=== PATIENT | male | born 1940 | race Two or more races ===

== ENCOUNTER → 2017-09-08 06:18 | Outpatient (CLI) | payer MEDICARE, SELFPAY ==
--- NOTE | 2017-09-08 18:11 | STRESSREP ---
Stress Test Report Pharmacologic myocardial perfusion stress test. 77-year-old man with a history of shortness of breath and a previous history of atrial fibrillation. Stress protocol: Resting EKG demonstrates normal sinus rhythm with a rate of 52 bpm normal intervals and noted resting blood pressure is 144/86 centimeters of mercury. 0.4 mg regadenoson was infused per usual protocol followed by rapid intravenous saline flush injection continuous EKG monitoring was performed the maximum heart rate attained was 78 bpm which was 53% maximum target heart rate the maximum workload was 1 metabolic equivalent. At rest there were no ST or T-wave changes noted to suggest abnormal flow reserve at peak infusion no ST or T-wave changes were noted to suggest abnormal flow reserve. No clinical angina was noted. The resting blood pressure is 144/86 with a final blood pressure 126/74. Myocardial perfusion protocol: 11.2 mCi of technetium 99m sestamibi was injected at rest. 0.4 mg of regadenoson was infused per usual protocol. Peak infusion 36.0 mCi of technetium 99m sestamibi was injected. Stress images were obtained stress and rest images were reconstructed and compared in the short axis vertical long and horizontal long axis. Gated images were also obtained pre- Perfusion SPECT analysis: Review of the stress images demonstrate normal uptake of tracer noted in all areas of the myocardium. The resting images similarly demonstrate normal uptake of tracer noted in all areas of the myocardium. No previous infarct is noted and no ischemia is noted. Gated SPECT analysis: The gated ejection fraction is noted to be 87%. Conclusion: Normal pharmacologic myocardial perfusion stress test. Preserved ejection fraction.
--- NOTE | 2017-09-08 18:14 | STRESSREP_ITS ---
Stress Test Report Pharmacologic myocardial perfusion stress test. 77-year-old man with a history of shortness of breath and a previous history of atrial fibrillation. Stress protocol: Resting EKG demonstrates normal sinus rhythm with a rate of 52 bpm normal intervals and noted resting blood pressure is 144/86 centimeters of mercury. 0.4 mg regadenoson was infused per usual protocol followed by rapid intravenous saline flush injection continuous EKG monitoring was performed the maximum heart rate attained was 78 bpm which was 53% maximum target heart rate the maximum workload was 1 metabolic equivalent. At rest there were no ST or T- wave changes noted to suggest abnormal flow reserve at peak infusion no ST or T- wave changes were noted to suggest abnormal flow reserve. No clinical angina was noted. The resting blood pressure is 144/86 with a final blood pressure 126 /74. Myocardial perfusion protocol: 11.2 mCi of technetium 99m sestamibi was injected at rest. 0.4 mg of regadenoson was infused per usual protocol. Peak infusion 36.0 mCi of technetium 99m sestamibi was injected. Stress images were obtained stress and rest images were reconstructed and compared in the short axis vertical long and horizontal long axis. Gated images were also obtained pre- Perfusion SPECT analysis: Review of the stress images demonstrate normal uptake of tracer noted in all areas of the myocardium. The resting images similarly demonstrate normal uptake of tracer noted in all areas of the myocardium. No previous infarct is noted and no ischemia is noted. Gated SPECT analysis: The gated ejection fraction is noted to be 87%. Conclusion: Normal pharmacologic myocardial perfusion stress test. Preserved ejection fraction.
== END ==
PROVIDERS: Family Provider Family Medicine Geriatric Medicine; PCP Family Medicine Geriatric Medicine; Visit Provider Internal Medicine Cardiovascular Disease
DX: I48.91 Unspecified atrial fibrillation (principal); R07.9 Chest pain, unspecified
CPT/HCPCS: 78452; 93017; A9500; A4216; J2785

== ENCOUNTER → 2017-09-29 07:03 | Outpatient (CLI) | payer MEDICARE, SELFPAY ==
[2017-09-29 10:21] LABS: AST(SGOT) 26 U/L (15-37); Alanine Aminotransfer ALT/SGPT 44 U/L (16-61); Albumin, Serum 3.6 g/dL (3.2-5.0); Alkaline Phosphatase 51 U/L (45-117); Anion Gap 10 (5-15); BUN 20 mg/dL (7-18); BUN/Creat Ratio 14.9 RATIO (10-20); Calcium,Total 8.8 mg/dL (8.5-10.1); Chloride 98 mmol/L (98-107); Cholesterol 140 mg/dL (200); Creatinine, Serum 1.34 mg/dL (0.70-1.30); EST Glomerular Filtration Rate 55 mL/min (>60); Est Glom Filt Rate - Afr Amer 67 mL/min (>60); Globulin 3.6 g/dL (2.2-4.2); Glucose 85 mg/dL (74-106); High Density Lipoprotein 56 mg/dL; Potassium 4.4 mmol/L (3.5-5.1); Protein, Total 7.2 g/dL (6.4-8.2); Sodium Level 135 mmol/L (136-145); Triglycerides 92 mg/dL; Very Low Density Lipoprotein 18 mg/dL (5-40)
== END ==
PROVIDERS: Family Provider Family Medicine Geriatric Medicine; PCP Family Medicine Geriatric Medicine; Visit Provider Internal Medicine Cardiovascular Disease
DX: I11.0 Hypertensive heart disease with heart failure (principal); I50.32 Chronic diastolic (congestive) heart failure
CPT/HCPCS: 36415; 80048; 80061; 80076

== ENCOUNTER → 2017-10-02 15:25 | Outpatient (CLI) | payer MEDICARE, SELFPAY ==
[2017-10-02 15:55] LABS: Absolute Lymphocyte Count 2.22 X10^3/ul (0.83-4.51); Absolute Neutrophil Count 3.9 X10^3/uL (2.0-7.7); Basophil# 0.04 X10^3/uL; Basophil% 0.6 % (0-1); Eosinophil# 0.22 X10^3/uL; Eosinophils% 3.1 % (0-5); Hematocrit 34.5 % (40-54); Hemoglobin 11.8 g/dl (13.0-16.5); Lymphocyte # 2.22 X10^3/ul (4.0); Lymphocyte % 30.8 % (19-41); Mean Corp Hgb Conc 34.2 g/gl (32-36); Mean Corpuscular Volume 61.3 fL (80-94); Monocyte# 0.77 X10^3/uL; Monocyte% 10.7 % (0-10); Neutrophil # 3.91 X10^3/uL (2.7-7.7); Neutrophil % 54.2 % (47-70); Platelet Count 254 K/mm3 (150-450); RBC Distribution Width CV 17.8 % (11.6-14.6); RBC Distribution Width SD 38.3 fl (35.1-43.9); Red Blood Count 5.63 M/mm3 (4.6-6.2); White Blood Count 7.2 K/mm3 (4.4-11.0)
[2017-10-02 15:58] LABS: POSITIVE COUNT NO; POSITIVE DIFFERENTIAL NO; POSITIVE MORPHOLOGY NO
[2017-10-02 16:31] LABS: Thyroid Stim Hormone (TSH) 2.14 uIU/mL (0.358-3.74)
[2017-10-02 16:57] LABS: Vitamin D,25 Hydroxy 16.2 ng/mL (29.95-100.01)
== END ==
PROVIDERS: Family Provider Family Medicine Geriatric Medicine; PCP Family Medicine Geriatric Medicine; Visit Provider Family Medicine Geriatric Medicine
DX: E55.9 Vitamin D deficiency, unspecified (principal); E78.4 Other hyperlipidemia; I10 Essential (primary) hypertension
CPT/HCPCS: 36415; 82306; 84443; 85025

== ENCOUNTER → 2017-10-04 10:56 | Outpatient (CLI) | payer MEDICARE, SELFPAY ==
--- NOTE | 2017-10-04 11:11 | US_ITS ---
STUDY: SUPERFICIAL ULTRASOUND - RT AXILLA REASON FOR EXAM: Male, 77 years old. RT AXILLA LYMPHADENOPATHY TECHNIQUE: A superficial ultrasound was performed with real-time and static bob-scale imaging. COMPARISON: None. FINDINGS: There is no evidence to suggest abscess formation. No focal fluid collections. Kidney shaped mass in the right axilla measuring 8.5 x 3.5 x 5 mm. This has a fatty hilum. US/Ext Non Vasc Limited/Soft Tiss IMPRESSION: 8.5 mm lymph node in the right axilla. Electronically Signed: Mykel Kaiser MD at 17:42 EDT , Service support ,
== END ==
PROVIDERS: Family Provider Family Medicine Geriatric Medicine; PCP Family Medicine Geriatric Medicine; Visit Provider Family Medicine Geriatric Medicine
DX: R59.0 Localized enlarged lymph nodes (principal)
CPT/HCPCS: 76882

== ENCOUNTER → 2017-11-20 07:59 | Day surgery (SDC) | payer MEDICARE, SELFPAY ==
--- NOTE | 2017-11-15 10:30 | RAD_ITS ---
STUDY: X-RAY CHEST REASON FOR EXAM: Male, 77 years old. Chest pain and shortness of breath TECHNIQUE: PA and lateral views of the chest. COMPARISON: 2010 FINDINGS: Lungs are expanded with chronic interstitial changes, no superimposed acute pulmonary process. There is no demonstrated pleural abnormality. Normal size heart. Normal mediastinum and ernestina. Normal visualized pulmonary arteries. Normal visualized aortic arch and descending thoracic aorta. Normal visualized thoracic spine. Normal visualized ribs, clavicles, and shoulders. There is no demonstrated abnormality of the visualized soft tissue structures of the upper abdomen. RAD/Chest PA and Lateral IMPRESSION: Chronic interstitial changes, no superimposed acute pulmonary process. Electronically Signed: Jeffrey Barrera MD at 8:11 EDT , Service support ,
--- NOTE | 2017-11-20 07:59 | DT_ITS ---
This patient was seen during an EMR downtime November 13, 2017 - November 20, 2017. This patient may have a combination of paper and electronic documentation or all paper documentation. All documentation is viewable within the e-chart portion of [employer] for each patient visit.
[2017-11-20 08:04] VITALS: BMI 26.8
[2017-11-20 12:24] LABS: Absolute Lymphocyte Count 2.14 X10^3/ul (0.83-4.51); Absolute Neutrophil Count 4.4 X10^3/uL (2.0-7.7); Basophil% 0.4 % (0-1); Eosinophils% 3.3 % (0-5); Hematocrit 38.7 % (40-54); Lymphocyte # 2.14 X10^3/ul (4.0); Mean Corp Hgb Conc 33.6 g/gl (32-36); Mean Corpuscular Hgb 20.7 pg (27.0-32.0); Mean Corpuscular Volume 61.5 fL (80-94); Monocyte% 9.6 % (0-10); Neutrophil # 4.42 X10^3/uL (2.7-7.7); Neutrophil % 57.9 % (47-70); POSITIVE COUNT NO; POSITIVE DIFFERENTIAL NO; POSITIVE MORPHOLOGY NO; Platelet Count 283 K/mm3 (150-450); RBC Distribution Width CV 16.6 % (11.6-14.6); Red Blood Count 6.29 M/mm3 (4.6-6.2); White Blood Count 7.6 K/mm3 (4.4-11.0)
[2017-11-20 12:25] LABS: International Normalized Ratio 1.5; Prothrombin Time (Protime)PT. 17.7 SECONDS (11.7-14.9)
[2017-11-20 12:33] LABS: Glucose 88 mg/dL (74-106)
[2017-11-20 12:34] LABS: Anion Gap 9 (5-15); BUN 19 mg/dL (7-18); BUN/Creat Ratio 15.8 RATIO (10-20); Calcium,Total 9.2 mg/dL (8.5-10.1); Chloride 99 mmol/L (98-107); EST Glomerular Filtration Rate 63 mL/min (>60); Est Glom Filt Rate - Afr Amer 76 mL/min (>60); Potassium 4.1 mmol/L (3.5-5.1); Sodium Level 137 mmol/L (136-145)
--- NOTE | 2017-11-20 16:57 | CL.D_ITS ---
Patient Name: OXANA SEGUNDO Study Date: 11/20/2017 Performing: Edvin Kim MD Ht: 66 inches 167.64 cm : 1940 Wt: 165.2 lbs 74.843 kg Age: 77 Gender: male BSA: 1.84 PROCEDURE(S) PERFORMED PN67-FFB/COR/LV CLINICAL PROFILE AND INDICATIONS Indications: Suspected CAD Heart Failure: None Stress/Imaging Stress/Image Study Performed: No CAD Presentations: Symptom unlikely to be ischemic. CONCLUSIONS Diffuse distal LAD disease, distal RCA disease and OM disease RECOMMENDATIONS Medical therapy DESCRIPTION OF PROCEDURE The patient arrived to the procedure lab. The risks and benefits of the procedure as well as a full d escription of our services here and current unavailability of surgical backup were fully explained to the patient and/or their significant other prior to the catheterization. The Timeout was completed, verifying the correct patient and procedure. The patient's procedural site was prepped and draped in the usual fashion. Local anesthetic was given subcutaneously to right radial region with Lidocaine 2% . Using a modified Seldinger technique, arterial access was obtained via the right radial artery, a 6 Fr sheath was inserted. Left Coronary Artery selective angiography was performed in multiple views u sing a 5 Fr. 4.0 Tieton catheter. Right Coronary Artery selective angiography was then performed in mu ltiple views using a 5 Fr. 4.0 Tieton catheter. Left Ventriculography was performed in GLOVER projection using a 5 Fr. Pigtail catheter. LV to AO pullback pressures were then recorded.The arterial sheath wa s pulled and a TR Band was applied for hemostasis w/ 16ml air CORONARY ANGIOGRAPHY DOMINANCE: Right Dominant LEFT HEART ASSESSMENT Left Ventricular Ejection Fraction: by LV Gram 55 % Normal LV wall motion Normal Left Ventricular systolic function LEFT MAIN: Mild luminal irregularities LEFT ANTERIOR DECENDING ARTERY: Mild luminal irregularities DISTAL LAD: Diffusely diseased up to 90 % CIRCUMFLEX ARTERY: Mild luminal irregularities less than 30% OM 1: Proximal - Mild luminal irregularities OM 2: Mid - Bifurcates into 2 with superior division having 80% stenosis of the inferior division hav ing a 90% diffuse distal stenosis RIGHT CORONARY ARTERY: Mild luminal irregularities DISTAL RCA: Diffusely diseased up to 70 % RT PDA: Proximal - Diffusely diseased up to 90 % COMPLICATIONS No Complications PROCEDURE MEDICATIONS Fentanyl 50 mcg IV Versed 1 mg IV Oxygen: 2 L/min via nasal cannula Heparin diluted in 23cc Heparinized saline. Patient given 10cc IA of this solution. 11/20/2017 09:45: 39 Verapamil 2.5mg, Ntg 100mcgs, 2000 units of Heparin diluted in 23cc Heparinized saline. Patient give n 10cc IA of this solution. 11/20/2017 09:45:39 SUMMARY OF HEMODYNAMIC DATA Time AIR REST ECG 09:05:59 AO 120/71 (91) SA 09:49:11 LV 139/4, 14 09:57:20 LV 143/5, 15 09:57:26 LV 116/5, 18 09:58:50 LVp 116/4, 15 09:58:54 AOp 120/63 (87) 09:58:59 ECG 10:10:53 Signed By Edvin Kim MD On 11/20/2017 16:56:56 Edvin Kim MD
== END ==
PROVIDERS: Family Provider Family Medicine Geriatric Medicine; PCP Family Medicine Geriatric Medicine; Visit Provider Internal Medicine Cardiovascular Disease
DX: R07.89 Other chest pain (principal); I10 Essential (primary) hypertension; E78.00 Pure hypercholesterolemia, unspecified; I48.91 Unspecified atrial fibrillation
CPT/HCPCS: 36415; 71046; 80048; 85025; 85610; 93458; 99152; 99153; J7040; Q9967; C1769; C1894

== ENCOUNTER → 2017-11-28 16:45 | Outpatient (CLI) | payer MEDICARE, SELFPAY | PROVIDERS: Family Provider Family Medicine Geriatric Medicine; PCP Family Medicine Geriatric Medicine; Visit Provider Family Medicine Geriatric Medicine | DX: J40 Bronchitis, not specified as acute or chronic (principal) | CPT/HCPCS: 87633 ==

== ENCOUNTER → 2017-12-26 15:22 | Outpatient (CLI) | payer MEDICARE, SELFPAY ==
--- NOTE | 2017-12-26 15:28 | US_ITS ---
STUDY: ULTRASOUND BREAST - RIGHT REASON FOR EXAM: Male, 77 years old. Palpable periareolar lump in the right breast. TECHNIQUE: Axial and longitudinal images of the RIGHT breast were performed with a high resolution ultrasound transducer. COMPARISON: Comparison is made with prior mammogram dated November 26, 2010. FINDINGS: RIGHT Breast: The periareolar regions of both breasts were performed. No solid or cystic mass lesion is seen. US/Breast Limited Unilateral IMPRESSION: No sonographic abnormality is seen. ASSESSMENT CATEGORY: BIRADS Category 1: Negative. A letter regarding these results will be sent to the patient by the facility within 30 days. Electronically Signed: Heriberto Paul MD at 9:01 EDT Tel [phone], Service support ,
== END ==
PROVIDERS: Family Provider Family Medicine Geriatric Medicine; PCP Family Medicine Geriatric Medicine; Visit Provider Surgery
DX: N63.10 Unspecified lump in the right breast, unspecified quadrant (principal); N64.4 Mastodynia
CPT/HCPCS: 76642

== ENCOUNTER → 2018-04-09 10:10 | Outpatient (CLI) | payer MEDICARE, SELFPAY ==
[2018-04-09 10:40] LABS: Absolute Lymphocyte Count 1.88 X10^3/ul (0.83-4.51); Absolute Neutrophil Count 3.9 X10^3/uL (2.0-7.7); Basophil# 0.04 X10^3/uL; Basophil% 0.6 % (0-1); Eosinophil# 0.25 X10^3/uL; Eosinophils% 3.7 % (0-5); Hematocrit 38.9 % (40-54); Hemoglobin 13.5 g/dl (13.0-16.5); Lymphocyte # 1.88 X10^3/ul (4.0); Lymphocyte % 27.6 % (19-41); Mean Corp Hgb Conc 34.7 g/gl (32-36); Mean Corpuscular Hgb 20.8 pg (27.0-32.0); Mean Platelet Vol. 9.4 fl (6.2-12.0); Monocyte% 10.3 % (0-10); Neutrophil # 3.93 X10^3/uL (2.7-7.7); Neutrophil % 57.5 % (47-70); POSITIVE COUNT NO; POSITIVE DIFFERENTIAL NO; POSITIVE MORPHOLOGY NO; Platelet Count 220 K/mm3 (150-450); RBC Distribution Width CV 17.4 % (11.6-14.6); RBC Distribution Width SD 34.9 fl (35.1-43.9); Red Blood Count 6.48 M/mm3 (4.6-6.2); White Blood Count 6.8 K/mm3 (4.4-11.0)
[2018-04-09 11:17] LABS: Vitamin D,25 Hydroxy 33.4 ng/mL (29.95-100.01)
[2018-04-09 11:20] LABS: ALB/GLOB Ratio 0.9 RATIO (0.9-2.4); AST(SGOT) 60 U/L (15-37); Alanine Aminotransfer ALT/SGPT 112 U/L (16-61); Albumin, Serum 3.7 g/dL (3.2-5.0); Alkaline Phosphatase 54 U/L (45-117); Anion Gap 5 (5-15); BUN 20 mg/dL (7-18); BUN/Creat Ratio 15.6 RATIO (10-20); Bilirubin, Direct 0.33 mg/dL (0.00-0.30); Calcium,Total 8.7 mg/dL (8.5-10.1); Chloride 100 mmol/L (98-107); Cholesterol 148 mg/dL (200); Creatinine, Serum 1.28 mg/dL (0.70-1.30); EST Glomerular Filtration Rate 58 mL/min (>60); Est Glom Filt Rate - Afr Amer 70 mL/min (>60); Globulin 3.9 g/dL (2.2-4.2); Glucose 101 mg/dL (74-106); High Density Lipoprotein 59 mg/dL; PSA,Total - Annual Screen 0.51 ng/mL (0.00-4.00); Potassium 4.2 mmol/L (3.5-5.1); Protein, Total 7.6 g/dL (6.4-8.2); Sodium Level 134 mmol/L (136-145); Thyroid Stim Hormone (TSH) 1.46 uIU/mL (0.358-3.74); Triglycerides 119 mg/dL; Very Low Density Lipoprotein 24 mg/dL (5-40)
[2018-04-10 10:56] LABS: Hep C Antibodies <0.1 s/co ratio (0.0-0.9)
== END ==
PROVIDERS: Internal Medicine Cardiovascular Disease; Family Provider Family Medicine Geriatric Medicine; PCP Family Medicine Geriatric Medicine; Referring Provider Family Medicine Geriatric Medicine; Visit Provider Family Medicine Geriatric Medicine
DX: E55.9 Vitamin D deficiency, unspecified (principal); E78.49 Other hyperlipidemia; I10 Essential (primary) hypertension; Z13.89 Encounter for screening for other disorder; Z12.5 Encounter for screening for malignant neoplasm of prostate
CPT/HCPCS: 36415; 80053; 80061; 82248; 82306; 84153; 84156; 84443; 85025; 86803; G0103

== ENCOUNTER → 2018-06-28 11:09 | Outpatient (CLI) | payer MEDICARE, SELFPAY ==
[2018-06-26 14:14] VITALS: BMI 28.4
== END ==
PROVIDERS: Family Provider Family Medicine Geriatric Medicine; PCP Family Medicine Geriatric Medicine; Referring Provider Internal Medicine Cardiovascular Disease; Visit Provider Internal Medicine Cardiovascular Disease
DX: I10 Essential (primary) hypertension (principal)
CPT/HCPCS: 93788

== ENCOUNTER → 2018-10-08 14:45 | Outpatient (CLI) | payer MEDICARE, SELFPAY ==
[2018-06-26 14:14] VITALS: BMI 28.4
[2018-10-08 16:28] LABS: Vitamin D,25 Hydroxy 19.9 ng/mL (29.95-100.01)
[2018-10-08 16:35] LABS: AST(SGOT) 62 U/L (15-37); Alanine Aminotransfer ALT/SGPT 91 U/L (16-61); Albumin, Serum 3.6 g/dL (3.2-5.0); Alkaline Phosphatase 46 U/L (45-117); Anion Gap 8 (5-15); BUN 24 mg/dL (7-18); BUN/Creat Ratio 16.6 RATIO (10-20); Calcium,Total 8.7 mg/dL (8.5-10.1); Chloride 102 mmol/L (98-107); Cholesterol 147 mg/dL (200); Creatinine, Serum 1.45 mg/dL (0.70-1.30); EST Glomerular Filtration Rate 50 mL/min (>60); Est Glom Filt Rate - Afr Amer 61 mL/min (>60); Globulin 3.6 g/dL (2.2-4.2); Glucose 117 mg/dL (74-106); High Density Lipoprotein 48 mg/dL; Potassium 4.4 mmol/L (3.5-5.1); Protein, Total 7.2 g/dL (6.4-8.2); Sodium Level 136 mmol/L (136-145); Thyroid Stim Hormone (TSH) 1.48 uIU/mL (0.358-3.74); Triglycerides 237 mg/dL; Very Low Density Lipoprotein 47 mg/dL (5-40)
[2018-10-08 17:05] LABS: Absolute Lymphocyte Count 2.24 X10^3/ul (0.83-4.51); Basophil# 0.04 X10^3/uL; Basophil% 0.7 % (0-1); Differential Indicated SCAN CRITERIA MET; Eosinophil# 0.21 X10^3/uL; Eosinophils% 3.5 % (0-5); Hematocrit 37.4 % (40-54); Hemoglobin 12.7 g/dl (13.0-16.5); Lymphocyte # 2.24 X10^3/ul (4.0); Lymphocyte % 37.5 % (19-41); Mean Corpuscular Hgb 21.3 pg (27.0-32.0); Mean Corpuscular Volume 62.9 fL (80-94); Monocyte# 0.45 X10^3/uL; Monocyte% 7.5 % (0-10); Neutrophil # 3.01 X10^3/uL (2.7-7.7); Neutrophil % 50.5 % (47-70); POSITIVE COUNT NO; POSITIVE DIFFERENTIAL NO; POSITIVE MORPHOLOGY YES; Platelet Count 157 K/mm3 (150-450); RBC Distribution Width CV 16.4 % (11.6-14.6); RBC Distribution Width SD 36.6 fl (35.1-43.9); Red Blood Count 5.95 M/mm3 (4.6-6.2)
[2018-10-08 18:27] LABS: Anisocytosis 1+; Differential Comment SCANNED; Hypochromasia 1+; Microcytosis 2+; Ovalocyte RARE; Platelet Estimate ADEQUATE (ADEQ); Poikilocytosis RARE
[2018-10-08 18:28] LABS: Target Cells 1+; Tear Drop Cell RARE
== END ==
PROVIDERS: Family Provider Family Medicine Geriatric Medicine; PCP Family Medicine Geriatric Medicine; Visit Provider Family Medicine Geriatric Medicine
DX: E55.9 Vitamin D deficiency, unspecified (principal); E78.5 Hyperlipidemia, unspecified; I10 Essential (primary) hypertension
CPT/HCPCS: 36415; 80053; 80061; 82306; 84443; 85025

== ENCOUNTER → 2018-11-22 13:46 | Outpatient (CLI) | payer MEDICARE, SELFPAY ==
[2018-06-26 14:14] VITALS: BMI 28.4
--- NOTE | 2018-11-22 14:04 | RAD_ITS ---
HISTORY: PAIN ADDITIONAL HISTORY: None provided. COMPARISON: None TECHNIQUE: Right hip 2 views with AP pelvis Number of images including paperwork: 3 FINDINGS: BONES: No acute fracture. JOINTS: No subluxation. Mild joint space narrowing of the hips. Mild degenerative changes of the lower spine, sacral iliac joints and symphysis pubis. SOFT TISSUES: No distinct foreign body. Vascular calcifications. RAD/HIP, UNI W/ Pelvis 2-3 Views IMPRESSION: Degenerative changes without acute osseous abnormality. at 0416 Reported and signed by: Kendra Rivas MD Electronically Signed: Kendra Rivas MD at 4:16 EDT Tel , Service support ,
--- NOTE | 2018-11-22 14:04 | RAD_ITS ---
HISTORY: PAIN TECHNIQUE: Lumbar spine 3 views Number of images including paperwork: 3 COMPARISON: Lumbar spine 3 views FINDINGS: VERTEBRAE: No acute fracture. VERTEBRAL ALIGNMENT: No traumatic subluxation. Straightening of the normal lumbar lordosis. DISKS AND JOINTS: Mild multilevel discogenic degenerative changes. Facet arthropathy. SOFT TISSUES: Vascular calcification. RAD/Lumbar Spine 2 or 3 Views IMPRESSION: 1. No acute osseous abnormality. 2. Lumbar spondylosis. at 0418 Reported and signed by: Kendra Rivas MD Electronically Signed: Kendra Rivas MD at 4:18 EDT Tel , Service support ,
[2018-11-22 16:03] LABS: AST(SGOT) 43 U/L (15-37); Alanine Aminotransfer ALT/SGPT 73 U/L (16-61); Albumin, Serum 3.5 g/dL (3.2-5.0); Alkaline Phosphatase 45 U/L (45-117); Anion Gap 7 (5-15); BUN 24 mg/dL (7-18); BUN/Creat Ratio 18.6 RATIO (10-20); Calcium,Total 9.1 mg/dL (8.5-10.1); Chloride 98 mmol/L (98-107); Creatinine, Serum 1.29 mg/dL (0.70-1.30); EST Glomerular Filtration Rate 57 mL/min (>60); Est Glom Filt Rate - Afr Amer 70 mL/min (>60); Globulin 3.6 g/dL (2.2-4.2); Glucose 80 mg/dL (74-106); Potassium 4.3 mmol/L (3.5-5.1); Protein, Total 7.1 g/dL (6.4-8.2); Sodium Level 136 mmol/L (136-145)
[2018-11-24 05:06] LABS: HEPATITIS B SURFACE AG Negative (Negative); Hepatitis A AB, Total Positive (Negative); Hepatitis B Core AB IgM Negative (Negative); Hepatitis B Core Ab Total Negative (Negative); Hepatitis C Ab <0.1 s/co ratio (0.0-0.9)
[2018-11-24 11:34] LABS: Hep B Surface Antibodies Non Reactive (.); Hepatitis A IgM Antibody Indeterminate (Negative)
== END ==
LOC: POLAB3 13:47 → RAD 13:59
PROVIDERS: Family Provider Family Medicine Geriatric Medicine; PCP Family Medicine Geriatric Medicine; Referring Provider Family Medicine Geriatric Medicine; Visit Provider Family Medicine Geriatric Medicine
DX: R74.8 Abnormal levels of other serum enzymes (principal); M51.86 Other intervertebral disc disorders, lumbar region; M25.559 Pain in unspecified hip
CPT/HCPCS: 36415; 72100; 73502; 80053; 86704; 86705; 86706; 86708; 86709; 86803; 87340

== ENCOUNTER → 2018-11-23 10:08 | Outpatient (CLI) | payer MEDICARE, SELFPAY ==
[2018-06-26 14:14] VITALS: BMI 28.4
== END ==
PROVIDERS: Family Provider Family Medicine Geriatric Medicine; PCP Family Medicine Geriatric Medicine; Visit Provider Family Medicine Geriatric Medicine
DX: R74.8 Abnormal levels of other serum enzymes (principal)

== ENCOUNTER → 2018-11-30 12:43 | Outpatient (CLI) | payer MEDICARE, SELFPAY ==
[2018-06-26 14:14] VITALS: BMI 28.4
[2018-11-30 13:28] LABS: AST(SGOT) 29 U/L (15-37); Alanine Aminotransfer ALT/SGPT 48 U/L (16-61); Albumin, Serum 3.5 g/dL (3.2-5.0); Alkaline Phosphatase 44 U/L (45-117); Anion Gap 5 (5-15); BUN 32 mg/dL (7-18); BUN/Creat Ratio 23.7 RATIO (10-20); Calcium,Total 9.1 mg/dL (8.5-10.1); Chloride 101 mmol/L (98-107); Creatinine, Serum 1.35 mg/dL (0.70-1.30); EST Glomerular Filtration Rate 55 mL/min (>60); Est Glom Filt Rate - Afr Amer 66 mL/min (>60); Globulin 3.6 g/dL (2.2-4.2); Glucose 92 mg/dL (74-106); Potassium 4.1 mmol/L (3.5-5.1); Protein, Total 7.1 g/dL (6.4-8.2); Sodium Level 132 mmol/L (136-145)
== END ==
PROVIDERS: Family Provider Family Medicine Geriatric Medicine; PCP Family Medicine Geriatric Medicine; Visit Provider Family Medicine Geriatric Medicine
DX: R74.8 Abnormal levels of other serum enzymes (principal)
CPT/HCPCS: 36415; 80053

== ENCOUNTER 2019-01-08 12:00 | Outpatient (RCR) | payer MEDICARE, SELFPAY ==
[2018-06-26 14:14] VITALS: BMI 28.4
--- NOTE | 2018-12-11 16:51 | HP.PTEVAL ---
Patient's Visit Information OXANA SEGUNDO is a 78 year old M referred to Physical Therapy by Aayush Kelly MD with a diagnosis of LBP. Date of Evaluation: 12/11/18 Physical Therapist: Jose Kirk, LAYT, OCS, CSCS - Visit Plan Frequency: 1x/Week Duration: 4-6 Weeks Plan: f/u 2 weeks to go back to gym ex in clinic, ensure HS adn quad stretch, gastroc stretch, glut exercisses and then f/u again for core strengthening as needed. May increase frequency if improvment does not continue for NS strength - Subjective Findings: Has LB spondylosis. Has LBP. Has had it for 3 months insidiously. Was working out for 6 months at when it started out of no where. Hs not worked in garden due to LBP. Mornings are improving but they used to be tough and painful. pain is in tailbone adn into R hip. Lets up after two hours in am and then becomes tolerable in back and posterior R hip. Got better after injections from [facility] zelaya last week. Sleep is OK with meds. Used to keep him up. Sleeps on L side. Not employed, retired from. Spends day working out at when he can but limited due to pain, also silver [employer] class. Even stopped going to pool. Had afib in [place] and that is what stopped the pool. Enjoys mowing the grass and it takes 2.5 hours. Sitting on mower is painful. Also watches TV - Pain LBP and R hip post Pain Intensity (Out of 10): 8 Pain Intensity Range: 0, 8 - Objective LB stiff and flat lordosis, R LB pain with ext adn R SB. Min deficits in ext adn SB. Flexion very tight. reflexes Patella and achilles 2/3. Sensation LE WNL to gross light touch. HS and gastroc and quads mod tight. Strength hips, knees 4/5 adn ankles 4+/5 B. PA pressure hurts at L5. Hip AROM symmetrical and WFL, - hip scouring, - AMBER adn FADDIR. Poor pelvic coordination and 4-/5 core strength. - Goals Goal 1:: LBP 2/10 at worst adn 75% improved overall. Goal Time Frame: 4-6 Weeks Goal 2:: Back to normal workout without increasing pain Goal Time Frame: 4-6 Weeks Goal 3:: Sleep without discomfort Goal Time Frame: 4-6 Weeks Goal 4:: Mow lawn as needed with modifications without increasing pain. Goal Time Frame: 4-6 Weeks Goal 5:: I approp LB ex to minimize future problems. Goal Time Frame: 4-6 Weeks - Rehabilitation Potential Physical Therapy Diagnosis: LBP likely degenrative in nature Rehabilitation Potential: Fair - Anticipated Interventions Patient/Client Instruction: Educate patient on: Condition, Plan of Care For the Purpose of:: To decrease pain, To increase ROM, To improve muscle performance and motor function, To improve ability of physical actions for home/community/work/leisure Therapeutic Exercise to Include: Strength training, Flexibilty training, Passive ROM, Active ROM, Dynamic Lumbar Stabilization For the Purpose of:: To decrease pain, To increase ROM, To improve ability of physical actions for home/community/work/leisure Thermo therapy (hot pack): Yes For the Purpose of:: To decrease pain Thank you for the opportunity to evaluate your patient. For Medicare and Medicare HMO plans, please review the plan of care and approve it. It will need to be FAXED BACK to us at [phone] for Medicare purposes. For Medicare only, by signing this I certify the plan of care. Please let me know if there are questions or concerns regarding this plan of care. Physician Signature: Date:
--- NOTE | 2019-01-08 12:42 | HP.PTDCSUM ---
HP - PT D/C Summary It has been my pleasure to treat OXANA SEGUNDO under orders from Aayush Kelly MD, for the diagnosis of LBP for a total of 3 visit(s). Discharge Date: Please see the following information for a summary of their discharge status. - Subjective Subjective: Back is nearing 100% better. Did not do new exercises as he did not want to get on floor but did orginal ex and worked out in water. Ready to try gym. No problem sleeping or with activities at home. Travelled well to [place] last week. - Pain LBP and R hip post Pain Intensity (Out of 10): 0 - Overall Improvement % Improvement: 90 - Objective Objective/Function: Did patients workout in gym today as he wishes to get back to it and corrected and checked technique and tolerance. Will work back up to 3x15 on all exercisesper tolerance over next couple weeks. Pt wishes to be done and will continue I in gyma dn pool and home. - Goals Goal 1:: LBP 2/10 at worst adn 75% improved overall. Goal Progress: Goal Met Goal 2:: Back to normal workout without increasing pain Goal Progress: Progressing Goal 3:: Sleep without discomfort Goal Progress: Goal Met Goal 4:: Mow lawn as needed with modifications without increasing pain. Goal Progress: ? Goal 5:: I approp LB ex to minimize future problems. Goal Progress: Goal Met - Plan Plan: d/c - D/C Information If there are questions or concerns regarding this patient's physical therapy, please feel free to call me at [phone]. Thank you for the referral of this patient. Sincerely, Jose Kirk, DPT, OCS, CSCS
== END 2019-01-08 19:00 | disposition home or self-care (01) ==
LOC: PT 12:00
PROVIDERS: Family Provider Family Medicine Geriatric Medicine; PCP Family Medicine Geriatric Medicine; Visit Provider Family Medicine Geriatric Medicine
DX: M54.5 Low back pain (principal)
CPT/HCPCS: 97110; 97162

== ENCOUNTER → 2019-04-10 10:08 | Outpatient (CLI) | payer MEDICARE, SELFPAY ==
[2018-06-26 14:14] VITALS: BMI 28.4
[2018-12-14 08:38] VITALS: BMI 27.8
[2019-04-10 12:54] LABS: Absolute Lymphocyte Count 2.18 X10^3/uL (0.83-4.51); Absolute Neutrophil Count 3.1 X10^3/uL (2.0-7.7); Basophil# 0.05 X10^3/uL; Basophil% 0.8 % (0-1); Eosinophil# 0.14 X10^3/uL; Eosinophils% 2.3 % (0-5); Hematocrit 40.4 % (40-54); Lymphocyte # 2.18 X10^3/ul (4.0); Mean Corp Hgb Conc 32.2 g/dL (32-36); Mean Corpuscular Hgb 20.9 pg (27.0-32.0); Mean Corpuscular Volume 64.8 fL (80-94); Monocyte# 0.74 X10^3/uL; Monocyte% 11.9 % (0-10); NRBC Flagged by Analyzer 0 % (0-5); Neutrophil # 3.07 X10^3/uL (2.7-7.7); Neutrophil % 49.4 % (47-70); Platelet Count 244 K/mm3 (150-450); RBC Distribution Width CV 17.5 % (11.6-14.6); RBC Distribution Width SD 35.4 fl (35.1-43.9); Red Blood Count 6.23 M/mm3 (4.6-6.2); White Blood Count 6.2 K/mm3 (4.4-11.0)
[2019-04-10 13:13] LABS: ALB/GLOB Ratio 0.8 RATIO (0.9-2.4); AST(SGOT) 29 U/L (15-37); Alanine Aminotransfer ALT/SGPT 44 U/L (16-61); Albumin, Serum 3.3 g/dL (3.2-5.0); Alkaline Phosphatase 45 U/L (45-117); Anion Gap 8 (5-15); BUN 19 mg/dL (7-18); BUN/Creat Ratio 14.7 RATIO (10-20); Calcium,Total 8.7 mg/dL (8.5-10.1); Chloride 97 mmol/L (98-107); Cholesterol 216 mg/dL (200); Creatinine, Serum 1.29 mg/dL (0.70-1.30); EST Glomerular Filtration Rate 57 mL/min (>60); Est Glom Filt Rate - Afr Amer 69 mL/min (>60); Glucose 99 mg/dL (74-106); High Density Lipoprotein 54 mg/dL; Potassium 4.2 mmol/L (3.5-5.1); Protein, Total 7.3 g/dL (6.4-8.2); Sodium Level 134 mmol/L (136-145); Thyroid Stim Hormone (TSH) 1.85 uIU/mL (0.358-3.74); Triglycerides 140 mg/dL; Uric Acid 5.2 mg/dL (3.5-7.2); Very Low Density Lipoprotein 28 mg/dL (5-40); Vitamin D,25 Hydroxy 27.5 ng/mL (29.95-100.01)
== END ==
PROVIDERS: Family Provider Family Medicine Geriatric Medicine; PCP Family Medicine Geriatric Medicine; Visit Provider Family Medicine Geriatric Medicine
DX: E55.9 Vitamin D deficiency, unspecified (principal); E78.5 Hyperlipidemia, unspecified; I10 Essential (primary) hypertension; M10.9 Gout, unspecified
CPT/HCPCS: 36415; 80053; 80061; 82306; 84443; 84550; 85025

== ENCOUNTER → 2019-10-14 10:05 | Outpatient (CLI) | payer MEDICARE, SELFPAY ==
[2019-06-27 14:31] VITALS: BMI 27.6
[2019-10-14 10:31] LABS: Absolute Lymphocyte Count 2.62 X10^3/uL (0.83-4.51); Basophil# 0.06 X10^3/uL; Basophil% 0.9 % (0-1); Eosinophil# 0.33 X10^3/uL; Eosinophils% 4.7 % (0-5); Hematocrit 38.1 % (40-54); Hemoglobin 12.3 g/dL (13.0-16.5); Lymphocyte # 2.62 X10^3/ul (4.0); Lymphocyte % 37.6 % (19-41); Mean Corp Hgb Conc 32.3 g/dL (32-36); Mean Corpuscular Hgb 20.3 pg (27.0-32.0); Mean Corpuscular Volume 62.8 fL (80-94); Mean Platelet Vol. 8.8 fl (6.2-12.0); Monocyte# 0.94 X10^3/uL; Monocyte% 13.5 % (0-10); NRBC Flagged by Analyzer 0 % (0-5); Neutrophil # 2.98 X10^3/uL (2.7-7.7); Neutrophil % 42.9 % (47-70); Platelet Count 217 K/mm3 (150-450); RBC Distribution Width CV 16.9 % (11.6-14.6); RBC Distribution Width SD 34.5 fl (35.1-43.9); Red Blood Count 6.07 M/mm3 (4.6-6.2)
[2019-10-14 11:04] LABS: Vitamin D,25 Hydroxy 26.3 ng/mL
[2019-10-14 11:13] LABS: ALB/GLOB Ratio 0.9 RATIO (0.9-2.4); AST(SGOT) 28 U/L (15-37); Alanine Aminotransfer ALT/SGPT 39 U/L (16-61); Albumin, Serum 3.5 g/dL (3.2-5.0); Alkaline Phosphatase 43 U/L (45-117); Anion Gap 5 (5-15); BUN 22 mg/dL (7-18); BUN/Creat Ratio 17.1 RATIO (10-20); Calcium,Total 9.2 mg/dL (8.5-10.1); Chloride 102 mmol/L (98-107); Cholesterol 203 mg/dL (200); Creatinine, Serum 1.29 mg/dL (0.70-1.30); EST Glomerular Filtration Rate 57 mL/min (>60); Est Glom Filt Rate - Afr Amer 69 mL/min (>60); Globulin 3.9 g/dL (2.2-4.2); Glucose 95 mg/dL (74-106); High Density Lipoprotein 48 mg/dL; Potassium 4.4 mmol/L (3.5-5.1); Protein, Total 7.4 g/dL (6.4-8.2); Sodium Level 135 mmol/L (136-145); Thyroid Stim Hormone (TSH) 1.82 uIU/mL (0.358-3.74); Triglycerides 141 mg/dL; Uric Acid 6.1 mg/dL (3.5-7.2); Very Low Density Lipoprotein 28 mg/dL (5-40)
== END ==
PROVIDERS: PCP Family Medicine Geriatric Medicine; Referring Provider Family Medicine Geriatric Medicine; Visit Provider Family Medicine Geriatric Medicine
DX: E55.9 Vitamin D deficiency, unspecified (principal); E78.5 Hyperlipidemia, unspecified; I10 Essential (primary) hypertension; M10.9 Gout, unspecified
CPT/HCPCS: 36415; 80053; 80061; 82306; 84443; 84550; 85025

== ENCOUNTER → 2020-03-26 11:54 | Outpatient (CLI) | payer MEDICARE, SELFPAY ==
[2019-12-25 14:40] VITALS: BMI 27.6
[2020-03-26 13:04] LABS: Anion Gap 5 (5-15); BUN 23 mg/dL (7-18); BUN/Creat Ratio 14.9 RATIO (10-20); Calcium,Total 8.8 mg/dL (8.5-10.1); Chloride 98 mmol/L (98-107); Creatinine, Serum 1.54 mg/dL (0.70-1.30); EST Glomerular Filtration Rate 47 mL/min (>60); Est Glom Filt Rate - Afr Amer 56 mL/min (>60); Glucose 120 mg/dL (74-106); Potassium 4.6 mmol/L (3.5-5.1); Sodium Level 132 mmol/L (136-145)
== END ==
PROVIDERS: PCP Family Medicine Geriatric Medicine; Visit Provider Internal Medicine Cardiovascular Disease
DX: R53.83 Other fatigue (principal); I25.10 Atherosclerotic heart disease of native coronary artery without angina pectoris; I48.0 Paroxysmal atrial fibrillation; E78.5 Hyperlipidemia, unspecified; I10 Essential (primary) hypertension; R55 Syncope and collapse
CPT/HCPCS: 36415; 80048; 83735

== ENCOUNTER → 2020-04-20 09:33 | Outpatient (CLI) | payer MEDICARE, SELFPAY ==
[2020-03-26 11:55] VITALS: BMI 26.8
[2020-04-20 12:03] LABS: Absolute Lymphocyte Count 1.91 X10^3/uL (0.83-4.51); Absolute Neutrophil Count 3.6 X10^3/uL (2.0-7.7); Basophil# 0.04 X10^3/uL; Basophil% 0.6 % (0-1); Eosinophil# 0.34 X10^3/uL; Eosinophils% 5.1 % (0-5); Hematocrit 37.6 % (40-54); Hemoglobin 12.1 g/dL (13.0-16.5); Lymphocyte # 1.91 X10^3/ul (4.0); Lymphocyte % 28.8 % (19-41); Mean Corp Hgb Conc 32.2 g/dL (32-36); Mean Corpuscular Hgb 20.9 pg (27.0-32.0); Mean Corpuscular Volume 65.1 fL (80-94); Mean Platelet Vol. 10.3 fl (6.2-12.0); Monocyte# 0.73 X10^3/uL; NRBC Flagged by Analyzer 0 % (0-5); Neutrophil # 3.56 X10^3/uL (2.7-7.7); Neutrophil % 53.7 % (47-70); Platelet Count 232 K/mm3 (150-450); RBC Distribution Width CV 17.6 % (11.6-14.6); RBC Distribution Width SD 36.4 fl (35.1-43.9); Red Blood Count 5.78 M/mm3 (4.6-6.2); White Blood Count 6.6 K/mm3 (4.4-11.0)
[2020-04-20 12:32] LABS: Vitamin D,25 Hydroxy 28.7 ng/mL
[2020-04-20 13:10] LABS: ALB/GLOB Ratio 0.9 RATIO (0.9-2.4); AST(SGOT) 24 U/L (15-37); Alanine Aminotransfer ALT/SGPT 34 U/L (16-61); Albumin, Serum 3.4 g/dL (3.2-5.0); Alkaline Phosphatase 49 U/L (45-117); Anion Gap 6 (5-15); BUN 17 mg/dL (7-18); BUN/Creat Ratio 12.8 RATIO (10-20); Calcium,Total 9.2 mg/dL (8.5-10.1); Chloride 104 mmol/L (98-107); Cholesterol 197 mg/dL (200); Creatinine, Serum 1.33 mg/dL (0.70-1.30); EST Glomerular Filtration Rate 55 mL/min (>60); Est Glom Filt Rate - Afr Amer 67 mL/min (>60); Globulin 3.8 g/dL (2.2-4.2); Glucose 92 mg/dL (74-106); High Density Lipoprotein 50 mg/dL; Potassium 4.4 mmol/L (3.5-5.1); Protein, Total 7.2 g/dL (6.4-8.2); Sodium Level 137 mmol/L (136-145); Thyroid Stim Hormone (TSH) 1.51 uIU/mL (0.358-3.74); Triglycerides 129 mg/dL; Very Low Density Lipoprotein 26 mg/dL (5-40)
== END ==
PROVIDERS: PCP Family Medicine Geriatric Medicine; Visit Provider Family Medicine Geriatric Medicine
DX: E55.9 Vitamin D deficiency, unspecified (principal); E78.5 Hyperlipidemia, unspecified; I10 Essential (primary) hypertension
CPT/HCPCS: 36415; 80053; 80061; 82306; 84443; 85025

== ENCOUNTER → 2020-10-09 12:47 | Outpatient (CLI) | payer MEDICARE, SELFPAY ==
[2020-06-25 13:26] VITALS: BMI 28.1
[2020-10-09 12:59] LABS: Absolute Neutrophil Count 5.2 X10^3/uL (2.0-7.7); Basophil# 0.03 X10^3/uL; Basophil% 0.3 % (0-1); Eosinophil# 0.21 X10^3/uL; Eosinophils% 2.3 % (0-5); Hemoglobin 12.4 g/dL (13.0-16.5); Lymphocyte % 26.1 % (19-41); Mean Corp Hgb Conc 31.8 g/dL (32-36); Mean Corpuscular Volume 62.8 fL (80-94); Mean Platelet Vol. 9.3 fl (6.2-12.0); Monocyte# 1.34 X10^3/uL; Monocyte% 14.6 % (0-10); NRBC Flagged by Analyzer 0 % (0-5); Neutrophil # 5.16 X10^3/uL (2.7-7.7); Neutrophil % 56.3 % (47-70); Platelet Count 215 K/mm3 (150-450); RBC Distribution Width CV 17.6 % (11.6-14.6); RBC Distribution Width SD 35.5 fl (35.1-43.9); Red Blood Count 6.21 M/mm3 (4.6-6.2); White Blood Count 9.2 K/mm3 (4.4-11.0)
--- NOTE | 2020-10-09 13:05 | RAD_ITS ---
STUDY: X-RAY CHEST REASON FOR EXAM: Male, 80 years old. SOB TECHNIQUE: PA and lateral views of the chest. COMPARISON: 11/15/2017 FINDINGS: The lungs are clear and expanded. There is no demonstrated pleural abnormality. Normal size heart. Normal mediastinum and ernestina. Normal visualized pulmonary arteries. Normal visualized aortic arch and descending thoracic aorta. Normal visualized thoracic spine. Normal visualized ribs, clavicles, and shoulders. There is no demonstrated abnormality of the visualized soft tissue structures of the upper abdomen. RAD/Chest PA and Lateral IMPRESSION: Normal x-ray examination of the chest. Electronically Signed: Erik Staples MD at 12:10 EDT Tel , Service support ,
[2020-10-09 13:29] LABS: ALB/GLOB Ratio 0.8 RATIO (0.9-2.4); AST(SGOT) 21 U/L (15-37); Alanine Aminotransfer ALT/SGPT 29 U/L (16-61); Albumin, Serum 3.4 g/dL (3.2-5.0); Alkaline Phosphatase 55 U/L (45-117); Anion Gap 6 (5-15); BUN 18 mg/dL (7-18); BUN/Creat Ratio 13.7 RATIO (10-20); Chloride 98 mmol/L (98-107); Creatinine, Serum 1.31 mg/dL (0.70-1.30); EST Glomerular Filtration Rate 56 mL/min (>60); Est Glom Filt Rate - Afr Amer 68 mL/min (>60); Globulin 4.3 g/dL (2.2-4.2); Glucose 106 mg/dL (74-106); Potassium 4.1 mmol/L (3.5-5.1); Protein, Total 7.7 g/dL (6.4-8.2); Sodium Level 128 mmol/L (136-145)
== END ==
PROVIDERS: PCP Family Medicine Geriatric Medicine; Referring Provider Family Medicine Geriatric Medicine; Visit Provider Family Medicine Geriatric Medicine
DX: R06.02 Shortness of breath (principal); R06.89 Other abnormalities of breathing
CPT/HCPCS: 36415; 71046; 80053; 85025

== ENCOUNTER → 2020-10-09 16:36 | Outpatient (CLI) | payer MEDICARE, SELFPAY ==
[2020-06-25 13:26] VITALS: BMI 28.1
== END ==
PROVIDERS: PCP Family Medicine Geriatric Medicine; Referring Provider Family Medicine Geriatric Medicine; Visit Provider Family Medicine Geriatric Medicine
DX: R06.02 Shortness of breath (principal)
CPT/HCPCS: 36415; 71046; 80053; 85025; 87635; 87804; C9803; U0002

== ENCOUNTER → 2020-10-16 09:49 | Outpatient (CLI) | payer MEDICARE, SELFPAY ==
[2020-06-25 13:26] VITALS: BMI 28.1
[2020-10-16 12:24] LABS: Absolute Lymphocyte Count 2.01 X10^3/uL (0.83-4.51); Absolute Neutrophil Count 3.5 X10^3/uL (2.0-7.7); Basophil# 0.04 X10^3/uL; Basophil% 0.6 % (0-1); Eosinophil# 0.17 X10^3/uL; Eosinophils% 2.6 % (0-5); Hematocrit 38.6 % (40-54); Hemoglobin 12.2 g/dL (13.0-16.5); Lymphocyte # 2.01 X10^3/ul (0.83-4.51); Lymphocyte % 31.2 % (19-41); Mean Corp Hgb Conc 31.6 g/dL (32-36); Mean Corpuscular Volume 63.4 fL (80-94); Mean Platelet Vol. 9.5 fl (6.2-12.0); Monocyte% 10.9 % (0-10); NRBC Flagged by Analyzer 0.3 % (0-5); Neutrophil # 3.45 X10^3/uL (2.7-7.7); Neutrophil % 53.5 % (47-70); Platelet Count 312 K/mm3 (150-450); RBC Distribution Width CV 16.5 % (11.6-14.6); RBC Distribution Width SD 35.5 fl (35.1-43.9); Red Blood Count 6.09 M/mm3 (4.6-6.2); White Blood Count 6.5 K/mm3 (4.4-11.0)
[2020-10-16 12:40] LABS: Vitamin D,25 Hydroxy 26.1 ng/mL
[2020-10-16 12:46] LABS: ALB/GLOB Ratio 0.9 RATIO (0.9-2.4); AST(SGOT) 21 U/L (15-37); Alanine Aminotransfer ALT/SGPT 33 U/L (16-61); Albumin, Serum 3.5 g/dL (3.2-5.0); Alkaline Phosphatase 59 U/L (45-117); Anion Gap 6 (5-15); BUN 26 mg/dL (7-18); BUN/Creat Ratio 18.7 RATIO (10-20); Calcium,Total 9.1 mg/dL (8.5-10.1); Chloride 97 mmol/L (98-107); Cholesterol 187 mg/dL (200); Creatinine, Serum 1.39 mg/dL (0.70-1.30); EST Glomerular Filtration Rate 52 mL/min (>60); Est Glom Filt Rate - Afr Amer 63 mL/min (>60); Glucose 93 mg/dL (74-106); High Density Lipoprotein 47 mg/dL; Potassium 4.6 mmol/L (3.5-5.1); Protein, Total 7.5 g/dL (6.4-8.2); Sodium Level 130 mmol/L (136-145); Thyroid Stim Hormone (TSH) 1.67 uIU/mL (0.358-3.74); Triglycerides 134 mg/dL; Very Low Density Lipoprotein 27 mg/dL (5-40)
== END ==
PROVIDERS: PCP Family Medicine Geriatric Medicine; Visit Provider Family Medicine Geriatric Medicine
DX: E55.9 Vitamin D deficiency, unspecified (principal); E87.1 Hypo-osmolality and hyponatremia; E78.5 Hyperlipidemia, unspecified
CPT/HCPCS: 36415; 80053; 80061; 82306; 84443; 85025

== ENCOUNTER → 2020-10-21 10:19 | Outpatient (CLI) | payer MEDICARE, SELFPAY ==
[2020-06-25 13:26] VITALS: BMI 28.1
[2020-10-21 12:26] LABS: Urine Sodium 68 mmol/L (Not Establ.)
[2020-10-21 12:50] LABS: Anion Gap 6 (5-15); BUN 23 mg/dL (7-18); BUN/Creat Ratio 19.7 RATIO (10-20); Calcium,Total 9.5 mg/dL (8.5-10.1); Chloride 97 mmol/L (98-107); Creatinine, Serum 1.17 mg/dL (0.70-1.30); EST Glomerular Filtration Rate 64 mL/min (>60); Est Glom Filt Rate - Afr Amer 77 mL/min (>60); Glucose 84 mg/dL (74-106); Potassium 4.3 mmol/L (3.5-5.1); Sodium Level 129 mmol/L (136-145)
[2020-10-21 13:11] LABS: Osmolality, Serum 275 mOsm/KG (280-301); Osmolality, Urine 389 mOsm/KG
== END ==
PROVIDERS: PCP Family Medicine Geriatric Medicine; Visit Provider Family Medicine Geriatric Medicine
DX: E87.1 Hypo-osmolality and hyponatremia (principal)
CPT/HCPCS: 36415; 80048; 83930; 83935; 84300

== ENCOUNTER → 2020-10-28 09:42 | Outpatient (CLI) | payer MEDICARE, SELFPAY ==
[2020-06-25 13:26] VITALS: BMI 28.1
[2020-10-28 13:01] LABS: Anion Gap 9 (5-15); BUN 21 mg/dL (7-18); BUN/Creat Ratio 16.5 RATIO (10-20); Calcium,Total 9.1 mg/dL (8.5-10.1); Chloride 98 mmol/L (98-107); Creatinine, Serum 1.27 mg/dL (0.70-1.30); EST Glomerular Filtration Rate 58 mL/min (>60); Est Glom Filt Rate - Afr Amer 70 mL/min (>60); Glucose 91 mg/dL (74-106); Potassium 4.4 mmol/L (3.5-5.1); Sodium Level 131 mmol/L (136-145)
== END ==
PROVIDERS: PCP Family Medicine Geriatric Medicine; Visit Provider Family Medicine Geriatric Medicine
DX: E87.1 Hypo-osmolality and hyponatremia (principal)
CPT/HCPCS: 36415; 80048

== ENCOUNTER → 2021-03-08 15:32 | Outpatient (CLI) | payer MEDICARE, SELFPAY ==
--- NOTE | 2021-03-08 15:35 | RAD_ITS ---
STUDY: X-RAY CHEST REASON FOR EXAM: Male, 81 years old. Fatigue TECHNIQUE: Frontal and lateral views COMPARISON: 10/09/2020. FINDINGS: The lungs are expanded. Bilateral interstitial densities. Normal size heart. Normal mediastinum and ernestina. Normal visualized pulmonary arteries. Normal visualized aortic arch and descending thoracic aorta. Normal visualized thoracic spine. Normal visualized ribs, clavicles, and shoulders. There is no demonstrated abnormality of the visualized soft tissue structures of the upper abdomen. RAD/Chest PA and Lateral IMPRESSION: Bilateral interstitial densities. Electronically Signed: Finesse Rust DO at 16:54 EDT Tel [phone], Service support ,
[2021-03-08 16:20] LABS: Absolute Lymphocyte Count 1.85 X10^3/uL (0.83-4.51); Basophil# 0.05 X10^3/uL; Basophil% 0.7 % (0-1); Eosinophil# 0.59 X10^3/uL; Eosinophils% 7.7 % (0-5); Hematocrit 35.9 % (40-54); Hemoglobin 11.7 g/dL (13.0-16.5); Lymphocyte # 1.85 X10^3/ul (0.83-4.51); Lymphocyte % 24.3 % (19-41); Mean Corp Hgb Conc 32.6 g/dL (32-36); Mean Corpuscular Hgb 20.5 pg (27.0-32.0); Mean Corpuscular Volume 62.9 fL (80-94); Mean Platelet Vol. 9.6 fl (6.2-12.0); Monocyte# 1.02 X10^3/uL; Monocyte% 13.4 % (0-10); NRBC Flagged by Analyzer 0 % (0-5); Neutrophil # 4.03 X10^3/uL (2.7-7.7); Neutrophil % 52.9 % (47-70); Platelet Count 314 K/mm3 (150-450); RBC Distribution Width CV 15.6 % (11.6-14.6); RBC Distribution Width SD 33.4 fl (35.1-43.9); Red Blood Count 5.71 M/mm3 (4.6-6.2); White Blood Count 7.6 K/mm3 (4.4-11.0)
[2021-03-08 16:55] LABS: BNP,B-Type NATRIURETIC PEPTIDE 41.6 pg/mL (0-100)
[2021-03-08 16:57] LABS: Anion Gap 10 (5-15); BUN 23 mg/dL (7-18); BUN/Creat Ratio 19.3 RATIO (10-20); Calcium,Total 8.9 mg/dL (8.5-10.1); Chloride 93 mmol/L (98-107); Creatinine, Serum 1.19 mg/dL (0.70-1.30); EST Glomerular Filtration Rate 63 mL/min (>60); Est Glom Filt Rate - Afr Amer 76 mL/min (>60); Glucose 81 mg/dL (74-106); Potassium 4.1 mmol/L (3.5-5.1); Sodium Level 129 mmol/L (136-145)
[2021-03-08 18:27] LABS: Thyroid Stim Hormone (TSH) 1.34 uIU/mL (0.358-3.74)
== END ==
PROVIDERS: PCP Family Medicine Geriatric Medicine; Referring Provider Internal Medicine Cardiovascular Disease; Visit Provider Internal Medicine Cardiovascular Disease
DX: I11.0 Hypertensive heart disease with heart failure (principal); I50.9 Heart failure, unspecified; I25.10 Atherosclerotic heart disease of native coronary artery without angina pectoris; I48.0 Paroxysmal atrial fibrillation; E78.00 Pure hypercholesterolemia, unspecified; R06.00 Dyspnea, unspecified; R53.83 Other fatigue; R53.1 Weakness
CPT/HCPCS: 36415; 71046; 80048; 83880; 84443; 85025

== ENCOUNTER 2021-03-09 19:25 | Emergency (ER) | payer MEDICARE, SELFPAY ==
[2021-03-09 19:26] VITALS: BP 151/88; PULSE 66; RESP 20; TEMP 35.8; O2SAT 94; BMI 26.4
--- NOTE | 2021-03-09 19:56 | EKG12_ITS ---
Test Reason : CP Blood Pressure : / mmHG Vent. Rate : 062 BPM Atrial Rate : 062 BPM P-R Int : 204 ms QRS Dur : 086 ms QT Int : 420 ms P-R-T Axes : 036 -35 058 degrees QTc Int : 426 ms Normal sinus rhythm Left axis deviation Abnormal ECG Confirmed by PORFIRIO BONILLA, JORGE A ([id number]), senior editor ANNA MARIE SUAZO ([id number]) on 03/11/2021 12:33:55 PM Referred By: HERMAN Confirmed By:JORGE A MONROY MD
[2021-03-09 20:26] LABS: Absolute Neutrophil Count 3.6 X10^3/uL (2.0-7.7); Basophil# 0.07 X10^3/uL; Eosinophil# 0.56 X10^3/uL; Eosinophils% 7.9 % (0-5); Hematocrit 36.6 % (40-54); Hemoglobin 11.9 g/dL (13.0-16.5); Mean Corp Hgb Conc 32.5 g/dL (32-36); Mean Corpuscular Hgb 20.5 pg (27.0-32.0); Monocyte# 1.01 X10^3/uL; Monocyte% 14.3 % (0-10); NRBC Flagged by Analyzer 0 % (0-5); Neutrophil # 3.64 X10^3/uL (2.7-7.7); Neutrophil % 51.4 % (47-70); Platelet Count 342 K/mm3 (150-450); RBC Distribution Width CV 15.5 % (11.6-14.6); RBC Distribution Width SD 33.4 fl (35.1-43.9); Red Blood Count 5.81 M/mm3 (4.6-6.2); White Blood Count 7.1 K/mm3 (4.4-11.0)
[2021-03-09 20:38] LABS: Anion Gap 8 (5-15); BUN 25 mg/dL (7-18); BUN/Creat Ratio 21.7 RATIO (10-20); Calcium,Total 9.4 mg/dL (8.5-10.1); Chloride 95 mmol/L (98-107); Creatinine, Serum 1.15 mg/dL (0.70-1.30); EST Glomerular Filtration Rate 65 mL/min (>60); Est Glom Filt Rate - Afr Amer 79 mL/min (>60); Glucose 98 mg/dL (74-106); Potassium 4.7 mmol/L (3.5-5.1); Sodium Level 129 mmol/L (136-145); Troponin-I HS 6 pg/mL (3.0-78.0)
[2021-03-09 20:59] VITALS: PULSE 61
[2021-03-09 21:30] VITALS: PULSE 60; RESP 17; O2SAT 95
--- NOTE | 2021-03-09 22:20 | EDS_ITS ---
HPI History of Present Illness Chief Complaint: Chest Pain Detail of Chief Complaint: Sent to ER because of abnormal chest x-ray and low sodium Informant: patient and spouse/S.O. Onset/Context/Timing Onset: - (Onset unknown) Context: - (Unknown) Timing: Continuous (Presumed continuous) Quality: Low sodium with fluid restriction no Location: Not applicable Current Severity: Mild Maximum Severity: Mild Worsened by: Nothing Relieved by: Nothing Associated Symptoms Associated Symptoms: Fatigue and general malaise Narrative Narrative: Patient is a 81-year-old male with history of atherosclerotic heart disease, essential hypertension, paroxysmal atrial fibrillation, hyperlipidemia and TIA. He was seen by his senior accounts payable specialist. He had abnormal labs and was sent to the emergency department. Of note he has chronic hyponatremia and is fluid restricted per his primary care physician. The lung findings are thought to be due to amiodarone. He denies orthopnea or PND. Denies leg pain or leg swelling. Denies history of VTE. Patient denies fever, chills night sweats. Patient has rhinorrhea, congestion postnasal drainage sore throat. Patient denies loss of taste or smell. Patient denies chest pain even though that is listed as a chief complaint. Patient denies GI symptoms. Prior similar symptoms: Yes Recent Illness/Hospitalization: No [facility] Medical History Atherosclerosis of coronary artery of [place] heart without angina pectoris BPH (benign prostatic hyperplasia) Essential (primary) hypertension Gynecomastia, male Hepatitis A Hyperlipidemia New onset atrial fibrillation Paroxysmal atrial fibrillation Syncope due to orthostatic hypotension TIA (transient ischemic attack) Tremor Home Medications tamsulosin 0.4 mg PO QHS 02/16/17 [History Last Taken 02/15/17] multivitamin 1 tab PO QDAY 12/22/17 [History Last Taken Unknown] primidone 50 mg tablet 50 mg PO QHS tab 12/25/19 [History Last Taken Unknown] losartan 100 mg tablet 100 mg PO DAILY #90 tab 03/26/20 [Rx Last Taken Unknown] amlodipine 2.5 mg tablet 2.5 mg PO DAILY #30 tab 06/25/20 [Rx Last Taken Unknown] apixaban 5 mg tablet 5 mg PO BID #180 tab 06/25/20 [Rx Last Taken Unknown] metoprolol succinate 50 mg tablet,extended release 24 hr 50 mg PO QPM #90 tab 12/29/20 [Rx Last Taken Unknown] Allergy/AdvReac Type Severity Reaction Status Date / Time No Known Allergies Allergy Verified 03/09/21 19:28 Family History Sister Diabetes Surgical History History of cataract surgery History of incision and drainage History of left heart catheterization (11/20/17) Social History (Updated 03/09/21 @ 22:[address] Tai Emery MD) household members: spouse Smoking Status: Never smoker alcohol intake: current alcohol intake frequency: a few times a month substance use type: does not use ROS ROS ED Constitutional Constitutional ED: Denies chills, fever(s), subjective, sweats or weight loss Eyes Eyes: Denies blurry vision, change in vision or diplopia ENT ENT ED: Denies ear pain, rhinorrhea or sore throat Cardiovascular Cardiovascular: Denies chest pain, orthopnea, palpitations, paroxysmal nocturnal dyspnea or racing heartbeat Respiratory/Chest Respiratory/Chest: Reports dyspnea and dyspnea on exertion; Denies cough, orthopnea, paroxysmal nocturnal dyspnea or sputum Gastrointestinal Gastrointestinal: Reports abdominal pain, nausea and vomiting Genitourinary Genitourinary ED: Denies dysuria, hematuria or urinary frequency Musculoskeletal Musculoskeletal: Denies arthralgias, myalgias or neck pain Integumentary Denies rash Neurologic Neurologic: Reports weakness; Denies headache(s) or paresthesias Endocrine Endocrinology: Denies polydipsia, polyphagia or polyuria Allergic/Immunologic Allergic/Immunologic ED: Denies mouth swelling, tongue swelling or urticaria EXAM Physical Exam Const Vital Signs: 03/09/21 19:26 03/09/21 20:59 03/09/21 21:30 Temperature 96.5 F L Temperature Source Temporal Pulse Rate 66 61 60 Respiratory Rate 20 H 17 Respiratory Effort Normal Non-Labored Respiratory Pattern Normal Blood Pressure 151/88 H Blood Pressure Mean 109 Pulse Ox 94 95 Oxygen Delivery Method Room Air Room Air 03/09/21 22:24 Temperature Temperature Source Pulse Rate 68 Respiratory Rate 20 H Respiratory Effort Respiratory Pattern Blood Pressure 128/70 H Blood Pressure Mean 89 Pulse Ox 94 Oxygen Delivery Method Room Air Positive well nourished and well developed General Appearance ED: well developed and NAD HEENT Reports TM's clear and moist mucous membranes HEENT Narrative: Nares patent. Ears normal. Head atraumatic normocephalic. Tympanic Membrane ED: Yes TM's clear Eyes PERRL and EOMs intact bilaterally General Eye ED: Negative for pale conjunctiva or scleral icterus Neck no lymphadenopathy, supple and no JVD General: Negative for tenderness Chest Wall inspection of chest normal Resp normal respiratory effort Auscultation: rales bilateral lower Cardio regular rate, regular rhythm, S1 normal heart sound, S2 normal heart sound and no murmurs GI normal to inspection, nondistended, normoactive bowel sounds and non-tender Palpation: soft Back/Spine no CVA tenderness Cervical Spine: Negative for cervical spine tenderness Thoracic Spine / Upper Back: Negative for thoracic spinal tenderness or paraspinal muscle tenderness Extremity normal to inspection General Extremety ED: Negative for edema or tenderness General Extremity: Negative for edema Neuro oriented x3, CN's II-XII intact bilaterally and no sensory deficits noted Sensorium / Orientation: alert Motor Exam: strength 5/5 throughout Psych mental status grossly normal Skin no rashes or lesions noted and no wounds MDM MDM MDM Narrative Medical decision making narrative: Patient has chronic hyponatremia. No treatment is needed. His troponin is normal. Chest x-ray reveals fibrotic changes he is scheduled to see a sales enablement lead. If the BNP is normal will discharge to home. If BNP is positive will place on diuretics since he is hemodynamically stable and not hypoxic. Lab Data Labs: Laboratory Results - last 24 hr 03/09/21 03/09/21 03/09/21 19:53 19:53 19:53 WBC 7.1 RBC 5.81 Hgb 11.9 L Hct 36.6 L MCV 63.0 L MCH 20.5 L MCHC 32.5 RDW Std Deviation 33.4 L RDW Coeff of Crissy 15.5 H Plt Count 342 MPV 9.0 Immature Gran % (Auto) 1.400 H Neut % (Auto) 51.4 Lymph % (Auto) 24.0 Richardson % (Auto) 14.3 H Eos % (Auto) 7.9 H Baso % (Auto) 1.0 Absolute Neuts (auto) 3.6 Absolute Lymphs (auto) 1.70 Nucleated RBC % 0 Sodium 129 L Potassium 4.7 Chloride 95 L Carbon Dioxide 26.0 Anion Gap 8 BUN 25 H Creatinine 1.15 Estim Creat Clear Calc 47.00 Est GFR (MDRD) Af Amer 79 Est GFR (MDRD) Non-Af 65 BUN/Creatinine Ratio 21.7 H Glucose 98 Calcium 9.4 Troponin I High Sens 6 B-Natriuretic Peptide 47.1 Radiography Chest X-Ray - ED: 2 View and Read by Radiologist (X-ray was done as an outpatient and not repeated. Reveals chronic fibrotic changes.) Rhythm Strip Rhythm Strip: Sinus Rhythm Rate: 65 Ectopy: None Discharge Plan Triage Chief Complaint: Chest Pain ED Provider: Tai Emery Dx/Rx/DC Orders Clinical Impression: Chronic hyponatremia, Pulmonary fibrosis Instructions: Pulmonary Fibrosis, ED Hyponatremia Prescriptions: No Action multivitamin [Daily Multi-Vitamin] tablet 1 tab PO QDAY RF: 0 primidone 50 mg tablet 50 mg PO QHS RF: 0 Eliquis 5 mg tablet 5 mg PO BID Qty: 180 RF: 3 amlodipine 2.5 mg tablet 2.5 mg PO DAILY Qty: 30 RF: 2 losartan 100 mg tablet 100 mg PO DAILY Qty: 90 RF: 3 tamsulosin 0.4 MG capsule 0.4 mg PO QHS RF: 0 metoprolol succinate 50 mg tablet extended release 24 hr 50 mg PO QPM Qty: 90 RF: 3 Primary Care Provider: Aayush Kelly Chi Referrals: Aayush Kelly Chi, MD [Primary Care Provider] - Activity Restrictions/Additional Instructions: Keep your appointment with the quality assurance specialist Disposition Disposition: Home, Self Care
[2021-03-09 22:23] LABS: BNP,B-Type NATRIURETIC PEPTIDE 47.1 pg/mL (0-100)
[2021-03-09 22:24] VITALS: BP 128/70; PULSE 68; RESP 20; O2SAT 94
[2021-03-09 22:36] VITALS: BP 122/75; PULSE 65; RESP 24; O2SAT 95
== END 2021-03-09 22:37 | disposition home or self-care (01) ==
PROVIDERS: Emergency Provider Emergency Medicine; PCP Family Medicine Geriatric Medicine
DX: E87.1 Hypo-osmolality and hyponatremia (principal); J84.10 Pulmonary fibrosis, unspecified; I25.10 Atherosclerotic heart disease of native coronary artery without angina pectoris; I10 Essential (primary) hypertension; I48.0 Paroxysmal atrial fibrillation; Z86.73 Personal history of transient ischemic attack (TIA), and cerebral infarction without residual deficits; Z79.899 Other long term (current) drug therapy
CPT/HCPCS: 80048; 83880; 84484; 85025; 93005; 99284; A4216

== ENCOUNTER → 2021-03-11 12:08 | Outpatient (CLI) | payer MEDICARE, SELFPAY | PROVIDERS: PCP Family Medicine Geriatric Medicine; Referring Provider Physician Assistant; Visit Provider Physician Assistant | DX: Z11.52 Encounter for screening for COVID-19 (principal) | CPT/HCPCS: 87635; U0005; U0003 ==

== ENCOUNTER → 2021-03-12 08:39 | Outpatient (CLI) | payer MEDICARE, SELFPAY ==
--- NOTE | 2021-03-12 08:42 | ECHOD_ITS ---
Reason For Study: SOB Procedure This was a 2D Doppler, Color Flow transthoracic echocardiogram. Exam performed in department. Left Ventricle Normal LV size. Left ventricular systolic function is normal. The estimated ejection fraction is 55 %. Stage 1 diastolic dysfunction. No regional wall motion abnormalities noted. Right Ventricle Normal RV size. Normal systolic function. Atria Normal left atrium. Normal right atrium. Mitral Valve Normal mitral valve. There is mild mitral annular calcification. Mild (1+) mitral valve insufficiency. Tricuspid Valve Normal tricuspid valve. Mild tricuspid valve insufficiency. Pulmonary artery systolic pressure is 30 mmHg. Aortic Valve Trisinus/trileaflet aortic valve. Mild focal aortic valve calcification. Aortic sclerosis, no stenosis. Mild (1+) aortic valve insufficiency. Pulmonic Valve Normal pulmonic valve. Great Vessels Normal aortic root. The pulmonary artery is normal size. Normal inferior vena cava. Pericardium/Pleural No pericardial effusion. Medication Negative bubble on previous echo. MMode/2D Measurements & Calculations LVIDd: 4.7 cm IVSd: 0.89 cm LVOT diam: 2.1 cm LVIDs: 2.6 cm LVPWd: 1.1 cm RVDd: 2.9 cm FS: 44.3 % LVOT area: 3.4 cm2 Ao root diam: 3.8 cm LAV(MOD-bp): 53.2 ml LVAd ap4: 23.7 cm2 LAV(MOD-bp) Indexed: 28.9 ml/m2 LVLd ap4: 7.1 cm LAV(MOD-sp2): 49.9 ml EDV(MOD-sp4): 68.4 ml LAV(MOD-sp4): 51.3 ml EDV(sp4-el): 66.8 ml LVAs ap4: 12.7 cm2 LVLs ap4: 5.8 cm ESV(MOD-sp4): 24.8 ml ESV(sp4-el): 23.6 ml EF(MOD-sp4): 63.7 % EF(sp4-el): 64.6 % LVAd ap2: 26.6 cm2 SV(MOD-sp4): 43.6 ml SV(MOD-sp2): 53.6 ml LVLd ap2: 7.5 cm EDV(MOD-sp2): 81.1 ml EDV(sp2-el): 79.7 ml LVAs ap2: 14.0 cm2 LVLs ap2: 6.6 cm ESV(MOD-sp2): 27.5 ml ESV(sp2-el): 25.1 ml EF(MOD-sp2): 66.1 % SV(sp4-el): 43.2 ml LA dimension(2D): 3.5 cm LA A4 area: 18.0 cm2 RA A4 area: 9.9 cm2 Doppler Measurements & Calculations MV E max ankit: 95.3 cm/sec Lat Peak E' Ankit: 7.9 cm/sec Med Peak E' Ankit: 6.5 cm/sec MV A max ankit: 101.2 cm/sec E/E' lat: 12.1 E/E' med: 14.7 MV E/A: 0.94 Ao V2 max: 248.3 cm/sec AI max ankit: 376.2 cm/sec LV V1 max: 112.6 cm/sec Ao max P.4 mmHg AI max P.7 mmHg LV V1 max P.1 mmHg Ao V2 mean: 90.7 cm/sec LV V1 mean P.5 mmHg Ao mean P.8 mmHg AI dec slope: 162.5 cm/sec2 LV V1 mean: 74.5 cm/sec Ao V2 VTI: 29.3 cm AI P1/2t: 678.1 msec LV V1 VTI: 25.3 cm ELVIRA(I,D): 3.0 cm2 ELVIRA(V,D): 1.6 cm2 SV(LVOT): 86.8 ml PA V2 max: 94.9 cm/sec TR max ankit: 251.8 cm/sec TR max P.4 mmHg ECHO/Echo Complete Interpretation Summary Normal LV size. Left ventricular systolic function is normal. The estimated ejection fraction is 55 %. Mild (1+) aortic valve insufficiency. Mild (1+) mitral valve insufficiency. Stage 1 diastolic dysfunction. Ordering Physician: Edvin Kim Referring Physician: Aayush Kelly Chi Performed By: Jazmín Carreon RDCS
== END ==
PROVIDERS: PCP Family Medicine Geriatric Medicine; Referring Provider Internal Medicine Cardiovascular Disease; Visit Provider Internal Medicine Cardiovascular Disease
DX: I48.0 Paroxysmal atrial fibrillation (principal); I25.10 Atherosclerotic heart disease of native coronary artery without angina pectoris; I10 Essential (primary) hypertension; E78.00 Pure hypercholesterolemia, unspecified; R06.00 Dyspnea, unspecified; R53.83 Other fatigue; R53.1 Weakness
CPT/HCPCS: 93306

== ENCOUNTER → 2021-03-30 13:26 | Outpatient (CLI) | payer MEDICARE, SELFPAY ==
[2021-03-30 15:03] LABS: Erythrocyte Sedimentation Rate 24 mm/hr (0-20)
[2021-03-30 15:37] LABS: CRP 7.36 mg/L (0.0-3.0); Rheumatoid Factor < 10.0 IU/mL (<15)
[2021-04-01 12:08] LABS: Anti-Scleroderma-70 AB <0.2 AI (0.0-0.9)
[2021-04-01 15:21] LABS: ANTINUCLEAR ANTIBODIES DIRECT Negative (Negative); Anti-dsDNA Ab <1 IU/mL (0-9)
[2021-04-02 00:07] LABS: Angiotensin Convert Enzyme 22 U/L (14-82); Cytoplasmic Ab (C-ANCA) <1:20 titer (Neg:<1:20)
[2021-04-02 08:12] LABS: CCP IgG Antibodies 7 units (0-19); Perinuclear Ab (P-ANCA) <1:20 titer (Neg:<1:20)
== END ==
PROVIDERS: PCP Family Medicine Geriatric Medicine; Referring Provider Internal Medicine Pulmonary Disease; Visit Provider Internal Medicine Pulmonary Disease
DX: J84.10 Pulmonary fibrosis, unspecified (principal); R06.00 Dyspnea, unspecified
CPT/HCPCS: 36415; 82164; 85652; 86038; 86140; 86200; 86225; 86235; 86256; 86431

== ENCOUNTER → 2021-04-12 14:11 | Outpatient (CLI) | payer MEDICARE, SELFPAY ==
--- NOTE | 2021-04-12 14:16 | CT_ITS ---
STUDY: CT CHEST WITHOUT CONTRAST REASON FOR EXAM: Male, 81 years old. PULMONARY FIBROSIS RADIATION DOSAGE (If Supplied By Facility): CTDIvol = ( 17.32 ) mGy, DLP = ( 581.10 ) mGycm TECHNIQUE: Transaxial imaging was performed without the administration of intravenous contrast material. Multiplanar coronal and sagittal images were reformatted. Individualized dose optimization techniques were used for this CT. COMPARISON: None. FINDINGS: Diffuse increased interstitial markings involving both lungs and both upper and lower lobes more pronounced at the lung bases suggestive of chronic interstitial fibrosis. There is no demonstrated pleural abnormality. There are calcifications of the coronary arteries. There are multiple small lymph nodes within the mediastinum, which are normal in size and morphology most compatible with reactive lymph hyperplasia. Normal hilar regions. Normal unenhanced pulmonary arteries. There is atherosclerotic calcification of the aortic arch with tortuosity and elongation of the aortic arch and descending thoracic aorta. There are mild degenerative changes of the thoracic spine. There is no demonstrated abnormality of the visualized upper abdomen. CT/Chest without Contrast IMPRESSION: Findings in keeping with chronic interstitial fibrosis. Electronically Signed: Heriberto Paul MD at 15:27 EDT , Service support ,
== END ==
PROVIDERS: PCP Family Medicine Geriatric Medicine; Referring Provider Internal Medicine Pulmonary Disease; Visit Provider Internal Medicine Pulmonary Disease
DX: J84.10 Pulmonary fibrosis, unspecified (principal); R06.00 Dyspnea, unspecified
CPT/HCPCS: 71250

== ENCOUNTER → 2021-04-22 10:05 | Outpatient (CLI) | payer MEDICARE, SELFPAY ==
[2021-04-22 11:29] LABS: Absolute Lymphocyte Count 2.06 X10^3/uL (0.83-4.51); Basophil# 0.05 X10^3/uL; Basophil% 0.6 % (0-1); Eosinophil# 0.11 X10^3/uL; Eosinophils% 1.4 % (0-5); Lymphocyte # 2.06 X10^3/ul (0.83-4.51); Lymphocyte % 25.5 % (19-41); Mean Corp Hgb Conc 32.5 g/dL (32-36); Mean Corpuscular Hgb 20.5 pg (27.0-32.0); Mean Platelet Vol. 9.9 fl (6.2-12.0); Monocyte# 0.81 X10^3/uL; NRBC Flagged by Analyzer 0.2 % (0-5); Neutrophil # 4.97 X10^3/uL (2.7-7.7); Neutrophil % 61.4 % (47-70); Platelet Count 280 K/mm3 (150-450); RBC Distribution Width CV 18.2 % (11.6-14.6); RBC Distribution Width SD 36.4 fl (35.1-43.9); Red Blood Count 6.35 M/mm3 (4.6-6.2); White Blood Count 8.1 K/mm3 (4.4-11.0)
[2021-04-22 11:51] LABS: Vitamin D,25 Hydroxy 28.9 ng/mL
[2021-04-22 11:57] LABS: ALB/GLOB Ratio 0.7 RATIO (0.9-2.4); AST(SGOT) 21 U/L (15-37); Alanine Aminotransfer ALT/SGPT 28 U/L (16-61); Albumin, Serum 3.4 g/dL (3.2-5.0); Alkaline Phosphatase 60 U/L (45-117); Anion Gap 10 (5-15); BUN 26 mg/dL (7-18); BUN/Creat Ratio 22.8 RATIO (10-20); Chloride 94 mmol/L (98-107); Cholesterol 208 mg/dL (200); Creatinine, Serum 1.14 mg/dL (0.70-1.30); EST Glomerular Filtration Rate 66 mL/min (>60); Est Glom Filt Rate - Afr Amer 80 mL/min (>60); Globulin 4.7 g/dL (2.2-4.2); Glucose 90 mg/dL (74-106); High Density Lipoprotein 64 mg/dL; Potassium 4.2 mmol/L (3.5-5.1); Protein, Total 8.1 g/dL (6.4-8.2); Sodium Level 127 mmol/L (136-145); Thyroid Stim Hormone (TSH) 1.63 uIU/mL (0.358-3.74); Triglycerides 87 mg/dL; Uric Acid 4.6 mg/dL (3.5-7.2); Very Low Density Lipoprotein 17 mg/dL (5-40)
== END ==
PROVIDERS: PCP Family Medicine Geriatric Medicine; Visit Provider Family Medicine Geriatric Medicine
DX: E55.9 Vitamin D deficiency, unspecified (principal); E78.5 Hyperlipidemia, unspecified; I10 Essential (primary) hypertension; M10.9 Gout, unspecified
CPT/HCPCS: 36415; 80053; 80061; 82306; 84443; 84550; 85025

== ENCOUNTER 2021-04-28 13:04 | Day surgery (SDC) | payer MEDICARE, SELFPAY ==
[2021-04-28] VITALS (8 sets, daily range): BP systolic 106–150; BP diastolic 74–91; PULSE 57–75; RESP 15–20; TEMP 35.7–36.1; O2SAT 95–98; BMI 25.9
--- NOTE | 2021-04-28 | FLU_PTH ---
PATIENT: OXANA SEGUNDO LOC: EN U#:[id number] AGE/SX: 81/M ROOM: RE04/28/[address]: Dr. Ruddy Webb MD : 1940 BED: DIS: 04/28/2021 SPEC #: [id number] RECD: 04/28/21 15:27 STATUS: DESEAN YANIRA #: [id number] MOR: 04/28/21 00:[address]: Ruddy Webb V DEPT: CYTOLOGY RECD BY: Alejandra Gallegos ENTERED: 04/29/21 08:41 SP TYPE: Fluid OTHR DR: Dr. Aayush Kelly MD Tissues: Bronchus of right middle lobe Procedures: Special Stain Group II Surgery Specimen Level IV Cytospin Fluid HEADER OPERATION: Bronchoscopy with fluoroscopy (MAC) PRE-OP DIAGNOSIS: Pulmonary fibrosis, dyspnea TISSUE SUBMITTED: RML washing DIAGNOSIS CYTOLOGY Right middle lobe lung, washings (cytospin and cell block): Negative for malignant cells. See comment. AM:jerry 04/30/2021 COMMENT Please correlate with corresponding biopsy ([id number]). CYTOLOGY STUDY Slides are reviewed. CYTOLOGY GROSS Received is 20 ml of red mucoidy cloudy fluid labeled with the patient's name and and designated per the requisition as RML. Submitted for cytology preparation including cell block. / jerry 04/29/2021 TC:5 CPT: 52621, 34955
[2021-04-28] MEDS: Lactated Ringers 1,000 ML 15 ML IV (13:20)
[2021-04-28] MEDS: Lidocaine 2% (5ml sdv) 5 ML VIAL.MPF (14:05)
[2021-04-28] MEDS: Lidocaine 2% Jelly 1 APPLIC Tube (14:05)
[2021-04-28] MEDS: Phenylephrine 0.25% 15 ML NASAL.SRY 15 SPRAY NASAL (14:25)
--- NOTE | 2021-04-28 14:55 | OP.BRONCH_ITS ---
Patient Name: Benedict Emerson Procedure Date: 04/28/2021 1:44 PM Date of : 1940 Age: 81 Procedure: Bronchoscopy Indications: Interstitial lung disease Providers: Ruddy Webb MD Medicines: Lidocaine 2% applied to nares 10 mL, Oxygen 6 L/min Complications: No immediate complications Procedure: Pre-Anesthesia Assessment: - A History and Physical has been performed. The patient's medications, allergies and sensitivities have been reviewed. - The risks and benefits of the procedure and the sedation options and risks were discussed with the patient. All questions were answered and informed consent was obtained. After I obtained informed consent, the scope was passed under direct vision. Throughout the procedure, the patient's blood pressure, pulse, and oxygen saturations were monitored continuously. The bronchoscope was introduced through the mouth and advanced to the tracheobronchial tree. The procedure was accomplished without difficulty. The patient tolerated the procedure well. Moderate Sedation: An independent trained observer was present and continuously monitored the patient. Findings: Trachea/Mariaa Abnormalities: Areas of chronically inflamed mucosa were found throughout the tracheobronchial tree and in the lower trachea. An area of [Acute / Chronic] inflamed mucosa was found throughout the tracheobronchial tree. Bronchoalveolar lavage was performed in the RML lateral segment (B4) of the lung and sent for cell count, bacterial culture, viral smears & culture, fungal & AFB analysis and cytology for immunocompromised host protocol, cell count and differential and AFB analysis & culture. 100 mL of fluid were instilled. 30 mL were returned. The return was bloody. There were no mucoid plugs in the return fluid. 6 transbronchial biopsy, rml lat seg done. Transbronchial biopsies of an area of infiltration were performed in the right middle lobe using forceps and sent for histopathology examination. The procedure was guided by fluoroscopy. Biopsy of lung tissue was obtained. Six biopsy passes were performed. Six biopsy samples were obtained. Impression: - Interstitial lung disease - Chronic mucosal inflammation was visualized throughout the tracheobronchial tree and in the lower trachea. - [Chronic / Acute] mucosal inflammation was visualized throughout the tracheobronchial tree. - No specimens collected. - The airway examination was normal. Procedure Code(s): --- Professional --- 78476, Bronchoscopy, rigid or flexible, including fluoroscopic guidance, when performed; with transbronchial lung biopsy(s), single lobe 49042, Bronchoscopy, rigid or flexible, including fluoroscopic guidance, when performed; with bronchial alveolar lavage Diagnosis Code(s): --- Professional --- J42, Unspecified chronic bronchitis J84.9, Interstitial pulmonary disease, unspecified CPT copyright 2017 [employer]. All rights reserved. The codes documented in this report are preliminary and upon ball racker review may be revised to meet current compliance requirements. MD Ruddy Valverde MD 04/28/2021 2:55:31 PM This report has been signed electronically. Number of Addenda: 0 Note Initiated On: 04/28/2021 1:44 PM
--- NOTE | 2021-04-28 15:15 | RAD_ITS ---
STUDY: X-RAY CHEST REASON FOR EXAM: Male, 81 years old. POST BRONCHOSCOPY, IN PACU TECHNIQUE: Single AP portable view of the chest. COMPARISON: Comparison is made with prior examination dated 03/08/2021. FINDINGS: EKG electrodes are seen. There is opacification in the right midlung this most likely represents postbronchoscopy irrigation. Stable reticular nodular pattern at the left lung base. Normal size heart. Normal mediastinum and ernestina. Normal visualized pulmonary arteries. There is atherosclerotic tortuosity of the aortic arch and descending thoracic aorta. Normal visualized thoracic spine. Normal visualized ribs, clavicles, and shoulders. There is no demonstrated abnormality of the visualized soft tissue structures of the upper abdomen. RAD/Chest 1 View (Portable) IMPRESSION: Status post right bronchoscopy with haziness in the right midlung. There is no evidence of pneumothorax. Electronically Signed: Heriberto Paul MD at 8:34 EST , Service support ,
--- NOTE | 2021-04-28 15:27 | LUNG_PTH ---
PATIENT: OXANA SEGUNDO LOC: [facility] U#:[id number] AGE/SX: 81/M ROOM: RE04/28/[address]: Dr. Ruddy Webb MD : 1940 BED: DIS: 04/28/2021 SPEC #: [id number] RECD: 04/28/21 15:27 STATUS: DESEAN YANIRA #: [id number] MOR: 04/28/21 15:[address]: Ruddy Webb V DEPT: SURGICAL PATHOLOGY RECD BY: Alejandra Gallegos ENTERED: 04/29/21 08:33 SP TYPE: LUNG BX OTHR DR: Dr. Aayush Kelly MD Tissues: Lung, NOS Procedures: Elastin Stain (control) Trichrome (control) Special Stain Group II Surgery Specimen Level IV Retic (control) Iron Stain (control) HEADER OPERATION: Bronchoscopy with fluoroscopy (MAC) PRE-OP DIAGNOSIS: Pulmonary fibrosis, dyspnea TISSUE SUBMITTED: Transbronchial biopsy RML MICROSCOPIC DIAGNOSIS Transbronchial biopsy, right middle lobe of lung: Consistent with organizing pneumonia. See comment. AM:jerry 04/30/2021 COMMENT Iron, reticulin, elastin and trichrome stains with matched controls supports the above diagnosis. Please correlate with corresponding cytology [id number]. MICROSCOPIC DESCRIPTION Sections show alveolar sacs with collections of foamy macrophages with focal fibroplasia. The septae are. Focally thickened and show a mild to moderate chronic inflammation. Both reticulin and trichrome fibers are increased with the septal tissue. Rare iron laden macrophages and recent hemorrhage is noted in air spaces. Anthracotic pigment is also noted. There is no evidence of malignancy. GROSS DESCRIPTION Received in fixative is one container labeled with the patient's name and designated transbronchial biopsy RML. The specimen consists of multiple fragments of garcia hemorrhagic soft tissue that in aggregate measure 1.5 x 0.2 x 0.1 cm. The specimen is totally submitted in one cassette. / SJ:jerry 04/29/21 TC:3 CPT: 79726, 47148 x4
[2021-04-28 15:40] LABS: Cytology, Body Fluid / CSF SEE PATHOLOGY REPORT
[2021-04-28 17:56] LABS: Lymphocytes 8 %; Monocytes 13 %; Neutrophil (Segs) 76 %; Other Cell Type/BF 3 %; Source- Body Fluid BRONCHIAL LAVAGE
[2021-04-28 17:57] LABS: Appearance/Body Fluid CLOUDY; Color/Body Fluid RED
[2021-04-28 17:58] LABS: Body Fluid QC Type(s) BF2,BF3
[2021-04-29 14:44] LABS: Pathologist Comment/Body Fluid Reviewed
== END 2021-04-28 16:21 ==
LOC: EN 13:05 → AC 13:05
PROVIDERS: PCP Family Medicine Geriatric Medicine; Referring Provider Family Medicine Geriatric Medicine; Visit Provider Internal Medicine Pulmonary Disease
PROC: 0BJ08ZZ Inspection of Tracheobronchial Tree, Via Natural or Artificial Opening Endoscopic (ICD-10-PCS; CPT 31622; principal; 2021-04-28 13:30)
DX: J84.9 Interstitial pulmonary disease, unspecified (principal); I25.10 Atherosclerotic heart disease of native coronary artery without angina pectoris; I10 Essential (primary) hypertension; N40.0 Benign prostatic hyperplasia without lower urinary tract symptoms; D64.9 Anemia, unspecified; I48.0 Paroxysmal atrial fibrillation; M19.90 Unspecified osteoarthritis, unspecified site; Z79.82 Long term (current) use of aspirin; Z79.01 Long term (current) use of anticoagulants; Z79.899 Other long term (current) drug therapy; Z86.73 Personal history of transient ischemic attack (TIA), and cerebral infarction without residual deficits
CPT/HCPCS: 31624; 31628; 71045; 76000; 87015; 87116; 87206; 88108; 88305; 88313; 89050; J7120; J2405

== ENCOUNTER 2021-06-23 10:59 | Outpatient (CLI) | payer MEDICARE, SELFPAY ==
[2021-06-23 12:21] LABS: Absolute Lymphocyte Count 1.38 X10^3/uL (0.83-4.51); Absolute Neutrophil Count 9.3 X10^3/uL (2.0-7.7); Basophil# 0.06 X10^3/uL; Basophil% 0.5 % (0-1); Eosinophil# 0.01 X10^3/uL; Eosinophils% 0.1 % (0-5); Hematocrit 38.9 % (40-54); Hemoglobin 12.7 g/dL (13.0-16.5); Lymphocyte # 1.38 X10^3/ul (0.83-4.51); Lymphocyte % 11.8 % (19-41); Mean Corp Hgb Conc 32.6 g/dL (32-36); Mean Corpuscular Hgb 20.3 pg (27.0-32.0); Mean Corpuscular Volume 62.1 fL (80-94); Monocyte# 0.59 X10^3/uL; NRBC Flagged by Analyzer 0.4 % (0-5); Neutrophil # 9.32 X10^3/uL (2.7-7.7); Neutrophil % 79.7 % (47-70); Platelet Count 234 K/mm3 (150-450); RBC Distribution Width CV 18.5 % (11.6-14.6); Red Blood Count 6.26 M/mm3 (4.6-6.2); White Blood Count 11.7 K/mm3 (4.4-11.0)
[2021-06-23 12:28] LABS: Erythrocyte Sedimentation Rate 16 mm/hr (0-20)
[2021-06-23 13:45] LABS: AST(SGOT) 15 U/L (15-37); Alanine Aminotransfer ALT/SGPT 33 U/L (16-61); Albumin, Serum 3.3 g/dL (3.2-5.0); Alkaline Phosphatase 42 U/L (45-117); Bilirubin, Direct 0.23 mg/dL (0.00-0.30); CRP < 2.90 mg/L (0.0-3.0); Globulin 3.7 g/dL (2.2-4.2); Rheumatoid Factor < 10.0 IU/mL (<15)
[2021-06-24 13:08] LABS: Anti-Scleroderma-70 AB <0.2 AI (0.0-0.9); SJOGREN'S Anti-SS-A test < 0.2 AI (0.0-0.9); SJOGREN'S Anti-SS-B test < 0.2 AI (0.0-0.9)
[2021-06-24 16:35] LABS: ANTINUCLEAR ANTIBODIES DIRECT Negative (Negative); Anti-dsDNA Ab <1 IU/mL (0-9)
[2021-06-26 00:06] LABS: Angiotensin Convert Enzyme 19 U/L (14-82); Cytoplasmic Ab (C-ANCA) <1:20 titer (Neg:<1:20)
[2021-06-26 16:16] LABS: Anti-Smooth Muscle ABS 6 Units (0-19); CCP IgG Antibodies 3 units (0-19); Perinuclear Ab (P-ANCA) 1:20 titer (Neg:<1:20)
== END 2021-06-23 23:59 | disposition short-term general hospital (02) ==
PROVIDERS: Physician Assistant; PCP Family Medicine Geriatric Medicine; Referring Provider Internal Medicine Pulmonary Disease; Visit Provider Internal Medicine Pulmonary Disease
DX: J84.10 Pulmonary fibrosis, unspecified (principal); R06.00 Dyspnea, unspecified
CPT/HCPCS: 36415; 80076; 82164; 83516; 85025; 85652; 86038; 86140; 86200; 86225; 86235; 86256; 86431; 87635; U0003; U0005

== ENCOUNTER 2021-06-24 12:03 | Outpatient (CLI) | payer MEDICARE, SELFPAY ==
[2021-06-24 12:52] LABS: Anion Gap 8 (5-15); BUN 29 mg/dL (7-18); BUN/Creat Ratio 23.8 RATIO (10-20); Calcium,Total 9.3 mg/dL (8.5-10.1); Chloride 93 mmol/L (98-107); Creatinine, Serum 1.22 mg/dL (0.70-1.30); EST Glomerular Filtration Rate 61 mL/min (>60); Est Glom Filt Rate - Afr Amer 74 mL/min (>60); Glucose 123 mg/dL (74-106); Potassium 4.3 mmol/L (3.5-5.1); Sodium Level 129 mmol/L (136-145)
== END 2021-06-24 23:59 | disposition short-term general hospital (02) ==
LOC: POLAB3 12:04
PROVIDERS: PCP Family Medicine Geriatric Medicine; Visit Provider Family Medicine Geriatric Medicine
DX: E87.1 Hypo-osmolality and hyponatremia (principal)
CPT/HCPCS: 36415; 80048

== ENCOUNTER 2021-07-20 11:39 | Outpatient (CLI) | payer MEDICARE, SELFPAY ==
--- NOTE | 2021-07-20 11:42 | RAD_ITS ---
STUDY: X-RAY CHEST REASON FOR EXAM: Male, 81 years old. CHEST PAIN SOB / SOA DYSPNEA TECHNIQUE: XR Chest 2 Views COMPARISON: Yesterday FINDINGS: There are bilateral infiltrates. There is no pneumothorax. There is mild cardiac enlargement. Normal mediastinum and ernestina. Normal visualized pulmonary arteries. There is atherosclerotic calcification of the aortic arch with tortuosity. There are diffuse degenerative changes of the visualized thoracic spine. There is degenerative osteoarthritis of the bilateral shoulders. There is no demonstrated abnormality of the visualized soft tissue structures of the upper abdomen. RAD/Chest PA and Lateral IMPRESSION: Bilateral pneumonia. Electronically Signed: Mykel Kaiser MD at 17:50 EST ,
== END 2021-07-20 23:59 | disposition home or self-care (01) ==
LOC: MTRAD 11:41
PROVIDERS: PCP Family Medicine Geriatric Medicine; Referring Provider Internal Medicine Pulmonary Disease; Visit Provider Internal Medicine Pulmonary Disease
DX: R06.00 Dyspnea, unspecified (principal); J84.10 Pulmonary fibrosis, unspecified
CPT/HCPCS: 71046

== ENCOUNTER 2021-08-11 11:57 | Outpatient (CLI) | payer MEDICARE, SELFPAY ==
[2021-08-11 13:38] LABS: AST(SGOT) 18 U/L (15-37); Alanine Aminotransfer ALT/SGPT 29 U/L (16-61); Albumin, Serum 3.4 g/dL (3.2-5.0); Alkaline Phosphatase 37 U/L (45-117); BUN 21 mg/dL (7-18); Bilirubin, Direct 0.28 mg/dL (0.00-0.30); Calcium,Total 9.5 mg/dL (8.5-10.1); EST Glomerular Filtration Rate 57 mL/min (>60); Est Glom Filt Rate - Afr Amer 68 mL/min (>60); Globulin 3.6 g/dL (2.2-4.2)
== END 2021-08-11 23:59 | disposition home or self-care (01) ==
LOC: LAB 11:59
PROVIDERS: PCP Family Medicine Geriatric Medicine; Visit Provider Internal Medicine Pulmonary Disease
DX: J84.10 Pulmonary fibrosis, unspecified (principal); Z79.899 Other long term (current) drug therapy
CPT/HCPCS: 36415; 80076; 82310; 82565; 83735; 84520

== ENCOUNTER 2021-08-31 14:44 | Outpatient (CLI) | payer MEDICARE, SELFPAY ==
[2021-08-31 15:55] LABS: Anion Gap 7 (5-15); BUN 22 mg/dL (7-18); BUN/Creat Ratio 16.7 RATIO (10-20); Calcium,Total 9.2 mg/dL (8.5-10.1); Chloride 98 mmol/L (98-107); Creatinine, Serum 1.32 mg/dL (0.70-1.30); EST Glomerular Filtration Rate 56 mL/min (>60); Est Glom Filt Rate - Afr Amer 67 mL/min (>60); Glucose 142 mg/dL (74-106); Potassium 4.7 mmol/L (3.5-5.1); Sodium Level 132 mmol/L (136-145)
[2021-08-31 16:01] LABS: BNP,B-Type NATRIURETIC PEPTIDE 47.5 pg/mL (0-100)
== END 2021-08-31 23:59 | disposition home or self-care (01) ==
LOC: LAB 14:46
PROVIDERS: PCP Family Medicine Geriatric Medicine; Referring Provider Internal Medicine Cardiovascular Disease; Visit Provider Internal Medicine Cardiovascular Disease
DX: R06.00 Dyspnea, unspecified (principal)
CPT/HCPCS: 36415; 80048; 83880

== ENCOUNTER 2021-09-09 18:56 | Outpatient (CLI) | payer MEDICARE, SELFPAY ==
--- NOTE | 2021-09-09 19:09 | CT_ITS ---
INDICATION: HR EXAMINATION: CT CHEST WITHOUT CONTRAST - CT Chest W/O Contrast Injection TECHNIQUE: Helically acquired images were obtained of the chest. A radiation dose optimization technique was used for this scan. IV Contrast dosage and agent: None. COMPARISON: Prior CT chest from 04/12/2021. FINDINGS: LUNGS, PLEURA AND LARGE AIRWAYS: Abnormal reticulations and ground glass opacities seen throughout most of the lungs with minimal normal appearing lung. Minimal honeycombing and no significant bronchiectasis decreasing likelihood of pulmonary fibrosis. There may be minimal asymmetric bronchiectasis in the right lower lobe basilar segments. No nodule. No mass. No pleural effusion or pneumothorax. THYROID: No thyroid lesions. HEART AND PERICARDIUM: Heart size is normal. No pericardial effusion. VESSELS: 40 x 43 cm descending thoracic aorta, ectatic. Extensive coronary and thoracic aortic intimal calcifications are present. Pulmonary arteries are also mildly prominent measuring between 2.5 and 2.9 cm in diameter and may be associated with pulmonary hypertension. MEDIASTINUM AND SHIRLEY: 11 mm right paratracheal and 13 mm left aortopulmonary window lymph node not significantly changed. Esophagus is unremarkable. No hiatal hernia. Prominent pericardial fat pad. UPPER ABDOMEN: Gallbladder stones and a peritoneal calcification are noted. There is significant atherosclerosis of the superior mesenteric artery. BONES: No suspicious lytic or blastic abnormality. CT/Chest without Contrast IMPRESSION: Reticular and groundglass opacities without significant honeycombing or bronchiectasis. Pulmonary consultation is recommended. Drug-induced and connected tissue related interstitial lung disease, hypersensitivity pneumonitis and usual interstitial pneumonia are considered. Early fibrotic changes are not excluded. Electronically Signed: Raffaele Gomez DO at 20:50 EDT ,
== END 2021-09-09 23:59 | disposition home or self-care (01) ==
LOC: CT 18:58
PROVIDERS: PCP Family Medicine Geriatric Medicine; Visit Provider Internal Medicine Pulmonary Disease
DX: J84.10 Pulmonary fibrosis, unspecified (principal)
CPT/HCPCS: 71250

== ENCOUNTER → 2021-10-11 | Outpatient (CLI) | payer MEDICARE, SELFPAY ==
[2021-10-11 08:09] VITALS: BP 134/76; PULSE 76; RESP 16; TEMP 35.9; O2SAT 95
[2021-10-11] MEDS: Cosyntropin 0.25 MG Vial IM (08:23)
== END | disposition home or self-care (01) ==
PROVIDERS: PCP Family Medicine Geriatric Medicine; Referring Provider Internal Medicine Pulmonary Disease; Visit Provider Internal Medicine Pulmonary Disease
DX: Z79.899 Other long term (current) drug therapy (principal)
CPT/HCPCS: 36415; 82533; 96372; J0834

== ENCOUNTER → 2021-10-22 | Outpatient (CLI) | payer MEDICARE, SELFPAY ==
[2021-10-22 12:36] LABS: Vitamin D,25 Hydroxy 33.8 ng/mL
[2021-10-22 12:37] LABS: Absolute Lymphocyte Count 2.46 X10^3/uL (0.83-4.51); Absolute Neutrophil Count 3.9 X10^3/uL (2.0-7.7); Basophil# 0.05 X10^3/uL; Basophil% 0.6 % (0-1); Eosinophil# 0.54 X10^3/uL; Eosinophils% 6.9 % (0-5); Hematocrit 36.1 % (40-54); Hemoglobin 11.7 g/dL (13.0-16.5); Lymphocyte # 2.46 X10^3/ul (0.83-4.51); Lymphocyte % 31.5 % (19-41); Mean Corp Hgb Conc 32.4 g/dL (32-36); Mean Corpuscular Hgb 20.2 pg (27.0-32.0); Mean Corpuscular Volume 62.3 fL (80-94); Mean Platelet Vol. 10.2 fl (6.2-12.0); Monocyte# 0.85 X10^3/uL; Monocyte% 10.9 % (0-10); NRBC Flagged by Analyzer 0 % (0-5); Neutrophil # 3.86 X10^3/uL (2.7-7.7); Neutrophil % 49.3 % (47-70); Platelet Count 255 K/mm3 (150-450); RBC Distribution Width SD 33.6 fl (35.1-43.9); Red Blood Count 5.79 M/mm3 (4.6-6.2); White Blood Count 7.8 K/mm3 (4.4-11.0)
[2021-10-22 12:56] LABS: ALB/GLOB Ratio 0.8 RATIO (0.9-2.4); AST(SGOT) 23 U/L (15-37); Alanine Aminotransfer ALT/SGPT 24 U/L (16-61); Alkaline Phosphatase 62 U/L (45-117); Anion Gap 10 (5-15); BUN 11 mg/dL (7-18); BUN/Creat Ratio 9.6 RATIO (10-20); Calcium,Total 9.3 mg/dL (8.5-10.1); Chloride 100 mmol/L (98-107); Cholesterol 194 mg/dL (200); Creatinine, Serum 1.15 mg/dL (0.70-1.30); EST Glomerular Filtration Rate 65 mL/min (>60); Est Glom Filt Rate - Afr Amer 79 mL/min (>60); Glucose 123 mg/dL (74-106); High Density Lipoprotein 34 mg/dL; Sodium Level 131 mmol/L (136-145); Thyroid Stim Hormone (TSH) 2.07 uIU/mL (0.358-3.74); Triglycerides 146 mg/dL; Uric Acid 6.1 mg/dL (3.5-7.2); Very Low Density Lipoprotein 29 mg/dL (5-40)
== END | disposition home or self-care (01) ==
LOC: POLAB3 09:39
PROVIDERS: PCP Family Medicine Geriatric Medicine; Visit Provider Family Medicine Geriatric Medicine
DX: E55.9 Vitamin D deficiency, unspecified (principal); E78.5 Hyperlipidemia, unspecified; I10 Essential (primary) hypertension; M10.9 Gout, unspecified
CPT/HCPCS: 36415; 80053; 80061; 82306; 84443; 84550; 85025

== ENCOUNTER → 2022-01-26 | Outpatient (CLI) | payer MEDICARE, SELFPAY ==
[2022-01-26 07:52] LABS: Absolute Lymphocyte Count 3.11 X10^3/uL (0.83-4.51); Absolute Neutrophil Count 4.7 X10^3/uL (2.0-7.7); Basophil# 0.06 X10^3/uL; Basophil% 0.7 % (0-1); Eosinophil# 0.17 X10^3/uL; Eosinophils% 1.9 % (0-5); Hematocrit 41.6 % (40-54); Hemoglobin 13.3 g/dL (13.0-16.5); Lymphocyte # 3.11 X10^3/ul (0.83-4.51); Lymphocyte % 34.2 % (19-41); Mean Corpuscular Hgb 20.1 pg (27.0-32.0); Mean Corpuscular Volume 62.9 fL (80-94); Mean Platelet Vol. 9.8 fl (6.2-12.0); Monocyte# 0.92 X10^3/uL; Monocyte% 10.1 % (0-10); NRBC Flagged by Analyzer 0.2 % (0-5); Neutrophil # 4.73 X10^3/uL (2.7-7.7); Neutrophil % 51.9 % (47-70); Platelet Count 207 K/mm3 (150-450); RBC Distribution Width CV 18.9 % (11.6-14.6); RBC Distribution Width SD 36.4 fl (35.1-43.9); Red Blood Count 6.61 M/mm3 (4.6-6.2); White Blood Count 9.1 K/mm3 (4.4-11.0)
[2022-01-26 08:34] LABS: Vitamin D,25 Hydroxy 34.1 ng/mL
[2022-01-26 08:37] LABS: ALB/GLOB Ratio 0.8 RATIO (0.9-2.4); AST(SGOT) 15 U/L (15-37); Alanine Aminotransfer ALT/SGPT 24 U/L (16-61); Albumin, Serum 3.1 g/dL (3.2-5.0); Alkaline Phosphatase 40 U/L (45-117); Anion Gap 7 (5-15); BUN 18 mg/dL (7-18); BUN/Creat Ratio 14.8 RATIO (10-20); Calcium,Total 8.9 mg/dL (8.5-10.1); Chloride 99 mmol/L (98-107); Cholesterol 207 mg/dL (200); Creatinine, Serum 1.22 mg/dL (0.70-1.30); EST Glomerular Filtration Rate 61 mL/min (>60); Est Glom Filt Rate - Afr Amer 74 mL/min (>60); Globulin 3.8 g/dL (2.2-4.2); Glucose 94 mg/dL (74-106); High Density Lipoprotein 58 mg/dL; Potassium 4.2 mmol/L (3.5-5.1); Protein, Total 6.9 g/dL (6.4-8.2); Sodium Level 134 mmol/L (136-145); Thyroid Stim Hormone (TSH) 2.43 uIU/mL (0.358-3.74); Triglycerides 167 mg/dL; Very Low Density Lipoprotein 33 mg/dL (5-40)
== END | disposition home or self-care (01) ==
PROVIDERS: PCP Family Medicine Geriatric Medicine; Referring Provider Family Medicine Geriatric Medicine; Visit Provider Family Medicine Geriatric Medicine
DX: I10 Essential (primary) hypertension (principal); E78.5 Hyperlipidemia, unspecified; E55.9 Vitamin D deficiency, unspecified
CPT/HCPCS: 36415; 80053; 80061; 82306; 84443; 85025

== ENCOUNTER → 2022-04-25 | Outpatient (CLI) | payer MEDICARE, SELFPAY ==
[2022-04-25 13:08] LABS: Absolute Lymphocyte Count 1.44 X10^3/uL (0.83-4.51); Absolute Neutrophil Count 9.3 X10^3/uL (2.0-7.7); Basophil# 0.09 X10^3/uL; Basophil% 0.7 % (0-1); Eosinophil# 0.36 X10^3/uL; Eosinophils% 2.9 % (0-5); Hematocrit 42.9 % (40-54); Hemoglobin 13.4 g/dL (13.0-16.5); Lymphocyte # 1.44 X10^3/ul (0.83-4.51); Lymphocyte % 11.8 % (19-41); Mean Corp Hgb Conc 31.2 g/dL (32-36); Mean Corpuscular Hgb 19.7 pg (27.0-32.0); Mean Platelet Vol. 9.9 fl (6.2-12.0); Monocyte# 0.85 X10^3/uL; NRBC Flagged by Analyzer 0 % (0-5); Neutrophil # 9.33 X10^3/uL (2.7-7.7); Neutrophil % 76.3 % (47-70); Platelet Count 306 K/mm3 (150-450); RBC Distribution Width CV 18.6 % (11.6-14.6); RBC Distribution Width SD 36.1 fl (35.1-43.9); Red Blood Count 6.81 M/mm3 (4.6-6.2); White Blood Count 12.2 K/mm3 (4.4-11.0)
[2022-04-25 13:16] LABS: Vitamin D,25 Hydroxy 34.8 ng/mL
[2022-04-25 13:40] LABS: ALB/GLOB Ratio 0.7 RATIO (0.9-2.4); AST(SGOT) 21 U/L (15-37); Alanine Aminotransfer ALT/SGPT 19 U/L (16-61); Albumin, Serum 3.2 g/dL (3.2-5.0); Alkaline Phosphatase 47 U/L (45-117); Anion Gap 13 (5-15); BUN 23 mg/dL (7-18); BUN/Creat Ratio 20.2 RATIO (10-20); Calcium,Total 9.4 mg/dL (8.5-10.1); Chloride 98 mmol/L (98-107); Cholesterol 213 mg/dL (200); Creatinine, Serum 1.14 mg/dL (0.70-1.30); EST Glomerular Filtration Rate 66 mL/min (>60); Est Glom Filt Rate - Afr Amer 79 mL/min (>60); Globulin 4.5 g/dL (2.2-4.2); Glucose 90 mg/dL (74-106); High Density Lipoprotein 52 mg/dL; Potassium 4.6 mmol/L (3.5-5.1); Protein, Total 7.7 g/dL (6.4-8.2); Sodium Level 134 mmol/L (136-145); Thyroid Stim Hormone (TSH) 1.46 uIU/mL (0.358-3.74); Triglycerides 138 mg/dL; Very Low Density Lipoprotein 28 mg/dL (5-40)
[2022-04-25 15:16] LABS: Probe Check A
== END | disposition home or self-care (01) ==
PROVIDERS: PCP Family Medicine Geriatric Medicine; Visit Provider Family Medicine Geriatric Medicine
DX: E55.9 Vitamin D deficiency, unspecified (principal); I10 Essential (primary) hypertension; R68.83 Chills (without fever)
CPT/HCPCS: 36415; 80053; 80061; 82306; 84443; 85025; 87635; 87804; 87807; C9803; U0003; U0005

== ENCOUNTER → 2022-06-10 | Outpatient (CLI) | payer MEDICARE, SELFPAY | END | disposition home or self-care (01) | LOC: PSN 13:33 | PROVIDERS: PCP Family Medicine Geriatric Medicine; Visit Provider Family Medicine Geriatric Medicine | DX: R68.83 Chills (without fever) (principal) | CPT/HCPCS: 87635; 87804; 87807; C9803; U0003; U0005 ==

== ENCOUNTER → 2022-09-09 | Outpatient (CLI) | payer MEDICARE, SELFPAY ==
[2022-09-09 08:13] LABS: AST(SGOT) 19 U/L (15-37); Alanine Aminotransfer ALT/SGPT 22 U/L (16-61); Albumin, Serum 3.3 g/dL (3.2-5.0); Alkaline Phosphatase 42 U/L (45-117); Bilirubin, Direct 0.27 mg/dL (0.00-0.30); Cholesterol 194 mg/dL (200); Globulin 3.7 g/dL (2.2-4.2); High Density Lipoprotein 54 mg/dL; Triglycerides 169 mg/dL; Very Low Density Lipoprotein 34 mg/dL (5-40)
== END | disposition home or self-care (01) ==
LOC: LAB 07:13
PROVIDERS: PCP Family Medicine Geriatric Medicine; Referring Provider Internal Medicine Cardiovascular Disease; Visit Provider Internal Medicine Cardiovascular Disease
DX: I10 Essential (primary) hypertension (principal); E78.5 Hyperlipidemia, unspecified
CPT/HCPCS: 36415; 80061; 80076

== ENCOUNTER → 2022-10-17 | Outpatient (CLI) | payer MEDICARE, SELFPAY ==
[2022-10-17 13:03] LABS: Absolute Lymphocyte Count 2.93 X10^3/uL (0.83-4.51); Absolute Neutrophil Count 5.5 X10^3/uL (2.0-7.7); Basophil# 0.07 X10^3/uL; Basophil% 0.7 % (0-1); Eosinophil# 0.38 X10^3/uL; Eosinophils% 3.9 % (0-5); Hematocrit 40.7 % (40-54); Hemoglobin 13.3 g/dL (13.0-16.5); Lymphocyte # 2.93 X10^3/ul (0.83-4.51); Lymphocyte % 29.7 % (19-41); Mean Corp Hgb Conc 32.7 g/dL (32-36); Mean Corpuscular Hgb 20.3 pg (27.0-32.0); Mean Platelet Vol. 9.9 fl (6.2-12.0); Monocyte# 0.91 X10^3/uL; Monocyte% 9.2 % (0-10); NRBC Flagged by Analyzer 0.2 % (0-5); Neutrophil # 5.45 X10^3/uL (2.7-7.7); Neutrophil % 55.4 % (47-70); Platelet Count 265 K/mm3 (150-450); RBC Distribution Width CV 18.9 % (11.6-14.6); RBC Distribution Width SD 36.2 fl (35.1-43.9); Red Blood Count 6.56 M/mm3 (4.6-6.2); White Blood Count 9.9 K/mm3 (4.4-11.0)
[2022-10-17 13:32] LABS: Vitamin D,25 Hydroxy 36.8 ng/mL
[2022-10-17 13:52] LABS: ALB/GLOB Ratio 0.9 RATIO (0.9-2.4); AST(SGOT) 19 U/L (15-37); Alanine Aminotransfer ALT/SGPT 26 U/L (16-61); Albumin, Serum 3.5 g/dL (3.2-5.0); Alkaline Phosphatase 47 U/L (45-117); Anion Gap 10 (5-15); BUN 19 mg/dL (7-18); Calcium,Total 9.7 mg/dL (8.5-10.1); Chloride 101 mmol/L (98-107); Cholesterol 201 mg/dL (200); Creatinine, Serum 1.27 mg/dL (0.70-1.30); EST Glomerular Filtration Rate 58 mL/min (>60); Est Glom Filt Rate - Afr Amer 70 mL/min (>60); Glucose 89 mg/dL (74-106); High Density Lipoprotein 50 mg/dL; Protein, Total 7.5 g/dL (6.4-8.2); Sodium Level 136 mmol/L (136-145); Thyroid Stim Hormone (TSH) 2.44 uIU/mL (0.358-3.74); Triglycerides 153 mg/dL; Very Low Density Lipoprotein 31 mg/dL (5-40)
== END | disposition home or self-care (01) ==
LOC: POLAB3 09:13
PROVIDERS: PCP Family Medicine Geriatric Medicine; Visit Provider Family Medicine Geriatric Medicine
DX: I10 Essential (primary) hypertension (principal); E55.9 Vitamin D deficiency, unspecified
CPT/HCPCS: 36415; 80053; 80061; 82306; 84443; 85025

== ENCOUNTER → 2023-01-06 | Outpatient (CLI) | payer MEDICARE, SELFPAY ==
--- NOTE | 2023-01-06 08:09 | PR.OPHP_ITS ---
History of Present Illness General Arrival date:: 01/06/23 Arrival time:: 08:00 Date of Referral:: 12/23/22 Date of Evaluation: 01/06/23 Referring Physician: Dr. Webb Primary Diagnosis: Idiopathic Pulmonary Fibrosis History of Present Pulmonary Event [facility] Breathless Scale: When is the patient short of breath? Y/N Grade: Description of Breathlessness: n 0 I only get breathless with strenuous exercise. n 1 I get short of breath when hurrying on level ground or walking up a slight hill. y 2 On level ground, I walk slower than people of the same age because of breathless, or have to stop for breath when walking at my own pace. y 3 I stop for breath after walking 100 yards or after a few minutes on level ground. n 4 I am too breathless to leave the house or I am breathless when dressing. Respiratory Problems: Yes Limited Range of Motion, Able to Speak in Full Sentences and Dyspnea with Activity; No Retain Secretions, Fatigue, Wheezing, Dizziness, Ankle Swelling, Hoarseness, Anxiety, Panic, Dyspnea at Rest, Dyspnea Lying Down Flat or Cough with Secretions Medications Home Medications tamsulosin 0.4 mg capsule 0.4 mg PO QHS PROSTATE 02/16/17 cholecalciferol (vitamin D3) 125 mcg (5,000 unit) tablet (Vitamin D3) 125 mcg PO DAILY 04/23/21 glucosamine sulfate 500 mg tablet (Glucosamine) 500 mg PO DAILY 04/23/21 omega-3 fatty acids 500 mg PO DAILY 04/23/21 losartan 50 mg tablet 50 mg PO DAILY Please notify pt he does not need to cut in half #90 tabs 12/29/21 apixaban 5 mg tablet (Eliquis) 5 mg PO BID #180 tabs 01/03/22 ezetimibe 10 mg tablet 10 mg PO DAILY #90 tabs 05/27/22 ferrous sulfate 325 mg (65 mg iron) tablet 325 mg PO DAILY PRN 05/27/22 prednisone 10 mg tablet 10 mg PO DAILY 05/27/22 metoprolol succinate 50 mg tablet,extended release 24 hr 50 mg PO DAILY #90 tabs 11/08/22 Allergies Allergies amiodarone Adverse Reaction (Verified 12/01/22 15:13) Patient diagnosed with Pulmonary Fibrosis Secretions Thick:: No Thin:: No Sleep Disorder Evaluation Hx of Sleep Apnea: No Do you snore loudly (louder than talking or can be heard through closed doors)?: No Do you often feel tired/ fatigued/ sleepy during daytime?: Yes Has anyone observed you stop breathing during sleep?: No History of Hypertension (for STOP score): Yes STOP Results: Positive Medical Utilization Medical Devices Do you use a peak flow meter at home?: No Do you use a spacer device with your inhalers?: No Medical Utilization Number of hospital visits in the last year?: 0 Number of emergency room visits in the last year?: 0 Do you see your physician on a regular schedule?: Yes How often?: Robin bi-annualy; Dr. Webb every 4 months Advanced Directives Advanced Directives Power of Television Host: Yes Living Will: Yes Advance Directives Information Provided: No Advance Directives on File: No DNR Order?:: No MOLST See MOLST form: No Past Medical History Covid-19 Screening Physicial Symptoms Fever: No Unexplained muscle aches: No Current respiratory symptoms: Yes (shortness of breath related to his pulmonary fibrosis) Upper respiratory infections symptoms: No Gastro-intestinal symptoms: No [id number] symptoms: No Other Clinical Concerns Has tested positive for COVID-19 in last 30 days: No Date of testin01/06/23 (Fully vaccinated) Exposure Risk Had contact w/person w/symptoms or Covid-19 (+) last 14 days: No Has High Risk Exposures ID'd by Health dept/Inf Control team: No Pertinent Comorbidities 65 years or older:: Yes Lives in Assisted Living facility:: No Has a chronic lung disease or moderate to severe asthma:: Yes Has a serious heart condition:: Yes Immunocompromised:: No Severely obese (Body Mass Index of 40 or higher):: No Diabetic:: No Has chronic kidney disease undergoing dialysis:: No Has liver disease:: No Medical History Past Medical History Arthritis M19.90 Atherosclerosis of coronary artery of [place] heart without angina pectoris I25.10 BPH (benign prostatic hyperplasia) N40.0 Cardiology follow-up encounter Z09 Dr Kim, last visit 12/22/2020; Nurse visit 02/2021 COVID-19 (06/14/21) U07.1 Essential (primary) hypertension I10 Gynecomastia, male N62 Hepatitis A B15.9 History of echocardiogram Z92.89 03/12/21 [facility] History of stress test Z92.89 09/08/17 [facility] Hyperlipidemia E78.5 Interstitial pulmonary fibrosis J84.10 IPF (idiopathic pulmonary fibrosis) J84.112 New onset atrial fibrillation (2017) I48.91 Non-smoker Z78.9 Paroxysmal atrial fibrillation I48.0 new onset 08/2017 Syncope due to orthostatic hypotension I95.1 TIA (transient ischemic attack) ruled out, neurologist states r/t HTN Tremor R25.1 Surgical History Past Surgical History History of bronchoscopy (04/2021) Z98.890 History of cataract surgery Z98.49 History of colonoscopy Z98.890 History of incision and drainage Z98.890 left groin abscess 04/02/2014 History of left heart catheterization (11/20/17) Z98.890 Significant Family History Family History Sister Diabetes Current/ Previous Services Pulmonary Rehab:: No Social History Smoking History Smoking Status: Never smoker Hx Tobacco Use: No Hx Smoking Exposure: No Alcohol Use Alcohol Usage: Yes (occasionally during special holidays and socially (maybe 2 times per year)) Substance Abuse Hx Substance Use: No Occupation Occupation (List type of work in comments):: Retired Hobbies, Recreation, Social Activities Hobbies: Walking (walking in the morning inside the home. Previously went to [employer] for aqua and cardiovascular exercise) and Other (playing cards, gardening, ) Recreational Activities: I am able to engage in most, but not all activities Functioning ADL/IADL Current Ability Current Ability: Independent: Self-Care (e.g.,grooming, dressing, & bathing), Independent: Ambulation, Independent: Transfer and Independent: Household tasks (e.g., light meal prep, laundry, shopping) Pt Functioning Prior to Problem Prior Functioning: Self-Care (e.g.,grooming, dressing, & bathing): Independent, Ambulation: Independent, Transfer: Independent and Household tasks (e.g., light meal prep, laundry, shopping): Independent Social Environment Status Marital Status: Current Living Arrangements Living Environment:: Spouse Children How many children do you have?: 2 Do any of your children live nearby?: No ([place] and [place]) Safety Do you feel safe in your surroundings?: Yes Assistance Do you need any assistance at home?: no Review of Systems Review of Systems Review of Systems Respiratory: Reports SOB upon Exertion, Appetite, Normal, Fatigue and Sleep, Normal; Denies Cough, Hemoptysis, Pleuritic Pain, SOB at Rest, Sputum production, Wheezing, Dizziness/Lightheadedness, PVD or Sexual changes Pain Is Patient Pain Free?: No Pain Location: none Pain Level: 0/10 Previous experience dealing with pain?: [place] on [employer] in left knee which he wears a brace Risk Factor Assessment Chief Complaint Chief Complaint: Idiopathic pulmonary fibrosis, Hypertension, hyperlipidemia, atrial fibrillation, TIA and tremor Vital Signs Temperature: 98.7 F Pulse Rate: 75 Respiratory Rate: 14 Pulse Ox: 95 Blood Pressure: 109/78 Nailbeds:: pink Diabetes Nutrition Referral for Diabetes: No Obesity Height: 5 ft 6 in Weight:: 169 lb Weight in Pounds: 169.0 lbs Weight Source: Estimated by Patient Body Mass Index (BMI): 27.2 Nutritional Referral for Obesity: No Physical Activity Physical Inactivity: Reg Exercise 30 min/day ([employer] exercise at [employer] for about 60 minutes daily.) and None Risk Stratification Risk Guidelines: Lowest Risk: Risk Factor for Smoking, Risk Factor for Dyslipidemia, Risk Factor for Diabetes, Risk Factor for Obesity, Risk Factor for Hypertension, Risk Factor for Sedentary Lifestyle and Risk Factor for Depression For Smoking Smoking Risk Guidelines For Dyslipidemia Dyslipidemia Risk Guidelines For Diabetes Mellitus Diabetes Risk Guidelines For Obesity/Overweight Obesity/Overweight Risk Guidelines For Hypertension Hypertension Risk Guidelines For Sedentary Lifestyle Sedentary Lifestyle Risk Guidelines For Depression Depression Risk Guidelines Motivation Motivation to Participate On a scale of 1 to 10, how prepared are you to commit to attending program?: 10 What do you see as barriers to successfully being able to complete the program?: left knee [id number] with brace What do you see as the benefits of succesfully completing the program? In other words, what do you hope to get out of participating in the program?: improve breathing; get better have a better life Are there issues you are dealing with that will interfere with completing the program?: none Do you have a spouse or signficant other, family or friends who will help support you to complete the program?: Yes Diagnostic Data Review 6 Minute Walk Test 6 Minute Walk Test: 1500 ft of ambulation saturations dropping to 86% with rapid recovery. Pulmonary Function Test FEV1:: 78 FVC:: 50
--- NOTE | 2023-01-06 08:09 | EX.OP.PR.TP ---
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 Secondary Diagnosis: HTN, HLD, COVID-19, new onset atrial fibrillation, TIA PFT FEV1:: 71 FVC:: 52 Personal Learning Style/Barriers Personal Learning Style:: Audio/Visual and Written Barriers to Learning: None Stage of change r/t lifestyle modifications: Action Educational Classes [place]: Living with Chronic Lung Disease: Initial Assessment, Breathing Retraining: Initial Assessment, Exercise: Initial Assessment and Energy Conservation: Initial Assessment Education/Goals Individual Counseling: Initial Assessment: High Blood Pressure [place] Patient Goals: Increase muscle strength: Initial Assessment, Experience less dyspnea: Initial Assessment, Improve energy level: Initial Assessment, Participate in home exercise: Initial Assessment, Improve the ability to cope with ADLs: Initial Assessment, Improve knowledge of lung disease: Initial Assessment, Understand how to use medications: Initial Assessment, Increase knowledge of oxygen use: Initial Assessment, Improve diet and nutrition: Initial Assessment, Improve my quality of life: Initial Assessment and Reduce Stress/relaxation techniques: Initial Assessment Exercise - Initial Assessment Visit Date of Eval: 01/06/23 Session Number:: 0 (initial evaluation pre-program) Problem/Goals Problems: Deconditioning Goals:: Aerobic exercise 30-60 mins x 12 weeks [36 sessions] Functional Capacity Test Number of feet walked: 1,500 Lowest SPO2 %: 86 (Rapid recovery) Physician Prescribed Exercise Modalities: Rower, NuStep and SciFit Frequency (days/week): 3 Duration (Minutes):: 30-45 Intensity: 60-80% of age predicted maximum heart rate reserve Current METSs:: 3.0 Target HR:: 105 Resting Blood Pressure: 109/78 Minimum SpO2 with exercise: 95 EKG Type: Noraml sinus rhythm (history of paroxysmal atrial fibrillation) Current Minutes of Exercise: 60 Plan Plan and Plan to Review:: Core components of exercise, How to measure dyspnea level, How to monitor dyspnea level, Exercise safety guideline, Home exercise guidelines and Gisela: 3-4/11-13 Home Exercise Mode: Other (continue pool exercise) Exercise - 30-Day Assessment Visit Date of Eval: 01/06/23 Session Number:: 0 (initial evaluation pre-program) Physician Prescribed Exercise Current METSs:: 3.0 Target HR:: 105 Resting Blood Pressure: 109/78 Minimum SpO2 with exercise: 95 EKG Type: [place] sinus rhythm (history of paroxysmal atrial fibrillation) Exercise - 60-Day Assessment Visit Date of Eval: 01/06/23 Session Number:: 0 (initial evaluation pre-program) Physician Prescribed Exercise Target HR:: 105 Resting Blood Pressure: 109/78 Minimum SpO2 with exercise: 95 EKG Type: [place]aml sinus rhythm (history of paroxysmal atrial fibrillation) Exercise - 90-Day Assessment Visit Date of Eval: 01/06/23 Session Number:: 0 (initial evaluation pre-program) Physician Prescribed Exercise Current METSs:: 3.0 Target HR:: 105 Resting Blood Pressure: 109/78 Minimum SpO2 with exercise: 95 EKG Type: Noraml sinus rhythm (history of paroxysmal atrial fibrillation) Exercise - Final Assessment Visit Session Number:: 0 (initial evaluation pre-program) Functional Capacity Test Number of feet walked: 1,500 Lowest SPO2 %: 86 (Rapid recovery) Physician Prescribed Exercise Modalities: Rower, NuStep and SciFit Current METSs:: 3.0 Resting Blood Pressure: 109/78 Minimum SpO2 with exercise: 95 EKG Type: [place] sinus rhythm (history of paroxysmal atrial fibrillation) Nutrition/Wt Mgmt - Initial Visit Date of Eval: 01/06/23 Session Number:: 0 (Initial evaluation - pre program) Problems/Goals Problems: Overweight Weight Management Knowledge Deficit Management of:: Overweight Admit Height:: 5 ft 6 in Admit Weight:: 169 lb Admit BMI:: 27.2 Intervention Referral to dietitian:: Yes Will attend diet classes:: Yes Intervention/Plan: Instruct on ideal BMI & set weight loss goal w/patient (healthier diet to minimize dyspnea) Plan Nutrition Plan: Yes: Nutrition education class: Nutrition/Wt Mgmt - 30-Day Visit Session Number:: 0 (Initial evaluation - pre program) Weight Management Height: 5 ft 6 in Weight:: 169 lb BMI: 27.2 Nutrition/Wt Mgmt - 60-Day Visit Session Number:: 0 (Initial evaluation - pre program) Weight Management Height: 5 ft 6 in Weight:: 169 lb BMI: 27.2 Nutrition/Wt Mgmt - 90-Day Visit Session Number:: 0 (Initial evaluation - pre program) Weight Management Height: 5 ft 6 in Weight:: 169 lb BMI: 27.2 Nutrition/Wt Mgmt - Final Visit Session Number:: 0 (Initial evaluation - pre program) Weight Management Height: 5 ft 6 in Weight:: 169 lb BMI: 27.2 Psychosocial - Initial Assess Visit Date of Eval: 01/06/23 Session Number:: 0 (Initial evaluation - pre program) Problems/Goals History of Emotional Disorders: None Psychosocial Goals: 1. Patient is free from overwhelming symtoms of depression (or anxiety and 7. Improved Q.O.L. Psychosocial Test Tool Used:: Pulmonary QOL and PHQ-9 Questionnaire Referral to Behavioral Health PS - Interventions: Yes: Attend Stress Management Classes and No: Referral to Behavioral Health if PHQ-9 score >9:, No: Referral to [facility] and No: Referral to Physician if PHQ-9 if score is 5-9: Intervention/Plan: See List Interventions/Plan:: Assess stressors,coping strategies & signs of derpression on admission, Instruct/assist pt to develop coping & personal stress Mgt strategies, Instruct patient to recognize signs & symptoms of depression and Instruct patient to recog Psychosocial - 30-Day Visit Session Number:: 0 (Initial evaluation - pre program) Problems/Goals History of Emotional Disorders: None Psychosocial Goals: 1. Patient is free from overwhelming symtoms of depression (or anxiety and 7. Improved Q.O.L. Psychosocial Test Tool Used:: Pulmonary QOL and PHQ-9 Questionnaire Referral to Behavioral Health PS - Interventions: Yes: Attend Stress Management Classes and No: Referral to Behavioral Health if PHQ-9 score >9:, No: Referral to [facility] and No: Referral to Physician if PHQ-9 if score is 5-9: Plan Interventions/Plan:: Assess stressors,coping strategies & signs of derpression on admission, Instruct/assist pt to develop coping & personal stress Mgt strategies, Instruct patient to recognize signs & symptoms of depression and Instruct patient to recog Psychosocial - 60-Day Visit Session Number:: 0 (Initial evaluation - pre program) Problems/Goals History of Emotional Disorders: None Psychosocial Goals: 1. Patient is free from overwhelming symtoms of depression (or anxiety and 7. Improved Q.O.L. Psychosocial Test Tool Used:: Pulmonary QOL and PHQ-9 Questionnaire Referral to Behavioral Health PS - Interventions: Yes: Attend Stress Management Classes and No: Referral to Behavioral Health if PHQ-9 score >9:, No: Referral to [facility] and No: Referral to Physician if PHQ-9 if score is 5-9: Plan Interventions/Plan:: Assess stressors,coping strategies & signs of derpression on admission, Instruct/assist pt to develop coping & personal stress Mgt strategies, Instruct patient to recognize signs & symptoms of depression and Instruct patient to recog Psychosocial - 90-Day Visit Session Number:: 0 (initial evaluation pre-program) Problems/Goals History of Emotional Disorders: None Psychosocial Goals: 1. Patient is free from overwhelming symtoms of depression (or anxiety and 7. Improved Q.O.L. Psychosocial Test Tool Used:: Pulmonary QOL and PHQ-9 Questionnaire Referral to Behavioral Health PS - Interventions: Yes: Attend Stress Management Classes and No: Referral to Behavioral Health if PHQ-9 score >9:, No: Referral to [facility] and No: Referral to Physician if PHQ-9 if score is 5-9: Plan Interventions/Plan:: Assess stressors,coping strategies & signs of derpression on admission, Instruct/assist pt to develop coping & personal stress Mgt strategies, Instruct patient to recognize signs & symptoms of depression and Instruct patient to recog Psychosocial - Final Assess Visit Session Number:: 0 (initial evaluation pre-program) Problems/Goals History of Emotional Disorders: None Psychosocial Goals: 1. Patient is free from overwhelming symtoms of depression (or anxiety and 7. Improved Q.O.L. Psychosocial Test Tool Used:: Pulmonary QOL and PHQ-9 Questionnaire Referral to Behavioral Health PS - Interventions: Yes: Attend Stress Management Classes and No: Referral to Behavioral Health if PHQ-9 score >9:, No: Referral to [facility] and No: Referral to Physician if PHQ-9 if score is 5-9: Plan Interventions/Plan:: Assess stressors,coping strategies & signs of derpression on admission, Instruct/assist pt to develop coping & personal stress Mgt strategies, Instruct patient to recognize signs & symptoms of depression and Instruct patient to recog Oxygen & Oxygen Titration Init Visit Date of Eval: 01/06/23 Session Number:: 0 (Initial evaluation - pre program) Initial Assessment Oxygen on Admission: None SpO2:: 95 FiO2:: 21 Patient Reports:: No cough Plans Plan: Monitor SpO2 rest & with exercise Reviewed prescribed medications:: Purpose and Importance of compliance Bronchial Hygiene Plan: Hydration, Hand hygiene and Signs/symptoms to report: Oxygen & Oxygen Titration 30D Visit Session Number:: 0 (initial evaluation pre-program) Reassessment SpO2:: 95 Oxygen & Oxygen Titration 60D Visit Session Number:: 0 (initial evaluation pre-program) Reassessment SpO2:: 95 Oxygen & Oxygen Titration 90D Visit Session Number:: 0 (initial evaluation pre-program) Reassessment SpO2:: 95 Oxygen & Oxygen Titration BOB Visit Session Number:: 0 (initial evaluation pre-program) Reassessment SpO2:: 95 Core Components - Initial Visit Date of Eval: 01/06/23 Session Number:: 0 (initial evaluation pre-program) Hypertension Hypertension Diagnosis:: Hypertension ICD-10 I10 BP: 109/78 Citizen Of The [place] [employer] Hypertension Guidelines Low Sodium diet: No Outcomes/Goals: Able to verbalize/achieve optimal blood pressure <130/80 Tobacco - Initial Assessment Tobacco Program Goals Learning Barriers: Ready to Learn Do you have family support?: Yes Tobacco Use: Non-smoker Do you use smokeless tobacco?: No Smoking Cessation Referral:: No Individual Education/Counseling:: No Education Schedule Given:: Yes Gave Education Materials For:: Pulmonary Disease, Risk Factors, Breathing Techniques, Medical Compliance, Pulmonary A&P, Exacerbation Signs & Symptoms and Stress & Relaxation Exacerbation Mgmt & Airway Clearance Patient Reports:: No cough Plan: Monitor SpO2 rest & with exercise Bronchial Hygiene Plan: Hydration, Hand hygiene and Signs/symptoms to report: Medication Interventions/plans: Instruct importance of taking meds as ordered & assist problem solving Medication Goals: Correct technique/timing & care of MDI, DPI, nebulizer, and spacer. Does pt report taking home meds as prescribed?: Yes Medications: Yes: MDI and No: Spacer Reviewed prescribed medications:: Purpose and Importance of compliance Diabetes Diabetes:: No Referral to dietitian:: Yes Referral to Diabetic Clinic:: No Will attend diet classes:: Yes Heart Failure Ejection fraction %:: 55 Documenting weight daily for CHF: No Core Components - 30 DAYS Visit Session Number:: 0 (initial evaluation pre-program) Hypertension Hypertension Diagnosis:: Hypertension ICD-10 I10 Resting Blood Pressure:: 109/78 Citizen Of [place] [employer] Hypertension Guidelines Outcomes/Goals: Able to verbalize/achieve optimal blood pressure <130/80 Tobacco - 30-Day Tobacco Program Goals Do you have family support?: Yes Tobacco Use: Non-smoker Do you use smokeless tobacco?: No Smoking Cessation Referral:: No Education Schedule Given:: Yes Gave Education Materials For:: Pulmonary Disease, Risk Factors, Breathing Techniques, Medical Compliance, Pulmonary A&P, Exacerbation Signs & Symptoms and Stress & Relaxation Diabetes Diabetes:: No Heart Failure Documenting weight se: No Core Components - 60 DAYS Visit Session Number:: 0 (initial evaluation pre-program) Hypertension Hypertension Diagnosis:: Hypertension ICD-10 I10 Resting Blood Pressure:: 109/78 Citizen Of [place] [employer] Hypertension Guidelines Outcomes/Goals: Able to verbalize/achieve optimal blood pressure <130/80 Tobacco - 60-Day Tobacco Program Goals Do you have family support?: Yes Tobacco Use: Non-smoker Do you use smokeless tobacco?: No Smoking Cessation Referral:: No Individual Education/Counseling:: No Education Schedule Given:: Yes Gave Education Materials For:: Pulmonary Disease, Risk Factors, Breathing Techniques, Medical Compliance, Pulmonary A&P, Exacerbation Signs & Symptoms and Stress & Relaxation Diabetes Diabetes:: No Heart Failure Documenting weight se: No Core Components - 90 DAYS Visit Session Number:: 0 (initial evaluation pre-program) Hypertension Hypertension Diagnosis:: Hypertension ICD-10 I10 Resting Blood Pressure:: 109/78 Citizen Of [place] [employer] Hypertension Guidelines Outcomes/Goals: Able to verbalize/achieve optimal blood pressure <130/80 Tobacco - 90-Day Tobacco Program Goals Do you have family support?: Yes Tobacco Use: Non-smoker Do you use smokeless tobacco?: No Smoking Cessation Referral:: No Individual Education/Counseling:: No Education Schedule Given:: Yes Gave Education Materials For:: Pulmonary Disease, Risk Factors, Breathing Techniques, Medical Compliance, Pulmonary A&P, Exacerbation Signs & Symptoms and Stress & Relaxation Diabetes Diabetes:: No Core Components - Final Visit Session Number:: 0 (initial evaluation pre-program) Hypertension Hypertension Diagnosis:: Hypertension ICD-10 I10 Resting Blood Pressure:: 109/78 Citizen Of [place] [employer] Hypertension Guidelines Outcomes/Goals: Able to verbalize/achieve optimal blood pressure <130/80 Tobacco - Final Tobacco Program Goals Do you have family support?: Yes Tobacco Use: Non-smoker Do you use smokeless tobacco?: No Smoking Cessation Referral:: No Individual Education/Counseling:: No Education Schedule Given:: Yes Diabetes Diabetes:: No Patient Health Questionnaire PHQ-9 Screening Initial Assessment: 1. Little interest or pleasure in doing things: Not at all 2. Feeling down, depressed, or hopeless: Not at all 3. Trouble falling or staying asleep, or sleeping too much: Not at all 4. Feeling tired or having little energy: Not at all 5. Poor appetite or overeating: Not at all 6. Feeling bad about yourself -- or that you are a failure or have let yourself or your family down: Not at all 7. Trouble concentrating on things, such as reading the newspaper or watching television: Not at all 8. Moving or speaking so slowly that other people could have noticed. Or the opposite - being so fidgety or restless that you have been moving around a lot more than usual: Not at all 9. Thoughts that you would be better off , or of hurting yourself in some way: Not at all How difficult have these problems made it for you to do your work, take care of things at home, or get along with other people?: Not difficult at all Total Score: 0 Knowledge Questionaire (BCKQ) Information Information: [place] COPD Knowledge Questionnaire (BCKQ) This questionnaire is designed to find out what you know about your lung problem. It should be completed without help form anyone else. This usually takes between 10 and 20 minutes. Your answers will help us to find out what information you need to help you to understand and manage your lung condition. [place] the [place] which you think is the correct answer. Questions 1. In COPD: b. COPD can only be confirmed by breathing tests: Don't know c. In COPD ther is usually gradual worsening over time: True d. In COPD oxygen levels in the blood are always low: False e. COPD is usually in people less than 40 years old: Don't know 2. COPD: [place] than 80% of COPD cases are caused by cigarette smoking: True b. COPD can be caused by occupational dust exposure: Don't know c. Longstanding asthma can develop into COPD: Don't know d. COPD is commonly an inherited disease: False e. Women are less vunerable to the effects of cigarette than men: Don't know 3. The following symptoms are Common in COPD: a. Swelling of the ankles is common in COPD:: Don't know b. Fatigue [tiredness] is common in COPD: True c. Wheezing is common in COPD: True d. Crushing chest pain is common in COPD: Don't know e. Rapid weight loss is common in COPD: Don't know 4. Breathlessness in COPD: a. Severe breathlessness prevents travel by air: False b. Breathlessness can be worsened by eating large meals: True c. Breathlessness means that your oxygen levels are low: True d. Breathlessness is a normal response to exercise: Don't know e. Breathlessness is primarily caused by a narrowing of the bronchial tubes: Don't know 5. Phlegm (sputum): a. Coughing phlegm is a common symptom in COPD: Don't know b. Clearing phlegm is more difficult if you get dehydrated: True c. Bronchodilator inhalers can help clear phlegm: Don't know d. Phlegm causes harm if swallowed: Don't know e. Clearing phlegm can be assisted by breathing exercises: True 6. Chest infections / exacerbations: a. Chest infections often cause coughing of blood: False b. Chest infection phlegm usually becomes coloured (ylw/grn): True cExerbations (episodes of worsening) can occur in the absence of chest infection: True d. Chest infections are always accompanied by a high temperature: Don't know e. Steroid tablets should be taken whenever there is an exacerbation: Don't know 7. Excercise in COPD: aWalking excercises better than breathing to improve fitness: Don't know b. Exercise should be avoided as it strains the lungs: False c. Exercise can help maintain your bone density: Don't know d. Exercise helps relieve depression: True e. Exercise should be stopped if it makes you breathless: True 8. Smoking: a. Stopping smoking will reduce the risk of heart disease: True b. Stopping smoking will slow down further lung damage: True c. Stopping smoking is pointless as the damage is done: Don't know d.Stopping smoking usually results in improved lung function: True eNicotine replacement therapy only available on prescription: Don't know 9. Vaccination: a. A flu jab is recommended every year: True b. You can get flu from having a flu jab: True c. You can only have a flu jab if you are 65 or over: False d. A pneumonia jab protects against all forms of pneumonia: True e.You can have a pneumonia jab and a flu job on the same day: True 10. Inhaled bronchodilators: a. Bronchodilators act quickly (within 10 minutes): Don't know b. Both short & long acting bronchodilators can be taken on the same day: Don't know c. Spacers (volumatic,nebuhaler,serochamber)should be dried w/atowel after washing: Don't know d. A spacer device increases the medication to the lungs: Don't know e. Tremor may be a side effect of bronchodilators: Don't know 11. Antibiotic treatment in COPD: a. To be effective, the course should last at least 10 days: Don't know b. Excessive use of antibiotics can cause resistant bacteria (germs): True c. Antibiotics will clear all chest infections: True d. Antibiotic treatment is necessary for an exacerbation (worsening) however mild: True e. Seek advice if antibiotics cause severe diarrhoea: True 12. Steroid tablets given for COPD (eg Prednisolone): a. Steroid tablets help strengthen muscles: Don't know b. Steroid tablets should be avoided if there is a chest infection: False c. The risk of long-term side effects due to steroids is less w/short courses then w/continous treatment: True dIndigestion is common side effect from using steroid tablet: False e. Steroid tablets can increase your appetite: Don't know 13. Inhaled steroids (brown, red or orange): a. Inhaled steroids should be stopped if you are given steroid tablets: Don't know bSteroid inhalers can be used for rapid relief breathlessnes: True c. Spacer devices reduce the risk of getting thrush in the mouth: Don't know d.Steroid inhaler should be taken before your bronchodilator: Don't know e. Inhaled steroids improve lung function in COPD: Don't know Self-Efficacy 6-Item Scale Initial Assessment: We would like to know how confident you are in doing certain activities. Please select your confidence level for: Fatigue Select Number: 8 Physical Discomfort or Pain Select Number: 8 Emotional Distress Select Number: 8 Other Symptoms or Health Problems Select Number: 8 Different Tasks and Activities Select Number: 9 Medication Select Number: 9 Total Score:: 8 Nutrition Survey Nutrition Survey Instructions Scoring Instructions Nutrition Survey Initial: Have you lost >10 lbs over the past 2 months without trying?: No Are you following a special diet at home for diabetes, low fat, or low salt?: No Are you interested in meeting with a dietitian for help understanding your diet?: Yes Do you eat less than 3 meals a day?: Yes Do you eat fatty meats (marino, sausage, ribs, etc), fried foods, desserts, large amounts of salad dressings, margarine, butter, or cheese most days?: No Do you have food allergies? [Enter types in comment field]: No Do you eat in restaurants more than 3 times a week?: No Do you season food with salt, seasoning salt, or garlic salt?: No Do you used canned, boxed, frozen meals, or soups, seasoning packets?: No Total Score:: 2
[2023-01-06 08:30] VITALS: BP 109/78; PULSE 75; RESP 14; TEMP 37.1; O2SAT 95; BMI 27.2
[2023-01-06 08:50] VITALS: BP 109/78; O2SAT 95; BMI 27.2
== END | disposition home or self-care (01) ==
LOC: PR 08:02
PROVIDERS: PCP Family Medicine Geriatric Medicine; Referring Provider Internal Medicine Pulmonary Disease; Visit Provider Internal Medicine Pulmonary Disease
DX: Z00.00 Encounter for general adult medical examination without abnormal findings (principal)

== ENCOUNTER 2023-01-09 12:58 | Outpatient (RCR) | payer MEDICARE, SELFPAY ==
[2023-01-06 08:50] VITALS: BMI 27.2
== END 2023-01-09 23:59 ==
LOC: PR 12:58
PROVIDERS: PCP Family Medicine Geriatric Medicine; Referring Provider Internal Medicine Pulmonary Disease; Visit Provider Internal Medicine Pulmonary Disease
DX: J84.10 Pulmonary fibrosis, unspecified (principal)
CPT/HCPCS: 97150; G0239

== ENCOUNTER 2023-02-08 13:00 | Outpatient (RCR) | payer MEDICARE, SELFPAY ==
[2023-01-06 08:50] VITALS: BMI 27.2
--- NOTE | 2023-02-06 07:55 | EX.OP.PR.TP ---
Exercise - Initial Assessment Visit Date of Eval: 02/06/23 Session Number:: 12 Physician Prescribed Exercise Current METSs:: 3.0 Target HR:: 105 (THRR 83-105) Current RPD:: 13-14 Maximum Exercise HR:: 112 Resting Blood Pressure: 122/76 Maximum Exercise Blood Pressure: 124/68 Minimum SpO2 with exercise: 91 (at rest on room air; exercised on 4 liters oxygen to maintain SpO2> 90% during exercise.) EKG Type: NSR with williams PAC and PVC Exercise - 30-Day Assessment Visit Date of Eval: 02/06/23 Session Number:: 12 Physician Prescribed Exercise Modalities: Treadmill, NuStep and SciFit Frequency (days/week): 3 Duration (Minutes):: 30-45 Intensity: 60-80% of age predicted maximum heart rate reserve Current METSs:: 3.0 Target HR:: 105 (THRR 83-105) Current RPD:: 13-14 Maximum Exercise HR:: 112 Resting Blood Pressure: 122/76 Maximum Exercise Blood Pressure: 124/68 Minimum SpO2 with exercise: 91 (at rest on room air; exercised on 4 liters oxygen to maintain SpO2> 90% during exercise.) EKG Type: NSR with williams PAC and PVC Current Minutes of Exercise: 55:16 Home Exercise Mode: Walking Exercise - 60-Day Assessment Visit Date of Eval: 02/06/23 Session Number:: 12 Physician Prescribed Exercise Modalities: Treadmill, NuStep and SciFit Target HR:: 105 (THRR 83-105) Current RPD:: 13-14 Maximum Exercise HR:: 112 Resting Blood Pressure: 122/76 Maximum Exercise Blood Pressure: 124/68 Minimum SpO2 with exercise: 91 (at rest on room air; exercised on 4 liters oxygen to maintain SpO2> 90% during exercise.) EKG Type: NSR with williams PAC and PVC Current Minutes of Exercise: 55:16 Exercise - 90-Day Assessment Visit Session Number:: 12 Physician Prescribed Exercise Current METSs:: 3.0 Target HR:: 105 (THRR 83-105) Current RPD:: 13-14 Maximum Exercise HR:: 112 Resting Blood Pressure: 122/76 Maximum Exercise Blood Pressure: 124/68 Minimum SpO2 with exercise: 91 (at rest on room air; exercised on 4 liters oxygen to maintain SpO2> 90% during exercise.) EKG Type: NSR with williams PAC and PVC Current Minutes of Exercise: 55:16 Exercise - Final Assessment Visit Session Number:: 12 Physician Prescribed Exercise Current METSs:: 3.0 Resting Blood Pressure: 122/76 Maximum Exercise Blood Pressure: 124/68 Minimum SpO2 with exercise: 91 (at rest on room air; exercised on 4 liters oxygen to maintain SpO2> 90% during exercise.) EKG Type: NSR with williams PAC and PVC Nutrition/Wt Mgmt - Initial Visit Session Number:: 12 Weight Management Admit Height:: 5 ft 6 in Admit Weight:: 160 lb 8 oz Admit BMI:: 25.9 Nutrition/Wt Mgmt - 30-Day Visit Date of Eval: 02/06/23 Session Number:: 12 Weight Management Weight Assessment:: Wt stable Height: 5 ft 6 in Weight:: 160 lb 8 oz BMI: 25.9 Weight Goals Progress:: Goal met Nutrition/Wt Mgmt - 60-Day Visit Session Number:: 12 Weight Management Height: 5 ft 6 in Weight:: 160 lb 8 oz BMI: 25.9 Nutrition/Wt Mgmt - 90-Day Visit Session Number:: 12 Weight Management Height: 5 ft 6 in Weight:: 160 lb 8 oz BMI: 25.9 Nutrition/Wt Mgmt - Final Visit Session Number:: 12 Weight Management Height: 5 ft 6 in Weight:: 160 lb 8 oz BMI: 25.9 Psychosocial - Initial Assess Visit Session Number:: 12 Problems/Goals History of Emotional Disorders: None Psychosocial Goals: 1. Patient is free from overwhelming symtoms of depression (or anxiety Psychosocial Test Tool Used:: PHQ-9 Questionnaire Referral to Behavioral Health PS - Interventions: Yes: Attend Stress Management Classes and No: Referral to Behavioral Health if PHQ-9 score >9:, No: Referral to [facility] and No: Referral to Physician if PHQ-9 if score is 5-9: Intervention/Plan: See List Interventions/Plan:: Assess stressors,coping strategies & signs of derpression on admission, Instruct/assist pt to develop coping & personal stress Mgt strategies, Instruct patient to recognize signs & symptoms of depression and Instruct patient to recog Psychosocial - 30-Day Visit Date of Eval: 02/06/23 Session Number:: 12 Problems/Goals History of Emotional Disorders: None Psychosocial Goals: 1. Patient is free from overwhelming symtoms of depression (or anxiety Psychosocial Test Tool Used:: PHQ-9 Questionnaire Referral to Behavioral Health PS - Interventions: Yes: Attend Stress Management Classes and No: Referral to Behavioral Health if PHQ-9 score >9:, No: Referral to [facility] and No: Referral to Physician if PHQ-9 if score is 5-9: Plan Interventions/Plan:: Assess stressors,coping strategies & signs of derpression on admission, Instruct/assist pt to develop coping & personal stress Mgt strategies, Instruct patient to recognize signs & symptoms of depression and Instruct patient to recog Psychosocial - 60-Day Visit Session Number:: 12 Problems/Goals History of Emotional Disorders: None Psychosocial Goals: 1. Patient is free from overwhelming symtoms of depression (or anxiety Psychosocial Test Tool Used:: PHQ-9 Questionnaire Referral to Behavioral Health PS - Interventions: Yes: Attend Stress Management Classes and No: Referral to Behavioral Health if PHQ-9 score >9:, No: Referral to [facility] and No: Referral to Physician if PHQ-9 if score is 5-9: Plan Interventions/Plan:: Assess stressors,coping strategies & signs of derpression on admission, Instruct/assist pt to develop coping & personal stress Mgt strategies, Instruct patient to recognize signs & symptoms of depression and Instruct patient to recog Psychosocial - 90-Day Visit Session Number:: 12 Problems/Goals History of Emotional Disorders: None Psychosocial Goals: 1. Patient is free from overwhelming symtoms of depression (or anxiety Psychosocial Test Tool Used:: PHQ-9 Questionnaire Referral to Behavioral Health PS - Interventions: Yes: Attend Stress Management Classes and No: Referral to Behavioral Health if PHQ-9 score >9:, No: Referral to [facility] and No: Referral to Physician if PHQ-9 if score is 5-9: Plan Interventions/Plan:: Assess stressors,coping strategies & signs of derpression on admission, Instruct/assist pt to develop coping & personal stress Mgt strategies, Instruct patient to recognize signs & symptoms of depression and Instruct patient to recog Psychosocial - Final Assess Visit Session Number:: 12 Problems/Goals History of Emotional Disorders: None Psychosocial Goals: 1. Patient is free from overwhelming symtoms of depression (or anxiety Psychosocial Test Tool Used:: PHQ-9 Questionnaire Referral to Behavioral Health PS - Interventions: Yes: Attend Stress Management Classes and No: Referral to Behavioral Health if PHQ-9 score >9:, No: Referral to [facility] and No: Referral to Physician if PHQ-9 if score is 5-9: Plan Interventions/Plan:: Assess stressors,coping strategies & signs of derpression on admission, Instruct/assist pt to develop coping & personal stress Mgt strategies, Instruct patient to recognize signs & symptoms of depression and Instruct patient to recog Oxygen & Oxygen Titration Init Visit Session Number:: 12 Initial Assessment SpO2:: 91 (at rest on room air; exercised on 4 liters oxygen to maintain SpO2> 90% during exercise.) Oxygen & Oxygen Titration 30D Visit Date of Eval: 02/06/23 Session Number:: 12 Reassessment Reassessment- 30 Days: Demonstrate knowledge of O2 Rx at rest & w/exercise Breath Sounds:: Diminished SpO2:: 91 (at rest on room air; exercised on 4 liters oxygen to maintain SpO2> 90% during exercise.) Oxygen & Oxygen Titration 60D Visit Date of Eval: 02/06/23 Session Number:: 12 Reassessment Breath Sounds:: Diminished SpO2:: 91 (at rest on room air; exercised on 4 liters oxygen to maintain SpO2> 90% during exercise.) Oxygen & Oxygen Titration 90D Visit Date of Eval: 02/06/23 Session Number:: 12 Reassessment Breath Sounds:: Diminished SpO2:: 91 (at rest on room air; exercised on 4 liters oxygen to maintain SpO2> 90% during exercise.) Oxygen & Oxygen Titration BOB Visit Date of Eval: 02/06/23 Session Number:: 12 Reassessment Breath Sounds:: Diminished SpO2:: 91 (at rest on room air; exercised on 4 liters oxygen to maintain SpO2> 90% during exercise.) Core Components - Initial Visit Session Number:: 12 Hypertension Hypertension Diagnosis:: Hypertension ICD-10 I10 BP: 122/76 [place] [employer] Hypertension Guidelines Blood Pressure: 160/90 Outcomes/Goals: Able to verbalize/achieve optimal blood pressure <130/80 and Incorporates diet changes & exercise for blood pressure control by DC Tobacco - Initial Assessment Tobacco Program Goals Gave Education Materials For:: Pulmonary Disease, Risk Factors, Breathing Techniques, Medical Compliance, Pulmonary A&P, Exacerbation Signs & Symptoms and Stress & Relaxation Diabetes Diabetes:: No Heart Failure Documenting weight daily for CHF: No Core Components - 30 DAYS Visit Date of Eval: 02/06/23 Session Number:: 12 Hypertension Hypertension Diagnosis:: Hypertension ICD-10 I10 Resting Blood Pressure:: 122/76 [place] [employer] Hypertension Guidelines Peak Exercise Blood Pressure:: 160/90 Change in medication: No Outcomes/Goals: Able to verbalize/achieve optimal blood pressure <130/80 and Incorporates diet changes & exercise for blood pressure control by DC Interventions/plan: Instruct on optimal blood pressure, hypertension & medications and Instruct on effects of sodium, alcohol, stress, exercise &hypertension 30 day Reassessments:: Met Reassessment Notes & Comments:: Resting BPs are < 130/80 Tobacco - 30-Day Tobacco Program Goals Learning Barriers: Participates in education Gave Education Materials For:: Pulmonary Disease, Risk Factors, Breathing Techniques, Medical Compliance, Pulmonary A&P, Exacerbation Signs & Symptoms and Stress & Relaxation 30-day Reassessments:: Progressing Exacerbation Mgmt & Airway Clearance Reassessment: Demonstrates knowledge of O2 Rx with exercise Bronchial Hygiene Plan: Yes: Pt demo correct for device (Instructed in use of SMI and PEP therapy devices), Yes: Pt demo correct for improved hydration, Yes: Pt demo correct for hand hygiene and Yes: Pt demo correct for verbalize when to call MD Medication Medication list reviewed:: Yes Taking medications 100% of the time:: Met Medication reassessment: Yes: Pt demonstrates correct technique timing for MDI, Yes: Pt demonstrates correct technique timing for DPI, Yes: Pt demonstrates correct technique timing for NEB and Yes: Pt demonstrates correct technique timing for spacer (Instructed in use of Spacer, MDI, DPI and Neb.) Diabetes Diabetes:: No Heart Failure Documenting weight se: No Core Components - 60 DAYS Visit Session Number:: 12 Hypertension Hypertension Diagnosis:: Hypertension ICD-10 I10 Resting Blood Pressure:: 122/76 [place] [employer] Hypertension Guidelines Peak Exercise Blood Pressure:: 160/90 Change in medication: No Outcomes/Goals: Able to verbalize/achieve optimal blood pressure <130/80 and Incorporates diet changes & exercise for blood pressure control by DC Interventions/plan: Instruct on optimal blood pressure, hypertension & medications and Instruct on effects of sodium, alcohol, stress, exercise &hypertension 60 day Reassessments:: Met Reassessment Notes & Comments:: Resting BPs are < 130/80 Tobacco - 60-Day Tobacco Program Goals Learning Barriers: Participates in education Gave Education Materials For:: Pulmonary Disease, Risk Factors, Breathing Techniques, Medical Compliance, Pulmonary A&P, Exacerbation Signs & Symptoms and Stress & Relaxation 60-day Reassessments:: Progressing Exacerbation Mgmt & Airway Clearance Reassessment: Demonstrates knowledge of O2 Rx with exercise Bronchial Hygiene Plan: Yes: Pt demo correct for device (Instructed in use of SMI and PEP therapy devices), Yes: Pt demo correct for improved hydration, Yes: Pt demo correct for hand hygiene and Yes: Pt demo correct for verbalize when to call MD Medication Taking medications 100% of the time:: Met Medication reassessment: Yes: Pt demonstrates correct technique timing for MDI, Yes: Pt demonstrates correct technique timing for DPI, Yes: Pt demonstrates correct technique timing for NEB and Yes: Pt demonstrates correct technique timing for spacer (Instructed in use of Spacer, MDI, DPI and Neb.) Diabetes Diabetes:: No Heart Failure Documenting weight se: No Core Components - 90 DAYS Visit Session Number:: 12 Hypertension Hypertension Diagnosis:: Hypertension ICD-10 I10 Resting Blood Pressure:: 122/76 [place] [employer] Hypertension Guidelines Peak Exercise Blood Pressure:: 160/90 Outcomes/Goals: Able to verbalize/achieve optimal blood pressure <130/80 and Incorporates diet changes & exercise for blood pressure control by DC Interventions/plan: Instruct on optimal blood pressure, hypertension & medications and Instruct on effects of sodium, alcohol, stress, exercise &hypertension 90 day Reassessments:: Met Reassessment Notes & Comments:: Resting BPs are < 130/80 Tobacco - 90-Day Tobacco Program Goals Learning Barriers: Participates in education Gave Education Materials For:: Pulmonary Disease, Risk Factors, Breathing Techniques, Medical Compliance, Pulmonary A&P, Exacerbation Signs & Symptoms and Stress & Relaxation 90-day Reassessments:: Progressing Exacerbation Mgmt & Airway Clearance Bronchial Hygiene Plan: Yes: Pt demo correct for device (Instructed in use of SMI and PEP therapy devices), Yes: Pt demo correct for improved hydration, Yes: Pt demo correct for hand hygiene and Yes: Pt demo correct for verbalize when to call MD Medication Medication reassessment: Yes: Pt demonstrates correct technique timing for MDI, Yes: Pt demonstrates correct technique timing for DPI, Yes: Pt demonstrates correct technique timing for NEB and Yes: Pt demonstrates correct technique timing for spacer (Instructed in use of Spacer, MDI, DPI and Neb.) Diabetes Diabetes:: No Core Components - Final Visit Session Number:: 12 Hypertension Hypertension Diagnosis:: Hypertension ICD-10 I10 Resting Blood Pressure:: 122/76 [place] [employer] Hypertension Guidelines Peak Exercise Blood Pressure:: 160/90 Outcomes/Goals: Able to verbalize/achieve optimal blood pressure <130/80 and Incorporates diet changes & exercise for blood pressure control by DC Tobacco - Final Tobacco Program Goals Learning Barriers: Participates in education Exacerbation Mgmt & Airway Clearance Bronchial Hygiene Plan: Yes: Pt demo correct for device (Instructed in use of SMI and PEP therapy devices), Yes: Pt demo correct for improved hydration, Yes: Pt demo correct for hand hygiene and Yes: Pt demo correct for verbalize when to call MD Medication Medication reassessment: Yes: Pt demonstrates correct technique timing for MDI, Yes: Pt demonstrates correct technique timing for DPI, Yes: Pt demonstrates correct technique timing for NEB and Yes: Pt demonstrates correct technique timing for spacer (Instructed in use of Spacer, MDI, DPI and Neb.) Diabetes Diabetes:: No Patient Health Questionnaire PHQ-9 Screening 30-Day Re-eval Assessment: 1. Little interest or pleasure in doing things: Not at all 2. Feeling down, depressed, or hopeless: Not at all 3. Trouble falling or staying asleep, or sleeping too much: Not at all 4. Feeling tired or having little energy: Not at all 5. Poor appetite or overeating: Not at all 6. Feeling bad about yourself -- or that you are a failure or have let yourself or your family down: Not at all 7. Trouble concentrating on things, such as reading the newspaper or watching television: Not at all 8. Moving or speaking so slowly that other people could have noticed. Or the opposite - being so fidgety or restless that you have been moving around a lot more than usual: Not at all 9. Thoughts that you would be better off , or of hurting yourself in some way: Not at all How difficult have these problems made it for you to do your work, take care of things at home, or get along with other people?: Not difficult at all Total Score: 0 Knowledge Questionaire (BCKQ) Information Information: [facility] COPD Knowledge Questionnaire (BCKQ) This questionnaire is designed to find out what you know about your lung problem. It should be completed without help form anyone else. This usually takes between 10 and 20 minutes. Your answers will help us to find out what information you need to help you to understand and manage your lung condition. [place] which you think is the correct answer. Self-Efficacy 6-Item Scale 30-Day Re-eval Assessment: We would like to know how confident you are in doing certain activities. Please select your confidence level for: Fatigue Select Number: 9 Physical Discomfort or Pain Select Number: 10 Emotional Distress Select Number: 10 Other Symptoms or Health Problems Select Number: 10 Different Tasks and Activities Select Number: 10 Medication Select Number: 10 Total Score:: 9 Nutrition Survey Nutrition Survey Instructions Scoring Instructions
[2023-02-06 08:06] VITALS: BP 122/76; BP 160/90; O2SAT 91; BMI 25.9
== END 2023-02-09 23:59 ==
LOC: PR 13:00
PROVIDERS: PCP Family Medicine Geriatric Medicine; Referring Provider Internal Medicine Pulmonary Disease; Visit Provider Internal Medicine Pulmonary Disease
DX: J84.10 Pulmonary fibrosis, unspecified (principal)
CPT/HCPCS: 97150; G0239

== ENCOUNTER 2023-03-10 13:00 | Outpatient (RCR) | payer MEDICARE, SELFPAY ==
[2023-02-06 08:06] VITALS: BMI 25.9
[2023-02-10 00:39] VITALS: BP 122/76; BP 160/90; BMI 25.9
--- NOTE | 2023-03-08 07:09 | PR.OPITP_ITS ---
Exercise - Initial Assessment Visit Date of Eval: 03/08/23 Session Number:: 23 Physician Prescribed Exercise Target HR:: 105 (THRR 83-105) Current RPD:: 2-3 Maximum Exercise HR:: 109 Resting Blood Pressure: 112/62 Maximum Exercise Blood Pressure: 168/80 Minimum SpO2 with exercise: 89 (with 4 liters supplemental oxygen while on the treadmill and when he arrives to [place] EKG Type: NSR to sinus tach with rare PAC and PVC Exercise - 30-Day Assessment Visit Date of Eval: 03/08/23 Session Number:: 23 Physician Prescribed Exercise Modalities: Treadmill, NuStep and SciFit Aerobic Exercise [30-60 min 3-7x/week]:: Progressing Target HR:: 105 (THRR 83-105) Current RPD:: 2-3 Maximum Exercise HR:: 109 Resting Blood Pressure: 112/62 Maximum Exercise Blood Pressure: 168/80 Minimum SpO2 with exercise: 89 (with 4 liters supplemental oxygen while on the treadmill and when he arrives to [place] EKG Type: NSR to sinus tach with rare PAC and PVC Current Minutes of Exercise: 51 Home Exercise Frequency:: daily Exercise - 60-Day Assessment Visit Date of Eval: 03/08/23 Session Number:: 23 Physician Prescribed Exercise Modalities: Treadmill, NuStep and SciFit Frequency (days/week): 3 Duration (Minutes):: 51:52 Intensity: 60-80% of age predicted maximum heart rate reserve Aerobic Exercise [30-60 min 3-7x/week]:: Progressing Gisela-13 Current METSs: 3.0 Target HR:: 105 (THRR 83-105) Current RPD:: 2-3 Maximum Exercise HR:: 109 Resting Blood Pressure: 112/62 Maximum Exercise Blood Pressure: 168/80 Minimum SpO2 with exercise: 89 (with 4 liters supplemental oxygen while on the treadmill and when he arrives to [place] EKG Type: NSR to sinus tach with rare PAC and PVC Current Minutes of Exercise: 51 Home Exercise Home Exercise:: Yes Mode: Walking Frequency:: daily Time (minutes):: 30 (patient states he is more active and has more energy since starting [place].) Exercise - 90-Day Assessment Visit Session Number:: 23 Physician Prescribed Exercise Target HR:: 105 (THRR 83-105) Current RPD:: 2-3 Maximum Exercise HR:: 109 Resting Blood Pressure: 112/62 Maximum Exercise Blood Pressure: 168/80 Minimum SpO2 with exercise: 89 (with 4 liters supplemental oxygen while on the treadmill and when he arrives to [place] EKG Type: NSR to sinus tach with rare PAC and PVC Current Minutes of Exercise: 51 Exercise - Final Assessment Visit Session Number:: 23 Physician Prescribed Exercise Resting Blood Pressure: 112/62 Maximum Exercise Blood Pressure: 168/80 Minimum SpO2 with exercise: 89 (with 4 liters supplemental oxygen while on the treadmill and when he arrives to [place] EKG Type: NSR to sinus tach with rare PAC and PVC Nutrition/Wt Mgmt - Initial Visit Session Number:: 23 Weight Management Admit Height:: 5 ft 6 in Admit Weight:: 167 lb Admit BMI:: 26.9 Nutrition/Wt Mgmt - 30-Day Visit Date of Eval: 03/08/23 Session Number:: 23 Weight Management Height: 5 ft 6 in Weight:: 167 lb BMI: 26.9 Nutrition/Wt Mgmt - 60-Day Visit Date of Eval: 03/08/23 Session Number:: 23 Weight Management Weight Assessment:: BMI 21 to 25 Height: 5 ft 6 in Weight:: 167 lb BMI: 26.9 Weight Goals Progress:: Goal met Nutrition/Wt Mgmt - 90-Day Visit Session Number:: 23 Weight Management Weight Assessment:: BMI 21 to 25 Height: 5 ft 6 in Weight:: 167 lb BMI: 26.9 Weight Goals Progress:: Goal met Nutrition/Wt Mgmt - Final Visit Session Number:: 23 Weight Management Height: 5 ft 6 in Weight:: 167 lb BMI: 26.9 Psychosocial - Initial Assess Visit Session Number:: 23 Problems/Goals History of Emotional Disorders: None Psychosocial Goals: 1. Patient is free from overwhelming symtoms of depression (or anxiety, 2. Identifies personal stressors & states the strategies for managing, 3. Identifies activities to decrease isolation and/or symptoms of, 5. Verbalizes coping strategies. and 7. Improved Q.O.L. Psychosocial Test Tool Used:: PHQ-9 Questionnaire Referred to MD for counseling:: No Referral to Behavioral Health PS - Interventions: Yes: Attend Stress Management Classes and No: Referral to Behavioral Health if PHQ-9 score >9:, No: Referral to [facility] and No: Referral to Physician if PHQ-9 if score is 5-9: Intervention/Plan: See List Interventions/Plan:: Assess stressors,coping strategies & signs of derpression on admission, Instruct/assist pt to develop coping & personal stress Mgt st rategies, Instruct patient to recognize signs & symptoms of depression and Instruct patient to recog Comments:: patient participated in Stress & Relaxation and is utilizing those techniques at home Psychosocial - 30-Day Visit Date of Eval: 03/08/23 Session Number:: 23 Problems/Goals History of Emotional Disorders: None Psychosocial Goals: 1. Patient is free from overwhelming symtoms of depression (or anxiety, 2. Identifies personal stressors & states the strategies for managing, 3. Identifies activities to decrease isolation and/or symptoms of, 5. Verbalizes coping strategies. and 7. Improved Q.O.L. Psychosocial Test Tool Used:: PHQ-9 Questionnaire Referred to MD for counseling:: No Referral to Behavioral Health PS - Interventions: Yes: Attend Stress Management Classes and No: Referral to Behavioral Health if PHQ-9 score >9:, No: Referral to [facility] and No: Referral to Physician if PHQ-9 if score is 5-9: Plan Interventions/Plan:: Assess stressors,coping strategies & signs of derpression on admission, Instruct/assist pt to develop coping & personal stress Mgt strategies, Instruct patient to recognize signs & symptoms of depression and Instruct patient to recog Comments:: patient participated in Stress & Relaxation and is utilizing those techniques at home Psychosocial - 60-Day Visit Date of Eval: 03/08/23 Session Number:: 23 Problems/Goals History of Emotional Disorders: None Psychosocial Goals: 1. Patient is free from overwhelming symtoms of depression (or anxiety, 2. Identifies personal stressors & states the strategies for managing, 3. Identifies activities to decrease isolation and/or symptoms of, 5. Verbalizes coping strategies. and 7. Improved Q.O.L. Depression:: Impaired QOL Psychosocial Test Tool Used:: PHQ-9 Questionnaire Referred to MD for counseling:: No Referral to Behavioral Health PS - Interventions: Yes: Attend Stress Management Classes and No: Referral to Behavioral Health if PHQ-9 score >9:, No: Referral to [facility] and No: Referral to Physician if PHQ-9 if score is 5-9: Plan Interventions/Plan:: Assess stressors,coping strategies & signs of derpression on admission, Instruct/assist pt to develop coping & personal stress Mgt strategies, Instruct patient to recognize signs & symptoms of depression and Instruct patient to recog Comments:: patient participated in Stress & Relaxation and is utilizing those techniques at home Psychosocial - 90-Day Visit Session Number:: 23 Problems/Goals History of Emotional Disorders: None Psychosocial Goals: 1. Patient is free from overwhelming symtoms of depression (or anxiety, 2. Identifies personal stressors & states the strategies for m anaging, 3. Identifies activities to decrease isolation and/or symptoms of, 5. Verbalizes coping strategies. and 7. Improved Q.O.L. Depression:: Impaired QOL Psychosocial Test Tool Used:: PHQ-9 Questionnaire Referred to MD for counseling:: No Referral to Behavioral Health PS - Interventions: Yes: Attend Stress Management Classes and No: Referral to Behavioral Health if PHQ-9 score >9:, No: Referral to [facility] and No: Referral to Physician if PHQ-9 if score is 5-9: Plan Interventions/Plan:: Assess stressors,coping strategies & signs of derpression on admission, Instruct/assist pt to develop coping & personal stress Mgt strategies, Instruct patient to recognize signs & symptoms of depression and Instruct patient to recog Comments:: patient participated in Stress & Relaxation and is utilizing those techniques at home Psychosocial - Final Assess Visit Session Number:: 23 Problems/Goals History of Emotional Disorders: None Psychosocial Goals: 1. Patient is free from overwhelming symtoms of depression (or anxiety, 2. Identifies personal stressors & states the strategies for managing, 3. Identifies activities to decrease isolation and/or symptoms of, 5. Verbalizes coping strategies. and 7. Improved Q.O.L. Depression:: Impaired QOL Psychosocial Test Tool Used:: PHQ-9 Questionnaire Referred to MD for counseling:: No Referral to Behavioral Health PS - Interventions: Yes: Attend Stress Management Classes and No: Referral to Behavioral Health if PHQ-9 score >9:, No: Referral to [facility] and No: Referral to Physician if PHQ-9 if score is 5-9: Plan Interventions/Plan:: Assess stressors,coping strategies & signs of derpression on admission, Instruct/assist pt to develop coping & personal stress Mgt strategies, Instruct patient to recognize signs & symptoms of depression and Instruct patient to recog Comments:: patient participated in Stress & Relaxation and is utilizing those techniques at home Oxygen & Oxygen Titration Init Visit Session Number:: 23 Initial Assessment SpO2:: 89 (with 4 liters supplemental oxygen while on the treadmill and when he arrives to [place] Oxygen & Oxygen Titration 30D Visit Date of Eval: 03/08/23 Session Number:: 23 Reassessment Breath Sounds:: Diminished SpO2:: 89 (with 4 liters supplemental oxygen while on the treadmill and when he arrives to [place].) Oxygen & Oxygen Titration 60D Visit Date of Eval: 03/08/23 Session Number:: 23 Reassessment Reassessment- 60 Days: Demonstrate knowledge of O2 Rx at rest & w/exercise and Using O2 as Rx'd Breath Sounds:: Diminished SpO2:: 89 (with 4 liters supplemental oxygen while on the treadmill and when he arrives to [place].) Oxygen & Oxygen Titration 90D Visit Date of Eval: 03/08/23 Session Number:: 23 Reassessment Breath Sounds:: Diminished SpO2:: 89 (with 4 liters supplemental oxygen while on the treadmill and when he arrives to [place].) Oxygen & Oxygen Titration BOB Visit Date of Eval: 03/08/23 Session Number:: 23 Reassessment Breath Sounds:: Diminished SpO2:: 89 (with 4 liters supplemental oxygen while on the treadmill and when he arrives to [place].) Core Components - Initial Visit Session Number:: 23 Hypertension Hypertension Diagnosis:: Hypertension ICD-10 I10 BP: 112/62 [place] [employer] Hypertension Guidelines Blood Pressure: 168/80 Outcomes/Goals: Able to verbalize/achieve optimal blood pressure <130/80 and In corporates diet changes & exercise for blood pressure control by DC Tobacco - Initial Assessment Tobacco Program Goals Do you use smokeless tobacco?: No Smoking Cessation Referral:: No Individual Education/Counseling:: No Education Schedule Given:: Yes Gave Education Materials For:: Pulmonary Disease, Risk Factors, Breathing Techniques, Medical Compliance, Pulmonary A&P, Exacerbation Signs & Symptoms and Stress & Relaxation Diabetes Diabetes:: No Core Components - 30 DAYS Visit Date of Eval: 03/08/23 Session Number:: 23 Hypertension Hypertension Diagnosis:: Hypertension ICD-10 I10 Resting Blood Pressure:: 112/62 [place] [employer] Hypertension Guidelines Peak Exercise Blood Pressure:: 168/80 Change in medication: No Outcomes/Goals: Able to verbalize/achieve optimal blood pressure <130/80 and Incorporates diet changes & exercise for blood pressure control by DC Interventions/plan: Instruct on optimal blood pressure, hypertension & medications and Instruct on effects of sodium, alcohol, stress, exercise &hypertension 30 day Reassessments:: Met Tobacco - 30-Day Tobacco Program Goals Do you use smokeless tobacco?: No Smoking Cessation Referral:: No Education Schedule Given:: Yes Gave Education Materials For:: Pulmonary Disease, Risk Factors, Breathing Techniques, Medical Compliance, Pulmonary A&P, Exacerbation Signs & Symptoms and Stress & Relaxation 30-day Reassessments:: Progressing Reassessment Notes & Comments:: patient actively participates in education classes Exacerbation Mgmt & Airway Clearance Reassessment: Demonstrates knowledge of O2 Rx at rest and Demonstrates knowledge of O2 Rx with exercise Bronchial Hygiene Plan: Yes: Pt demo correct for device (instructed in use of SMI and PEP therapy devices), Yes: Pt demo correct for improved hydration, Yes: Pt demo correct for hand hygiene and Yes: Pt demo correct for verbalize when to call MD Medication Taking medications 100% of the time:: Met Medication reassessment: Yes: Pt demonstrates correct technique timing for MDI, Yes: Pt demonstrates correct technique timing for DPI, Yes: Pt demonstrates correct technique timing for NEB and Yes: Pt demonstrates correct technique timing for spacer (instructed in use of spacer device with MDI) Diabetes Diabetes:: No Core Components - 60 DAYS Visit Date of Eval: 03/08/23 Session Number:: 23 Hypertension Hypertension Diagnosis:: Hypertension ICD-10 I10 Resting Blood Pressure:: 112/62 [place] [employer] Hypertension Guidelines Peak Exercise Blood Pressure:: 168/80 Change in medication: No Outcomes/Goals: Able to verbalize/achieve optimal blood pressure <130/80 and Incorporates diet changes & exercise for blood pressure control by DC Interventions/plan: Instruct on optimal blood pressure, hypertension & medications and Instruct on effects of sodium, alcohol, stress, exercise &hypertension 60 day Reassessments:: Met Tobacco - 60-Day Tobacco Program Goals Do you use smokeless tobacco?: No Smoking Cessation Referral:: No Individual Education/Counseling:: No Education Schedule Given:: Yes Gave Education Materials For:: Pulmonary Disease, Risk Factors, Breathing Techniques, Medical Compliance, Pulmonary A&P, Exacerbation Signs & Symptoms and Stress & Relaxation 60-day Reassessments:: Progressing Reassessment Notes & Comments:: patient actively participates in education classes Exacerbation Mgmt & Airway Clearance Reassessment: Demonstrates knowledge of O2 Rx at rest and Demonstrates knowledge of O2 Rx with exercise Bronchial Hygiene Plan: Yes: Pt demo correct for device (instructed in use of SMI and PEP therapy devices), Yes: Pt demo correct for improved hydration, Yes: Pt demo correct for hand hygiene and Yes: Pt demo correct for verbalize when to call MD Medication Medication list reviewed:: Yes Taking medications 100% of the time:: Met Taking medications 100% of the time:: Met Medication reassessment: Yes: Pt demonstrates correct technique timing for MDI, Yes: Pt demonstrates correct technique timing for DPI, Yes: Pt demonstrates correct technique timing for NEB and Yes: Pt demonstrates correct technique timing for spacer (instructed in use of spacer device with MDI) 60-day Reassessments:: Met Diabetes Diabetes:: No Core Components - 90 DAYS Visit Session Number:: 23 Hypertension Hypertension Diagnosis:: Hypertension ICD-10 I10 Resting Blood Pressure:: 112/62 [place] [employer] Hypertension Guidelines Peak Exercise Blood Pressure:: 168/80 Outcomes/Goals: Able to verbalize/achieve optimal blood pressure <130/80 and Incorporates diet changes & exercise for blood pressure control by DC Interventions/plan: Instruct on optimal blood pressure, hypertension & medications and Instruct on effects of sodium, alcohol, stress, exercise &hypertension 90 day Reassessments:: Met Tobacco - 90-Day Tobacco Program Goals Do you use smokeless tobacco?: No Smoking Cessation Referral:: No Individual Education/Counseling:: No Education Schedule Given:: Yes Gave Education Materials For:: Pulmonary Disease, Risk Factors, Breathing Techniques, Medical Compliance, Pulmonary A&P, Exacerbation Signs & Symptoms and Stress & Relaxation 90-day Reassessments:: Progressing Reassessment Notes & Comments:: patient actively participates in education classes Exacerbation Mgmt & Airway Clearance Bronchial Hygiene Plan: Yes: Pt demo correct for device (instructed in use of SMI and PEP therapy devices), Yes: Pt demo correct for improved hydration, Yes: Pt demo correct for hand hygiene and Yes: Pt demo correct for verbalize when to call MD Medication Medication reassessment: Yes: Pt demonstrates correct technique timing for MDI, Yes: Pt demonstrates correct technique timing for DPI, Yes: Pt demonstrates correct technique timing for NEB and Yes: Pt demonstrates correct technique timing for spacer (instructed in use of spacer device with MDI) Diabetes Diabetes:: No Core Components - Final Visit Session Number:: 23 Hypertension Hypertension Diagnosis:: Hypertension ICD-10 I10 Resting Blood Pressure:: 112/62 [place] [employer] Hypertension Guidelines Peak Exercise Blood Pressure:: 168/80 Outcomes/Goals: Able to verbalize/achieve optimal blood pressure <130/80 and Incorporates diet changes & exercise for blood pressure control by DC Tobacco - Final Tobacco Program Goals Do you use smokeless tobacco?: No Smoking Cessation Referral:: No Individual Education/Counseling:: No Education Schedule Given:: Yes Exacerbation Mgmt & Airway Clearance Bronchial Hygiene Plan: Yes: Pt demo correct for device (instructed in use of SMI and PEP therapy devices), Yes: Pt demo correct for improved hydration, Yes: Pt demo correct for hand hygiene and Yes: Pt demo correct for verbalize when to call MD Medication Medication reassessment: Yes: Pt demonstrates correct technique timing for MDI, Yes: Pt demonstrates correct technique timing for DPI, Yes: Pt demonstrates correct technique timing for NEB and Yes: Pt demonstrates correct technique timing for spacer (instructed in use of spacer device with MDI) Diabetes Diabetes:: No Patient Health Questionnaire PHQ-9 Screening 60-Day Re-eval Assessment: 1. Little interest or pleasure in doing things: Not at all 2. Feeling down, depressed, or hopeless: Not at all 3. Trouble falling or staying asleep, or sleeping too much: Not at all 4. Feeling tired or having little energy: Not at all 5. Poor appetite or overeating: Not at all 6. Feeling bad about yourself -- or that you are a failure or have let yourself or your family down: Not at all 7. Trouble concentrating on things, such as reading the newspaper or watching television: Not at all 8. Moving or speaking so slowly that other people could have noticed. Or the opposite - being so fidgety or restless that you have been moving around a lot more than usual: Not at all 9. Thoughts that you would be better off , or of hurting yourself in some way: Not at all How difficult have these problems made it for you to do your work, take care of things at home, or get along with other people?: Not difficult at all Total Score: 0 Knowledge Questionaire (BCKQ) Information Information: [place] COPD Knowledge Questionnaire (BCKQ) This questionnaire is designed to find out what you know about your lung problem. It should be completed without help form anyone else. This usually takes between 10 and 20 minutes. Your answers will help us to find out what information you need to help you to understand and manage your lung condition. [place] which you think is the correct answer. Self-Efficacy 6-Item Scale 60-Day Re-eval Assessment: We would like to know how confident you are in doing certain activities. Please select your confidence level for: Fatigue Select Number: 9 Physical Discomfort or Pain Select Number: 9 Emotional Distress Select Number: 9 Other Symptoms or Health Problems Select Number: 9 Different Tasks and Activities Select Number: 10 Medication Select Number: 10 Total Score:: 9 Nutrition Survey Nutrition Survey Instructions Scoring Instructions
[2023-03-08 07:16] VITALS: BP 112/62; BMI 26.9
[2023-03-08 07:20] VITALS: BP 112/62; BP 168/80; O2SAT 89
== END 2023-03-11 23:59 ==
LOC: PR 13:00
PROVIDERS: PCP Family Medicine Geriatric Medicine; Referring Provider Internal Medicine Pulmonary Disease; Visit Provider Internal Medicine Pulmonary Disease
DX: J84.10 Pulmonary fibrosis, unspecified (principal)
CPT/HCPCS: 97150; G0239

== ENCOUNTER → 2023-04-04 | Outpatient (CLI) | payer MEDICARE, SELFPAY ==
[2023-03-08 07:16] VITALS: BMI 26.9
--- NOTE | 2023-04-04 14:50 | CT_ITS ---
STUDY: CT CHEST WITHOUT CONTRAST REASON FOR EXAM: Male, 83 years old. SOB x several years, pulmonary fibrosis, hypertension. Hi-Res RADIATION DOSAGE (If Supplied By Facility): CTDIvol = ( 15.29 ) mGy, DLP = ( 572.14 ) mGycm TECHNIQUE: Transaxial imaging was performed without the administration of intravenous contrast material. Multiplanar coronal and sagittal images were reformatted. Individualized dose optimization techniques were used for this CT. COMPARISON: Comparison is made with prior study of September 09, 2021. FINDINGS: CHEST Once again, there is evidence of increased reticular nodular pattern involving both lungs worse at the lung bases with focal areas of groundglass appearance. This is in keeping with chronic interstitial fibrosis. There is evidence of honeycombing and bronchiectasis. There is no demonstrated pleural abnormality. There are calcifications of the coronary arteries. Normal mediastinum. Normal hilar regions. There is prominence of the pulmonary hilar arteries without peripheral pulmonary vascular congestion, suggesting pulmonary hypertension. There is atherosclerotic calcification of the aortic arch with tortuosity and elongation of the aortic arch and descending thoracic aorta. There are multi-level degenerative changes of the thoracic spine. There is no demonstrated abnormality of the visualized upper abdomen. CT/Chest without Contrast IMPRESSION: Findings in comparison with chronic interstitial fibrosis and honeycombing as described. Prominence of the pulmonary arteries. Stable examination. Electronically Signed: Heriberto Paul MD at 15:12 EDT ,
== END | disposition home or self-care (01) ==
LOC: CT 14:49
PROVIDERS: PCP Family Medicine Geriatric Medicine; Referring Provider Internal Medicine Pulmonary Disease; Visit Provider Internal Medicine Pulmonary Disease
DX: R06.00 Dyspnea, unspecified (principal)
CPT/HCPCS: 71250

== ENCOUNTER 2023-04-05 13:00 | Outpatient (RCR) | payer MEDICARE, SELFPAY ==
[2023-03-08 07:16] VITALS: BMI 26.9
[2023-03-12 00:24] VITALS: BP 112/62; BP 168/80; BMI 26.9
== END 2023-04-11 23:59 ==
LOC: PR 13:00
PROVIDERS: PCP Family Medicine Geriatric Medicine; Referring Provider Internal Medicine Pulmonary Disease; Visit Provider Internal Medicine Pulmonary Disease
DX: J84.10 Pulmonary fibrosis, unspecified (principal)
CPT/HCPCS: 97150; G0239

== ENCOUNTER → 2023-05-01 | Outpatient (CLI) | payer MEDICARE, SELFPAY ==
[2023-03-08 07:16] VITALS: BMI 26.9
[2023-05-01 11:19] LABS: Absolute Lymphocyte Count 1.33 X10^3/uL (0.83-4.51); Basophil# 0.04 X10^3/uL; Basophil% 0.3 % (0-1); Eosinophil# 0.09 X10^3/uL; Eosinophils% 0.7 % (0-5); Hematocrit 40.2 % (40-54); Hemoglobin 12.9 g/dL (13.0-16.5); Lymphocyte # 1.33 X10^3/ul (0.83-4.51); Lymphocyte % 10.1 % (19-41); Mean Corp Hgb Conc 32.1 g/dL (32-36); Mean Corpuscular Hgb 19.8 pg (27.0-32.0); Mean Corpuscular Volume 61.8 fL (80-94); Mean Platelet Vol. 9.7 fl (6.2-12.0); Monocyte# 0.57 X10^3/uL; Monocyte% 4.3 % (0-10); NRBC Flagged by Analyzer 0.2 % (0-5); Neutrophil # 11.02 X10^3/uL (2.7-7.7); Neutrophil % 83.7 % (47-70); Platelet Count 250 K/mm3 (150-450); RBC Distribution Width CV 19.2 % (11.6-14.6); RBC Distribution Width SD 36.6 fl (35.1-43.9); White Blood Count 13.2 K/mm3 (4.4-11.0)
[2023-05-01 11:31] LABS: Vitamin D,25 Hydroxy 36.9 ng/mL
[2023-05-01 11:38] LABS: ALB/GLOB Ratio 0.8 RATIO (0.9-2.4); AST(SGOT) 17 U/L (15-37); Alanine Aminotransfer ALT/SGPT 22 U/L (16-61); Albumin, Serum 3.1 g/dL (3.2-5.0); Alkaline Phosphatase 48 U/L (45-117); Anion Gap 7 (5-15); BUN 19 mg/dL (7-18); BUN/Creat Ratio 14.4 RATIO (10-20); Chloride 104 mmol/L (98-107); Cholesterol 179 mg/dL (200); Creatinine, Serum 1.32 mg/dL (0.70-1.30); EST Glomerular Filtration Rate 55 mL/min (>60); Est Glom Filt Rate - Afr Amer 67 mL/min (>60); Glucose 116 mg/dL (74-106); High Density Lipoprotein 56 mg/dL; Protein, Total 7.1 g/dL (6.4-8.2); Sodium Level 137 mmol/L (136-145); Thyroid Stim Hormone (TSH) 1.46 uIU/mL (0.358-3.74); Triglycerides 118 mg/dL; Very Low Density Lipoprotein 24 mg/dL (5-40)
== END | disposition home or self-care (01) ==
LOC: POLAB3 09:27
PROVIDERS: PCP Family Medicine Geriatric Medicine; Visit Provider Family Medicine Geriatric Medicine
DX: I10 Essential (primary) hypertension (principal); E55.9 Vitamin D deficiency, unspecified
CPT/HCPCS: 36415; 80053; 80061; 82306; 84443; 85025

== ENCOUNTER 2023-08-20 13:17 | Inpatient (IN) | payer MEDICARE, SELFPAY ==
[2023-03-08 07:16] VITALS: BMI 26.9
[2023-08-20] VITALS (14 sets, daily range): BP systolic 112–135; BP diastolic 78–83; PULSE 68–763; RESP 18–24; TEMP 36.1–36.8; O2SAT 78–97; BMI 26.0
--- NOTE | 2023-08-20 13:46 | ED.VIS.DYS ---
HPI History of Present Illness Chief Complaint: Shortness of Breath Informant: patient and family Narrative Narrative: Patient has interstitial pulmonary fibrosis, he has been on oxygen 3 L nasal cannula for when he exerts himself due to dyspnea. He has a portable concentrator, he has been using it for several months and there is a light on it that started flashing. He still gets dyspneic whenever he walks even short distances. He recently traveled to [place] to visit family, along with his , and was feeling worse while there so they visited an emergency department, he was hypoxic with exertion, and so since he was barely able to walk without being hypoxic he was admitted there. The states he had some diuretic and a burst in his daily 10 mg prednisone to 50 for just 1 day, and they discharged him home because he was doing well at rest. Came back here, and this morning when he exerted himself they checked his pulse ox for the first time in several months and he was hypoxic in the 60s just with walking from 1 room to the next 1 over. They have checked his oxygen levels at home multiple times in the past while resting and sitting and he has never hypoxic when resting and sitting. Given this hypoxemia with very little exertion along with dyspnea, he has noted exertional chest discomfort or syncope, they did some exploration and found out that the flashing green like means there is a problem with his machine, and he needs to either get it repaired or have a replacement. However today is Monday and they have tried multiple avenues to do this but were unsuccessful and were directed here to the ER to be admitted on oxygen for the night so that tomorrow his machine can get sorted out. [facility] Medical History Arthritis Atherosclerosis of coronary artery of [place] heart without angina pectoris BPH (benign prostatic hyperplasia) Cardiology follow-up encounter COVID-19 (06/14/21) Essential (primary) hypertension Gynecomastia, male Hepatitis A History of echocardiogram History of stress test Hyperlipidemia Interstitial pulmonary fibrosis IPF (idiopathic pulmonary fibrosis) New onset atrial fibrillation (2018) Non-smoker Paroxysmal atrial fibrillation Syncope due to orthostatic hypotension TIA (transient ischemic attack) Tremor Home Medications tamsulosin 0.4 mg capsule 0.4 mg PO QHS PROSTATE 02/16/17 [History Last Taken 02/15/17] cholecalciferol (vitamin D3) 125 mcg (5,000 unit) tablet (Vitamin D3) 125 mcg PO DAILY 04/23/21 [History Last Taken Unknown] glucosamine sulfate 500 mg tablet (Glucosamine) 1,500 mg PO DAILY 04/23/21 [History Last Taken Unknown] omega-3 fatty acids 1,000 mg PO DAILY supplement 04/23/21 [History Last Taken Unknown] ferrous sulfate 325 mg (65 mg iron) tablet 325 mg PO BID 05/27/22 [History Last Taken Unknown] prednisone 10 mg tablet 10 mg PO DAILY 05/27/22 [History Last Taken Unknown] metoprolol succinate 50 mg tablet,extended release 24 hr 50 mg PO DAILY #90 tabs 11/08/22 [Rx Last Taken Unknown] losartan 50 mg tablet 50 mg PO DAILY #90 tabs 02/06/23 [Rx Last Taken Unknown] apixaban 5 mg tablet (Eliquis) 5 mg PO BID #180 tabs 04/18/23 [Rx Last Taken Unknown] ezetimibe 10 mg tablet 10 mg PO DAILY #90 tabs 04/19/23 [Rx Last Taken Unknown] furosemide 20 mg tablet 20 mg PO DAILY 08/20/23 [History Last Taken Unknown] Allergy/AdvReac Type Severity Reaction Status Date / Time amiodarone AdvReac Patient Verified 08/20/23 13:18 diagnosed with Pulmonary Fibrosis Family History Sister Diabetes Surgical History History of bronchoscopy (04/2021) History of cataract surgery History of colonoscopy History of incision and drainage History of left heart catheterization (11/20/17) Social History household members: spouse Smoking Status: Never smoker alcohol intake: current alcohol intake frequency: a few times a month substance use type: does not use ROS ROS ED Constitutional Constitutional ED: Denies chills or fever(s) Eyes Eyes: Denies change in vision or diplopia ENT ENT ED: Denies rhinorrhea or sore throat Cardiovascular Cardiovascular: Denies chest pain, palpitations or paroxysmal nocturnal dyspnea Respiratory/Chest Respiratory/Chest: Reports dyspnea on exertion; Denies cough or paroxysmal nocturnal dyspnea Gastrointestinal Gastrointestinal: Denies abdominal pain, diarrhea, nausea or vomiting Genitourinary Genitourinary ED: Denies dysuria or hematuria Musculoskeletal Musculoskeletal: Denies back pain or neck pain Integumentary Denies abscess or rash Neurologic Neurologic: Denies headache(s), paresthesias or weakness Psychiatric Psychiatric: Denies anxiety or suicidal thoughts EXAM Physical Exam Const Vital Signs: 08/20/23 13:18 08/20/23 13:23 08/20/23 13:25 Temperature 96.9 F L Temperature Source Temporal Pulse Rate 85 Respiratory Rate 18 Respiratory Effort Blood Pressure 112/78 Blood Pressure Mean 89 Pulse Ox 91 78 95 Oxygen Delivery Method Room Air Room Air Nasal Cannula Oxygen Flow Rate (L/min) 3 08/20/23 13:44 08/20/23 13:48 08/20/23 15:03 Temperature Temperature Source Pulse Rate Respiratory Rate Respiratory Effort Short of Breath Blood Pressure Blood Pressure Mean Pulse Ox 97 Oxygen Delivery Method Nasal Cannula Nasal Cannula Nasal Cannula Oxygen Flow Rate (L/min) 3 3 3 08/20/23 15:15 08/20/23 15:17 Temperature 98.3 F 98.3 F Temperature Source Temporal Pulse Rate 763 H 76 Respiratory Rate 24 H 24 H Respiratory Effort Blood Pressure 122/83 H 128/83 H Blood Pressure Mean 96 98 Pulse Ox 94 94 Oxygen Delivery Method Nasal Cannula Oxygen Flow Rate (L/min) 3 Positive well nourished and well developed General Appearance ED: well developed and NAD HEENT Reports moist mucous membranes normocephalic and atraumatic Eyes PERRL and EOMs intact bilaterally Neck full ROM and supple Resp normal respiratory effort Resp Narrative: High-pitched rhonchi symmetrically all verduzco. Conversive in full sentences no distress. Cardio regular rate, regular rhythm and no murmurs GI non-tender and non-distended Auscultation: normoactive bowel sounds Palpation: soft Back/Spine no CVA tenderness General Back: other FROM Extremity normal to inspection General Extremety ED: Negative for edema, pulses abnormal or tenderness General Extremity: Negative for edema or pulses abnormal Neuro oriented x3, CN's II-XII intact bilaterally and no sensory deficits noted Sensorium / Orientation: awake and alert Motor Exam: strength 5/5 throughout Skin no rashes or lesions noted and no wounds MDM MDM MDM Narrative Medical decision making narrative: The states he recently had a negative workup including CT chest, I did do a chest x-ray, EKG, some basic labs including BNP, and we placed him on oxygen, but before this we did ambulate him on his machine set at 3 L, he went to the room next-door and he did desaturate to 74% and was transiently dyspneic. Subsequently, we put him on 3 L of our oxygen, and ambulated him and he did not even get to the next room and he was out of breath and down to 80%. He is much better with resting. Chest x-ray 2 views appears to show diffuse pulmonary fibrotic changes. Radiology agrees stating that his x-ray appears to have progressed since the last 1 maybe a year ago. Labs are noted and unremarkable compared with his old ones. I do not think he needs CTA since he is anticoagulated on apixaban. However it is true he can barely function walking 10-15 feet without getting hypoxic and very dyspneic. Plan is for admission. I have submitted for old records from [facility] where the patient was an inpatient from 08/12-08/14. History & Record Review Additional record(s) reviewed:: Prior outpatient record (pulm rehab, bronchoscopy) and Prior labs (And noncontrast chest CT from 08/14/2023 outside hospital, report not available but reviewed images which appear to show patchy diffuse pulmonary fibrosis on my interpretation only) Lab Data Attestation: I reviewed the patient's lab results. Labs: Laboratory Results - last 24 hr 08/20/23 14:06 WBC 9.4 RBC 7.07 H Hgb 13.9 Hct 43.0 MCV 60.8 L MCH 19.7 L MCHC 32.3 RDW Std Deviation 34.0 L RDW Coeff of Crissy 18.6 H Plt Count 309 MPV 9.3 Immature Gran % (Auto) 1.000 H Neut % (Auto) 77.4 H Lymph % (Auto) 15.[address] [place] % (Auto) 5.4 Eos % (Auto) 0.2 Baso % (Auto) 0.3 Absolute Neuts (auto) 7.3 Absolute Lymphs (auto) 1.48 Nucleated RBC % 0 Sodium 133 L Potassium 4.7 Chloride 99 Carbon Dioxide 23.0 Anion Gap 11 BUN 23 H Creatinine 1.34 H Est GFR (MDRD) Af Amer 66 Est GFR (MDRD) Non-Af 54 L BUN/Creatinine Ratio 17.2 Glucose 154 H Calcium 9.3 B-Natriuretic Peptide 35.9 Radiography Diagnostic Testing: Clinical Impression(s) from Imaging Studies Chest X-Ray 08/20/23 14:35 IMPRESSION: Progression and increasing asymmetric bilateral peripheral pulmonary fibrosis when compared to 07/20/2021. Electronically Signed: Teja Perales MD at 14:48 EDT Reading Location ID and State: [facility] / [place] , Service support , Rhythm Strip Rhythm Strip: Sinus Rhythm Rate: 75 Ectopy: None EKG Initial EKG: Attestation: I personally reviewed and interpreted this EKG as follows: Interpretation: Sinus Rhythm, No Acute Injury Pattern and LAFB Prior EKG tracings: available for review Prior: Unchanged Management Discussion w/another healthcare provider: Hospitalist (Sanjay) Discharge Plan Dx/Rx/DC Orders Clinical Impression: Hypoxemia, Interstitial pulmonary fibrosis, Acute respiratory insufficiency Disposition Disposition: Acute Care Hospital [facility]
--- NOTE | 2023-08-20 13:51 | EKG12_ITS ---
Test Reason : SOB Blood Pressure : / mmHG Vent. Rate : 075 BPM Atrial Rate : 075 BPM P-R Int : 154 ms QRS Dur : 068 ms QT Int : 388 ms P-R-T Axes : 013 -47 056 degrees QTc Int : 433 ms Normal sinus rhythm Left axis deviation Abnormal ECG BASELINE ARTIFACT Confirmed by Raffaele Baxter ([id number]), supervising film or videotape editor STEPHANIE BENOIT ([id number]) on 08/22/2023 8:18:11 AM Referred By: Confirmed By:Raffaele Baxter
[2023-08-20 14:16] LABS: Absolute Lymphocyte Count 1.48 X10^3/uL (0.83-4.51); Absolute Neutrophil Count 7.3 X10^3/uL (2.0-7.7); Basophil# 0.03 X10^3/uL; Basophil% 0.3 % (0-1); Eosinophil# 0.02 X10^3/uL; Eosinophils% 0.2 % (0-5); Hemoglobin 13.9 g/dL (13.0-16.5); Lymphocyte # 1.48 X10^3/ul (0.83-4.51); Lymphocyte % 15.7 % (19-41); Mean Corp Hgb Conc 32.3 g/dL (32-36); Mean Corpuscular Hgb 19.7 pg (27.0-32.0); Mean Corpuscular Volume 60.8 fL (80-94); Mean Platelet Vol. 9.3 fl (6.2-12.0); Monocyte# 0.51 X10^3/uL; Monocyte% 5.4 % (0-10); NRBC Flagged by Analyzer 0 % (0-5); Neutrophil # 7.27 X10^3/uL (2.7-7.7); Neutrophil % 77.4 % (47-70); Platelet Count 309 K/mm3 (150-450); RBC Distribution Width CV 18.6 % (11.6-14.6); Red Blood Count 7.07 M/mm3 (4.6-6.2); White Blood Count 9.4 K/mm3 (4.4-11.0)
--- OUTSIDE RECORDS SUMMARY | 2023-08-20 14:17 | XMS RPT_ITS | CCD ---
Author Name Unknown Address [address] [place] [address] [place] [address] Organization [facility] Care Team Providers Care Mobile Home Installer Name Role Phone Unavailable Primary Care Provider UnavailBÁRBARA Ruiz Referring Unavailable MAICOL THOMPSON Attending Unavailable BÁRBARA WEBB Referring Unavailable MAICOL THOMPSON Attending Unavailable ENRIQUETA GARCIA MD Admitting Unavailable ENRIQUETA GARCIA MD Attending Unavailable NIDIA DWYER DO Consulting Unavailable Medications Current Medications Medication Drug Class(es) Dates Sig (Normalized) Sig (Original) apixaban 5 mg oral tablet (2 sources) Factor Xa Inhibitor Eliquis 5 MG tablet Take by mouth every 12 hours. 0 Active losartan potassium 50 mg oral tablet (2 sources) Angiotensin 2 Receptor Alexandrea take 1 tablet by mouth once daily Losartan 50 MG tablet Take 1 tablet by mouth daily. 0 Active 24 hr metoprolol succinate 50 mg extended release oral tablet (2 sources) beta-Adrenergic Alexandrea take 1 tablet by mouth once daily Metoprolol succinate 50 MG tablet XL Take 1 tablet by mouth daily. 0 Active predniSONE 10 mg oral tablet (2 sources) take 1 tablet by mouth once daily predniSONE 10 MG tablet Take 1 tablet by mouth daily. 0 Active Problems Problem Classification Problem Date Documented Da te Episodic/Chronic Other lower respiratory disease (1 source) Interstitial lung disease; Translations: [Interstitial pulmonary disease, unspecified] 03-10-2023 Chronic Other lower respiratory disease (2 sources) Interstitial pulmonary disease, unspecified; Translations: [Interstitial pulmonary disease, unspecified] Onset: 03-13-2023 Chronic Other lower respiratory disease (4 sources) Pulmonary fibrosis, unspecified; Translations: [Pulmonary fibrosis, unspecified] Onset: 11-22-2022 Chronic Other lower respiratory disease (2 sources) Shortness of breath; Translations: [Shortness of breath] Onset: 08-13-2023 Episodic Results Test Name Value Interpretation Reference Range Facil ity Encounters Encounter Date Encounter Type Care Provider Facility Start: 08-13-2023 End: 08-15-2023 Evaluation and management of inpatient ENRIQUETA GARCIA MD [facility] Start: 06-13-2023 End: 06-13-2023 Emergency department patient visit ENRIQUETA GARCIA MD [facility] Start: 03-13-2023 ambulatory [facility] Facility :[facility] Start: 03-08-2023 Telephone encounter Yamile Gurrola [facility] Care Plan of Treatment Date Care Activity Detail Author Start: 03-13-2023 End: 03-13-2023 Telemedicine consultation with patient [facility] Payers Date Payer Category Payer Medicare MEDICARE [employer] H[employer] PPO MEDICARE [employer] HMO PPO [id number] 2022-Present [address] [address] [place] [address] [id number] 2022 Medicare [id number] 1940 Unknown [id number] 1940 Unknown [id number] 1940 Unknown [id number] 1940 Unknown [id number] Social History Date Type Detail Facility Start: 02-03-2023 Tobacco smoking stat us NHIS Never smoked tobacco [facility] Start: 02-03-2023 Tobacco use and exposure Smokeless tobacco non-user [facility] Start: 02-03-2023 Alcohol intake Current drinke r of alcohol (finding) [facility] Start: 03-09-2023 History of Social function [facility] Start: 03-09-2023 Tobacco use panel [facility] Start: 02-03-2023 Alcohol Comment socially [facility] Start: 1940 Sex Assigned At Not on file [facility] Clinical Notes 02-06-2023 to 08-15-2023 Addendum Note - Maicol Thompson MD - 03/10/2023 5:01 PM EDTAddendum Note - Maicol Thompson MD - 03/10/2023 5:01 PM EDTTelephone Encounter - Maicol Thompson MD - 03/10/2023 5:00 PM EDT Note Date & Type Note Facility 08-15-2023 Note Biomedical Field Service Engineer Authen tication Interface Message Text For your records, the bill status(es) for BENEDICT [place] during their hospital stay is as follows: 08/13/2023 1152 Admission Emergency 08/13/2023 1503 Patient Update Inpatient 08/15/2023 1624 Discharge Inpatient : Any questions regarding PATIENT CLASS/STATUS should be directed to the Care Management Departments: [facility] [phone] or [facility] [phone] or [place] [phone]. [facility] 08-15-2023 Note Biomedical Field Service Engineer [employer] Interface Message Text [facility] discharge summary [facility] Patient: Benedict [place] Room/Bed: B5202/ Date of : 1940 Age: [age] year old Gender: male Admit Date: 08/13/2023 Discharge Date: 08/15/2023 Code Status: Full Code Primary Care Physician Pcp, Pending Only, Attending Physician Enriqueta Garcia MD Discharge Diagnoses: Principal Problem: Pulmonary fibrosis (HCC) (POA: Yes) Active Problems: Acute on chronic hypoxic respiratory failure (HCC) (POA: Yes) PAF (paroxysmal atrial fibrillation) (HCC) (POA: Yes) Acute diastolic CHF (congestive heart failure) (HCC) (POA: Yes) Pulmonary hypertension (HCC) (POA: Yes) Resolved Problems: * No resolved hospital problems. * Hospital Course: The patient is a(n) 83 year old male with pulmonary fibrosis on as needed oxygen at home, atrial fibrillation on eliquis who presents with shortness of breath and acute on chronic hypoxemic respiratory failure due to decompensated diastolic heart failure. Acute diastolic heart failure Symptoms improved with IV lasix Resume lasix 20 mg daily at discharge Pulmonary fibrosis Continue LABA LAMA ICS and home prednisone 10 mg daily F/u with outpatient pulmonary Acute on chronic hypoxemic respiratory failure Will need increased oxygen at discharge Strict return precautions advised Important Follow Up: Pending Tests/Issues: Pending Results (From admission, onward) Start 08/15/23 0900 Renal Function Panel (NA,K,CL,CO2,GLU,BUN,CREAT,CA,A LB,PHOS) Daily 08/15/23 0900 CBC Daily 08/15/23 0900 Magnesium Level Daily 08/15/23 0900 Home O2 eval (desaturation screen) Once-Routine Patient has been informed that there are results pending as above. They are aware that they will be informed of any critical value, but should follow up with their PCP to review results. Disposition: Home Discharge Medications: Medication List START taking these medications furosemide 20 MG Tabs Commonly known as: Lasix Take 1 tablet by mouth daily. CONTINUE taking these medications Eliquis 5 MG tablet Generic drug: apixaban ezetimibe 10 MG Tabs Commonly known as: ZETIA losartan 50 MG Tabs Commonly known as: COZAAR metoprolol succinate 50 mg extended-release tablet Commonly known as: TOPROL-XL pantoprazole DR 40 MG Tbec Commonly known as: PROTONIX predniSONE 10 mg tablet Commonly known as: DELTASONE primidone 50 MG Tabs Commonly known as: MYSOLINE tamsulosin 0.4 MG Caps Commonly known as: FLOMAX Where to Get Your Medications These medications were sent to [id number] [place] [address] AT [place] [address], [facility] [id number] furosemide 20 MG Tabs Discharge Follow up/ Next Steps: Your PCP [facility] [place] [address] Consults: IP CONSULT TO PULMONOLOGY IP CONSULT TO OCCUPATIONAL THERAPY IP CONSULT TO PHYSICAL THERAPY PHARMACY TO CONSULT FOR MED REC IP CONSULT TO PHYSICAL THERAPY IP CONSULT TO OCCUPATIONAL THERAPY Procedures: CT CHEST HIGH RESOLUTION WO CONTRAST Result Date: 08/14/2023 1. Moderate to marked basilar predominant interstitial lung disease in a probable UIP pattern. No honeycombing. 2. Small left lower lobe calcified granuloma. No suspicious nodule. 3. Mildly dilated main pulmonary artery suggestive of pulmonary arterial hypertension. Fusiform dilatation of ascending aorta measuring up to 4 cm. 4. Coronary artery calcifications. 5. Multiple small calcified and noncalcified nodules that appear located along nondistended gallbladder wall. XR CHEST AP PORTABLE Result Date: 08/13/2023 Low lung volumes with interstitial prominence suggesting fibrosis. Physical Exam: BP 114/81 (Patient Position: Semi-Fowlers) Pulse 73 Temp 97.6 F (36.4 C) (Oral) Resp 17 Ht 65 (165.1 cm) Wt 168 lb (76.2 kg) SpO2 99% BMI 27.96 kg/m? The patient was seen and examined on the day of discharge. Alert in NAD Crackles at bilateral bases No edema Total time on discharge and discharge planning was greater than 30 minutes. Electronically signed by: Enriqueta Garcia MD, 08/15/2023 12:47 PM Please note that some or all of this record was generated using voice recognition software. If there are any questions about the content of this document, please contact the author as some errors of news department intern may have occurred. [facility] 08-13-2023 Note Biomedical Field Service Engineer Authen tication Interface Message Text OBSERVATION status was ordered by Admitting Physician. : Any questions regarding PATIENT CLASS/STATUS should be directed to the Care Management Departments: [facility] [phone] or [facility] [phone] or [facility] [phone]. [facility] 03-10-2023 Note Addended by: MAICOL THOMPSON on: 03/10/2023 05:01 PM Modules accepted: Orders [facility] 03-10-2023 Miscellaneous Notes Addended by: MAICOL THOMPSON on: 03/10/2023 05:01 PM Modules accepted: Orders Order for CT placed. Patient wishes to schedule CT locally. Can reschedule appointment for after CT scan. PT calling and stating that they spoke with the provider yesterday -03/09 and was told by them that they wanted another CT; would like to know if this is going to be ordered and scheduled and if they should reschedule appt for 03/13 Message: C/B:[phone] CALLER: BENEDICT XAVIEROOR FACILITY: PATIENT: BENEDICT [place] : 1940 PHONE: [phone] DR IN [place]: Dr Thompson NATURE: I HAD AN APPOINTMENT ON 02/06/2023 BUT IT WAS VIRTUAL DUE TO FLOODING IN THE OFFICE LOCATION. I WAS TOLD THAT THE DR WOULD CONTACT ME REGARDING MY X RAY AND CAT SCAN BUT I HAVE NOT HEARD BACK. I HAVE ANOTHER APPT ON 03/13 AT 12:15 AND I WAS HOPING IT CAN BE CHANGED TO VIRTUAL BECAUSE [place]. EMERGENCY: No (Hold) Message History: Taken: 07-Mar-2023 5:10p ILDEFONSO Given: 07-Mar-2023 5:10p ILDEFONSO 03/13 appointment changed to video. documented in this encounter [facility] 03-10-2023 Telephone encounter Note Order for CT placed. Patient wishes to schedule CT locally. Can reschedule appointment for [facility] Telephone encounter Note PT calling and stating that they spoke with the provider yesterday -03/09 and was told by them that they wanted another CT; would like to know if this is going to be ordered and scheduled and if they should reschedule appt for 03/13 [facility] 03-08-2023 Telephone encounter Note Tried calling patient this AM and this evening. No answer, left message, will try again 03/09. [facility] 03-08-2023 Miscellaneous Notes Tried calling patient this AM and this evening. No answer, left message, will try again 03/09. Pt calling about xray and CT. Would like Dr. Thompson to call him as soon as possible. Pt is calling asking for a phone call as soon as possible Pt is calling in again to see whats going on as he has still not heard anything Pt calling and would like to know if there is any update as of yet would like a call to know Either way Zehra from Dr. Bárbara Webb, referring, office calling. [phone]. Patient is reporting to them that he has not heard anything back from our office. Dr. Thompson had told him that he would be in contact within a week from his appt on 02/06/23. PT calling and stating they spoke with the provider and the provider stated they were going to look at the pts ct and then give them a call regarding what the provider seen- pt touching base to see if this has been done and if the provider could reach out to them with update Received new patient packett via fax observer helper from the pt placed in Dr Thompson's folder for review/completion. documented in this encounter [facility] 03-08-2023 Telephone encounter Note Pt calling about xray and CT. Would like Dr. Thompson to call him as soon as possible. [facility] 03-08-2023 Telephone encounter Note Message: C/B:[phone] CALLER: BENEDICT SANYA FACILITY: PATIENT: BENEDICT [place] : 1940 PHONE: [phone] DR IN [place]: Dr Thompson NATURE: I HAD AN APPOINTMENT ON 02/06/2023 BUT IT WAS VIRTUAL DUE TO FLOODING IN THE OFFICE LOCATION. I WAS TOLD THAT THE DR WOULD CONTACT ME REGARDING MY X RAY AND CAT SCAN BUT I HAVE NOT HEARD BACK. I HAVE ANOTHER APPT ON 03/13 AT 12:15 AND I WAS HOPING IT CAN BE CHANGED TO VIRTUAL BECAUSE [place]. EMERGENCY: No (Hold) Message History: Taken: 07-Mar-2023 5:10p ILDEFONSO Given: 07-Mar-2023 5:10p ILDEFONSO 03/13 appointment changed to video. [facility] 02-28-2023 Telephone encounter Note Pt is calling asking for a phone call as soon as possible [facility] 02-23-2023 Telephone encounter Note Pt is calling in again to see whats going on as he has still not heard anything [facility] 02-20-2023 Telephone encounter Note Pt calling and would like to know if there is any update as of yet would like a call to know Either way [facility] 02-17-2023 Telephone encounter Note Zehra from Dr. Bárbara Webb, referring, office calling. [phone]. Patient is reporting to them that he has not heard anything back from our office. Dr. Thompson had told him that he would be in contact within a week from his appt on 02/06/23. [facility] 02-15-2023 Telephone encounter Note PT calling and stating they spoke with the provider and the provider stated they were going to look at the pts ct and then give them a call regarding what the provider seen- pt touching base to see if this has been done and if the provider could reach out to them with update [facility] 02-06-2023 Telephone encounter Note Received new patient packett via fax observer helper from the pt placed in Dr Thompson's folder for review/completion. T [facility] documented in this encounter [facility] Reason for Referral Specialty Diagnoses / Procedures Referred By Isael t Referred To Contact Diagnoses Interstitial lung disease Procedures CT CHEST WITHOUT CONTRAST CHG DIAGNOSTIC COMPUTED TOMOGRAPHY THORAX W/O CNTRST Maicol Thompson MD [address] [place] [address] Referral ID Status Reason Start Date Expiration Date V isits Requested Visits Authorized [id number] New Request 03/10/2023 04/03/2024 1 1 Summary Purpose Family History No Family History Records FoundNo Family History Records Found Advance Directives No Advanced Directives Records FoundNo Advanced Directives Records Found Additional Source Comments Reason for Visit (unrecogniz ed section and content) Reason Onset Date Comments Appointment 03/08/2023 (unrecognized sect ion and content) No Status Records FoundNo Status Records Found INFORMATION SOURCE (unrecogn ized section and content) DATE CREATED AUTHOR AUTHOR'S ORGANIZ ATION 08/17/2023 [facility] FOR RECORDS PERTAINING TO PATIENTS WHO ARE OR HAVE BEEN ENROLLED IN A CHEMICAL DEPENDENCY/SUBSTANCEABUSE PROGRAM, SOME INFORMATION MAY BE OMITTED. This clinical summary was aggregated from multiple sources. Caution should be exercised in using it in the provision of clinical care. This summary normalizes information from multiple sources, and as a consequence, information in this document may materially change the coding, format and clinical context of patient data. In addition, data may be omitted in some cases. CLINICAL DECISIONS SHOULD BE BASED ON THE PRIMARY CLINICAL RECORDS. [employer] provides no warranty or guarantee of the accuracy or completeness of information in this document.
--- NOTE | 2023-08-20 14:35 | RAD_ITS ---
EXAM: XR CHEST, 2 VIEWS CLINICAL INDICATION: SOB on exertion. Pulmonary fibrosis. TECHNIQUE: Frontal and lateral views of the chest. COMPARISON: 07/20/2021. FINDINGS: LUNGS AND PLEURAL SPACES: Pulmonary hypoinflation. Increasing asymmetric peripheral pulmonary fibrosis of both lungs. No pneumothorax. No effusion. HEART: Cardiomegaly is unchanged. MEDIASTINUM: Central airways and mediastinal contour are unremarkable. BONES/JOINTS: Unremarkable. No acute fracture. SOFT TISSUES: Unremarkable. RAD/Chest PA and Lateral IMPRESSION: Progression and increasing asymmetric bilateral peripheral pulmonary fibrosis when compared to 07/20/2021. Electronically Signed: Teja Perales MD at 14:48 EDT ,
[2023-08-20 14:41] LABS: Anion Gap 11 (5-15); BUN 23 mg/dL (7-18); BUN/Creat Ratio 17.2 RATIO (10-20); Calcium,Total 9.3 mg/dL (8.5-10.1); Chloride 99 mmol/L (98-107); Creatinine, Serum 1.34 mg/dL (0.70-1.30); EST Glomerular Filtration Rate 54 mL/min (>60); Est Glom Filt Rate - Afr Amer 66 mL/min (>60); Glucose 154 mg/dL (74-106); Potassium 4.7 mmol/L (3.5-5.1); Sodium Level 133 mmol/L (136-145)
[2023-08-20 14:45] LABS: BNP,B-Type NATRIURETIC PEPTIDE 35.9 pg/mL (0-100)
--- NOTE | 2023-08-20 15:14 | PCM.HP.STD ---
[facility] - General General Date of Admission: 08/20/23 Date of Service: 08/20/23 Chief Complaint: Shortness of breath HPI Narrative OXANA SEGUNDO, is a 83 M with past medical history of interstitial pulmonary fibrosis on 3 L of oxygen, coronary artery disease, BPH, dyslipidemia on Zetia, Afib (on eliquis) who presents with worsening shortness of breath following a recent trip to [place] along with his family. Over the last few weeks he has not been noticing progressive worsening shortness of breath. Due to progressive desaturation during his trip he was admitted at [place] and was started on Lasix 20 mg every alternate day and was given 1 dose of prednisone 40 mg after discussion with his occupational hygienist at [facility] (Dr Sahni). He was discharged after 2 days of evaluation and therapy. He restarted on furosemide 20 mg every alternate day. Since his discharge there was no considerable change in his functional status or oxygen saturation. The noticed that he was desaturating to 60s to 70s while ambulating today. They were concerned that the oxygen concentrator is not working as it kept on beeping. No fever/increasing cough/body aches or anorexia. For further evaluation of the concentrator they presented to the ED. [facility] Medical History Arthritis Atherosclerosis of coronary artery of telida heart without angina pectoris BPH (benign prostatic hyperplasia) Cardiology follow-up encounter COVID-19 (06/14/21) Essential (primary) hypertension Gynecomastia, male Hepatitis A History of echocardiogram History of stress test Hyperlipidemia Interstitial pulmonary fibrosis IPF (idiopathic pulmonary fibrosis) New onset atrial fibrillation (2018) Non-smoker Paroxysmal atrial fibrillation Syncope due to orthostatic hypotension TIA (transient ischemic attack) Tremor Home Medications tamsulosin 0.4 mg capsule 0.4 mg PO QHS PROSTATE 02/16/17 [History Last Taken 02/15/17] cholecalciferol (vitamin D3) 125 mcg (5,000 unit) tablet (Vitamin D3) 125 mcg PO DAILY 04/23/21 [History Last Taken Unknown] glucosamine sulfate 500 mg tablet (Glucosamine) 1,500 mg PO DAILY 04/23/21 [History Last Taken Unknown] omega-3 fatty acids 1,000 mg PO DAILY supplement 04/23/21 [History Last Taken Unknown] ferrous sulfate 325 mg (65 mg iron) tablet 325 mg PO BID 05/27/22 [History Last Taken Unknown] prednisone 10 mg tablet 10 mg PO DAILY 05/27/22 [History Last Taken Unknown] metoprolol succinate 50 mg tablet,extended release 24 hr 50 mg PO DAILY #90 tabs 11/08/22 [Rx Last Taken Unknown] losartan 50 mg tablet 50 mg PO DAILY #90 tabs 02/06/23 [Rx Last Taken Unknown] apixaban 5 mg tablet (Eliquis) 5 mg PO BID #180 tabs 04/18/23 [Rx Last Taken Unknown] ezetimibe 10 mg tablet 10 mg PO DAILY #90 tabs 04/19/23 [Rx Last Taken Unknown] furosemide 20 mg tablet 20 mg PO DAILY 08/20/23 [History Last Taken Unknown] Allergy/AdvReac Type Severity Reaction Status Date / Time amiodarone AdvReac Patient Verified 08/20/23 13:18 diagnosed with Pulmonary Fibrosis Family History Sister Diabetes Surgical History History of bronchoscopy (04/2021) History of cataract surgery History of colonoscopy History of incision and drainage History of left heart catheterization (11/20/17) Social History household members: spouse Smoking Status: Never smoker alcohol intake: current alcohol intake frequency: a few times a month substance use type: does not use ROS Review of Systems ROS Unobtainable: Denies due to encephalopathy, due to endotracheal tube, due to mental condition, due to mental status or other Constitutional Constitutional: Reports fatigue and weakness Eyes Eyes: Denies blurry vision, change in eye color, change in vision, discharge from eye(s), double vision, erythema, eye pain, loss of vision or other ENT HEENT: Denies abnormal hearing, dysphagia, ear pain, epistaxis, headache(s), hearing loss, nasal congestion, nasal discharge, post nasal drip, sinus pressure, sore throat or other Cardiovascular Cardiovascular: Denies chest pain, claudication, dyspnea on exertion, edema, lightheadedness, orthopnea, palpitations, paroxysmal nocturnal dyspnea, rapid heart rate, syncope or other Respiratory/Chest Respiratory/Chest: Reports cough, dyspnea, shortness of breath with exertion and other; Denies excessive phlegm production, hemoptysis, productive cough or shortness of breath at rest Gastrointestinal Gastrointestinal: Denies abdominal pain, coffee ground emesis, constipation, diarrhea, dyspepsia, hematemesis, hematochezia, loose stools, melena, nausea, vomiting or other Genitourinary Genitourinary: Denies burning urination, difficulty urinating, dysuria, hematuria, nocturia, urinary frequency, urinary hesitancy, urinary incontinence, urinary urgency or other Musculoskeletal Musculoskeletal: Denies arthralgias, back pain, joint pain, joint stiffness, joint swelling, myalgias, neck pain or other Neurologic Neurologic: Denies abnormal gait, abnormal speech, confusion, disequilibrium, dizziness, focal weakness, headache(s), numbness, paresthesias, seizure-like activity, seizures, syncope, tingling, tremor(s) or other Psychiatric Psychiatric: Denies anxiety, depression, homicidal ideation, suicidal ideation or other Endocrine Endocrinology: Denies change in body appearance, cold intolerance, excessive sweating, heat intolerance, polydipsia, polyuria or other Hematologic/Lymphatic Hematologic/Lymphatic: Denies anemia, easy bleeding, easy bruising, lymphadenopathy or other Allergic/Immunologic Allergic/Immunologic: Denies rhinitis, hives, eczemia, asthma or other Vital Signs Vital Signs Vital Signs: 08/20/23 13:18 08/20/23 13:23 08/20/23 13:25 Temperature 96.9 F L Temperature Source Temporal Pulse Rate 85 Respiratory Rate 18 Respiratory Effort Blood Pressure 112/78 Blood Pressure Mean 89 Pulse Ox 91 78 95 Oxygen Delivery Method Room Air Room Air Nasal Cannula Oxygen Flow Rate (L/min) 3 08/20/23 13:44 08/20/23 13:48 08/20/23 15:03 Temperature Temperature Source Pulse Rate Respiratory Rate Respiratory Effort Short of Breath Blood Pressure Blood Pressure Mean Pulse Ox 97 Oxygen Delivery Method Nasal Cannula Nasal Cannula Nasal Cannula Oxygen Flow Rate (L/min) 3 3 3 Weight Weight: 161 lb 6.054 oz Body Mass Index (BMI) 26.0 Physical Exam Const alert and oriented x3 General Appearance: cooperative HEENT normocephalic Eyes PERRL Neck no lymphadenopathy Resp normal respiratory effort and no retractions Auscultation: crackles bilateral and rales bilateral Cardio regular rate and regular rhythm GI normal to inspection, nondistended, normoactive bowel sounds Extremity Extremity Narrative: Bilateral pitting pedal edema Neuro oriented x3 and CN's II-XII intact bilaterally Psych affect normal Results Medical Records Data Attestation: I reviewed the patient's medical records Lab / Micro Data Attestation: I reviewed the patient's lab results. 08/20/23 14:06 08/20/23 14:06 Labs: Laboratory Results - last 24 hr 08/20/23 14:06: WBC 9.4, RBC 7.07 H, Hgb 13.9, Hct 43.0, MCV 60.8 L, MCH 19.7 L, MCHC 32.3, RDW Std Deviation 34.0 L, RDW Coeff of Crissy 18.6 H, Plt Count 309, MPV 9.3, Immature Gran % (Auto) 1.000 H, Neut % (Auto) 77.4 H, Lymph % (Auto) 15.7 L, Door % (Auto) 5.4, Eos % (Auto) 0.2, Baso % (Auto) 0.3, Absolute Neuts (auto) 7.3, Absolute Lymphs (auto) 1.48, Nucleated RBC % 0, Sodium 133 L, Potassium 4.7, Chloride 99, Carbon Dioxide 23.0, Anion Gap 11, BUN 23 H, Creatinine 1.34 H, Est GFR (MDRD) Af Amer 66, Est GFR (MDRD) Non-Af 54 L, BUN/Creatinine Ratio 17.2, Glucose 154 H, Calcium 9.3, B-Natriuretic Peptide 35.9 Rhythm Strip Rhythm Strip: Sinus Rhythm Rate: 75 Ectopy: None Imaging Radiology Impression Chest X-Ray 08/20/23 14:35 IMPRESSION: Progression and increasing asymmetric bilateral peripheral pulmonary fibrosis when compared to 07/20/2021. Electronically Signed: Teja Perales MD at 14:48 EDT , Assessment & Plan Assessment/Plan (1) IPF (idiopathic pulmonary fibrosis): PLAN: Plan 83-year-old man with history of interstitial pulmonary fibrosis, coronary artery disease, hypertension, paroxysmal A-fib on chronic anticoagulation presents to the ED with worsening shortness of breath with suspicion of dysfunction of home oxygen concentrator. There are no features of new infection at this time. His symptoms have been progressively worsening for the last few months and he was recently admitted for similar concerns in [place]. At the time of presentation he has pedal edema and had an echo done during his last admission in [place] but the reports are not available. Given his presentation this could be likely a natural progression of the IPF with suspected pulmonary hypertension resulting in right-sided heart failure. Patient is suitable for med surgical 3 as his symptoms are similar to his baseline. 1. Progressive shortness of breath: Likely related to IPF with pulmonary hypertension and questionable right-sided heart failure -Pulmonary consult for tomorrow -Continue prednisone 10 mg daily -Lasix 20 mg will change to daily from alternate day -Will get records from [facility] of his last echocardiogram -No concerns regarding infection at this time based on clinical presentation, leukocytosis and imaging studies -Respiratory therapy, nasal oxygen to maintain saturation between 88 to 92% 2. Hypertension: Continue losartan and metoprolol 3. Dyslipidemia: Continue ezetimibe 4. Paroxysmal A-fib: Continue anticoagulation with Eliquis, metoprolol 5. Prostatic hyperplasia: Continue tamsulosin 6. DVT: On chronic anticoagulation Charges/Coding Visit Charges Inpatient E&M: 04492 Init Hosp L2
--- NOTE | 2023-08-20 15:17 | NURSING ---
HOSPITALIST FOR DR APODACA
--- NOTE | 2023-08-20 15:22 | NURSING ---
MED SURG CALE RESP INSUFFICIENCY, HYPOXEMIA, IPF
--- NOTE | 2023-08-20 15:53 | NURSING ---
[facility] [phone]
--- NOTE | 2023-08-20 16:35 | NURSING ---
FAXED RELEASE OF INFO TO [address] [place] [address] [phone]
--- OUTSIDE RECORDS SUMMARY | 2023-08-20 16:57 | XMS RPT_ITS | CCD ---
Author Name Unknown Address [address] [place] [address] [place] [address] Organization [facility] Care Team Providers Care Machine Erector Name Role Phone Unavailable Primary Care Provider [...] and management of inpatient ENRIQUETA GARCIA MD [facility] Start: 06-13-2023 End: 06-13-2023 Emergency department patient visit ENRIQUETA GARCIA MD [facility] Start: 03-13-2023 ambulatory [facility] Facility :[facility] Start: 03-08-2023 Telephone encounter Yamile Gurrola graeme Care [facility] Outpatient Care Plan of Treatment Date Care Activity Detail Author Start: 03-13-2023 End: 03-13-2023 Telemedicine consultation with patient [facility] Outpatient Care Payers Date Payer Category Payer Medicare MEDICARE [employer] HMO PPO MEDICARE [employer] HMO PPO [id number] 2022-Present [address] [address] [place] [address] [id number] 2022 Medicare [id number] 1940 Unknown [id number] 1940 Unknown [id number] 1940 Unknown [id number] 1940 Unknown [id number] Social History Date Type Detail Facility Start: 02-03-2023 Tobacco smoking stat us NHIS Never smoked tobacco [facility] Start: 02-03-2023 Tobacco use and exposure Smokeless tobacco non-user [facility] Start: 02-03-2023 Alcohol intake Current drinke r of alcohol (finding) [facility] Start: 03-09-2023 History of Social function [facility] Start: 03-09-2023 Tobacco use panel [facility] Start: 02-03-2023 Alcohol Comment socially [facility] Start: 1940 Sex Assigned At Not on file O [facility] Clinical Notes 02-06-2023 to 08-15-2023 Addendum Note - Maicol Thompson MD - 03/10/2023 5:01 PM EDTAddendum Note - Maicol Thompson MD - 03/10/2023 5:01 PM EDTTelephone Encounter - Maicol Thompson MD - 03/10/2023 5:00 PM EDT Note Date & Type Note Facility 08-15-2023 Note Director Graphics Authen tication Interface Message Text For your records, the bill status(es) for BENEDICT EMERSON during their hospital stay is as follows: 08/13/2023 1152 Admission Emergency 08/13/2023 1503 Patient Update Inpatient 08/15/2023 1624 Discharge Inpatient : Any questions regarding PATIENT CLASS/STATUS should be directed to the Care Management Departments: [facility] [phone] or [facility] [phone] or [place] [phone]. [facility] 08-15-2023 Note Director Graphics Authen [employer] Interface Message Text [facility] discharge summary [facility] Patient: Benedict Emerson Room/Bed: B5202/ Date of [...] Your Medications These medications were sent to [id number] [place] [address] AT [place] [address], [facility] [phone] furosemide 20 MG Tabs Discharge Follow up/ Next Steps: Your PCP Juliana [place] [address] Consults: IP CONSULT TO PULMONOLOGY IP CONSULT [...] contact the author as some errors of garbage worker may have occurred. [facility] 08-13-2023 Note Director Graphics Authen tication Interface Message Text OBSERVATION status was ordered by Admitting Physician. : Any questions regarding PATIENT CLASS/STATUS should be directed to the Care Management Departments: [facility] [phone] or [facility] [phone] or [facility] [phone]. [facility] 03-10-2023 Note Addended by: MAICOL THOMPSON on: 03/10/2023 05:01 PM Modules accepted: Orders [facility] 03-10-2023 Miscellaneous Notes Addended by: MAICOL [...] they should reschedule appt for 03/13 Message: C/B:[phone] CALLER: BENEDICT XAVIEROOR FACILITY: PATIENT: BENEDICT EMERSON : 1940 PHONE: [phone] DR IN OFC: Dr Thompson NATURE: I [...] CHANGED TO VIRTUAL BECAUSE I LIVE IN [place]. EMERGENCY: No (Hold) Message History: Taken: 07-Mar-2023 5:10p ILDEFONSO Given: 07-Mar-2023 5:10p ILDEFONSO 03/13 appointment changed to video. documented in this encounter [facility] 03-10-2023 Telephone encounter Note Order for CT placed. Patient wishes to schedule CT locally. Can reschedule appointment for after [facility]23 Telephone encounter Note PT calling and stating that they spoke with the provider yesterday -03/09 and was told by them that they wanted another CT; would like to know if this is going to be ordered and scheduled and if they should reschedule appt for 03/13 [facility] 03-08-2023 Telephone encounter Note Tried calling patient this AM and this evening. No answer, left message, will try again 03/09. [facility] 03-08-2023 Miscellaneous Notes Tried calling patient [...] from Dr. Bárbara Webb, referring, office calling. [phone]. Patient is reporting to them that he [...] update Received new patient packett via fax sql server architect from the pt placed in Dr Thompson's folder for review/completion. documented in this encounter [facility] 03-08-2023 Telephone encounter Note Pt calling about xray and CT. Would like Dr. Thompson to call him as soon as possible. [facility] 03-08-2023 Telephone encounter Note Message: C/B:[phone] CALLER: BENEDICT SANYA FACILITY: PATIENT: BENEDICT EMERSON : 1940 PHONE: [phone] IN OFC: Dr Thompson NATURE: I [...] CHANGED TO VIRTUAL BECAUSE I LIVE IN [place]. EMERGENCY: No (Hold) Message History: Taken: 07-Mar-2023 5:10p ILDEFONSO Given: 07-Mar-2023 5:10p ILDEFONSO 03/13 appointment changed to video. [facility] 02-28-2023 Telephone encounter Note Pt is calling asking for a phone call as soon as possible [facility] 02-23-2023 Telephone encounter Note Pt is calling in again to see whats going on as he has still not heard anything [facility] 02-20-2023 Telephone encounter Note Pt calling and would like to know if there is any update as of yet would like a call to know Either way [facility] 02-17-2023 Telephone encounter Note Zehra from Dr. Bárbara Webb, referring, office calling. [phone]. Patient is reporting to them that he has not heard anything back from our office. Dr. Thompson had told him that he would be in contact within a week from his appt on 02/06/23. [facility] 02-15-2023 Telephone encounter Note PT calling and stating they spoke with the provider and the provider stated they were going to look at the pts ct and then give them a call regarding what the provider seen- pt touching base to see if this has been done and if the provider could reach out to them with update [facility] 02-06-2023 Telephone encounter Note Received new patient packett via fax sql server architect from the pt placed in Dr Thompson's folder for review/completion. T [facility] documented in this encounter [facility] Reason for Referral Specialty Diagnoses / Procedures Referred By Isael t Referred To Contact Diagnoses Interstitial lung disease Procedures CT CHEST WITHOUT CONTRAST CHG DIAGNOSTIC COMPUTED TOMOGRAPHY THORAX W/O CNTRST Maicol Thompson MD [address] [place] [address] Referral ID Status Reason Start Date Expiration Date V isits Requested Visits Authorized [id number] New Request 03/10/2023 04/03/2024 1 1 Summary [...] DATE CREATED AUTHOR AUTHOR'S ORGANIZ ATION 08/17/2023 [facility] FOR RECORDS PERTAINING TO PATIENTS WHO ARE [...] BE BASED ON THE PRIMARY CLINICAL RECORDS. [employer] provides no warranty or guarantee of the accuracy or completeness of information in this document.
[2023-08-20] MEDS: APIXABAN 5 MG TABLET PO (22:05)
[2023-08-20] MEDS: Tamsulosin HCl 0.4 MG Capsule 0.400000000000000022 MG PO (22:05)
[2023-08-20] MEDS: Losartan Potassium 50 MG Tablet PO (23:30)
[2023-08-21] VITALS (9 sets, daily range): BP systolic 121–137; BP diastolic 68–77; PULSE 73–86; RESP 16–20; TEMP 36.4–36.6; O2SAT 93–98
--- NOTE | 2023-08-21 04:06 | NURSING ---
Pt assisted to bathroom. Gait unsteady. Pulse ox at rest 94% on room air. After amb to BR pulse ox droped into the 70's. O2 increased to 5L n/c to allow pt to recover. Once Pulse ox back in 90's pt assisted back to bed. PUlse ox again dropped into the 80's with 5L n/c. Pt purse lipped breathed and brought pulse ox back to 94%. O2 decreased back to 3L n/c while at rest.
[2023-08-21 07:48] LABS: Absolute Lymphocyte Count 2.37 X10^3/uL (0.83-4.51); Absolute Neutrophil Count 7.1 X10^3/uL (2.0-7.7); Basophil# 0.07 X10^3/uL; Basophil% 0.6 % (0-1); Eosinophil# 0.43 X10^3/uL; Eosinophils% 3.7 % (0-5); Hematocrit 41.6 % (40-54); Lymphocyte # 2.37 X10^3/ul (0.83-4.51); Lymphocyte % 20.6 % (19-41); Mean Corp Hgb Conc 31.3 g/dL (32-36); Mean Corpuscular Hgb 19.1 pg (27.0-32.0); Mean Corpuscular Volume 61.1 fL (80-94); Mean Platelet Vol. 9.4 fl (6.2-12.0); Monocyte# 1.24 X10^3/uL; Monocyte% 10.8 % (0-10); NRBC Flagged by Analyzer 0 % (0-5); Neutrophil # 7.12 X10^3/uL (2.7-7.7); Platelet Count 294 K/mm3 (150-450); RBC Distribution Width CV 18.4 % (11.6-14.6); RBC Distribution Width SD 34.4 fl (35.1-43.9); Red Blood Count 6.81 M/mm3 (4.6-6.2); White Blood Count 11.5 K/mm3 (4.4-11.0)
[2023-08-21 07:51] LABS: International Normalized Ratio 1.7; Prothrombin Time (Protime)PT. 19.8 SECONDS (11.7-14.9)
[2023-08-21 08:22] LABS: ALB/GLOB Ratio 0.7 RATIO (0.9-2.4); AST(SGOT) 22 U/L (15-37); Alanine Aminotransfer ALT/SGPT 18 U/L (16-61); Albumin, Serum 2.7 g/dL (3.2-5.0); Alkaline Phosphatase 52 U/L (45-117); Anion Gap 5 (5-15); BUN 18 mg/dL (7-18); BUN/Creat Ratio 16.2 RATIO (10-20); Bilirubin, Direct 0.28 mg/dL (0.00-0.30); Calcium,Total 8.7 mg/dL (8.5-10.1); Chloride 103 mmol/L (98-107); Creatinine, Serum 1.11 mg/dL (0.70-1.30); EST Glomerular Filtration Rate 68 mL/min (>60); Est Glom Filt Rate - Afr Amer 82 mL/min (>60); Globulin 4.1 g/dL (2.2-4.2); Glucose 116 mg/dL (74-106); Magnesium 2.1 mg/dL (1.6-2.6); Phosphorus 2.9 mg/dL (2.5-4.9); Potassium 3.9 mmol/L (3.5-5.1); Protein, Total 6.8 g/dL (6.4-8.2); Sodium Level 134 mmol/L (136-145); Thyroid Stim Hormone (TSH) 1.23 uIU/mL (0.358-3.74)
[2023-08-21] MEDS: Furosemide 20 MG Tablet PO (09:00)
[2023-08-21] MEDS: predniSONE 10 MG Tablet PO (09:00)
[2023-08-21] MEDS: APIXABAN 5 MG TABLET PO ×2 (09:00→21:58)
[2023-08-21] MEDS: Ferrous Sulfate 325 MG Tablet PO ×2 (09:00→18:39)
[2023-08-21] MEDS: Cholecalciferol (Vit D3) 125 MCG CAPSULE (5,000 UNITS) PO (09:01)
[2023-08-21] MEDS: Metoprolol(XL)Succ 50 MG Tablet PO (09:01)
[2023-08-21] MEDS: Ezetimibe 10 MG Tablet PO (09:01)
--- NOTE | 2023-08-21 11:49 | NURSING ---
Dr. Webb paged for consult at [phone] and then again at [phone]
--- NOTE | 2023-08-21 14:22 | CON.PCM.CC_ITS ---
Assessment & Plan Assessment/Plan (1) Acute respiratory insufficiency: (2) Hypoxemia: (3) Interstitial pulmonary fibrosis: PLAN: Plan RECOMMENDATIONS: 1. Diuresis as tolerated 2. Increase steroid therapy 3. Consider right heart cath for quantification and clarification of pul monary artery pressures 4. Continue anticoagulation for now IMPRESSIONS: 1. Acute on chronic hypoxic respiratory insufficiency secondary to pulmonary fibrosis Exact etiology of pulmonary fibrosis is unclear at this time. Patient did have a recent echocardiogram that did not suggest elevated pulmonary artery pressures, but clinical scenario is highly suggestive of elevated pulmonary pressures. Patient will be increased on prednisone therapy as he may be having an acute exacerbation of pulmonary fibrosis. Continue with diuresis as ari erated. Patient will need a walking oximetry prior to discharge. Low clinical suspicion for PE as patient has been compliant with his anticoagulation therapy. Patient may benefit from right heart catheterization for quantification clarification of pulmonary pressures. Old PFTs are not available to assess for progression of disease. Patient may have an element of cor pulmonale leading to worsening exertional hypoxemia. Cardiac rehab is suggestive the patient requires 4 L nasal cannula with exertion, but patient reports using only 3 L/min with exertion this may be leading to elevated pulmonary artery pressures. 2. Hypertension/dyslipidemia/paroxysmal A-fib/BPH Complicates care, management, recovery and prognosis. Patient has not showing any signs or symptoms of postobstructive acute kidney injury. Okay to continue with baseline medications. Heart rate is well-controlled at this time. HPI Consult Data Date of Consult: 08/21/23 HPI Narrative Reason for Consultation: Pulmonary fibrosis HPI Narrative: OXANA SEGUNDO is a 83 M, with past medical history listed below, who presents to [facility] on 08/20/2023 secondary to progressive shortness of breath. Patient recently gone to [place] to visit family and started to feel bad on the way home. Patient reportedly is on diuretics and 10 mg of prednisone on a daily basis. Patient was noted to have significant desaturation with ambulation, so was brought in for an evaluation. Patient does typically follow with Dr. Webb, but he has not been able to be reached, so I was asked to see the patient. There was some concern for his home concentrator not working appropriately, but he has been on 3 L/min at all times. On presentation to the ER, patient was afebrile, normotensive and saturating 91% on room air. Patient did desaturate to 78% on room air with minimal exertion, but responded to 3 L/min. Laboratory data showed a white blood cell count of 9.4, hemoglobin of 13.9 and platelets of 309. Chemistry showed a normal bicarbonate of 23, creatinine of 1.3 and a glucose of 154. BNP was within n ormal limits. Chest x-ray showed progression of asymmetric bilateral pulmonary fibrosis compared to 2021. Patient reports he has had PFTs previously, but is unaware of the results. Patient did have a high-resolution CT scan completed on 08/14/2023 that appeared to have progression compared to 2021. Patient states that he feels well at rest, but does get short of breath with minimal exertion. Patient states that he is not currently on any fibrotic therapy such as Esbriet or Ofev. 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 Patient reportedly has had a bronchoscopy before, but is unaware of the results. Patient did admit that he does not tend to unless he is having an issue. check his saturations routinely. Patient did have an echocardiogram at the beginning of the month at [facility] in [place] showing an EF of 60% with stage I diastolic dysfunction and only trace pulmonic regurgitation noted. Review of systems otherwise negative from a constitutional, HEENT, respiratory, cardiovascular, GI, genitourinary, musculoskeletal, skin, neurologic, psychi atric and hematologic system unless stated above. . [facility] Medical History Arthritis Atherosclerosis of coronary artery of [place] heart without angina pectoris BPH (benign prostatic hyperplasia) Cardiology follow-up encounter COVID-19 (06/14/21) Essential (primary) hypertension Gynecomastia, male Hepatitis A History of echocardiogram History of stress test Hyperlipidemia Interstitial pulmonary fibrosis IPF (idiopathic pulmonary fibrosis) New onset atrial fibrillation (2018) Non-smoker Paroxysmal atrial fibrillation Syncope due to orthostatic hypotension TIA (transient ischemic attack) Tremor Home Medications tamsulosin 0.4 mg capsule 0.4 mg PO QHS PROSTATE 02/16/17 [History Last Taken 02/15/17] cholecalciferol (vitamin D3) 125 mcg (5,000 unit) tablet (Vitamin D3) 125 mcg PO DAILY 04/23/21 [History Last Taken Unknown] glucosamine sulfate 500 mg tablet (Glucosamine) 1,500 mg PO DAILY 04/23/21 [History Last Taken Unknown] omega-3 fatty acids 1,000 mg PO DAILY supplement 04/23/21 [History Last Taken Unknown] ferrous sulfate 325 mg (65 mg iron) tablet 325 mg PO BID 05/27/22 [History Last Taken Unknown] prednisone 10 mg tablet 10 mg PO DAILY 05/27/22 [History Last Taken Unknown] metoprolol succinate 50 mg tablet,extended release 24 hr 50 mg PO DAILY #90 tabs 11/08/22 [Rx Last Taken Unknown] apixaban 5 mg tablet (Eliquis) 5 mg PO BID #180 tabs 04/18/23 [Rx Last Taken Unknown] ezetimibe 10 mg tablet 10 mg PO DAILY #90 tabs 04/19/23 [Rx Last Taken Unknown] furosemide 20 mg tablet 20 mg PO DAILY 08/20/23 [History Last Taken Unknown] losartan 50 mg tablet 50 mg PO QHS 08/20/23 [History Last Taken Unknown] Allergy/AdvReac Type Severity Reaction Status Date / Time amiodarone AdvReac Patient Verified 08/20/23 13:18 diagnosed with Pulmonary Fibrosis Family History Sister Diabetes Surgical History History of bronchoscopy (04/2021) History of cataract surgery History of colonoscopy History of incision and drainage History of left heart catheterization (11/20/17) Social History household members: spouse Smoking Status: Never smoker alcohol intake: current alcohol intake frequency: a few times a month substance use type: does not use ROS ROS Narrative See HPI Physical Exam Const alert and oriented x3 Constitutional Narrative: No conversational dyspnea noted. Appears stated age. General Appearance: cooperative; Negative for ill appearing HEENT normocephalic, head/scalp atraumatic and moist oral mucous membranes Eyes PERRL, EOMs intact bilaterally, conjunctivae normal and no scleral icterus Neck no lymphadenopathy Resp normal respiratory effort and no retractions Auscultation: rales bilateral and diminished lung sounds; Negative for rhonchi or wheezes Cardio regular rate, regular rhythm, S1 normal heart sound, S2 normal heart sound, no murmurs, no rub and no gallops GI normal to inspection, nondistended, normoactive bowel sounds Extremity Extremity Narrative: Slight clubbing noted. General Extremity: edema bilateral lower extremity Skin no rashes or lesions noted Neuro oriented x3 and CN's II-XII intact bilaterally Psych affect normal Medical Records Data Attestation: I reviewed the patient's medical records Medical records narrative: Patient does not have a PFT available for review. Recent echocardiogram at outside facility did not show significant elevation of pulmonary artery pressure. Lab / Micro Data Attestation: I reviewed the patient's lab results. 08/21/23 07:09 08/21/23 07:09 Labs: Laboratory Results - last 24 hr 08/20/23 14:06: Sodium 133 L, Potassium 4.7, Chloride 99, Carbon Dioxide 23.0, Anion Gap 11, BUN 23 H, Creatinine 1.34 H, Est GFR (MDRD) Af Amer 66, Est GFR (MDRD) Non-Af 54 L, BUN/Creatinine Ratio 17.2, Glucose 154 H, Calcium 9.3, B- Natriuretic Peptide 35.9 08/21/23 07:09: WBC 11.5 H, RBC 6.81 H, Hgb 13.0, Hct 41.6, MCV 61.1 L, MCH 19.1 L, MCHC 31.3 L, RDW Std Deviation 34.4 L, RDW Coeff of Crissy 18.4 H, Plt Count 294, MPV 9.4, Immature Gran % (Auto) 2.300 H, Neut % (Auto) 62.0, Lymph % (Auto) 20.6, [place] % (Auto) 10.8 H, Eos % (Auto) 3.7, Baso % (Auto) 0.6, Absolute Neuts (auto) 7.1, Absolute Lymphs (auto) 2.37, Nucleated RBC % 0, PT 19.8 H, INR 1.7, Sodium 134 L, Potassium 3.9, Chloride 103, Carbon Dioxide 26.0, Anion Gap 5, BUN 18, Creatinine 1.11, Estim Creat Clear Calc 47.10, Est GFR (MDRD) Af Amer 82, Est GFR (MDRD) Non-Af 68, BUN/Creatinine Ratio 16.2, Glucose 116 H, Calcium 8.7, Phosphorus 2.9, Magnesium 2.1, Total Bilirubin 0.90, Direct Bilirubin 0.28, AST 22, ALT 18, Alkaline Phosphatase 52, Total Protein 6.8, Albumin 2.7 L, Globulin 4.1, Albumin/Globulin Ratio 0.7 L, TSH 1.23 Rhythm Strip Rhythm Strip: Sinus Rhythm Rate: 75 Ectopy: None Imaging Radiology Impression Chest X-Ray 08/20/23 14:35 IMPRESSION: Progression and increasing asymmetric bilateral peripheral pulmonary fibrosis when compared to 07/20/2021. Electronically Signed: Teja Perales MD at 14:48 EDT , Charges/Coding Visit Charges Inpatient E&M: 47754 Init Hosp L3
--- NOTE | 2023-08-21 14:41 | NURSING ---
no word from Dr. Webb at this time. Dr. Santiago made aware
--- NOTE | 2023-08-21 14:51 | CASEMGMT ---
Addendum entered by Shayy Bradford 08/21/23 16:04: Updated hospitalist that green sheet is on the chart in case it is decided for pt to dc after pulm sees pt. Original Note: RN CM Assessment: Face to Face with pt for initial transition planning/care coordination assessment. RN CM introduced self and role at [facility], pt voices understanding and consents to assessment. Pt is A&O x4 and answers all questions appropriately at this time. Pt lying in bed with oxygen on in no distress with at bedside. Care providers, pharmacy, and demographics verified/updated. Admitting Dx: SOB PCP:Robin Specialists: hernandez Webb; Judy, cardio [facility]erred [facility]acy: [facility] Insurance: [employer] [facility] Prescription Benefit: yes LNOK: Mae Emerson, Living Arrangements: Pt lives with in a two story home with first floor set up. Pt reports he is I in ADL's and denies concerns at home. Transportation: Pt drives self and denies concerns with transportation. DME:cane and walker- does not use; pox, [employer] 5 portable concentrator HHC/SNF: Denies hx of Pt states no concerns with going home at time of dc. Pt and state that pt used to have oxygen through [employer] in the past but he did not use and so they came and picked it up. Pt then was only using the [employer] 5 as needed. Pt could not state the liter flow he used. Pt and state they need oxygen set up through [employer] again. They deny the need for a list of other options. 's office called during assessment and per reported he would be in to see the patient after 5pm today. Pt and concerned that they could not get oxygen set up today if pt is to be dc'd as [employer] will be closed. Made pt and aware that this RN CM will leave a green sheet on the chart so this could happen if need be. Reviewed homegoing oxyen instructions and pt and verbalize understanding. Pt denies any further homegoing needs. Pt will be in touch with [employer] to see about their current machine as to if it is functioning properly or not. Pt states no further concerns/needs. CM to follow. Advised pt to ask CM if any further question/concerns/needs arise, voices understanding. Pt Goal: Home with oxygen set up through [employer] Plan: Home, green sheet on chart for oxygen should pt dc after pulm visits Aureliano RAMÍREZ CM
--- NOTE | 2023-08-21 15:39 | PN_ITS ---
Subjective Subjective Patient seen and examined. was by his bedside. He denied any acute shortness of breath at time of review. However he said he had been getting more short of breath especially with exertion at home over the last few weeks. He had been admitted in the hospital in [place] recently and was given Lasix as needed. His wonders if his oxygen tank has not been functioning well at home as she states he desaturates down into the 60s and 70s with ambulation. Usually wears 2 to 3 L of oxygen at home. He is currently on 3 L. He denied any cough or chest pain, palpitations, dizziness, nausea or vomiting or any other symptoms. Review of systems otherwise negative. Objective Data Objective Data Vital Signs: Vital Signs Temp Pulse Resp BP Pulse Ox O2 Del Method O2 Flow Rate 97.7 F L 73 16 121/75 H 98 Nasal Cannula 3 08/21/23 08:00 08/21/23 09:01 08/21/23 08:00 08/21/23 08:00 08/21/23 13:56 08/21/23 13:56 08/21/23 13:56 FiO2 3 08/20/23 20:46 Oxygen Flow Rate (L/min) 3 Oxygen Delivery Method Nasal Cannula Weight: 161 lb 6.054 oz Body Mass Index (BMI) 26.0 Intake & Output: Intake and Output for Last 24 Hours 08/19/23 08/20/23 08/21/23 22:59 23:59 23:59 Intake Total 600 / 600 Balance 600 / 600 Lab / Micro Data 08/21/23 07:09 08/21/23 07:09 Labs: Laboratory Results - last 24 hr 08/21/23 07:09: WBC 11.5 H, RBC 6.81 H, Hgb 13.0, Hct 41.6, MCV 61.1 L, MCH 19.1 L, MCHC 31.3 L, RDW Std Deviation 34.4 L, RDW Coeff of Crissy 18.4 H, Plt Count 294, MPV 9.4, Immature Gran % (Auto) 2.300 H, Neut % (Auto) 62.0, Lymph % (Auto) 20.6, [place] % (Auto) 10.8 H, Eos % (Auto) 3.7, Baso % (Auto) 0.6, Absolute Neuts (auto) 7.1, Absolute Lymphs (auto) 2.37, Nucleated RBC % 0, PT 19.8 H, INR 1.7, Sodium 134 L, Potassium 3.9, Chloride 103, Carbon Dioxide 26.0, Anion Gap 5, BUN 18, Creatinine 1.11, Estim Creat Clear Calc 47.10, Est GFR (MDRD) Af Amer 82, Est GFR (MDRD) Non-Af 68, BUN/Creatinine Ratio 16.2, Glucose 116 H, Calcium 8.7, Phosphorus 2.9, Magnesium 2.1, Total Bilirubin 0.90, Direct Bilirubin 0.28, AST 22, ALT 18, Alkaline Phosphatase 52, Total Protein 6.8, Albumin 2.7 L, Globulin 4.1, Albumin/Globulin Ratio 0.7 L, TSH 1.23 Rhythm Strip Rhythm Strip: Sinus Rhythm Rate: 75 Ectopy: None Physical Exam Const alert, no apparent distress and well nourished General Appearance: cooperative and well developed HEENT head/scalp atraumatic, moist oral mucous membranes and oropharynx normal Eyes PERRL and EOMs intact bilaterally Neck no lymphadenopathy and supple Lymph Lymphatic: no lymphadenopathy noted and no lymphedema noted Resp Resp Narrative: Mildly diminished breath sounds bibasilarly. Has fine crackles both present on inspiratory and expiratory breaths. On 3 L of oxygen by nasal cannula. Cardio regular rate, regular rhythm, S1 normal heart sound, S2 normal heart sound and no murmurs GI normal to inspection, nondistended, normoactive bowel sounds, soft to palpation and non-tender Extremity normal capillary refill, no clubbing, cyanosis or edema and no calf tenderness General Extremity: no tenderness to palpation of joints or extremities Skin General Skin Exam: no breakdown Neuro CN's II-XII intact bilaterally, no focal motor deficits and no sensory deficits noted Motor Exam: strength 5/5 throughout and general weakness Psych thought process normal and cooperative Appearance: appropriate Assessment & Plan Assessment/Plan (1) Acute respiratory insufficiency: (2) Hypoxemia: PLAN: Plan #Hypoxia in the setting of chronic respiratory failure due to idiopathic pulmonary fibrosis * Usually wears 2 to 3 L of oxygen at homeWas diagnosed with idiopathic pulmonary fibrosis in 2018 and sees he was put on oxygen about 2 to 3 years ago. and is on prednisone 10 mg daily. * Was recently admitted at a hospital in [place] after he got more short of breath. He was discharged on Lasix initially daily and then placed on alternate day dosing of Lasix. * He did have an echo done because of been requested. * He went home but shortness of breath has been worsening persistent so he came into the ED. Chest x-ray showed no evidence of infection or any acute cardiopulmonary conditions. * Currently requiring 3 L of oxygen. says he desaturates down into the 60s and 70s with ambulation. This is therefore concerning for possible progression of his pulmonary fibrosis. * Pulmonology consulted. Pulmonology consulted. Pulmonology to diurese as tolerated and increase steroid dose as well as consider right heart cath for quantification and clarification of pulmonary artery pressures. 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 * Breathing treatments with bronchodilators. * #Hypertension: #Hyperlipidemia: On ezetimibe #Paroxysmal A-fib: On metoprolol. On Eliquis. #BPH: On Flomax DVT prophylaxis: on eliquis Charges/Coding Visit Charges Inpatient E&M: 49038 Subs Hosp L2
[2023-08-21] MEDS: MethylPREDNISolone 1,000 MG in 0.9% Normal Saline (100mL Bag) 100 ML 100 MG IV (20:12)
[2023-08-21] MEDS: Losartan Potassium 50 MG Tablet PO (21:58)
[2023-08-21] MEDS: Zolpidem Tartrate 5 MG Tablet PO (22:18)
[2023-08-21] MEDS: 0.9% Saline Lock 10 ML Syringe IV (22:18)
[2023-08-21] MEDS: Tamsulosin HCl 0.4 MG Capsule 0.400000000000000022 MG PO (22:18)
[2023-08-22] VITALS (14 sets, daily range): BP systolic 104–142; BP diastolic 65–88; PULSE 66–87; RESP 20–28; TEMP 36.3–36.5; O2SAT 84–99
[2023-08-22 07:09] LABS: Erythrocyte Sedimentation Rate 69 mm/hr (0-20)
[2023-08-22 07:48] LABS: Anion Gap 5 (5-15); BUN 28 mg/dL (7-18); Calcium,Total 9.3 mg/dL (8.5-10.1); Chloride 105 mmol/L (98-107); Creatinine, Serum 1.27 mg/dL (0.70-1.30); EST Glomerular Filtration Rate 58 mL/min (>60); Est Glom Filt Rate - Afr Amer 70 mL/min (>60); Estimated Creatinine Clearance 41.17 ml/min; Glucose 171 mg/dL (74-106); Potassium 4.5 mmol/L (3.5-5.1); Sodium Level 135 mmol/L (136-145)
[2023-08-22] MEDS: Metoprolol(XL)Succ 50 MG Tablet PO (08:59)
[2023-08-22] MEDS: APIXABAN 5 MG TABLET PO ×2 (08:59→21:05)
[2023-08-22] MEDS: Ezetimibe 10 MG Tablet PO (08:59)
[2023-08-22] MEDS: Cholecalciferol (Vit D3) 125 MCG CAPSULE (5,000 UNITS) PO (09:00)
[2023-08-22] MEDS: Tamsulosin HCl 0.4 MG Capsule 0.400000000000000022 MG PO (09:00)
[2023-08-22] MEDS: 0.9% Saline Lock 10 ML Syringe IV ×2 (10:01→21:04)
[2023-08-22] MEDS: MethylPREDNISolone 1,000 MG in 0.9% Normal Saline (100mL Bag) 100 ML 100 MG IV (10:01)
[2023-08-22] MEDS: Furosemide 20 MG Tablet PO (10:34)
[2023-08-22] MEDS: Ferrous Sulfate 325 MG Tablet PO ×2 (10:34→17:10)
--- NOTE | 2023-08-22 11:15 | NURSING ---
Walking pulse ox done with patient. Maintained O2 level of 93% at 6 Liters for 5 minutes. After 5 minutes, pulse ox dropped and unable to keep above 90%. Returned back to bed. 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
[2023-08-22] MEDS: 0.9% Normal Saline (250mL Bag) 250 ML 15 ML IV (11:30)
--- NOTE | 2023-08-22 11:45 | PN_ITS ---
Subjective Subjective Patient seen and examined. His was by his bedside. He had no active complaints. He feels his breathing hasnt worsened. Per his nurse, he did require up to 7-8L with ambulation. He was started on steroids by his primary subscription agent Dr Webb. Review of systems is otherwise negative. Objective Data Objective Data Vital Signs: Vital Signs Temp Pulse Resp BP Pulse Ox O2 Del Method O2 Flow Rate 97.7 F L 72 22 H 120/76 96 Nasal Cannula 6 08/22/23 08:00 08/22/23 08:59 08/22/23 08:00 08/22/23 08:59 08/22/23 11:14 08/22/23 08:40 08/22/23 11:14 FiO2 3 08/20/23 20:46 Oxygen Flow Rate (L/min) [ 8 AMBULATING with Oxygen #2] Oxygen Flow Rate (L/min) [ 6 AMBULATING with Oxygen #1] Oxygen Flow Rate (L/min) [At 6 REST with Oxygen] Oxygen Flow Rate (L/min) 3 Oxygen Delivery Method Nasal Cannula Weight: 161 lb 6.054 oz Body Mass Index (BMI) 26.0 Intake & Output: Intake and Output for Last 24 Hours 08/20/23 08/21/23 08/22/23 23:59 23:59 23:59 Intake Total 716 / 916 400 / 400 Balance 716 / 916 400 / 400 Lab / Micro Data 08/21/23 07:09 08/22/23 06:10 Labs: Laboratory Results - last 24 hr 08/22/23 06:10: ESR 69 H, Sodium 135 L, Potassium 4.5, Chloride 105, Carbon Dioxide 25.0, Anion Gap 5, BUN 28 H, Creatinine 1.27, Estim Creat Clear Calc 41.17, Est GFR (MDRD) Af Amer 70, Est GFR (MDRD) Non-Af 58 L, BUN/Creatinine Ratio 22.0 H, Glucose 171 H, Calcium 9.3, C-React Prot Ext Range 102.00 H Rhythm Strip Rhythm Strip: Sinus Rhythm Rate: 75 Ectopy: None Physical Exam Const alert, oriented x3, no apparent distress and well nourished General Appearance: cooperative and well developed HEENT normocephalic, head/scalp atraumatic, moist oral mucous membranes and oropharynx normal Eyes PERRL and EOMs intact bilaterally Neck no lymphadenopathy and supple Lymph Lymphatic: no lymphadenopathy noted and no lymphedema noted Resp normal respiratory effort and no retractions Resp Narrative: Mildly diminished breath sounds bibasilarly. Has fine crackles both present on inspiratory and expiratory breaths. On 3L of oxygen by nasal cannula. Auscultation: crackles bilateral and rales bilateral Cardio regular rate, regular rhythm, S1 normal heart sound, S2 normal heart sound and no murmurs GI normal to inspection, nondistended, normoactive bowel sounds, soft to palpation and non-tender Extremity normal capillary refill, no clubbing, cyanosis or edema and no calf tenderness General Extremity: no tenderness to palpation of joints or extremities Skin General Skin Exam: no breakdown Neuro oriented x3, CN's II-XII intact bilaterally, no focal motor deficits and no sensory deficits noted Motor Exam: strength 5/5 throughout and general weakness Psych thought process normal, cooperative and affect normal Appearance: appropriate Assessment & Plan Assessment/Plan (1) Acute respiratory insufficiency: (2) Hypoxemia: PLAN: Plan #Hypoxia in the setting of chronic respiratory failure due to idiopathic pulmonary fibrosis * Usually wears 2 to 3 L of oxygen at home * Was diagnosed with idiopathic pulmonary fibrosis in 2018 and sees he was put on oxygen about 2 to 3 years ago. and is on prednisone 10 mg daily. * Was recently admitted at a hospital in [place] after he got more short of breath. He was discharged on Lasix initially daily and then placed on alternate day dosing of Lasix. * He did have an echo done because of been requested. * He went home but shortness of breath has been worsening persistent so he came into the ED. Chest x-ray showed no evidence of infection or any acute cardiopulmonary conditions. * Currently requiring 3 L of oxygen. says he desaturates down into the 60s and 70s with ambulation. This is therefore concerning for possible progression of his pulmonary fibrosis. * Pulmonology consulted. Pulmonology consulted. Pulmonology to diurese as tolerated and increase steroid dose as well as consider right heart cath for quantification and clarification of pulmonary artery pressures. * Titrate oxygen to maintain saturation above 90%. * per his primary subscription agent, patient started on IV solumedrol 1000mg daily x 3 days. * Breathing treatments with bronchodilators. * #Hypertension:on metoprolol and losartan. #Hyperlipidemia: On ezetimibe #Paroxysmal A-fib: On metoprolol. On Eliquis. #BPH: On Flomax DVT prophylaxis: on eliquis Charges/Coding Visit Charges Inpatient E&M: 04824 Subs Hosp L2
--- NOTE | 2023-08-22 15:07 | NURSING ---
computer downtime from approx 1155 - present.
--- NOTE | 2023-08-22 15:12 | NURSING ---
vitals per student Nurse Claritza (downtime)
--- NOTE | 2023-08-22 16:43 | PN_ITS ---
Subjective Subjective Sob is unchanged. cough unchanged. Desats unchanged. Tolerated solumedrol w/ some talkitiveness. Slept with Ambien.. Objective Data Objective Data Vital Signs: Vital Signs Temp Pulse Resp BP Pulse Ox O2 Del Method O2 Flow Rate 97.3 F L 87 28 H 104/65 93 Nasal Cannula 3 08/22/23 15:38 08/22/23 15:38 08/22/23 15:39 08/22/23 15:38 08/22/23 15:38 08/22/23 15:39 08/22/23 15:39 FiO2 3 08/20/23 20:46 Oxygen Flow Rate (L/min) [ 8 AMBULATING with Oxygen #2] Oxygen Flow Rate (L/min) [ 6 AMBULATING with Oxygen #1] Oxygen Flow Rate (L/min) [At 6 REST with Oxygen] Oxygen Flow Rate (L/min) 3 Oxygen Delivery Method Nasal Cannula Weight: 73.2 kg Body Mass Index (BMI) 26.0 Intake & Output: Intake and Output for Last 24 Hours 08/20/23 08/21/23 08/22/23 23:59 23:59 23:59 Intake Total 716 / 916 523.5 / 523.5 Balance 716 / 916 523.5 / 523.5 Lab / Micro Data 08/21/23 07:09 08/22/23 06:10 Labs: Laboratory Results - last 24 hr 08/22/23 06:10: ESR 69 H, Sodium 135 L, Potassium 4.5, Chloride 105, Carbon Di oxide 25.0, Anion Gap 5, BUN 28 H, Creatinine 1.27, Estim Creat Clear Calc 41 .17, Est GFR (MDRD) Af Amer 70, Est GFR (MDRD) Non-Af 58 L, BUN/Creatinine Ratio 22.0 H, Glucose 171 H, Calcium 9.3, C-React Prot Ext Range 102.00 H Rhythm Strip Rhythm Strip: Sinus Rhythm Rate: 75 Ectopy: None Physical Exam Const alert, oriented x3 and no apparent distress General Appearance: cooperative and comfortable Orientation / Consciousness: awake and oriented to person Exam Limitations: no limitations HEENT normocephalic and head/scalp atraumatic HEENT Narrative: hearing deficit Head and Scalp: normal to inspection and atraumatic Face and Sinus: normal facial exam Nose: external nose normal and nares normal General Ear: hearing grossly impaired Mouth: oral and palatal mucosa normal, tongue normal and other Other Details: cyanotic lips Throat: posterior oropharynx normal Eyes PERRL and EOMs intact bilaterally General Eye: normal appearance of both eyes Neck full ROM and no lymphadenopathy General: trachea midline Carotids: normal carotid upstroke Lymph Lymphatic: no lymphedema noted Chest Chest Narrative: Rales, no change 60%,bilat, accep m use. no cough, no wheeze. Chest: abnormal inspection of the chest Resp Resp Narrative: accesory m use with exertion Effort and Inspection: able to speak in complete sentences Percussion: percussion normal Cardio S1 normal heart sound and S2 normal heart sound Cardio Narrative: rate controlled. afib with pronounced p2 GI normal to inspection, nondistended, normoactive bowel sounds Extremity normal to inspection, full ROM and normal capillary refill Skin no rashes or lesions noted Neuro oriented x3, CN's II-XII intact bilaterally, moves all extremities, no focal motor deficits, no sensory deficits noted, deep tendon reflexes 2+ bilaterally and gait normal Psych mental status grossly normal, thought process normal, cooperative, affect normal, speech normal, activity/motor behavior normal, denies hallucinations, denies homicidal ideation and denies suicidal ideation Assessment & Plan Assessment/Plan (1) IPF (idiopathic pulmonary fibrosis): PLAN: Plan Fibrosis: S/p steroid bolus, stable, not worsening. I do recommend Card eval to eval for anginal equivelent presenting as acute dyspnea with chronic IPF Very high CRP 102 Cont w/ high dose steroid, high flow oxygen, cont w/ cardiac evaluation.
[2023-08-22] MEDS: Zolpidem Tartrate 5 MG Tablet PO (21:04)
[2023-08-22] MEDS: Losartan Potassium 50 MG Tablet PO (21:05)
[2023-08-23] VITALS (10 sets, daily range): BP systolic 116–137; BP diastolic 77–84; PULSE 69–93; RESP 20–26; TEMP 36.4–36.6; O2SAT 7–98
[2023-08-23 08:36] LABS: Absolute Lymphocyte Count 0.83 X10^3/uL (0.83-4.51); Absolute Neutrophil Count 14.2 X10^3/uL (2.0-7.7); Basophil# 0.02 X10^3/uL; Basophil% 0.1 % (0-1); Hematocrit 37.1 % (40-54); Hemoglobin 11.8 g/dL (13.0-16.5); Lymphocyte # 0.83 X10^3/ul (0.83-4.51); Lymphocyte % 5.3 % (19-41); Mean Corp Hgb Conc 31.8 g/dL (32-36); Mean Corpuscular Hgb 19.3 pg (27.0-32.0); Mean Corpuscular Volume 60.8 fL (80-94); Mean Platelet Vol. 9.6 fl (6.2-12.0); Monocyte# 0.55 X10^3/uL; Monocyte% 3.5 % (0-10); NRBC Flagged by Analyzer 0.3 % (0-5); Neutrophil # 14.18 X10^3/uL (2.7-7.7); Neutrophil % 89.8 % (47-70); Platelet Count 338 K/mm3 (150-450); RBC Distribution Width SD 34.2 fl (35.1-43.9); White Blood Count 15.8 K/mm3 (4.4-11.0)
[2023-08-23 08:57] LABS: Anion Gap 10 (5-15); BUN 30 mg/dL (7-18); BUN/Creat Ratio 25.9 RATIO (10-20); Calcium,Total 9.1 mg/dL (8.5-10.1); Chloride 103 mmol/L (98-107); Creatinine, Serum 1.16 mg/dL (0.70-1.30); EST Glomerular Filtration Rate 64 mL/min (>60); Est Glom Filt Rate - Afr Amer 78 mL/min (>60); Estimated Creatinine Clearance 45.07 ml/min; Glucose 174 mg/dL (74-106); Potassium 4.2 mmol/L (3.5-5.1); Sodium Level 136 mmol/L (136-145)
--- NOTE | 2023-08-23 09:02 | CASEMGMT ---
Discharge Planning A list of?HH providers including quality and resource use data and consistent with the patient's preferred geographic region, medical needs, and insurance network was created in [employer].? This list was provided to the RN MASTER. Katie Mckeon, Discharge Planning Asst.
--- NOTE | 2023-08-23 09:05 | CASEMGMT ---
Addendum entered by Shayy Bradford 08/23/23 15:31: TC back to 's office, made appt for 4:20 today. DESIREE THAO into pt room, pt and dtr present, pt ready to take shower. They just had the portable oxygen tank delivered. Pt to go home now so the concentrator can be delivered so pt does not run out of oxygen. Pt dtr will come back and go to appt with pt. They are aware of appt time and that HHC will start Monday, they will call to set up appt. Pt family is requesting a hospital bed. They are aware this will not be able to be delivered this evening but will ask hospitalist if she will order, otherwise will need to follow with on this. Message to hospitalist who agreed. Sent referral to [facility] via [employer] at this time. Addendum entered by Shayy Bradford 08/23/23 14:27: Updated hospitalist on pt oxygen needs, pt to dc today. Referral sent to [facility] via [employer] at this time. TC to 's office to see if able to obtain an appt today after dc, left message will await for returned call. Addendum entered by Shayy Bradford 08/23/23 12:57: Received acceptance from [facility], they will see pt on Monday pending appt with Dr. Kelly. Original Note: DESIREE THAO into pt room, hospitalist just finishing. Discussed dc planning with pt and regarding HHC. They are agreeable to SN, PT and OT in the home. Pt states that an agency saw pt and provided with a phone number. She states this agency does not cover this area now that he is home. They have chosen [facility]. TC to number provided which is [employer], spoke with Cierra who states they were seeing pt until he was going back home and confirmed that they will dc pt today as he is now out of their service area. TC to [facility], spoke with Demetria, referral made. Will await for decision to accept.
[2023-08-23] MEDS: MethylPREDNISolone 1,000 MG in 0.9% Normal Saline (100mL Bag) 100 ML 100 MG IV (10:48)
[2023-08-23] MEDS: Tamsulosin HCl 0.4 MG Capsule 0.400000000000000022 MG PO (10:49)
[2023-08-23] MEDS: APIXABAN 5 MG TABLET PO (10:49)
[2023-08-23] MEDS: Ferrous Sulfate 325 MG Tablet PO (10:49)
[2023-08-23] MEDS: Metoprolol(XL)Succ 50 MG Tablet PO (10:49)
[2023-08-23] MEDS: Cholecalciferol (Vit D3) 125 MCG CAPSULE (5,000 UNITS) PO (10:49)
[2023-08-23] MEDS: Furosemide 20 MG Tablet PO (10:49)
[2023-08-23] MEDS: Ezetimibe 10 MG Tablet PO (10:49)
--- NOTE | 2023-08-23 14:49 | DS.PCM_ITS ---
Providers Date of Admission: 08/20/23 Date of Discharge: 08/23/23 Primary Care Physician: Dr. Aayush Kelly MD Consultations 08/20/23 18:39 Consult: Multilith Operator / Pulmonary Medicine Routine Consulting Provider: Ruddy Webb V Reason for Consult: Idiopathic pulmonary fibrosis EMERGENT Consult: No MD Notified: Yes Date Notified: 08/21/23 Time Notified: 08:19 Method of Notification: via backline Reason For Visit: SHORTNESS OF BREATH Diagnosis Discharge Diagnosis (1) IPF (idiopathic pulmonary fibrosis): Status: Suspected Code(s): J84.112 - Idiopathic pulmonary fibrosis Plan #Hypoxia in the setting of chronic respiratory failure due to idiopathic pu lmonary fibrosis * Usually wears 2 to 3 L of oxygen at home * Was diagnosed with idiopathic pulmonary fibrosis in 2018 and sees he was put on oxygen about 2 to 3 years ago. and is on prednisone 10 mg daily. * Was recently admitted at a hospital in [place] after he got more short of breath. He was discharged on Lasix initially daily and then placed on alternate day dosing of Lasix. * He did have an echo done because of been requested. * He went home but shortness of breath has been worsening persistent so he came into the ED. Chest x-ray showed no evidence of infection or any acute cardiopulmonary conditions. * Currently requiring 3 L of oxygen. says he desaturates down into the 60s and 70s with ambulation. This is therefore concerning for possible progression of his pulmonary fibrosis. * Pulmonology consulted. Pulmonology consulted. Pulmonology to diurese as tolerated and increase steroid dose as well as consider right heart cath for quantification and clarification of pulmonary artery pressures. * Titrate oxygen to maintain saturation above 90%. * per his primary mother superior, patient started on IV solumedrol 1000mg daily x 3 days. * Breathing treatments with bronchodilators. * #Hypertension:on metoprolol and losartan. #Hyperlipidemia: On ezetimibe #Paroxysmal A-fib: On metoprolol. On Eliquis. #BPH: On Flomax DVT prophylaxis: on eliquis Medications at Discharge Home Medications tamsulosin 0.4 mg capsule 0.4 mg PO QHS PROSTATE 02/16/17 cholecalciferol (vitamin D3) 125 mcg (5,000 unit) tablet (Vitamin D3) 125 mcg PO DAILY 04/23/21 glucosamine sulfate 500 mg tablet (Glucosamine) 1,500 mg PO DAILY 04/23/21 omega-3 fatty acids 1,000 mg PO DAILY supplement 04/23/21 ferrous sulfate 325 mg (65 mg iron) tablet 325 mg PO BID 05/27/22 prednisone 10 mg tablet 10 mg PO DAILY 05/27/22 metoprolol succinate 50 mg tablet,extended release 24 hr 50 mg PO DAILY #90 tabs 11/08/22 apixaban 5 mg tablet (Eliquis) 5 mg PO BID #180 tabs 04/18/23 ezetimibe 10 mg tablet 10 mg PO DAILY #90 tabs 04/19/23 furosemide 20 mg tablet 20 mg PO DAILY 08/20/23 losartan 50 mg tablet 50 mg PO QHS 08/20/23 prednisone 20 mg tablet 60 mg (3 x 20 mg) PO DAILY 2 weeks #42 tabs 08/23/23 Hospital Course Operations None Procedures None Summary of Care Provided Minutes Spent on Discharge: 45 Hospital Course: Patient is an 83-year-old male with a past medical history as outlined which includes interstitial pulmonary fibrosis with chronic respiratory failure on 3 L of oxygen. He was admitted through the ED on 08/20/2023 with a complaint of shortness of breath. He had had a recent trip to [place] and while stay he got short of breath. His shortness of breath had been going on for several weeks and worsened while he was there. He was admitted to a hospital in [place] and started on p.o. Lasix and given a dose of steroids. He was subse quently discharged home. He was discharged on Lasix every other day. However he went home and his shortness of breath persisted. His said with ambulation his oxygen saturation dropped to the 70s. They therefore came back to the hospital. They were concerned that his oxygen concentrator might not be working well at home. He denied any fever or chills or worsening cough or any other symptoms. BNP was not elevated. He was admitted and managed for hypoxia in the setting of chronic respiratory failure due to idiopathic pulmonary fibrosis. Concern was that his pulmonary fibrosis had likely worsened requiring increased oxygen amounts. He was admitted and placed on oxygen. He was placed on daily Lasix. His mother superior was consulted. Patient was placed on high- dose of IV steroids 1000 mg daily for 3 days. His shortness of breath did improve slightly and he felt better. He did require up to 7 L of oxygen with ambulation and so he was discharged home on 08/23/2023 with 7 L of oxygen. Per his mother superior he was discharged home on p.o. prednisone 60 mg daily for 2 weeks. He is to follow-up with his primary care doctor and mother superior within 1 week and his prednisone dose will be tapered down by his mother superior. He was counseled that his shortness of breath was likely due to a worsening of his pulmonary fibrosis. Of note his records including his 2D echo were ordered from [facility] in [place] and reviewed. Patient seen and examined prior to discharge. He had no active complaints. Review of systems otherwise negative. Labs and vitals reviewed. Home medication reviewed and reconciled. Physical Exam Const alert, oriented x3, no apparent distress and well nourished General Appearance: cooperative, comfortable, well kempt and well developed HEENT normocephalic, head/scalp atraumatic, hearing grossly normal bilaterally, moist oral mucous membranes and oropharynx normal Mouth: oral and palatal mucosa normal Eyes PERRL, EOMs intact bilaterally and conjunctivae normal Neck no lymphadenopathy and supple Lymph Lymphatic: no lymphadenopathy noted and no lymphedema noted Resp normal respiratory effort and no retractions Resp Narrative: Mildly diminished breath sounds bibasilarly. Has fine crackles both present on inspiratory and expiratory breaths. On 3L of oxygen by nasal cannula. Auscultation: crackles bilateral and rales bilateral Cardio regular rate, regular rhythm, S1 normal heart sound, S2 normal heart sound and no murmurs GI normal to inspection, nondistended, normoactive bowel sounds, soft to palpation and non-tender Extremity normal capillary refill, no clubbing, cyanosis or edema and no calf tenderness Extremity Narrative: Bilateral pitting pedal edema General Extremity: no tenderness to palpation of joints or extremities Skin no rashes or lesions noted General Skin Exam: no breakdown Neuro oriented x3, CN's II-XII intact bilaterally, moves all extremities, no focal motor deficits and no sensory deficits noted Sensorium / Orientation: awake Motor Exam: strength 5/5 throughout and general weakness Psych thought process normal, cooperative and affect normal Appearance: appropriate Weight / BMI Weight Weight: 161 lb 6.054 oz Body Mass Index (BMI) 26.0 ABG / Lab / Microbiology Data 08/23/23 08:00 08/23/23 08:00 Laboratory: Laboratory Results - last 24 hr 08/23/23 08:00: WBC 15.8 H, RBC 6.10, Hgb 11.8 L, Hct 37.1 L, MCV 60.8 L, MCH 19.3 L, MCHC 31.8 L, RDW Std Deviation 34.2 L, RDW Coeff of Crissy 18.0 H, Plt Count 338, MPV 9.6, Immature Gran % (Auto) 1.300 H, Neut % (Auto) 89.8 H, Lymph % (Auto) 5.3 L, [place] % (Auto) 3.5, Eos % (Auto) 0.0, Baso % (Auto) 0.1, Absolute Neuts (auto) 14.2 H, Absolute Lymphs (auto) 0.83, Nucleated RBC % 0.3, Sodium 136, Potassium 4.2, Chloride 103, Carbon Dioxide 23.0, Anion Gap 10, BUN 30 H, Creatinine 1.16, Estim Creat Clear Calc 45.07, Est GFR (MDRD) Af Amer 78, Est GFR (MDRD) Non-Af 64, BUN/Creatinine Ratio 25.9 H, Glucose 174 H, Calcium 9.1 D/C Instructions Discharge Diet: Low fat / Low cholesterol Discharge Activity: Return to Normal Activity Weight Bearing Status: Weight bearing as tolerated Call your doctor if you observe: Fever of 101 or Higher, Shortness of breath, Dizziness, Swelling in the ankles and Chest pain Meaningful Use Info Meaningful Use Diagnoses (Choose all that apply): None applicable Discharge Plan Admission Admit Date/Time: 08/20/23 15:42 Primary Reason for Your Visit: acute on chronic hypoxic respiratory failure, interstitial fibrosis Attending Provider: Padmini Cisneros Primary Care Provider: Aayush Kelly Chi Consulting Providers: Shannan Grace; Ruddy Webb V Instructions Patient Instructions: Using Oxygen Safely, Using Oxygen at Home, Using an Oxygen Tank at Home, Pulmonary Fibrosis Additional Instructions / Restrictions: please hold home prednisone 10mg daily and take prednisone 60mg daily x 2 weeks. To resume the home prednisone 10mg daily after. use oxygen 7-8L for shortness of breath both at rest and with exertion as needed. Discharge Orders/Prescriptions Prescriptions: New prednisone 20 mg tablet 60 mg PO DAILY 14 Days Qty: 42 0RF Continued prednisone 10 mg tablet 10 mg PO DAILY ferrous sulfate 325 mg (65 mg iron) tablet 325 mg PO BID tamsulosin 0.4 MG capsule 0.4 mg PO QHS Patient Comments: glucosamine sulfate [Glucosamine] 500 mg Tablet 1,500 mg PO DAILY omega-3 fatty acids Capsule 1,000 mg PO DAILY cholecalciferol (vitamin D3) [Vitamin D3] 125 mcg (5,000 unit) Tablet 125 mcg PO DAILY furosemide 20 mg tablet 20 mg PO DAILY losartan 50 mg tablet 50 mg PO QHS metoprolol succinate 50 mg tablet extended release 24 hr 50 mg PO DAILY Qty: 90 3RF Eliquis 5 mg tablet 5 mg PO BID Qty: 180 3RF Patient Comments: per pt will stop on 04/25/[address] Webb ezetimibe 10 mg tablet 10 mg PO DAILY Qty: 90 3RF Referrals / Follow Up: Aayush Kelly Chi, MD [Primary Care Provider] - Within 1 Week Disposition Disposition (needs filled in before D/C Order can be placed): Home, Self Care Charges/Coding Visit Charges Inpatient E&M: 48424 Disch Hosp >30min
--- NOTE | 2023-08-24 16:09 | CASEMGMT ---
DESIREE THAO received tc from pt dtr stating [employer] is reporting they cannot deliver the hospital bed until the appropriate documentation is entered. Updated hospitalist who will complete.
--- NOTE | 2023-08-25 10:48 | CASEMGMT ---
Addendum entered by Shayy Bradford 08/25/23 14:16: TC to pt dtr as she had called in this morning, and left message that Daniella will be in touch with pt for delivery of hospital bed as the documentation has been submitted. Addendum entered by Shayy Bradford 08/25/23 14:14: Notified [facility] Garcia that all documentation is complete for DME. Addendum entered by Shayy Bradford 08/25/23 14:05: Requested hospital bed documentation as well as oxygen documentation be added to dc summary via backline. Original Note: Noted hospital bed documentation not included in dc summary. Spoke with hospitalist and requested documentation for bed to be delivered. Email to Jose at [facility] as pt had left the portable oxygen tank at 's office when he went for appt. She will come potato picker tank. 's office brought to the floor.
== END 2023-08-23 16:32 | disposition home health service (06) | DRG 197 ==
LOC: ED 15:25 → MS3 16:55
PROVIDERS: Internal Medicine Pulmonary Disease; Admitting Provider Internal Medicine; Emergency Provider Emergency Medicine; PCP Family Medicine Geriatric Medicine; Visit Provider Student in an Organized Health Care Education/Training Program
DX: J84.112 Idiopathic pulmonary fibrosis (principal); J96.11 Chronic respiratory failure with hypoxia; Z99.81 Dependence on supplemental oxygen; I48.0 Paroxysmal atrial fibrillation; I10 Essential (primary) hypertension; I25.10 Atherosclerotic heart disease of native coronary artery without angina pectoris; E78.5 Hyperlipidemia, unspecified; N40.0 Benign prostatic hyperplasia without lower urinary tract symptoms; Z79.01 Long term (current) use of anticoagulants; Z79.52 Long term (current) use of systemic steroids; Z79.899 Other long term (current) drug therapy; Z86.16 Personal history of COVID-19; Z86.73 Personal history of transient ischemic attack (TIA), and cerebral infarction without residual deficits
CPT/HCPCS: 36415; 71046; 80048; 80053; 82248; 83735; 83880; 84100; 84443; 85025; 85610; 85652; 86140; 93005; 97162; 97166; 99252; 99283; J7050; A4216; G0463; J2930

== ENCOUNTER → 2023-08-31 | Outpatient (CLI) | payer MEDICARE, SELFPAY ==
[2023-03-08 07:16] VITALS: BMI 26.9
[2023-08-31 17:42] LABS: Hematocrit 42.2 % (40-54); Hemoglobin 13.1 g/dL (13.0-16.5); Mean Corpuscular Hgb 19.2 pg (27.0-32.0); Mean Corpuscular Volume 61.7 fL (80-94); Mean Platelet Vol. 9.8 fl (6.2-12.0); POSITIVE COUNT YES; POSITIVE MORPHOLOGY YES; Platelet Count 308 K/mm3 (150-450); RBC Distribution Width CV 18.6 % (11.6-14.6); RBC Distribution Width SD 34.1 fl (35.1-43.9); Red Blood Count 6.84 M/mm3 (4.6-6.2); White Blood Count 13.5 K/mm3 (4.4-11.0)
[2023-08-31 17:50] LABS: Differential Indicated MANUAL DIFF
[2023-08-31 18:17] LABS: Lymphocyte 3 % (19-41); Metamyelocyte 1 % (0-1); Monocyte 2 % (0-10); Myelocyte 2 % (0-0); Neutrophil-Band 2 % (0-5); Neutrophil-Segmented 90 % (47-70); Total Cells Counted 100 (MANUAL DIFF)
[2023-08-31 18:20] LABS: Absolute Lymphocyte Count 0.41 X10^3/uL (0.83-4.51); Absolute Neutrophil Count 12.4 X10^3/uL (2.0-7.7)
[2023-08-31 18:21] LABS: Platelet Estimate ADEQUATE (ADEQ)
[2023-08-31 18:22] LABS: Anisocytosis 1+; Microcytosis 1+; Ovalocyte RARE; Red Cell Morphology N CHROM NORMAL (NORM C&C)
[2023-09-04 09:43] LABS: Pathologist Review Reviewed
== END | disposition home or self-care (01) ==
LOC: MTLAB 15:31
PROVIDERS: PCP Family Medicine Geriatric Medicine; Referring Provider Internal Medicine Pulmonary Disease; Visit Provider Internal Medicine Pulmonary Disease
DX: J84.10 Pulmonary fibrosis, unspecified (principal)
CPT/HCPCS: 36415; 85025

== ENCOUNTER 2023-09-10 16:29 | Emergency (ER) | payer MEDICARE, SELFPAY ==
[2023-03-08 07:16] VITALS: BMI 26.9
[2023-09-10] VITALS (25 sets, daily range): BP systolic 72–124; BP diastolic 54–90; PULSE 74–145; RESP 17–33; TEMP 35.9–36.4; O2SAT 90–99; BMI 26.2
--- NOTE | 2023-09-10 17:01 | EKG12_ITS ---
Test Reason : HIGH HR Blood Pressure : / mmHG Vent. Rate : 132 BPM Atrial Rate : 000 BPM P-R Int : 000 ms QRS Dur : 072 ms QT Int : 292 ms P-R-T Axes : 000 -35 095 degrees QTc Int : 432 ms Atrial fibrillation with rapid ventricular response Left axis deviation Abnormal QRS-T angle, consider primary T wave abnormality Abnormal ECG Confirmed by Raffaele Baxter ([id number]), scientific publications editor ANNA MARIE SUAZO ([id number]) on 09/12/2023 10:17:55 AM Referred By: ISHA/DAKOTAH Confirmed By:Raffaele Baxter
--- NOTE | 2023-09-10 17:03 | RAD_ITS ---
STUDY: XR Chest 1 View 09/10/2023 5:02 PM REASON FOR EXAM: Male, 83 years old. DYSPNEA COMPARISON: 08/20/2023 TECHNIQUE: XR Chest 1 View FINDINGS: There is no demonstrated pleural abnormality. Increased bilateral lung markings are worse. Enlarged heart size. Normal mediastinum. Normal ernestina. Prominent appearing increased interstitial lung markings. Normal visualized pulmonary arteries. There is atherosclerotic calcification of the aortic arch with tortuosity. There are diffuse degenerative changes of the visualized thoracic spine. There is degenerative osteoarthritis of the bilateral shoulders. There are no acute findings of the upper abdomen. RAD/Chest 1 View (Portable) IMPRESSION: There is evidence for pulmonary fibrosis. However it is difficult to exclude overlying pneumonia given the increased density in the lungs. Electronically Signed: Mykel Kaiser MD at 19:27 EDT ,
[2023-09-10 17:10] LABS: Basophil# 0.03 X10^3/uL; Basophil% 0.3 % (0-1); Hematocrit 39.3 % (40-54); Hemoglobin 12.6 g/dL (13.0-16.5); Lymphocyte % 3.7 % (19-41); Mean Corp Hgb Conc 32.1 g/dL (32-36); Mean Corpuscular Hgb 19.5 pg (27.0-32.0); Mean Corpuscular Volume 60.8 fL (80-94); Monocyte# 0.22 X10^3/uL; NRBC Flagged by Analyzer 1.1 % (0-5); Neutrophil # 9.98 X10^3/uL (2.7-7.7); Neutrophil % 92.5 % (47-70); POSITIVE DIFFERENTIAL YES; Platelet Count 187 K/mm3 (150-450); RBC Distribution Width CV 18.9 % (11.6-14.6); RBC Distribution Width SD 34.5 fl (35.1-43.9); Red Blood Count 6.46 M/mm3 (4.6-6.2); White Blood Count 10.8 K/mm3 (4.4-11.0)
--- NOTE | 2023-09-10 17:15 | EDS_ITS ---
HPI History of Present Illness Chief Complaint: Palpitations Informant: patient, spouse/S.O. and family Narrative Narrative: 83-year-old male with a history of paroxysmal atrial fibrillation currently on apixaban follows with Dr. Keyes presenting to the emergency room with atrial fibrillation. Patient states he has a history of pulmonary fibrosis and chronically wears 5 L nasal cannula. Patient states that this morning when he got up he checked his pulse oximeter and showed that his heart seemed to be beating normally. Around 930 he checked and the heart rate seem to be very erratic sometimes very fast sometimes low and he felt that he was in atrial fib rillation. States he feels pretty weak. He notes that he has not missed any doses of his apixaban in the past month. He takes metoprolol 50 mg which she took this morning. [facility] Medical History Acute respiratory insufficiency Arthritis Atherosclerosis of coronary artery of [place] heart without angina pectoris BPH (benign prostatic hyperplasia) Cardiology follow-up encounter COVID-19 (06/14/21) Essential (primary) hypertension Gynecomastia, male Hepatitis A History of echocardiogram History of stress test Hyperlipidemia Hypoxemia Interstitial pulmonary fibrosis IPF (idiopathic pulmonary fibrosis) New onset atrial fibrillation (2018) Non-smoker Paroxysmal atrial fibrillation Syncope due to orthostatic hypotension TIA (transient ischemic attack) Tremor Home Medications tamsulosin 0.4 mg capsule 0.4 mg PO QHS PROSTATE 02/16/17 [History Last Taken 02/15/17] cholecalciferol (vitamin D3) 125 mcg (5,000 unit) tablet (Vitamin D3) 125 mcg PO DAILY 04/23/21 [History Last Taken Unknown] glucosamine sulfate 500 mg tablet (Glucosamine) 1,500 mg PO DAILY 04/23/21 [History Last Taken Unknown] omega-3 fatty acids 1,000 mg PO DAILY supplement 04/23/21 [History Last Taken Unknown] ferrous sulfate 325 mg (65 mg iron) tablet 325 mg PO BID 05/27/22 [History Last Taken Unknown] prednisone 10 mg tablet 10 mg PO DAILY 05/27/22 [History Last Taken Unknown] metoprolol succinate 50 mg tablet,extended release 24 hr 50 mg PO DAILY #90 tabs 11/08/22 [Rx Last Taken Unknown] apixaban 5 mg tablet (Eliquis) 5 mg PO BID #180 tabs 04/18/23 [Rx Last Taken Unknown] ezetimibe 10 mg tablet 10 mg PO DAILY #90 tabs 04/19/23 [Rx Last Taken Unknown] losartan 50 mg tablet 50 mg PO QHS 08/20/23 [History Last Taken Unknown] prednisone 20 mg tablet 60 mg (3 x 20 mg) PO DAILY 2 weeks #42 tabs 08/23/23 [Rx Last Taken Unknown] furosemide 20 mg tablet 20 mg PO Q OTHER DAY 09/08/23 [History Last Taken Unknown] mycophenolate mofetil 500 mg tablet 500 mg PO BID 09/08/23 [History Last Taken Unknown] Allergy/AdvReac Type Severity Reaction Status Date / Time amiodarone AdvReac Patient Verified 09/08/23 13:20 diagnosed with Pulmonary Fibrosis Family History Sister Diabetes Surgical History History of bronchoscopy (04/2021) History of cataract surgery History of colonoscopy History of incision and drainage History of left heart catheterization (11/20/17) Social History household members: spouse Smoking Status: Never smoker alcohol intake: current alcohol intake frequency: a few times a month substance use type: does not use ROS ROS ED ROS Narrative Generalized weakness Constitutional Constitutional ED: Denies chills, fever(s) or weight loss Eyes Eyes: Denies change in vision or diplopia ENT ENT ED: Denies ear pain, rhinorrhea or sore throat Cardiovascular Cardiovascular: Reports palpitations and racing heartbeat; Denies chest pain or orthopnea Respiratory/Chest Respiratory/Chest: Reports dyspnea and dyspnea on exertion; Denies cough or orthopnea Gastrointestinal Gastrointestinal: Denies abdominal pain, diarrhea, nausea or vomiting Genitourinary Genitourinary ED: Denies hematuria or urinary frequency Musculoskeletal Musculoskeletal: Denies arthralgias or myalgias Integumentary Denies abscess or rash Neurologic Neurologic: Denies headache(s) or weakness Psychiatric Psychiatric: Denies anxiety, depression, suicidal ideation or suicidal thoughts Endocrine Endocrinology: Denies polydipsia, polyphagia or polyuria Allergic/Immunologic Allergic/Immunologic ED: Denies mouth swelling, tongue swelling or urticaria EXAM Physical Exam Const Vital Signs: 09/10/23 16:30 09/10/23 16:33 09/10/23 17:01 Temperature 96.7 F L Temperature Source Temporal Pulse Rate 114 H 145 H Pulse Rate [1 (Initial Baseline)] Pulse Rate [2] Pulse Rate [3] Respiratory Rate 22 H 20 H Respiratory Rate [1 (Initial Baseline)] Respiratory Rate [2] Respiratory Rate [3] Blood Pressure 105/76 105/76 Blood Pressure [1 (Initial Baseline)] Blood Pressure [3] Blood Pressure Mean 85 85 Pulse Ox 90 92 Oxygen Delivery Method Nasal Cannula Nasal Cannula Nasal Cannula Oxygen Delivery Method [1 (Initial Baseline)] Oxygen Delivery Method [2] Oxygen Delivery Method [3] Oxygen Flow Rate (L/min) 5 5 Oxygen Flow Rate (L/min) [1 (Initial Baseline)] Oxygen Flow Rate (L/min) [2] Oxygen Flow Rate (L/min) [3] 09/10/23 17:00 09/10/23 17:30 09/10/23 18:15 Temperature Temperature Source Pulse Rate 125 H 118 H 112 H Pulse Rate [1 (Initial Baseline)] Pulse Rate [2] Pulse Rate [3] Respiratory Rate 17 30 H 29 H Respiratory Rate [1 (Initial Baseline)] Respiratory Rate [2] Respiratory Rate [3] Blood Pressure 92/67 97/63 115/90 H Blood Pressure [1 (Initial Baseline)] Blood Pressure [3] Blood Pressure Mean 76 75 Pulse Ox 98 99 94 Oxygen Delivery Method Nasal Cannula Oxygen Delivery Method [1 (Initial Baseline)] Oxygen Delivery Method [2] Oxygen Delivery Method [3] Oxygen Flow Rate (L/min) Oxygen Flow Rate (L/min) [1 (Initial Baseline)] Oxygen Flow Rate (L/min) [2] Oxygen Flow Rate (L/min) [3] 09/10/23 18:17 09/10/23 18:20 09/10/23 18:25 Temperature Temperature Source Pulse Rate Pulse Rate [1 (Initial Baseline)] 111 H Pulse Rate [2] 105 H Pulse Rate [3] 87 Respiratory Rate Respiratory Rate [1 (Initial Baseline)] 29 H Respiratory Rate [2] 23 H Respiratory Rate [3] 27 H Blood Pressure Blood Pressure [1 (Initial Baseline)] 115/90 H Blood Pressure [3] 86/63 L Blood Pressure Mean Pulse Ox Oxygen Delivery Method Nasal Cannula Nasal Cannula Oxygen Delivery Method [1 (Initial Baseline)] Room Air Oxygen Delivery Method [2] Nasal Cannula Oxygen Delivery Method [3] Nasal Cannula Oxygen Flow Rate (L/min) 2 Oxygen Flow Rate (L/min) [1 (Initial Baseline)] 2 Oxygen Flow Rate (L/min) [2] 2 Oxygen Flow Rate (L/min) [3] 2 09/10/23 18:30 09/10/23 17:45 09/10/23 17:45 Temperature Temperature Source Pulse Rate 112 H Pulse Rate [1 (Initial Baseline)] Pulse Rate [2] Pulse Rate [3] Respiratory Rate 33 H Respiratory Rate [1 (Initial Baseline)] Respiratory Rate [2] Respiratory Rate [3] Blood Pressure 93/73 93/73 Blood Pressure [1 (Initial Baseline)] Blood Pressure [3] Blood Pressure Mean 82 82 Pulse Ox 99 Oxygen Delivery Method Nasal Cannula Oxygen Delivery Method [1 (Initial Baseline)] Oxygen Delivery Method [2] Oxygen Delivery Method [3] Oxygen Flow Rate (L/min) Oxygen Flow Rate (L/min) [1 (Initial Baseline)] Oxygen Flow Rate (L/min) [2] Oxygen Flow Rate (L/min) [3] 09/10/23 18:00 09/10/23 18:15 09/10/23 18:20 Temperature Temperature Source Pulse Rate 108 H 112 H 94 Pulse Rate [1 (Initial Baseline)] Pulse Rate [2] Pulse Rate [3] Respiratory Rate 29 H 23 H 29 H Respiratory Rate [1 (Initial Baseline)] Respiratory Rate [2] Respiratory Rate [3] Blood Pressure 110/73 115/90 H 86/63 L Blood Pressure [1 (Initial Baseline)] Blood Pressure [3] Blood Pressure Mean 85 99 72 Pulse Ox 96 98 Oxygen Delivery Method Oxygen Delivery Method [1 (Initial Baseline)] Oxygen Delivery Method [2] Oxygen Delivery Method [3] Oxygen Flow Rate (L/min) Oxygen Flow Rate (L/min) [1 (Initial Baseline)] Oxygen Flow Rate (L/min) [2] Oxygen Flow Rate (L/min) [3] 09/10/23 18:22 09/10/23 18:26 09/10/23 18:30 Temperature Temperature Source Pulse Rate 84 79 Pulse Rate [1 (Initial Baseline)] Pulse Rate [2] Pulse Rate [3] Respiratory Rate 23 H 20 H Respiratory Rate [1 (Initial Baseline)] Respiratory Rate [2] Respiratory Rate [3] Blood Pressure 77/58 L 72/56 L 84/54 L Blood Pressure [1 (Initial Baseline)] Blood Pressure [3] Blood Pressure Mean 66 62 63 Pulse Ox 91 94 Oxygen Delivery Method Oxygen Delivery Method [1 (Initial Baseline)] Oxygen Delivery Method [2] Oxygen Delivery Method [3] Oxygen Flow Rate (L/min) Oxygen Flow Rate (L/min) [1 (Initial Baseline)] Oxygen Flow Rate (L/min) [2] Oxygen Flow Rate (L/min) [3] 09/10/23 18:35 09/10/23 18:40 09/10/23 18:45 Temperature Temperature Source Pulse Rate 83 79 75 Pulse Rate [1 (Initial Baseline)] Pulse Rate [2] Pulse Rate [3] Respiratory Rate 25 H 29 H 24 H Respiratory Rate [1 (Initial Baseline)] Respiratory Rate [2] Respiratory Rate [3] Blood Pressure 90/68 101/73 103/75 Blood Pressure [1 (Initial Baseline)] Blood Pressure [3] Blood Pressure Mean 76 83 85 Pulse Ox 95 Oxygen Delivery Method Oxygen Delivery Method [1 (Initial Baseline)] Oxygen Delivery Method [2] Oxygen Delivery Method [3] Oxygen Flow Rate (L/min) Oxygen Flow Rate (L/min) [1 (Initial Baseline)] Oxygen Flow Rate (L/min) [2] Oxygen Flow Rate (L/min) [3] 09/10/23 18:50 09/10/23 18:55 09/10/23 19:00 Temperature Temperature Source Pulse Rate 76 77 74 Pulse Rate [1 (Initial Baseline)] Pulse Rate [2] Pulse Rate [3] Respiratory Rate 25 H 23 H 24 H Respiratory Rate [1 (Initial Baseline)] Respiratory Rate [2] Respiratory Rate [3] Blood Pressure 109/82 H 111/79 117/88 H Blood Pressure [1 (Initial Baseline)] Blood Pressure [3] Blood Pressure Mean 92 90 99 Pulse Ox Oxygen Delivery Method Oxygen Delivery Method [1 (Initial Baseline)] Oxygen Delivery Method [2] Oxygen Delivery Method [3] Oxygen Flow Rate (L/min) Oxygen Flow Rate (L/min) [1 (Initial Baseline)] Oxygen Flow Rate (L/min) [2] Oxygen Flow Rate (L/min) [3] 09/10/23 19:05 09/10/23 19:10 09/10/23 19:15 Temperature Temperature Source Pulse Rate 76 77 74 Pulse Rate [1 (Initial Baseline)] Pulse Rate [2] Pulse Rate [3] Respiratory Rate 27 H 23 H 24 H Respiratory Rate [1 (Initial Baseline)] Respiratory Rate [2] Respiratory Rate [3] Blood Pressure 116/83 H 114/81 H 118/81 H Blood Pressure [1 (Initial Baseline)] Blood Pressure [3] Blood Pressure Mean 95 91 94 Pulse Ox 96 96 95 Oxygen Delivery Method Oxygen Delivery Method [1 (Initial Baseline)] Oxygen Delivery Method [2] Oxygen Delivery Method [3] Oxygen Flow Rate (L/min) Oxygen Flow Rate (L/min) [1 (Initial Baseline)] Oxygen Flow Rate (L/min) [2] Oxygen Flow Rate (L/min) [3] 09/10/23 19:20 09/10/23 19:49 Temperature 97.6 F L Temperature Source Pulse Rate 77 76 Pulse Rate [1 (Initial Baseline)] Pulse Rate [2] Pulse Rate [3] Respiratory Rate 21 H 22 H Respiratory Rate [1 (Initial Baseline)] Respiratory Rate [2] Respiratory Rate [3] Blood Pressure 124/81 H 107/76 Blood Pressure [1 (Initial Baseline)] Blood Pressure [3] Blood Pressure Mean 96 86 Pulse Ox 97 96 Oxygen Delivery Method Oxygen Delivery Method [1 (Initial Baseline)] Oxygen Delivery Method [2] Oxygen Delivery Method [3] Oxygen Flow Rate (L/min) Oxygen Flow Rate (L/min) [1 (Initial Baseline)] Oxygen Flow Rate (L/min) [2] Oxygen Flow Rate (L/min) [3] Positive well nourished and well developed General Appearance ED: well developed HEENT Reports normocephalic, head/scalp atraumatic and moist mucous membranes Eyes PERRL and EOMs intact bilaterally Neck no lymphadenopathy, supple and no JVD Resp normal respiratory effort and clear to auscultation bilaterally Resp Narrative: Faint expiratory wheeze Cardio no murmurs Rate: tachycardic Rhythm: abnormal rhythm irregularly irregular GI normal to inspection, nondistended, normoactive bowel sounds and non-tender Palpation: soft Back/Spine no CVA tenderness and normal ROM Extremity normal to inspection General Extremety ED: Negative for edema General Extremity: Negative for edema Neuro oriented x3 and CN's II-XII intact bilaterally Sensorium / Orientation: alert Motor Exam: strength 5/5 throughout Psych mental status grossly normal Mood & Affect: Negative for depressed or tearful Skin no rashes or lesions noted and no wounds MDM MDM MDM Narrative Medical decision making narrative: His blood work shows a white count of 10.8 hemoglobin 12.6 platelet count of 187. Sodium 131 potassium 5.6 with moderate hemolysis. Magnesium 2.1 troponin 48 creatinine 1.29. Magnapen interpretation of the chest x-ray is no acute process. EKG is atrial fibrillation with rapid ventricular response Case was discussed with the patient his family and with on-call porcelain enamel repairer Dr. Urbina. Patient is amendable to. Procedural sedation and cardioversion. Dr. Urbina does feel that this is a reasonable option to present to the patient. He provided informed consent. Patient was placed on the monitor. Patient received a dose of fentanyl. He received 0.5 mg/kg followed by 0.25 mg/kg aliquots to achieve adequate sedation. A single synchronized electrical shock was delivered at 200 J which resulted in return of normal sinus rhythm. Patient had no apparent hypoxia or hypoventilation. He was noted to have decreased blood pressure which is subsequently resolved and the patient is now awake alert and talking. He will be monitored/observed and assessed for appropriateness for discharge. History & Record Review Discussion w/independent historian: Patient and Family Additional record(s) reviewed:: Prior labs Lab Data Attestation: I reviewed the patient's lab results. Labs: Laboratory Results - last 24 hr 09/10/23 16:47 WBC 10.8 RBC 6.46 H Hgb 12.6 L Hct 39.3 L MCV 60.8 L MCH 19.5 L MCHC 32.1 RDW Std Deviation 34.5 L RDW Coeff of Crissy 18.9 H Plt Count 187 MPV 10.0 Immature Gran % (Auto) 1.500 H Neut % (Auto) 92.5 H Lymph % (Auto) 3.7 L [place] % (Auto) 2.0 Eos % (Auto) 0.0 Baso % (Auto) 0.3 Absolute Neuts (auto) 10.0 H Absolute Lymphs (auto) 0.40 L Nucleated RBC % 1.1 Sodium 131 L Potassium 5.6 H Chloride 101 Carbon Dioxide 23.0 Anion Gap 7 BUN 30 H Creatinine 1.29 Estim Creat Clear Calc 40.53 Est GFR (MDRD) Af Amer 69 Est GFR (MDRD) Non-Af 57 L BUN/Creatinine Ratio 23.3 H Glucose 287 H Calcium 8.9 Magnesium 2.1 Troponin I High Sens 48 Radiography Diagnostic Testing: Clinical Impression(s) from Imaging Studies Chest X-Ray 09/10/23 17:03 IMPRESSION: There is evidence for pulmonary fibrosis. However it is difficult to exclude overlying pneumonia given the increased density in the lungs. Electronically Signed: Mykel Kaiser MD at 19:27 EDT , EKG Initial EKG: Attestation: I personally reviewed and interpreted this EKG as follows: Comments: EKG demonstrates atrial fibrillation with rapid ventricular response at a rate of 132 bpm. Follow-up EKG: Attestation: I personally reviewed and interpreted this EKG as follows: Comments: Normal sinus rhythm ventricular rate of 80 bpm Management Discussion w/another healthcare provider: Control Systems Specialist (Cardiology (Dr Urbina)) Procedures Procedural Sedation 1 (Initial Baseline): Consent Signed: Yes Any Problems With Anesthesia: No You/Your family experience fever (hyperthermia) w/anesthesia: No Sedation medication: Fentanyl Dose: 0.5 Route: IV Total Moderate Sedation Units: 3 Maliampati Score: Class II ASA Classification: III Comment:: Patient with pulmonary fibrosis on home O2 Discharge Plan Triage Chief Complaint: Palpitations ED Provider: Agus Lao Dx/Rx/DC Orders Clinical Impression: Chronic anticoagulation, Atherosclerosis of coronary artery of [place] heart without angina pectoris, Paroxysmal atrial fibrillation with RVR Instructions: ED AFIB Prescriptions: No Action prednisone 10 mg tablet 10 mg PO DAILY ferrous sulfate 325 mg (65 mg iron) tablet 325 mg PO BID mycophenolate mofetil 500 mg tablet 500 mg PO BID tamsulosin 0.4 MG capsule 0.4 mg PO QHS Patient Comments: glucosamine sulfate [Glucosamine] 500 mg Tablet 1,500 mg PO DAILY omega-3 fatty acids Capsule 1,000 mg PO DAILY cholecalciferol (vitamin D3) [Vitamin D3] 125 mcg (5,000 unit) Tablet 125 mcg PO DAILY losartan 50 mg tablet 50 mg PO QHS prednisone 20 mg tablet 60 mg PO DAILY 14 Days Qty: 42 0RF furosemide 20 mg tablet 20 mg PO Q OTHER DAY metoprolol succinate 50 mg tablet extended release 24 hr 50 mg PO DAILY Qty: 90 3RF Eliquis 5 mg tablet 5 mg PO BID Qty: 180 3RF Patient Comments: per pt will stop on 04/25/[address] Webb ezetimibe 10 mg tablet 10 mg PO DAILY Qty: 90 3RF Primary Care Provider: Aayush Kelly Chi Referrals: Edvin Kim MD [Med Staff - Active Staff] - As soon as possible Aayush Kelly Chi, MD [Primary Care Provider] - As Needed Disposition Disposition: Home, Self Care Discharge Date/Time: 09/10/23 19:51
[2023-09-10 17:32] LABS: Anion Gap 7 (5-15); BUN 30 mg/dL (7-18); BUN/Creat Ratio 23.3 RATIO (10-20); Calcium,Total 8.9 mg/dL (8.5-10.1); Chloride 101 mmol/L (98-107); Creatinine, Serum 1.29 mg/dL (0.70-1.30); EST Glomerular Filtration Rate 57 mL/min (>60); Est Glom Filt Rate - Afr Amer 69 mL/min (>60); Estimated Creatinine Clearance 40.53 ml/min; Glucose 287 mg/dL (74-106); Magnesium 2.1 mg/dL (1.6-2.6); Potassium 5.6 mmol/L (3.5-5.1); Sodium Level 131 mmol/L (136-145); Troponin-I HS 48 pg/mL (3.0-78.0)
[2023-09-10] MEDS: fentaNYL 100 MCG/2 ML Ampul 25 MCG IV (18:11)
[2023-09-10] MEDS: Propofol 200 MG/20 ML Vial IV BOLUS (18:12)
--- NOTE | 2023-09-10 18:27 | EKG12_ITS ---
Test Reason : REPEAT Blood Pressure : / mmHG Vent. Rate : 080 BPM Atrial Rate : 080 BPM P-R Int : 150 ms QRS Dur : 066 ms QT Int : 360 ms P-R-T Axes : 028 -34 080 degrees QTc Int : 415 ms Normal sinus rhythm Left axis deviation Nonspecific T wave changes Abnormal ECG Confirmed by Raffaele Baxter ([id number]), non linear editor ANNA MARIE SUAZO ([id number]) on 09/12/2023 10:13:34 AM Referred By: Confirmed By:Raffaele Baxter
== END 2023-09-10 19:51 | disposition home or self-care (01) ==
PROVIDERS: Emergency Provider Emergency Medicine; PCP Family Medicine Geriatric Medicine; Visit Provider Emergency Medicine
DX: I48.0 Paroxysmal atrial fibrillation (principal); I25.10 Atherosclerotic heart disease of native coronary artery without angina pectoris; Z79.01 Long term (current) use of anticoagulants; Z86.16 Personal history of COVID-19; Z86.73 Personal history of transient ischemic attack (TIA), and cerebral infarction without residual deficits
CPT/HCPCS: 96374; 99283; 71045; 80048; 83735; 84484; 85025; 93005; J7030; A4216

== ENCOUNTER 2023-09-12 04:46 | Inpatient (IN) | payer MEDICARE, SELFPAY ==
[2023-03-08 07:16] VITALS: BMI 26.9
[2023-09-12] VITALS (37 sets, daily range): BP systolic 83–189; BP diastolic 53–130; PULSE 67–153; RESP 14–47; TEMP 36.1–38.4; O2SAT 84–99; BMI 26.3; BMI 26.2
--- NOTE | 2023-09-12 05:19 | EKG12_ITS ---
Test Reason : SOB Blood Pressure : / mmHG Vent. Rate : 124 BPM Atrial Rate : 124 BPM P-R Int : 152 ms QRS Dur : 068 ms QT Int : 294 ms P-R-T Axes : 048 -35 081 degrees QTc Int : 422 ms Sinus tachycardia Left axis deviation Nonspecific ST abnormality Abnormal ECG Baseline artifact Confirmed by Raffaele Baxter ([id number]), videotape editor ANNA MARIE SUAZO ([id number]) on 09/12/2023 10:24:46 AM Referred By: DAKOTAH Confirmed By:Raffaele Baxter
--- NOTE | 2023-09-12 05:19 | RAD_ITS ---
EXAM: XR CHEST, 1 VIEW CLINICAL INDICATION: sob TECHNIQUE: Frontal view of the chest. COMPARISON: Previous chest radiograph of 09/10/2023, 08/20/2023 and 07/20/2021. FINDINGS: LUNGS AND PLEURAL SPACES: Chronic interstitial fibrotic changes are again noted bilaterally. There is developing airspace disease with a few air bronchograms in the right suprahilar region/medial aspect of the right upper lobe. Minimal patchy airspace disease has also developed within the left upper lobe. Stable left apical pleural thickening. No pneumothorax. No definite pleural effusion. HEART: Heart size remains mildly enlarged. Pulmonary vascular markings are obscured. MEDIASTINUM: Stable moderate elongation of the thoracic aorta. BONES/JOINTS: No acute osseous abnormality. SOFT TISSUES: Unremarkable. RAD/Chest 1 View (Portable) IMPRESSION: Chronic interstitial fibrotic changes again noted, with developing airspace disease in the upper lobes, right greater than left, secondary to bilateral pneumonia versus developing pulmonary edema. Electronically Signed: Gama Collins MD at 6:41 EDT ,
--- NOTE | 2023-09-12 05:20 | ED.VIS.DYS ---
HPI History of Present Illness Chief Complaint: Shortness of Breath Informant: patient, spouse/S.O. and EMS Narrative Narrative: Patient presents around 5 AM after having woke up in the middle of the night in respiratory distress and diffuse chest tightness. Too weak to get out of bed. helped him to get his oxygen up but they were unable to get his pulse oximetry out of the 70%'s. His blood pressure was very high around 200 systolic when she got an adequate reading so she gave him an extra metoprolol prior to arrival. EMS confirms he is very hypoxic so they put him on a nonrebreather/CPAP, transition to BiPAP here before my evaluation. They had his pulse ox in the 90s on nonrebreather, and just transitioning over to BiPAP his pulse ox went down to 59% according to respiratory. Patient was seen here yesterday in atrial fibrillation and cardioverted out of it. Patient wears 4-5 L nasal cannula at home at baseline due to his fibrosis. He has had worsening dyspnea for the past 2 days despite his cardioversion according to . This patient was diagnosed with fibrosis only within the past couple months and it seems to have been progressing quickly. He was admitted 3 weeks ago here and given Solu-Medrol 1000 mg IV x 3 doses, and since then he has been on prednisone 60 mg daily for the past 3 weeks, just started week #4, with plans to taper after this weeks prednisone therapy. Following with pulmonology Dr. Webb as an outpatient. [facility] Medical History Acute respiratory insufficiency Arthritis Atherosclerosis of coronary artery of [place] heart without angina pectoris BPH (benign prostatic hyperplasia) Cardiology follow-up encounter COVID-19 (06/14/21) Essential (primary) hypertension Gynecomastia, male Hepatitis A History of echocardiogram History of stress test Hyperlipidemia Hypoxemia Interstitial pulmonary fibrosis IPF (idiopathic pulmonary fibrosis) New onset atrial fibrillation (2018) Non-smoker Paroxysmal atrial fibrillation Syncope due to orthostatic hypotension TIA (transient ischemic attack) Tremor Home Medications tamsulosin 0.4 mg capsule 0.4 mg PO QHS PROSTATE 02/16/17 [History Last Taken 02/15/17] ferrous sulfate 325 mg (65 mg iron) tablet 325 mg PO BID 05/27/22 [History Last Taken Unknown] prednisone 10 mg tablet 10 mg PO DAILY 05/27/22 [History Last Taken Unknown] metoprolol succinate 50 mg tablet,extended release 24 hr 50 mg PO DAILY #90 tabs 11/08/22 [Rx Last Taken Unknown] apixaban 5 mg tablet (Eliquis) 5 mg PO BID #180 tabs 04/18/23 [Rx Last Taken Unknown] ezetimibe 10 mg tablet 10 mg PO DAILY #90 tabs 04/19/23 [Rx Last Taken Unknown] losartan 50 mg tablet 50 mg PO QHS 08/20/23 [History Last Taken Unknown] prednisone 20 mg tablet 60 mg (3 x 20 mg) PO DAILY 2 weeks #42 tabs 08/23/23 [Rx Last Taken Unknown] mycophenolate mofetil 500 mg tablet 500 mg PO BID 09/08/23 [History Last Taken Unknown] pantoprazole 40 mg tablet,delayed release 40 mg PO DAILY 09/12/23 [History Last Taken Unknown] Allergy/AdvReac Type Severity Reaction Status Date / Time amiodarone AdvReac Patient Verified 09/08/23 13:20 diagnosed with Pulmonary Fibrosis Family History Sister Diabetes Surgical History History of bronchoscopy (04/2021) History of cataract surgery History of colonoscopy History of incision and drainage History of left heart catheterization (11/20/17) Social History household members: spouse Smoking Status: Never smoker alcohol intake: current alcohol intake frequency: a few times a month substance use type: does not use ROS ROS ED Review of Systems ROS Unobtainable: other Details: Limited evaluation due to acuity, BiPAP, dyspnea/respiratory distress Constitutional Constitutional ED: Reports fatigue, malaise and weakness; Denies chills or fever(s) Cardiovascular Cardiovascular: Reports chest pain and paroxysmal nocturnal dyspnea; Denies palpitations Respiratory/Chest Respiratory/Chest: Reports dyspnea and paroxysmal nocturnal dyspnea; Denies cough Gastrointestinal Gastrointestinal: Denies abdominal pain, diarrhea, nausea or vomiting Musculoskeletal Musculoskeletal: Denies back pain or neck pain Integumentary Denies abscess or rash Neurologic Neurologic: Denies headache(s), paresthesias or weakness EXAM Physical Exam Const Vital Signs: 09/12/23 04:47 09/12/23 04:52 09/12/23 04:59 Temperature 97.5 F L 97.5 F L Temperature Source Temporal Temporal Pulse Rate 125 H 125 H Respiratory Rate 30 H 47 H Respiratory Effort Short of Breath Labored Accessory Muscle Use Respiratory Depth Shallow Respiratory Pattern Tachypnea Blood Pressure 189/130 H 187/130 H Blood Pressure Mean 149 149 Pulse Ox 84 91 Oxygen Delivery Method Non-Rebreather Non-Rebreather Bi-pap Fraction of Inspired Oxygen (FIO2) 75 09/12/23 05:28 09/12/23 05:02 09/12/23 06:00 Temperature 97.0 F L Temperature Source Tympanic Pulse Rate 116 H 108 H Respiratory Rate 43 H 37 H Respiratory Effort Respiratory Depth Respiratory Pattern Tachypnea Blood Pressure 117/83 H Blood Pressure Mean 94 Pulse Ox 96 93 96 Oxygen Delivery Method Bi-pap Bi-pap Fraction of Inspired Oxygen (FIO2) 60 60 60 09/12/23 05:18 09/12/23 05:52 09/12/23 07:00 Temperature 97 F L 98.6 F Temperature Source Temporal Temporal Pulse Rate 114 H 114 H 153 H Respiratory Rate 44 H 32 H 28 H Respiratory Effort Respiratory Depth Respiratory Pattern Blood Pressure 150/91 H 100/82 H Blood Pressure Mean 110 88 Pulse Ox 94 97 Oxygen Delivery Method Bi-pap Bi-pap Fraction of Inspired Oxygen (FIO2) 60 09/12/23 07:04 09/12/23 07:19 Temperature Temperature Source Pulse Rate 150 H 145 H Respiratory Rate 40 H 35 H Respiratory Effort Respiratory Depth Respiratory Pattern Blood Pressure 91/76 Blood Pressure Mean 81 Pulse Ox 96 92 Oxygen Delivery Method Bi-pap Fraction of Inspired Oxygen (FIO2) 60 Positive well nourished and well developed General Appearance ED: well developed and NAD HEENT Reports moist mucous membranes normocephalic and atraumatic Eyes PERRL and EOMs intact bilaterally Neck full ROM and supple Resp Resp Narrative: Moderate respiratory distress, bibasilar inspiratory high-pitched rhonchi, no other abnormal breath sounds. Equal bilaterally. Cardio regular rate, regular rhythm and no murmurs Rate: tachycardic GI non-tender and non-distended Auscultation: normoactive bowel sounds Palpation: soft Back/Spine no CVA tenderness General Back: other FROM Extremity normal to inspection General Extremety ED: Negative for edema, pulses abnormal or tenderness General Extremity: Negative for edema or pulses abnormal Neuro oriented x3, CN's II-XII intact bilaterally and no sensory deficits noted Sensorium / Orientation: awake and alert Motor Exam: general weakness Psych mental status grossly normal Skin no rashes or lesions noted and no wounds MDM MDM MDM Narrative Medical decision making narrative: Differential includes exacerbation of fibrosis which he has a history of, pneumonia, acute CHF/pulmonary edema, dysrhythmia, pneumothorax. Clinically I am less concerned about a pneumothorax, and his EKG and monitored do not suggest a dysrhythmia, but rather sinus tachycardia with underlying baseline artifact due to the patient's tremulousness from being dyspneic. Certainly sepsis and infection are in the differential diagnosis, so initially I considered giving him Lasix but held off and allowed him to get BiPAP and an albuterol treatment in the meantime, but I am suspicious that the patient has acute congestive heart failure given how hypertensive he is, although his blood pressure could be caused by stress/anxiety/respiratory distress as well. 1 view chest x-ray shows significant chronic abnormalities, could be consistent with fibrosis, and/or pulmonary edema, and/or patchy infiltrates on my interpretation; when I compare it to the x-ray that he had 2 days ago, it looks unchanged although his clinical condition is much different. He does have a leukocytosis again could be consistent with stress versus infection, lactic acid is elevated, nonspecific could be related to hypoxemia, and interestingly without specifically treating his blood pressure or given a diuretic yet, his repeat pressure is 117/83 with his pulse decreased down to 108. In my judgment this is more indicative of his blood pressure being up due to stress/dyspnea; or could be due to the extra metoprolol that was given to him by his as well. ABG is reassuring, while on oxygen/BiPAP, showing pO2 73.7 and neutral pH without hypercapnia. Reevaluated patient clinically. He is easily arousable, tolerating BiPAP well, says that his breathing is definitely better after that and nebulizer treatment which was done a while ago. Radiology's interpretation of the chest x-ray is infection versus pulmonary edema superimposed on pulmonary fibrosis. Given this, awaiting the last test, proBNP to return. While waiting for this to return, patient's heart rate suddenly went back up into the 120-130 range, and on the monitor appears to be A-fib with RVR. On the EKG his rate is about 150. His blood pressure now is reading about 100/48 so I am ordering him digoxin 250 mcg IV push. I called the lab to check on BNP status, after 2.5 hours having the blood they just started to run at. I am not going to treat him empirically with Lasix at this time since he is in A-fib with RVR and his blood pressure is borderline with MAPs in the high 60s, HR improving, now in 130 range. I discussed with that if his pressure does not increase with the digoxin, cardioverting him again would be indicated. Will cover empirically with antibiotics given that I am not able to rule out infection. Patient is leukocytosis may be related to infection versus high-dose steroids for the past 3 weeks. Still waiting on BNP; will likely need echo to eval cardiac function. Discussed w/ Dr. Plaza for ICU admission. History & Record Review Additional record(s) reviewed:: Prior outpatient record (Echo from 3 years ago, stage I diastolic dysfunction good EF) and Prior ED visit Lab Data Attestation: I reviewed the patient's lab results. Labs: Laboratory Results - last 24 hr 09/12/23 09/12/23 04:50 06:20 WBC 18.7 H RBC 7.69 H Hgb 14.9 Hct 46.7 MCV 60.7 L MCH 19.4 L MCHC 31.9 L RDW Std Deviation 34.3 L RDW Coeff of Crissy 20.0 H Plt Count 190 MPV 9.6 Immature Gran % (Auto) 1.900 H Neut % (Auto) 83.1 H Lymph % (Auto) 10.9 L Vernon % (Auto) 3.0 Eos % (Auto) 0.8 Baso % (Auto) 0.3 Absolute Neuts (auto) 15.5 H Absolute Lymphs (auto) 2.04 Nucleated RBC % 0.3 PT 17.6 H INR 1.5 APTT 26.7 Sodium 133 L Potassium 4.4 Chloride 95 L Carbon Dioxide 30.0 Anion Gap 8 BUN 28 H Creatinine 1.12 Estim Creat Clear Calc 46.68 Est GFR (MDRD) Af Amer 81 Est GFR (MDRD) Non-Af 67 BUN/Creatinine Ratio 25.0 H Glucose 135 H Lactic Acid 3.9 H* Calcium 9.8 Total Bilirubin 2.20 H AST 33 ALT 32 Alkaline Phosphatase 68 Troponin I High Sens 30 Total Protein 7.8 Albumin 3.4 Globulin 4.4 H Albumin/Globulin Ratio 0.8 L Urine Color YELLOW Urine Clarity Clear Urine pH 7.0 Ur Specific Cascade 1.005 Urine Protein 30 H Urine Glucose (UA) Normal Urine Ketones Negative Urine Occult Blood 10 H Urine Nitrite Negative Urine Bilirubin Negative Urine Urobilinogen Normal Ur Leukocyte Esterase Negative Urine RBC 0-5 SEEN Urine WBC 0 SEEN Ur Squamous Epith Cells 0 SEEN Urine Bacteria 0 SEEN Urine Mucus 0 SEEN ABG Data ABG results: ABG 09/12/23 05:41 Specimen Type ART Sample Site R Radial pH 7.44 Bicarbonate Actual 26.9 H Total CO2 28 Base Excess 3 H O2 Saturation 95 O2 % 60.0 ABG pCO2 39.8 ABG pO2 74 L Boyd Test Positive Respiration Rate 14 O2 Delivery Device BiPAP Vent Mode Not entered POC PEEP 10 Radiography Diagnostic Testing: Clinical Impression(s) from Imaging Studies Chest X-Ray 09/12/23 05:19 IMPRESSION: Chronic interstitial fibrotic changes again noted, with developing airspace disease in the upper lobes, right greater than left, secondary to bilateral pneumonia versus developing pulmonary edema. Electronically Signed: Gama Collins MD at 6:41 EDT , Rhythm Strip Rhythm Strip: Sinus Tach Rate: 120 Ectopy: None EKG Initial EKG: Attestation: I personally reviewed and interpreted this EKG as follows: Interpretation: No Acute Injury Pattern, Sinus Tachycardia and LAFB Comments: Significant artifact due to patient tremulous, however morphology, axis, rhythm appears similar to yesterday status post cardioversion, sinus Prior EKG tracings: available for review Prior: Unchanged Follow-up EKG: Attestation: I personally reviewed and interpreted this EKG as follows: Interpretation: No Acute Injury Pattern and Atrial Fibrillation (w/ RVR 150) Management Discussion w/another healthcare provider: Hospitalist Critical Care Time Critical Care Time: Yes Critical care time (excluding procedures): 75-104 minutes (76 min), Including time spent:, Discussing w/Patient &/or Family/Hat Lining Paster, Discussing w/Consultants, Arranging Admission or Transfer and Performing Direct Patient Care at Bedside Discharge Plan Dx/Rx/DC Orders Clinical Impression: Acute hypoxemic respiratory failure, Paroxysmal atrial fibrillation with RVR, Pulmonary fibrosis Disposition Disposition: Acute Care Hospital [facility]
[2023-09-12] MEDS: Albuterol 2.5 MG/3 ML VIAL.NEB. INHALATION (05:23)
[2023-09-12 05:32] LABS: Absolute Lymphocyte Count 2.04 X10^3/uL (0.83-4.51); Absolute Neutrophil Count 15.5 X10^3/uL (2.0-7.7); Basophil# 0.06 X10^3/uL; Basophil% 0.3 % (0-1); Eosinophil# 0.15 X10^3/uL; Eosinophils% 0.8 % (0-5); Hematocrit 46.7 % (40-54); Hemoglobin 14.9 g/dL (13.0-16.5); Lymphocyte # 2.04 X10^3/ul (0.83-4.51); Lymphocyte % 10.9 % (19-41); Mean Corp Hgb Conc 31.9 g/dL (32-36); Mean Corpuscular Hgb 19.4 pg (27.0-32.0); Mean Corpuscular Volume 60.7 fL (80-94); Mean Platelet Vol. 9.6 fl (6.2-12.0); Monocyte# 0.56 X10^3/uL; NRBC Flagged by Analyzer 0.3 % (0-5); Neutrophil # 15.52 X10^3/uL (2.7-7.7); Neutrophil % 83.1 % (47-70); Platelet Count 190 K/mm3 (150-450); RBC Distribution Width SD 34.3 fl (35.1-43.9); Red Blood Count 7.69 M/mm3 (4.6-6.2); White Blood Count 18.7 K/mm3 (4.4-11.0)
[2023-09-12 05:40] LABS: International Normalized Ratio 1.5; Prothrombin Time (Protime)PT. 17.6 SECONDS (11.7-14.9)
[2023-09-12 05:41] LABS: Partial Thromboplast Time 26.7 Seconds (24.1-36.2)
[2023-09-12 05:46] LABS: Allen Test Positive; Base Excess 3 mmol/L (-2 to +2); Bicarbonate 26.9 mmol/L (22-26); Blood Gas Specimen Type ART; Mode Not entered; O2 Delivery Device BiPAP; PEEP 10; PO2 74 mmHG (75-100); RR 14; SITE R Radial; SO2 95 % (95-99); Total Carbon Dioxide 28 mmol/L; pCO2 39.8 mmHg (35-45); pH 7.44 (7.35-7.45)
[2023-09-12 05:54] LABS: Lactic Acid 3.9 mmol/L (0.4-1.9)
[2023-09-12 05:57] LABS: ALB/GLOB Ratio 0.8 RATIO (0.9-2.4); AST(SGOT) 33 U/L (15-37); Alanine Aminotransfer ALT/SGPT 32 U/L (16-61); Albumin, Serum 3.4 g/dL (3.2-5.0); Alkaline Phosphatase 68 U/L (45-117); Anion Gap 8 (5-15); BUN 28 mg/dL (7-18); Calcium,Total 9.8 mg/dL (8.5-10.1); Chloride 95 mmol/L (98-107); Creatinine, Serum 1.12 mg/dL (0.70-1.30); EST Glomerular Filtration Rate 67 mL/min (>60); Est Glom Filt Rate - Afr Amer 81 mL/min (>60); Estimated Creatinine Clearance 46.68 ml/min; Globulin 4.4 g/dL (2.2-4.2); Glucose 135 mg/dL (74-106); Potassium 4.4 mmol/L (3.5-5.1); Protein, Total 7.8 g/dL (6.4-8.2); Sodium Level 133 mmol/L (136-145); Troponin-I HS 30 pg/mL (3.0-78.0)
[2023-09-12 06:26] LABS: Bacteria 0 SEEN /hpf (None Seen); Mucous, Urine 0 SEEN /hpf (<or=2+); Squamous Epithelial Cells - UA 0 SEEN /hpf (0-5); White Blood Cells 0 SEEN /hpf (0-5)
[2023-09-12 06:33] LABS: Glucose, Dipstick Normal (Normal); Ketone-Dipstick Negative (Negative); Leukocyte Esterase-Dipstick Negative /ul (Negative); Nitrite-Dipstick Negative (Negative); Occult Blood-Urine 10 /ul (Negative); Protein-Dipstick 30 mg/dl (Negative); Specific Gravity, Urine 1.005 (1.002-1.030); Urine Bilirubin Dipstick Negative (Negative); Urine Urobilinogen Normal (Normal)
--- NOTE | 2023-09-12 07:00 | EKG12_ITS ---
Test Reason : REPEAT-RHYTHM CHANGE Blood Pressure : / mmHG Vent. Rate : 150 BPM Atrial Rate : 000 BPM P-R Int : 000 ms QRS Dur : 076 ms QT Int : 284 ms P-R-T Axes : 000 -35 084 degrees QTc Int : 448 ms Critical Test Result: High HR Atrial fibrillation with rapid ventricular response Left axis deviation Minimal voltage criteria for LVH, may be normal variant ( R in aVL ) Nonspecific ST abnormality Abnormal ECG Confirmed by PORFIRIO BONILLA, JORGE A ([id number]), assignment desk editor ANNA MARIE SUAZO ([id number]) on 09/13/2023 9:34:09 AM Referred By: CONSTANZA Confirmed By:JORGE A MONORY MD
[2023-09-12 07:10] LABS: Color, Urine YELLOW (Yellow); Urine Clarity Clear (Clear)
[2023-09-12 07:19] LABS: Red Blood Cells-Urine 0-5 SEEN /hpf (0-5)
[2023-09-12] MEDS: Digoxin 250 MCG/ML Ampul IV (07:20)
--- NOTE | 2023-09-12 07:41 | PCM.HP.STD ---
HPI - General General Date of Admission: 09/12/23 Date of Service: 09/12/23 Chief Complaint: Worsening shortness of breath and hypoxia HPI Narrative OXANA SEGUNDO, is a 83 M who presented to [facility] ED on 09/12/2023 with worsening shortness of breath and hypoxia. Patient seen at bedside in the ICU shortly after arriving over from the ED, present. Patient was requiring BiPAP at that time and had noted increased work of breathing around 30-35 times per minute. Was maintaining oxygen saturations in the mid to high 90s on BiPAP at 50% FiO2. Patient was alert and making appropriate eye contact, and he attempted to answer questions with short responses while the BiPAP. Patient did appear moderately fatigued at that time. He otherwise denied any acute pain or discomfort. Patient was also noted to be in A-fib with RVR with heart rates in the 130s to 140s consistently. He denied any palpitations. Majority of history was obtained from patient's and patient's sister over the phone. Sister notably is a retired [employer] physician. Patient was recently hospitalized at [facility] from 08/19-08/22. Per that discharge summary, patient presented at that time with worsening shortness of breath and hypoxia as well. He was wearing 2 to 3 L of oxygen at home at rest at that point, reportedly had been diagnosed with idiopathic pulmonary fibrosis a few weeks prior to that. notes that patient had mild shortness of breath with exertion a few months ago but was otherwise in fairly good health. He and took a trip down to [place] to visit their daughter and during the trip he had significantly worsening shortness of breath. He was apparently diagnosed with IPF at that time. He apparently improved with steroids and diuresis and was able to be discharged on 2 to 3 L nasal cannula. He then followed up with Dr. Webb in the office here, who was weaning his steroid course and also apparently started the patient on Cellcept. Notably CellCept is not a typical medication for IPF so would suspect this was started for possible ILD of unclear etiology. Unable to view Dr. Webb's notes for further details. During the hospitalization from 08/19-08/22, patient was noted to have significantly worsening hypoxia concerning for progression of ILD versus pulmonary fibrosis. Pulmonology followed and patient was given IV Solu-Medrol 1 g daily for 3 days then started on a steroid taper with good improvement in his symptoms. Per , patient was apparently doing fairly well until few days ago when he again started to become very short of breath. He was taking prednisone 60 mg daily for the past several days as well as CellCept. On presentation to the ED, patient was found to be very hypoxic and was placed on BiPAP for further support. Chest x-ray showed chronic interstitial fibrotic changes with developing airspace disease in the upper lobes regarding the left concerning for secondary bilateral pneumonia versus developing pulmonary edema. Chest x-ray notably appear fairly similar to previous chest x-ray from 09/09. Patient was also noted to be in A-fib with RVR with heart rates in the 130s to 140s. Patient follows with cardiology in the office, saw Dr. Kim on 09/07. His A-fib was stable at that time and no changes were made to his home medications. Notably his previous echo showed normal EF with no significant right heart pathology. Was given a dose of digoxin in the ED given concern for borderline low blood pressures and had minimal response to this. Notably, his BNP was only 78. Labs otherwise notable for mild leukocytosis of 18,000, mild hyponatremia, creatinine 1.12 (at baseline), lactic acid 3.9 but bicarb 30 and no acidosis noted. Given his acute on chronic respiratory failure and A-fib with RVR with borderline blood pressures, hospitalist was contacted for admission and patient was admitted to the ICU for further management. [facility] Medical History Acute respiratory insufficiency Arthritis Atherosclerosis of coronary artery of [place] heart without angina pectoris BPH (benign prostatic hyperplasia) Cardiology follow-up encounter COVID-19 (06/14/21) Essential (primary) hypertension Gynecomastia, male Hepatitis A History of echocardiogram History of stress test Hyperlipidemia Hypoxemia Interstitial pulmonary fibrosis IPF (idiopathic pulmonary fibrosis) New onset atrial fibrillation (2018) Non-smoker Paroxysmal atrial fibrillation Syncope due to orthostatic hypotension TIA (transient ischemic attack) Tremor Home Medications tamsulosin 0.4 mg capsule 0.4 mg PO QHS PROSTATE 02/16/17 [History Last Taken 02/15/17] ferrous sulfate 325 mg (65 mg iron) tablet 325 mg PO BID 05/27/22 [History Last Taken Unknown] prednisone 10 mg tablet 10 mg PO DAILY 05/27/22 [History Last Taken Unknown] metoprolol succinate 50 mg tablet,extended release 24 hr 50 mg PO DAILY #90 tabs 11/08/22 [Rx Last Taken Unknown] apixaban 5 mg tablet (Eliquis) 5 mg PO BID #180 tabs 04/18/23 [Rx Last Taken Unknown] ezetimibe 10 mg tablet 10 mg PO DAILY #90 tabs 04/19/23 [Rx Last Taken Unknown] losartan 50 mg tablet 50 mg PO QHS 08/20/23 [History Last Taken Unknown] prednisone 20 mg tablet 60 mg (3 x 20 mg) PO DAILY 2 weeks #42 tabs 08/23/23 [Rx Last Taken Unknown] mycophenolate mofetil 500 mg tablet 500 mg PO BID 09/08/23 [History Last Taken Unknown] pantoprazole 40 mg tablet,delayed release 40 mg PO DAILY 09/12/23 [History Last Taken Unknown] Allergy/AdvReac Type Severity Reaction Status Date / Time amiodarone AdvReac Patient Verified 09/08/23 13:20 diagnosed with Pulmonary Fibrosis Family History Sister Diabetes Surgical History History of bronchoscopy (04/2021) History of cataract surgery History of colonoscopy History of incision and drainage History of left heart catheterization (11/20/17) Social History household members: spouse Smoking Status: Never smoker alcohol intake: current alcohol intake frequency: a few times a month substance use type: does not use ROS Constitutional Constitutional: Reports fatigue; Denies chills or fever(s) Cardiovascular Cardiovascular: Denies chest pain or palpitations Respiratory/Chest Respiratory/Chest: Reports shortness of breath at rest; Denies cough or wheezing Vital Signs Vital Signs Vital Signs: 09/12/23 04:47 09/12/23 04:52 09/12/23 04:59 Temperature 97.5 F L 97.5 F L Temperature Source Temporal Temporal Pulse Rate 125 H 125 H Respiratory Rate 30 H 47 H Respiratory Effort Short of Breath Labored Accessory Muscle Use Respiratory Depth Shallow Respiratory Pattern Tachypnea Blood Pressure 189/130 H 187/130 H Blood Pressure Mean 149 149 Pulse Ox 84 91 Oxygen Delivery Method Non-Rebreather Non-Rebreather Bi-pap Fraction of Inspired Oxygen (FIO2) 75 09/12/23 05:28 09/12/23 05:02 09/12/23 06:00 Temperature 97.0 F L Temperature Source Tympanic Pulse Rate 116 H 108 H Respiratory Rate 43 H 37 H Respiratory Effort Respiratory Depth Respiratory Pattern Tachypnea Blood Pressure 117/83 H Blood Pressure Mean 94 Pulse Ox 96 93 96 Oxygen Delivery Method Bi-pap Bi-pap Fraction of Inspired Oxygen (FIO2) 60 60 60 09/12/23 05:18 09/12/23 05:52 09/12/23 07:00 Temperature 97 F L 98.6 F Temperature Source Temporal Temporal Pulse Rate 114 H 114 H 153 H Respiratory Rate 44 H 32 H 28 H Respiratory Effort Respiratory Depth Respiratory Pattern Blood Pressure 150/91 H 100/82 H Blood Pressure Mean 110 88 Pulse Ox 94 97 Oxygen Delivery Method Bi-pap Bi-pap Fraction of Inspired Oxygen (FIO2) 60 09/12/23 07:04 09/12/23 07:19 Temperature Temperature Source Pulse Rate 150 H 145 H Respiratory Rate 40 H 35 H Respiratory Effort Respiratory Depth Respiratory Pattern Blood Pressure 91/76 Blood Pressure Mean 81 Pulse Ox 96 92 Oxygen Delivery Method Bi-pap Fraction of Inspired Oxygen (FIO2) 60 Weight Weight: 73.9 kg Body Mass Index (BMI) 26.3 Physical Exam Const alert Constitutional Narrative: Elderly male, sitting up in bed, BiPAP in place, patient appears moderately fatigued, has increased work of breathing with respiration rate 30-35, making appropriate eye contact with questions and answering with short responses through BiPAP. General Appearance: cooperative and comfortable HEENT normocephalic, head/scalp atraumatic, hearing grossly normal bilaterally and nasal mucous membranes and turbinates normal Eyes PERRL, EOMs intact bilaterally and conjunctivae normal Neck full ROM Chest inspection of chest normal Resp Resp Narrative: Increased work of breathing noted on BiPAP. Significantly reduced breath sounds bilaterally throughout with some crackles noted, no wheezing noted. Cardio no murmurs and peripheral pulses 2+ throughout Cardio Narrative: A-fib with RVR. GI normal to inspection, nondistended, normoactive bowel sounds, soft to palpation, non-tender and non-distended Back/Spine normal ROM Extremity normal to inspection, full ROM and no pedal edema Skin no rashes or lesions noted Neuro moves all extremities and no focal motor deficits Speech: speech normal Psych mental status grossly normal Results Lab / Micro Data 09/12/23 04:50 09/12/23 04:50 Labs: Laboratory Results - last 24 hr 09/12/23 04:50: WBC 18.7 H, RBC 7.69 H, Hgb 14.9, Hct 46.7, MCV 60.7 L, MCH 19.4 L, MCHC 31.9 L, RDW Std Deviation 34.3 L, RDW Coeff of Crissy 20.0 H, Plt Count 190, MPV 9.6, Immature Gran % (Auto) 1.900 H, Neut % (Auto) 83.1 H, Lymph % (Auto) 10.9 L, Isabella % (Auto) 3.0, Eos % (Auto) 0.8, Baso % (Auto) 0.3, Absolute Neuts (auto) 15.5 H, Absolute Lymphs (auto) 2.04, Nucleated RBC % 0.3, PT 17.6 H, INR 1.5, APTT 26.7, Sodium 133 L, Potassium 4.4, Chloride 95 L, Carbon Dioxide 30.0, Anion Gap 8, BUN 28 H, Creatinine 1.12, Estim Creat Clear Calc 46.68, Est GFR (MDRD) Af Amer 81, Est GFR (MDRD) Non-Af 67, BUN/Creatinine Ratio 25.0 H, Glucose 135 H, Lactic Acid 3.9 H*, Calcium 9.8, Total Bilirubin 2.20 H, AST 33, ALT 32, Alkaline Phosphatase 68, Troponin I High Sens 30, Total Protein 7.8, Albumin 3.4, Globulin 4.4 H, Albumin/Globulin Ratio 0.8 L 09/12/23 06:20: Urine Color YELLOW, Urine Clarity Clear, Urine pH 7.0, Ur Specific [place] 1.005, Urine Protein 30 H, Urine Glucose (UA) Normal, Urine Ketones Negative, Urine Occult Blood 10 H, Urine Nitrite Negative, Urine Bilirubin Negative, Urine Urobilinogen Normal, Ur Leukocyte Esterase Negative, Urine RBC 0-5 SEEN, Urine WBC 0 SEEN, Ur Squamous Epith Cells 0 SEEN, Urine Bacteria 0 SEEN, Urine Mucus 0 SEEN ABG Data ABG results: ABG 09/12/23 05:41 Specimen Type ART Sample Site R Radial pH 7.44 Bicarbonate Actual 26.9 H Total CO2 28 Base Excess 3 H O2 Saturation 95 O2 % 60.0 ABG pCO2 39.8 ABG pO2 74 L Boyd Test Positive Respiration Rate 14 O2 Delivery Device BiPAP Vent Mode Not entered POC PEEP 10 Rhythm Strip Rhythm Strip: Sinus Tach Rate: 120 Ectopy: None Imaging Radiology Impression Chest X-Ray 09/12/23 05:19 IMPRESSION: Chronic interstitial fibrotic changes again noted, with developing airspace disease in the upper lobes, right greater than left, secondary to bilateral pneumonia versus developing pulmonary edema. Electronically Signed: Gama Collins MD at 6:41 EDT , Assessment & Plan Assessment/Plan (1) Acute hypoxemic respiratory failure: (2) Pulmonary fibrosis: (3) Paroxysmal atrial fibrillation with RVR: PLAN: Plan Patient is an 83-year-old male who presented to [facility] ED on 09/12/2023 with worsening shortness of breath and hypoxia. 1. Acute on chronic hypoxic respiratory failure presumed secondary to ILD vs IPF exacerbation See HPI for further history. Was on 2 to 3 L nasal cannula at rest at home recently. Severely hypoxic in the ED requiring BiPAP for appropriate oxygen saturations. Chest x-ray showed chronic interstitial fibrotic changes with developing airspace disease in the upper lobes right greater than left concerning for bilateral pneumonia versus developing pulmonary edema. This chest x-ray notably was similar to chest x-ray on 09/09. High-resolution CT chest from 08/13 in [place] was noted to show moderate to marked basilar predominant interstitial lung disease in a probable UIP pattern. COVID negative, respiratory PCR panel negative. ? Admit under inpatient status to the ICU. Pipe Layer Helper consulted. Will give IV Solu-Medrol 1 g x 3 days starting on 09/11. Patient will remain full code for now but will have ongoing discussions with family as patient remains very tenuous on BiPAP. Wean supplemental oxygen as able. Will treat for pneumonia empirically with IV Zosyn. Follow-up blood cultures. 2. Paroxysmal A-fib with RVR Known history, follows with Dr. Kim in the office, last visit on 09/07. Noted to be in normal sinus rhythm during that visit. Was continued on Eliquis and Toprol. Noted to be in significant A-fib with RVR on admit with heart rate in the 130s to 140s. Given one-time dose of IV digoxin in the ED given borderline blood pressures, had minimal effect. ? Cardiology consulted. Given IV amiodarone bolus and started on amiodarone drip on 09/11 with good improvement in heart rate. Per cardiology, will plan to continue amiodarone for 24 to 48 hours and determine next steps after that. Continue cardiac monitoring. Heparin drip started on 09/11 as patient is n.p.o. while on BiPAP. 3. Hypotension ? Suspect secondary to A-fib with RVR and possibly hypovolemia given recent poor p.o. intake. Labs on admit appeared hemoconcentrated. Holding on any IV fluids however given acute respiratory failure. Treating A-fib as noted above. Okay for Levophed as needed to maintain MAP greater than 65. Monitor closely. 3. Elevated lactic acid ? Lactate 3.9 on admit. Bicarb normal, no acidosis noted on BMP or on ABG drawn in ED. Presumed secondary to acute respiratory failure with hypoxia as noted above. Continue treatment as above. 4. Leukocytosis ? WBC count is 18.7 on admit. Afebrile. Suspect white count is mildly elevated due to chronic steroids and have low concern for active infection, but treating empirically for pneumonia as noted above given patient's acute respiratory failure and findings on imaging. Monitor daily CBC. 5. Debility ? PT/OT/case management consulted. Chronic medical conditions: ? Hypertension: Holding home losartan. ? Hyperlipidemia: Continue home Zetia. ? Chronic iron deficiency anemia: Hemoglobin stable at baseline on admit. Continue home iron supplement. ? GERD: Continue home PPI. ? BPH with obstructive symptoms: Continue home Flomax. DVT prophylaxis: Heparin drip CODE STATUS: Full code, verified Expected disposition: TBD Total clinical time spent by myself addressing the patient's medical issues, reviewing all the data, and collaborating with patient's care team: 75 minutes. Charges/Coding Visit Charges Inpatient E&M: 75899 Init Hosp L3
--- NOTE | 2023-09-12 07:45 | NURSING ---
DR VIZCARRA FOR DR APODACA
--- NOTE | 2023-09-12 07:53 | NURSING ---
ICU [facility] HYPOXIC RESP FAILURE, PULM FIBROSIS, AFIB W RVR
[2023-09-12] MEDS: Piperacil/Tazobactam 4.5 GM in 0.9% Normal Saline (100mL MB+) 100 ML IV (08:01)
[2023-09-12 09:15] LABS: BNP,B-Type NATRIURETIC PEPTIDE 78.6 pg/mL (0-100)
--- NOTE | 2023-09-12 09:21 | CASEMGMT ---
DESIREE THAO NOTE: Call placed to Deanna @ [facility] and she was notified pt admitted to [facility] this AM. Jered MCMAHAN RN CM
[2023-09-12 09:28] LABS: Reflex Lactate? Y
[2023-09-12] MEDS: MethylPREDNISolone 125 MG/2 ML Vial IV (09:59)
[2023-09-12] MEDS: Amiodarone 150 MG in Dextrose 5%-Water (100mL Bag) 100 ML 600 MG IV BOLUS (10:40)
--- NOTE | 2023-09-12 10:43 | CON.PCM.CC_ITS ---
Assessment & Plan Assessment/Plan (1) Pulmonary fibrosis: PLAN: Plan RECOMMENDATIONS: 1. Continue BiPAP therapy as tolerated. 2. Initiate pulse dose steroids as ordered. 3. Empiric antimicrobials as ordered. 4. As needed bronchodilator therapy. 5. Transition from Eliquis to heparin infusion as ordered. 6. Amiodarone for rate/rhythm control. 7. Goals of care discussion with the patient and family. IMPRESSIONS: 1. Acute on chronic hypoxemic respiratory failure The patient reportedly has a known history of progressive interstitial lung disease, with a working diagnosis of IPF. He has experienced an overall downward trajectory in his breathing quality over the last month. The patient did have transbronchial biopsies performed several years ago which did reveal evidence of organizing pneumonia. Therefore, it is certainly plausible that the patient may have baseline chronic interstitial lung disease with acute or ganizing pneumonia. Therefore, I agree with continuing empiric broad-spectrum antibiotics for now. In addition, pulse dose steroids will be initiated at 1 g/day for 3 days. The patient will be maintained on BiPAP therapy as tolerated. Follow-up ABG will be obtained. The patient's respiratory status is far too tenuous to be considered for potential bronchoscopy. Recent outside echocardiogram did reveal evidence of grade 1 diastolic dysfunction. No need to repeat echocardiogram for now. The patient will be at high risk for further clinical decompensation, including the need for intubation. 2. Paroxysmal atrial fibrillation Amiodarone as ordered. 3. History of hypertension/hyperlipidemia/BPH Complicates care, management, recovery and prognosis. Continue home medications as indicated. TIME: 37 minutes of critical care time, independent of procedures, was spent addressing the patient's acute on chronic hypoxemic respiratory failure, paroxysmal atrial fibrillation, review of all data and collaboration with the care team. HPI Consult Data Date of Consult: 09/12/23 HPI Narrative Reason for Consultation: Acute on chronic hypoxemic respiratory failure HPI Narrative: The patient is an 83-year-old male, with a history as outlined below, who presented to the emergency department on September 11 with worsening shortness of breath and hypoxemia. History pertinent to the patient's pulmonary diagnoses came directly from Dr. Webb during a telephone visit earlier today. The patient was diagnosed with idiopathic pulmonary fibrosis in the past, and according to his , has been utilizing 3 L/min of supplemental oxygen. The p atient has had a significant decline in his overall respiratory status over the course of the last month. During his last hospitalization here in August 2023, the patient was treated with 3 days of high-dose corticosteroids, which was then followed by prednisone 60 mg daily. More recently, the patient was transitioned to CellCept. According to his web content editor, the patient's immunologic workup in the past has been completely unremarkable. In addition to the aforementioned, the patient does have a known history of paroxysmal atrial fibrillation and is currently followed by Dr. Kim on an outpatient basis. The patient is systemically anticoagulated on Eliquis at his baseline. It does ap pear that the patient had a transbronchial biopsy of the right middle lobe completed in 2020 which demonstrated organizing pneumonia. On presentation to the emergency department, the patient was noted to be afebrile but was notably tachycardic and tachypneic with a presenting blood pressure of 189/130 mmHg. Initial laboratory evaluation revealed an elevated white blood cell count to 19,000. In light of the patient's presenting respiratory distress, he was placed on BiPAP therapy. Subsequent ABG demonstrated a pH of 7.4 with a pCO2 of 39 and pO2 of 74. Chemistry profile was notable for a lactate of 3.9. Total bili was increased to 2.2. Urine analysis was noncontributory. Chest x-ray demonstrated chronic interstitial fibrotic changes. The patient was initiated on BiPAP therapy and subsequently admitted to the medical intensive care unit for further management. [facility] Medical History Acute respiratory insufficiency Arthritis Atherosclerosis of coronary artery of [place] heart without angina pectoris BPH (benign prostatic hyperplasia) Cardiology follow-up encounter COVID-19 (06/14/21) Essential (primary) hypertension Gynecomastia, male Hepatitis A History of echocardiogram History of stress test Hyperlipidemia Hypoxemia Interstitial pulmonary fibrosis IPF (idiopathic pulmonary fibrosis) New onset atrial fibrillation (2018) Non-smoker Paroxysmal atrial fibrillation Syncope due to orthostatic hypotension TIA (transient ischemic attack) Tremor Home Medications tamsulosin 0.4 mg capsule 0.4 mg PO QHS PROSTATE 02/16/17 [History Last Taken 02/15/17] ferrous sulfate 325 mg (65 mg iron) tablet 325 mg PO BID 05/27/22 [History Last Taken Unknown] prednisone 10 mg tablet 10 mg PO DAILY 05/27/22 [History Last Taken Unknown] metoprolol succinate 50 mg tablet,extended release 24 hr 50 mg PO DAILY #90 tabs 11/08/22 [Rx Last Taken Unknown] apixaban 5 mg tablet (Eliquis) 5 mg PO BID #180 tabs 04/18/23 [Rx Last Taken Unknown] ezetimibe 10 mg tablet 10 mg PO DAILY #90 tabs 04/19/23 [Rx Last Taken Unknown] losartan 50 mg tablet 50 mg PO QHS 08/20/23 [History Last Taken Unknown] prednisone 20 mg tablet 60 mg (3 x 20 mg) PO DAILY 2 weeks #42 tabs 08/23/23 [Rx Last Taken Unknown] mycophenolate mofetil 500 mg tablet 500 mg PO BID 09/08/23 [History Last Taken Unknown] pantoprazole 40 mg tablet,delayed release 40 mg PO DAILY 09/12/23 [History Last Taken Unknown] Allergy/AdvReac Type Severity Reaction Status Date / Time amiodarone AdvReac Patient Verified 09/08/23 13:20 diagnosed with Pulmonary Fibrosis Family History Sister Diabetes Surgical History History of bronchoscopy (04/2021) History of cataract surgery History of colonoscopy History of incision and drainage History of left heart catheterization (11/20/17) Social History household members: spouse Smoking Status: Never smoker alcohol intake: current alcohol intake frequency: a few times a month substance use type: does not use ROS ROS Narrative 10 systems were reviewed with pertinent positives as noted in the HPI above. Physical Exam Const alert Constitutional Narrative: Currently tolerating BiPAP. General Appearance: cooperative and ill appearing HEENT normocephalic and head/scalp atraumatic Eyes PERRL, EOMs intact bilaterally and conjunctivae normal Neck supple General: trachea midline Resp Effort and Inspection: tachypneic and labored Auscultation: rales Cardio regular rate and regular rhythm GI normal to inspection, nondistended, normoactive bowel sounds Extremity no clubbing, cyanosis or edema Skin no rashes or lesions noted Neuro CN's II-XII intact bilaterally, moves all extremities and no focal motor deficits Psych Mood & Affect: flat affect Lab / Micro Data 09/12/23 04:50 09/12/23 04:50 Labs: Laboratory Results - last 24 hr 09/12/23 04:50: WBC 18.7 H, RBC 7.69 H, Hgb 14.9, Hct 46.7, MCV 60.7 L, MCH 19.4 L, MCHC 31.9 L, RDW Std Deviation 34.3 L, RDW Coeff of Crissy 20.0 H, Plt Count 190, MPV 9.6, Immature Gran % (Auto) 1.900 H, Neut % (Auto) 83.1 H, Lymph % (Auto) 10.9 L, [place] % (Auto) 3.0, Eos % (Auto) 0.8, Baso % (Auto) 0.3, Absolute Neuts (auto) 15.5 H, Absolute Lymphs (auto) 2.04, Nucleated RBC % 0.3, PT 17.6 H , INR 1.5, APTT 26.7, Sodium 133 L, Potassium 4.4, Chloride 95 L, Carbon Dioxide 30.0, Anion Gap 8, BUN 28 H, Creatinine 1.12, Estim Creat Clear Calc 46.68, Est GFR (MDRD) Af Amer 81, Est GFR (MDRD) Non-Af 67, BUN/Creatinine Ratio 25.0 H, Glucose 135 H, Lactic Acid 3.9 H*, Calcium 9.8, Total Bilirubin 2.20 H, AST 33, ALT 32, Alkaline Phosphatase 68, Troponin I High Sens 30, B-Natriuretic Peptide 78.6, Total Protein 7.8, Albumin 3.4, Globulin 4.4 H, Albumin/Globulin Ratio 0.8 L 09/12/23 06:20: Urine Color YELLOW, Urine Clarity Clear, Urine pH 7.0, Ur Specific [place] 1.005, Urine Protein 30 H, Urine Glucose (UA) Normal, Urine Ketones Negative, Urine Occult Blood 10 H, Urine Nitrite Negative, Urine Bilirubin Negative, Urine Urobilinogen Normal, Ur Leukocyte Esterase Negative, Urine RBC 0-5 SEEN, Urine WBC 0 SEEN, Ur Squamous Epith Cells 0 SEEN, Urine Bacteria 0 SEEN, Urine Mucus 0 SEEN ABG Data ABG results: ABG 09/12/23 05:41 Specimen Type ART Sample Site R Radial pH 7.44 Bicarbonate Actual 26.9 H Total CO2 28 Base Excess 3 H O2 Saturation 95 O2 % 60.0 ABG pCO2 39.8 ABG pO2 74 L Boyd Test Positive Respiration Rate 14 O2 Delivery Device BiPAP Vent Mode Not entered POC PEEP 10 Rhythm Strip Rhythm Strip: Sinus Tach Rate: 120 Ectopy: None Imaging Radiology Impression Chest X-Ray 09/12/23 05:19 IMPRESSION: Chronic interstitial fibrotic changes again noted, with developing airspace disease in the upper lobes, right greater than left, secondary to bilateral pneumonia versus developing pulmonary edema. Electronically Signed: Gama Collins MD at 6:41 EDT , Charges/Coding Procedures Hospitalists Procedures: 41721 Critical Care 1st Hr
[2023-09-12] MEDS: HEPARIN/D5w 25,000 UNITS 25,000 UNITS/250 ML IV.SOLN. 0.1 UNITS CONT INF (10:45)
[2023-09-12] MEDS: Amiodarone 360 MG in Dextrose 5% Viaflo Bag 192.8 ML 33.3 MG CONT INF (10:51)
[2023-09-12] MEDS: Ipratropium/Albuterol Sulfate 3 ML AMPUL.NEB INHALATION ×3 (11:33→19:15)
--- NOTE | 2023-09-12 12:14 | CON.PCM.CA_ITS ---
Assessment & Plan Assessment/Plan (1) Acute hypoxemic respiratory failure: PLAN: The patient has underlying pulmonary fibrosis and appears to potentially have a pneumonia superimposed on this. This is being treated by the primary service. (2) Paroxysmal atrial fibrillation with RVR: PLAN: The atrial fibrillation with rapid ventricular sponsor is obviously being driven by the pulmonary status and his infection. I do not feel that direct- current cardioversion is indicated. I believe that IV amiodarone may be the best option to control his heart rate without dropping his blood pressure any further. Historically he has significant hypertension per his . The patient did not respond to IV Lanoxin. I do not feel that he would tolerate IV Cardizem or metoprolol given his low blood pressures. I discussed utilization of short-term IV amiodarone with the patient's [id number] who is a physician she agreed that this is probably the best option. (3) Chronic anticoagulation: PLAN: The patient will be continued on chronic anticoagulation at this time. He is in paroxysmal atrial fibrillation now. PLAN: Plan 1. [place] IV amiodarone for 24 to 48 hours. 2. Will have further discussions when the rest of the family arrives around palliative care. 3. Continue with other respiratory treatments per the primary service and pulmonary. HPI Consult Data Date of Consult: 09/12/23 HPI Narrative Reason for Consultation: A.fib with RVR HPI Narrative: OXANA SEGUNDO, is a 83 M who presents with a history of pulmonary fibrosis paroxysmal atrial fibrillation that started after initiation of an aerosol treatment just prior to going to [facility] in 2018. The patient was evaluated and found to be in atrial fibrillation with ejection fraction was measured at 60% his troponins were normal BNP was elevated. He was treated with IV amiodarone and low molecular weight heparin and was converted back to sinus rhythm he was discharged with antibiotics amiodarone Eliquis aspirin beta-sylwia and a diuretic. He then came in to be seen after returning back to [facility]. The patient was subsequently diagnosed with pulmonary fibrosis by CT scan in April 2021 he then developed COVID in June 2021 his last echo in March 2021 showed an EF of 55%. The patient subsequently had a deterioration in his breathing and pulmonary put him on aggressive steroid regimen. The patient now comes in the emergency department complaining of several days of progressive shortness of breath and requiring BiPAP to maintain his O2 sats. Chest x-ray in the emergency department is consistent with his known pulmonary fibrosis with airspace disease consistent with possible pneumonia. The patient is amiodarone has been discontinued with the pulmonary as this was diagnosed. Dr. Chow and I had a conversation with the patient's and her sister who is a physician. We discussed CODE STATUS and the patient at this point in time we will maintain a full CODE STATUS [facility] Medical History Acute respiratory insufficiency Arthritis Atherosclerosis of coronary artery of [place] heart without angina pectoris BPH (benign prostatic hyperplasia) Cardiology follow-up encounter COVID-19 (06/14/21) Essential (primary) hypertension Gynecomastia, male Hepatitis A History of echocardiogram History of stress test Hyperlipidemia Hypoxemia Interstitial pulmonary fibrosis IPF (idiopathic pulmonary fibrosis) New onset atrial fibrillation (2018) Non-smoker Paroxysmal atrial fibrillation Syncope due to orthostatic hypotension TIA (transient ischemic attack) Tremor Home Medications tamsulosin 0.4 mg capsule 0.4 mg PO QHS PROSTATE 02/16/17 [History Last Taken 02/15/17] ferrous sulfate 325 mg (65 mg iron) tablet 325 mg PO BID 05/27/22 [History Last Taken Unknown] prednisone 10 mg tablet 10 mg PO DAILY 05/27/22 [History Last Taken Unknown] metoprolol succinate 50 mg tablet,extended release 24 hr 50 mg PO DAILY #90 tabs 11/08/22 [Rx Last Taken Unknown] apixaban 5 mg tablet (Eliquis) 5 mg PO BID #180 tabs 04/18/23 [Rx Last Taken Unknown] ezetimibe 10 mg tablet 10 mg PO DAILY #90 tabs 04/19/23 [Rx Last Taken Unknown] losartan 50 mg tablet 50 mg PO QHS 08/20/23 [History Last Taken Unknown] prednisone 20 mg tablet 60 mg (3 x 20 mg) PO DAILY 2 weeks #42 tabs 08/23/23 [Rx Last Taken Unknown] mycophenolate mofetil 500 mg tablet 500 mg PO BID 09/08/23 [History Last Taken Unknown] pantoprazole 40 mg tablet,delayed release 40 mg PO DAILY 09/12/23 [History Last Taken Unknown] Allergy/AdvReac Type Severity Reaction Status Date / Time amiodarone AdvReac Patient Verified 09/08/23 13:20 diagnosed with Pulmonary Fibrosis Family History Sister Diabetes Surgical History History of bronchoscopy (04/2021) History of cataract surgery History of colonoscopy History of incision and drainage History of left heart catheterization (11/20/17) Social History household members: spouse Smoking Status: Never smoker alcohol intake: current alcohol intake frequency: a few times a month substance use type: does not use ROS Review of Systems ROS Unobtainable: due to mental status Physical Exam Narrative The patient is resting in the bed with an increased respiratory rate and not responding to questions. Const Constitutional Narrative: The patient is on BiPAP and not responding to questions. HEENT normocephalic Neck no carotid bruits Chest inspection of chest normal Resp Resp Narrative: Respiratory rate is increased on BiPAP. Effort and Inspection: uses accessory muscles Cardio Cardio Narrative: Difficult to auscultate due to the respiratory noise Rate: tachycardic Rhythm: abnormal rhythm irregularly irregular Heart Sounds: S1 normal and S2 normal; Negative for click, gallop, murmur or rub GI soft to palpation Extremity normal to inspection and no pedal edema Skin no rashes or lesions noted Neuro Neuro Narrative: Lethargic Psych Psych Narrative: Unable to ascertain Risk Stratification Risk Stratification Applicable: No Charges/Coding Visit Charges Inpatient E&M: 27813 Init Hosp L3 Objective Data Vital Signs: Vital Signs Temp Pulse Resp BP Pulse Ox O2 Del Method FiO2 98.3 F 94 36 H 93/57 L 98 Bi-pap 50 09/12/23 09:18 09/12/23 11:36 09/12/23 11:36 09/12/23 11:00 09/12/23 11:36 09/12/23 11:00 09/12/23 11:36 Oxygen Delivery Method Bi-pap Weight: 162 lb 14.746 oz Body Mass Index (BMI) 26.2 Intake & Output: Intake and Output for Last 24 Hours 09/10/23 09/11/23 09/12/23 23:59 23:59 23:59 Intake Total 200 / 200 Balance 200 / 200 Lab / Micro Data Attestation: I reviewed the patient's lab results. 09/12/23 04:50 09/12/23 04:50 Labs: Laboratory Results - last 24 hr 09/12/23 04:50: WBC 18.7 H, RBC 7.69 H, Hgb 14.9, Hct 46.7, MCV 60.7 L, MCH 19.4 L, MCHC 31.9 L, RDW Std Deviation 34.3 L, RDW Coeff of Crissy 20.0 H, Plt Count 190, MPV 9.6, Immature Gran % (Auto) 1.900 H, Neut % (Auto) 83.1 H, Lymph % (Auto) 10.9 L, [place] % (Auto) 3.0, Eos % (Auto) 0.8, Baso % (Auto) 0.3, Absolute Neuts (auto) 15.5 H, Absolute Lymphs (auto) 2.04, Nucleated RBC % 0.3, PT 17.6 H , INR 1.5, APTT 26.7, Sodium 133 L, Potassium 4.4, Chloride 95 L, Carbon Dioxide 30.0, Anion Gap 8, BUN 28 H, Creatinine 1.12, Estim Creat Clear Calc 46.68, Est GFR (MDRD) Af Amer 81, Est GFR (MDRD) Non-Af 67, BUN/Creatinine Ratio 25.0 H, Glucose 135 H, Lactic Acid 3.9 H*, Calcium 9.8, Total Bilirubin 2.20 H, AST 33, ALT 32, Alkaline Phosphatase 68, Troponin I High Sens 30, B-Natriuretic Peptide 78.6, Total Protein 7.8, Albumin 3.4, Globulin 4.4 H, Albumin/Globulin Ratio 0.8 L 09/12/23 06:20: Urine Color YELLOW, Urine Clarity Clear, Urine pH 7.0, Ur Specific [place] 1.005, Urine Protein 30 H, Urine Glucose (UA) Normal, Urine Ketones Negative, Urine Occult Blood 10 H, Urine Nitrite Negative, Urine Bilirubin Negative, Urine Urobilinogen Normal, Ur Leukocyte Esterase Negative, Urine RBC 0-5 SEEN, Urine WBC 0 SEEN, Ur Squamous Epith Cells 0 SEEN, Urine Bacteria 0 SEEN, Urine Mucus 0 SEEN ABG Data ABG results: ABG 09/12/23 05:41 Specimen Type ART Sample Site R Radial pH 7.44 Bicarbonate Actual 26.9 H Total CO2 28 Base Excess 3 H O2 Saturation 95 O2 % 60.0 ABG pCO2 39.8 ABG pO2 74 L Boyd Test Positive Respiration Rate 14 O2 Delivery Device BiPAP Vent Mode Not entered POC PEEP 10 Rhythm Strip Rhythm Strip: A-fib Rate: 130 Cardiology Labs/Tests 09/12/23 04:50: WBC 18.7 H, RBC 7.69 H, Hgb 14.9, Hct 46.7, MCV 60.7 L, MCH 19.4 L, MCHC 31.9 L, Plt Count 190, MPV 9.6, Immature Gran % (Auto) 1.900 H, Neut % (Auto) 83.1 H, Lymph % (Auto) 10.9 L, [place] % (Auto) 3.0, Eos % (Auto) 0.8, Baso % (Auto) 0.3, Absolute Neuts (auto) 15.5 H, Nucleated RBC % 0.3, PT 17.6 H, INR 1.5, APTT 26.7, Sodium 133 L, Potassium 4.4, Chloride 95 L, Carbon Dioxide 30.0, Anion Gap 8, BUN 28 H, Creatinine 1.12, Est GFR (MDRD) Af Amer 81, Est GFR (MDRD) Non-Af 67, BUN/Creatinine Ratio 25.0 H, Glucose 135 H, Lactic Acid 3.9 H* , Calcium 9.8, Total Bilirubin 2.20 H, B-Natriuretic Peptide 78.6 09/12/23 05:41: pH 7.44, Bicarbonate Actual 26.9 H, Base Excess 3 H, O2 Saturation 95, ABG pCO2 39.8, ABG pO2 74 L, Boyd Test Positive 09/12/23 06:20: Urine Color YELLOW, Urine Clarity Clear, Urine pH 7.0, Ur Specific [place] 1.005, Urine Protein 30 H, Urine Glucose (UA) Normal, Urine Ketones Negative, Urine Occult Blood 10 H, Urine Nitrite Negative, Urine Bilirubin Negative, Urine Urobilinogen Normal, Ur Leukocyte Esterase Negative, Urine RBC 0-5 SEEN, Urine WBC 0 SEEN Rhythm: EKG: ECHO: Stress Test: Cardiac Cath: PCI: CT Surgery: Holter monitor: EPS: PPM: CXR: Chest CT Scan: Radiography Diagnostic Testing: Radiology Impression Chest X-Ray 09/12/23 05:19 IMPRESSION: Chronic interstitial fibrotic changes again noted, with developing airspace disease in the upper lobes, right greater than left, secondary to bilateral pneumonia versus developing pulmonary edema. Electronically Signed: Gama Collins MD at 6:41 EDT ,
[2023-09-12 12:32] LABS: Allen Test Positive; Base Excess 5 mmol/L (-2 to +2); Bicarbonate 28.6 mmol/L (22-26); Blood Gas Specimen Type ART; Mode Not entered; O2 Delivery Device BiPAP; PEEP 10; PO2 82 mmHG (75-100); RR 14; SITE R Radial; SO2 97 % (95-99); Total Carbon Dioxide 30 mmol/L; pCO2 37.1 mmHg (35-45)
[2023-09-12] MEDS: MethylPREDNISolone 1,000 MG in 0.9% Normal Saline (100mL Bag) 100 ML 100 MG IV (12:50)
[2023-09-12] MEDS: Norepinephrine 8 MG in 0.9% Normal Saline (250mL Bag) 242 ML 9.4 MG CONT INF (15:16)
[2023-09-12] MEDS: Piperacil/Tazobactam 3.375 GM in 0.9% Normal Saline (50mL MB+) 50 ML IV ×2 (15:20→21:14)
[2023-09-12 16:12] LABS: M R Staph aureus DNA By PCR Negative (Negative); Probe Check PASS; Specimen Processing Control PASS
[2023-09-12] MEDS: Amiodarone 360 MG in Dextrose 5% Viaflo Bag 192.8 ML 16.7 MG CONT INF (16:46)
--- NOTE | 2023-09-12 19:00 | RAD_ITS ---
STUDY: X-RAY CHEST REASON FOR EXAM: Male, 83 years old. picc insertion TECHNIQUE: Single AP portable view of the chest. COMPARISON: 09/12/2023, 5:22 AM. FINDINGS: Left-sided PICC line is seen terminating about the level of the cavoatrial junction. No other changes since earlier today. Electronically Signed: Nahun Cohn MD at 19:25 EDT , RAD/CXR for Line Placement IMPRESSION: undefined
[2023-09-12] MEDS: 0.9% Saline Lock 10 ML Syringe IV (21:14)
[2023-09-13] VITALS (38 sets, daily range): BP systolic 86–155; BP diastolic 63–108; PULSE 67–107; RESP 14–36; TEMP 36.2–36.9; O2SAT 89–100; BMI 25.4
[2023-09-13 03:16] LABS: Hematocrit 36.1 % (40-54); Hemoglobin 11.6 g/dL (13.0-16.5); Mean Corp Hgb Conc 32.1 g/dL (32-36); Mean Corpuscular Hgb 19.4 pg (27.0-32.0); Mean Corpuscular Volume 60.4 fL (80-94); Platelet Count 172 K/mm3 (150-450); RBC Distribution Width CV 18.1 % (11.6-14.6); RBC Distribution Width SD 33.9 fl (35.1-43.9); Red Blood Count 5.98 M/mm3 (4.6-6.2); White Blood Count 10.4 K/mm3 (4.4-11.0)
[2023-09-13 03:44] LABS: Anion Gap 6 (5-15); BUN 33 mg/dL (7-18); BUN/Creat Ratio 23.7 RATIO (10-20); Calcium,Total 8.7 mg/dL (8.5-10.1); Chloride 99 mmol/L (98-107); Creatinine, Serum 1.39 mg/dL (0.70-1.30); EST Glomerular Filtration Rate 52 mL/min (>60); Est Glom Filt Rate - Afr Amer 63 mL/min (>60); Estimated Creatinine Clearance 37.61 ml/min; Glucose 239 mg/dL (74-106); Potassium 4.3 mmol/L (3.5-5.1); Sodium Level 135 mmol/L (136-145)
[2023-09-13 03:56] LABS: Partial Thromboplast Time 123.3 Seconds (24.1-36.2)
[2023-09-13] MEDS: Amiodarone 360 MG in Dextrose 5% Viaflo Bag 192.8 ML 16.7 MG CONT INF (05:28)
[2023-09-13] MEDS: Piperacil/Tazobactam 3.375 GM in 0.9% Normal Saline (50mL MB+) 50 ML IV ×3 (05:29→21:30)
--- NOTE | 2023-09-13 06:50 | PCM.PN.INT ---
Assessment & Plan Assessment/Plan (1) Pulmonary fibrosis: PLAN: Plan RECOMMENDATIONS: 1. Continue to wean supplemental oxygen as tolerated. 2. PAP therapy as needed. 3. Continue pulse dose steroids for the next 2 days. 4. Empiric antimicrobials as ordered. 5. As needed bronchodilator therapy. 6. Continue heparin infusion and resume Eliquis at discharge. 7. Amiodarone for rate/rhythm control. IMPRESSIONS: 1. Acute on chronic hypoxemic respiratory failure The patient reportedly has a known history of progressive interstitial lung disease, with a working diagnosis of IPF. He has experienced an overall downward trajectory in his breathing quality over the last month. The patient did have transbronchial biopsies performed several years ago which did reveal evidence of organizing pneumonia. Therefore, it is certainly plausible that the patient may have baseline chronic interstitial lung disease with acute organizing pneumonia. Therefore, I agree with continuing empiric broad-spectrum antibiotics for now. In addition, pulse dose steroids will be initiated at 1 g/day for 3 days. Supplemental oxygen will be weaned as tolerated and PAP therapy continued, if needed. Recent outside echocardiogram did reveal evidence of grade 1 diastolic dysfunction. However, the patient does not appear to be volume overloaded. Overall, the patient's respiratory status has improved over the last 24 hours. 2. Paroxysmal atrial fibrillation Amiodarone as ordered. 3. History of hypertension/hyperlipidemia/BPH Complicates care, management, recovery and prognosis. Continue home medications as indicated. This note was generated with [employer] dictation software. It may contain incorrect words, spelling, and punctuation that were not noted in checking the note before signing. Subjective Subjective The patient was seen and examined at the bedside this morning. Events from the last 24 hours have been reviewed. The patient is currently afebrile, hemodynamically stable and maintaining appropriate oxygen saturations on 4 L/min via nasal cannula. The patient was weaned off of Levophed at approximately 0400 hrs. this morning. Creatinine is up a bit this morning to 1.39. The patient overall feels better from a respiratory perspective than yesterday. Objective Data Objective Data The patient's most recent lab work, culture data and imaging studies have all been personally reviewed. Respiratory viral panel, including COVID PCR was negative. Blood and urine cultures are pending. Vital Signs: Vital Signs Temp Pulse Resp BP Pulse Ox O2 Del Method O2 Flow Rate 98.5 F 96 15 117/79 96 Nasal Cannula 4 04/03/24 04:00 09/13/23 06:00 09/13/23 06:00 09/13/23 06:00 09/13/23 06:00 09/13/23 06:00 09/13/23 06:00 FiO2 30 09/13/23 04:00 Oxygen Flow Rate (L/min) 4 Oxygen Delivery Method Nasal Cannula Weight: 158 lb 1.143 oz Body Mass Index (BMI) 25.4 Intake & Output: Intake and Output for Last 24 Hours 09/11/23 09/12/23 09/13/23 23:59 23:59 23:59 Intake Total 639.40 / 648.80 441.80 / 441.80 Output Total 650 / 650 Balance 639.40 / 648.80 -208.20 / -208.20 Lab / Micro Data Attestation: I reviewed the patient's lab results. 09/13/23 03:00 09/13/23 03:00 Labs: Laboratory Results - last 24 hr 09/12/23 04:50: B-Natriuretic Peptide 78.6 09/12/23 06:20: Urine Color YELLOW, Urine Clarity Clear, Urine pH 7.0, Ur Specific [place] 1.005, Urine Protein 30 H, Urine Glucose (UA) Normal, Urine Ketones Negative, Urine Occult Blood 10 H, Urine Nitrite Negative, Urine Bilirubin Negative, Urine Urobilinogen Normal, Ur Leukocyte Esterase Negative, Urine RBC 0-5 SEEN, Urine WBC 0 SEEN, Ur Squamous Epith Cells 0 SEEN, Urine Bacteria 0 SEEN, Urine Mucus 0 SEEN 09/12/23 14:30: MRSA (PCR) Negative 09/12/23 16:55: APTT 156.0 H* 09/13/23 03:00: WBC 10.4, RBC 5.98, Hgb 11.6 L, Hct 36.1 L, MCV 60.4 L, MCH 19.4 L, MCHC 32.1, RDW Std Deviation 33.9 L, RDW Coeff of Crissy 18.1 H, Plt Count 172, MPV 10.0, APTT 123.3 H*, Sodium 135 L, Potassium 4.3, Chloride 99, Carbon Dioxide 30.0, Anion Gap 6, BUN 33 H, Creatinine 1.39 H, Estim Creat Clear Calc 37.61, Est GFR (MDRD) Af Amer 63, Est GFR (MDRD) Non-Af 52 L, BUN/Creatinine Ratio 23.7 H, Glucose 239 H, Calcium 8.7 Micro: Microbiology 09/12/23 11:43 Mucosa - Nasopharyngeal Coronavirus COVID-19 PCR - Final 09/12/23 11:43 Mucosa - Nasopharyngeal Respiratory Panel (PCR) - Final ABG Data ABG results: ABG 09/12/23 12:28 Specimen Type ART Sample Site R Radial pH 7.50 H Bicarbonate Actual 28.6 H Total CO2 30 Base Excess 5 H O2 Saturation 97 O2 % 40.0 ABG pCO2 37.1 ABG pO2 82 Boyd Test Positive Respiration Rate 14 O2 Delivery Device BiPAP Vent Mode Not entered POC PEEP 10 Radiography Diagnostic Testing: Radiology Impression Chest X-Ray 09/12/23 19:00 IMPRESSION: undefined Rhythm Strip Rhythm Strip: A-fib Rate: 130 Ectopy: None Physical Exam Const alert, oriented x3 and no apparent distress Constitutional Narrative: C General Appearance: cooperative HEENT normocephalic and head/scalp atraumatic Eyes PERRL, EOMs intact bilaterally and conjunctivae normal Neck supple General: trachea midline Resp normal respiratory effort Effort and Inspection: tachypneic Auscultation: rales Cardio S1 normal heart sound and S2 normal heart sound Rate: tachycardic GI normal to inspection, nondistended, normoactive bowel sounds Extremity no clubbing, cyanosis or edema Skin no rashes or lesions noted Neuro CN's II-XII intact bilaterally, moves all extremities and no focal motor deficits Psych cooperative and affect normal Charges/Coding Visit Charges Inpatient E&M: 63307 Subs Hosp L3
[2023-09-13] MEDS: Ipratropium/Albuterol Sulfate 3 ML AMPUL.NEB INHALATION ×4 (07:08→19:13)
--- NOTE | 2023-09-13 08:32 | PN.CARD_ITS ---
Subjective Subjective Patient is awake and alert today sitting up at 45 degrees in the bed. He is on 4 L nasal cannula with O2 sat of 93% blood pressure is running in the 115?140 systolic heart rate in the 80 to 110 bpm range telemetry shows atrial fibrillation. The patient says he remembers my face but he does not remember talking to me he was very hypoxic when I saw him yesterday. In his home environment the patient is on Eliquis metoprolol and losartan from a cardiovascular standpoint. Objective Data Vital Signs: Vital Signs Temp Pulse Resp BP Pulse Ox O2 Del Method O2 Flow Rate 97.8 F 103 H 28 H 114/85 H 93 Nasal Cannula 4 09/13/23 08:00 09/13/23 08:00 09/13/23 08:00 09/13/23 08:00 09/13/23 08:00 09/13/23 08:00 09/13/23 08:00 FiO2 30 09/13/23 04:00 Oxygen Flow Rate (L/min) 4 Oxygen Delivery Method Nasal Cannula Weight: 158 lb 1.143 oz Body Mass Index (BMI) 25.4 Intake & Output: Intake and Output for Last 24 Hours 09/11/23 09/12/23 09/13/23 23:59 23:59 23:59 Intake Total 639.40 / 648.80 441.80 / 441.80 Output Total 650 / 650 Balance 639.40 / 648.80 -208.20 / -208.20 Lab / Micro Data 09/13/23 03:00 09/13/23 03:00 Labs: Laboratory Results - last 24 hr 09/12/23 04:50: B-Natriuretic Peptide 78.6 09/12/23 14:30: MRSA (PCR) Negative 09/12/23 16:55: APTT 156.0 H* 09/13/23 03:00: WBC 10.4, RBC 5.98, Hgb 11.6 L, Hct 36.1 L, MCV 60.4 L, MCH 19.4 L, MCHC 32.1, RDW Std Deviation 33.9 L, RDW Coeff of Crissy 18.1 H, Plt Count 172, MPV 10.0, APTT 123.3 H*, Sodium 135 L, Potassium 4.3, Chloride 99, Carbon Dioxide 30.0, Anion Gap 6, BUN 33 H, Creatinine 1.39 H, Estim Creat Clear Calc 37.61, Est GFR (MDRD) Af Amer 63, Est GFR (MDRD) Non-Af 52 L, BUN/Creatinine Ratio 23.7 H, Glucose 239 H, Calcium 8.7 Micro: Microbiology 09/12/23 11:43 Mucosa - Nasopharyngeal Coronavirus COVID-19 PCR - Final 09/12/23 11:43 Mucosa - Nasopharyngeal Respiratory Panel (PCR) - Final ABG Data ABG results: ABG 09/12/23 12:28 Specimen Type ART Sample Site R Radial pH 7.50 H Bicarbonate Actual 28.6 H Total CO2 30 Base Excess 5 H O2 Saturation 97 O2 % 40.0 ABG pCO2 37.1 ABG pO2 82 Boyd Test Positive Respiration Rate 14 O2 Delivery Device BiPAP Vent Mode Not entered POC PEEP 10 Rhythm Strip Rhythm Strip: A-fib Rate: 104 Ectopy: None Cardiology Labs/Tests 09/12/23 04:50: B-Natriuretic Peptide 78.6 09/12/23 12:28: pH 7.50 H, Bicarbonate Actual 28.6 H, Base Excess 5 H, O2 Saturation 97, ABG pCO2 37.1, ABG pO2 82, Boyd Test Positive 09/12/23 16:55: APTT 156.0 H* 09/13/23 03:00: WBC 10.4, RBC 5.98, Hgb 11.6 L, Hct 36.1 L, MCV 60.4 L, MCH 19.4 L, MCHC 32.1, Plt Count 172, MPV 10.0, APTT 123.3 H*, Sodium 135 L, Potassium 4.3, Chloride 99, Carbon Dioxide 30.0, Anion Gap 6, BUN 33 H, Creatinine 1.39 H, Est GFR (MDRD) Af Amer 63, Est GFR (MDRD) Non-Af 52 L, BUN/Creatinine Ratio 23.7 H, Glucose 239 H, Calcium 8.7 Rhythm: EKG: ECHO: Stress Test: Cardiac Cath: PCI: CT Surgery: Holter monitor: EPS: PPM: CXR: Chest CT Scan: Radiography Diagnostic Testing: Radiology Impression Chest X-Ray 09/12/23 19:00 IMPRESSION: undefined Physical Exam Const oriented x3 Orientation / Consciousness: awake HEENT normocephalic Eyes EOMs intact bilaterally Neck no JVD Chest inspection of chest normal Resp Auscultation: rales bilateral upper Cardio Rate: tachycardic Rhythm: abnormal rhythm irregularly irregular Heart Sounds: S1 normal and S2 normal; Negative for click, gallop, murmur or rub GI soft to palpation Extremity no pedal edema Skin General Skin Exam: ecchymosis Wound Narrative: on his hands Neuro Neuro Narrative: alert and oriented X3 Psych mental status grossly normal Assessment & Plan Assessment/Plan (1) Acute hypoxemic respiratory failure: PLAN: The patient's respiratory status is markedly improved over the last 24 hours. He is on 4 L nasal cannula saturating at 93% his blood pressures much improved. His heart rate has slowed down in the average of 100 bpm he remains in atrial fibrillation. Further treatment of his respiratory status will be at the discretion of the primary service. (2) Paroxysmal atrial fibrillation with RVR: PLAN: Patient's heart rate and has been running from the 80 to 115 bpm range. Currently telemetry shows him to be at 104 bpm and remains in atrial fibrillation. He had been on Eliquis in his home environment I recommend this be reinstituted at the primary service's discretion. Given his 83 years of age and his creatinine now at 1.39 I would still recommend that we start him at 5 mg twice daily we need to monitor his renal insufficiency. If his creatinine gets above 1.5 the dose of Eliquis should be decreased to 2.5 mg twice daily. We will reinstitute his metoprolol but in a divided dose of 25 mg every 6 hours to minimize its impact on the blood pressure. Will DC the IV amiodarone once this bag is infused which should be around 1400 hrs. His home dose of metoprolol is 50 mg once in the morning in combination with losartan 50 mg in the evening for his hypertensive treatment. The patient had an echocardiogram August 13, [address] [facility] in [place]. That showed a normal ejection fraction of 60 to 65% with grade 1 diastolic dysfunction and no significant valvular heart disease. He did have atrial enlargement. PLAN: Plan 1. Transition the patient from IV amiodarone to p.o. metoprolol 25 mg every 6 to then be titrated to his home dose of 50 mg metoprolol succinate every morning. 2. Would reinstitute Eliquis at 5 mg twice daily today and discontinue the heparin if this is felt to be appropriate from the primary service standpoint. 3. The patient should follow-up with Dr. Kim in the [facility] office following discharge. We will sign off at this time if further assistance is needed please recall the [facility]
[2023-09-13] MEDS: Pantoprazole Sodium 40 MG Tablet PO (08:43)
[2023-09-13] MEDS: Ezetimibe 10 MG Tablet PO (08:43)
[2023-09-13] MEDS: Ferrous Sulfate 325 MG Tablet PO (08:43)
[2023-09-13] MEDS: Metoprolol Tartrate 25 MG Tablet PO ×3 (08:43→23:00)
[2023-09-13] MEDS: MethylPREDNISolone 1,000 MG in 0.9% Normal Saline (100mL Bag) 100 ML 100 MG IV (10:01)
--- NOTE | 2023-09-13 12:08 | CASEMGMT ---
DESIREE THAO Readmission Note Previous Admission: 08/20/23-08/23/23 Diagnosis: SOB DC Disposition: Home with [facility] Current Admission: Admitted 09/12/23 Current Diagnosis: acute on chronic resp failure, afib with RVR Pt dc'd on index admission to hospital follow up appt with Dr. Kelly. Pt was set up with [employer] for oxygen at 3L at rest and 7 with exertion. 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 Pt returned to [facility] ER with increasing sob. DESIREE THAO into pt room, pt sitting up in bed with oxygen on and at bedside. Pt reports she cannot understand why pt goes home and has to come back so quickly. She states pt is weak d/t low oxygen levels. She states that pt is taking meds as ordered. Pt received new inogen replacement but it only goes up to 6L. Pt had been requiring increased in oxygen at home. Discussed palliative care, currently and pt are not interested. Pt also had been to ER on 09/10/23 and was cardioverted and dc'd home. DESIREE THAO to follow for resumption of HHC, increased oxygen needs. DC Plan: TBD pending course of hospitalization
--- NOTE | 2023-09-13 12:20 | PN.HOSP_ITS ---
Reason for Visit Reason for Visit: Diagnoses Paroxysmal atrial fibrillation (09/12/23) Pulmonary fibrosis, unspecified (09/12/23) Acute respiratory failure with hypoxia (09/12/23) snf (current) use of anticoagulants (09/12/23) Subjective Subjective Patient had significant improvement in his oxygen saturations overnight, was transitioned off of BiPAP to nasal cannula. Saw patient at the bedside this morning, multiple family members present. Patient was breathing comfortably on 4 L nasal cannula with oxygen saturations around 90%. He appeared much improved compared yesterday. He was conversing normally with me. Denied any acute pain or discomfort this morning. He does feel weaker than his baseline, has not gotten out of bed yet. Otherwise denies any acute concerns. Had extensive conversations with family at the bedside both this morning and this afternoon. Also discussed patient's case over the phone with Dr. Brennan and with Dr. Webb. Notably, Dr. Webb will be coming in to see the patient later this afternoon. Noted to family that we will plan to keep patient on high-dose steroids for 3 days followed by continued IV steroids after that. If patient continues to improve, will have PT and OT work with him tomorrow. Family notes that patient is weaker than his baseline and they have concerns that they could take care of him at home, and they would be more comfortable with him going to a SNF on discharge if he qualifies. If he does qualify for SNF, this will likely keep the patient in the hospital over the weekend and family was fine with this plan. Will defer to Dr. Webb on any further medication trials for his ILD while hospitalized. Objective Data Objective Data Vital Signs: Vital Signs Temp Pulse Resp BP Pulse Ox O2 Del Method O2 Flow Rate 97.2 F L 90 22 H 110/76 95 Nasal Cannula 4 09/13/23 10:00 09/13/23 11:13 09/13/23 11:13 09/13/23 11:00 09/13/23 11:00 09/13/23 11:00 09/13/23 11:39 FiO2 30 09/13/23 04:00 Oxygen Flow Rate (L/min) 4 Oxygen Delivery Method Nasal Cannula Weight: 71.7 kg Body Mass Index (BMI) 25.4 Intake & Output: Intake and Output for Last 24 Hours 09/11/23 09/12/23 09/13/23 23:59 23:59 23:59 Intake Total 639.40 / 648.80 787.80 / 787.80 Output Total 950 / 950 Balance 639.40 / 648.80 -162.20 / -162.20 Lab / Micro Data 09/13/23 03:00 09/13/23 03:00 Labs: Laboratory Results - last 24 hr 09/12/23 14:30: MRSA (PCR) Negative 09/12/23 16:55: APTT 156.0 H* 09/13/23 03:00: WBC 10.4, RBC 5.98, Hgb 11.6 L, Hct 36.1 L, MCV 60.4 L, MCH 19.4 L, MCHC 32.1, RDW Std Deviation 33.9 L, RDW Coeff of Crissy 18.1 H, Plt Count 172, MPV 10.0, APTT 123.3 H*, Sodium 135 L, Potassium 4.3, Chloride 99, Carbon Dioxide 30.0, Anion Gap 6, BUN 33 H, Creatinine 1.39 H, Estim Creat Clear Calc 37.61, Est GFR (MDRD) Af Amer 63, Est GFR (MDRD) Non-Af 52 L, BUN/Creatinine Ratio 23.7 H, Glucose 239 H, Calcium 8.7 Micro: Microbiology 09/12/23 06:20 Urine, Random Urine Culture - Final Mixed Gram Pos & Gram Neg Org 09/12/23 11:43 Mucosa - Nasopharyngeal Coronavirus COVID-19 PCR - Final 09/12/23 11:43 Mucosa - Nasopharyngeal Respiratory Panel (PCR) - Final ABG Data ABG results: ABG 09/12/23 12:28 Specimen Type ART Sample Site R Radial pH 7.50 H Bicarbonate Actual 28.6 H Total CO2 30 Base Excess 5 H O2 Saturation 97 O2 % 40.0 ABG pCO2 37.1 ABG pO2 82 Boyd Test Positive Respiration Rate 14 O2 Delivery Device BiPAP Vent Mode Not entered POC PEEP 10 Radiography Diagnostic Testing: Radiology Impression Chest X-Ray 09/12/23 19:00 IMPRESSION: undefined Rhythm Strip Rhythm Strip: A-fib Rate: 104 Ectopy: None Physical Exam Const alert Constitutional Narrative: Elderly male, appears much improved from on admission, breathing comfortably on 4 L nasal cannula, sitting up in bed, conversing normally, appears mild to moderately fatigued but otherwise in no acute distress. General Appearance: cooperative and comfortable HEENT normocephalic, head/scalp atraumatic, hearing grossly normal bilaterally and nasal mucous membranes and turbinates normal Eyes PERRL, EOMs intact bilaterally and conjunctivae normal Neck full ROM Chest inspection of chest normal Resp Resp Narrative: Breathing comfortably on 4 L nasal cannula at rest. Moderately decreased breath sounds bilaterally throughout, improved from admission. No wheezing or crackles noted. Cardio no murmurs and peripheral pulses 2+ throughout Cardio Narrative: A-fib, rate controlled. GI normal to inspection, nondistended, normoactive bowel sounds, soft to palpation, non-tender and non-distended Back/Spine normal ROM Extremity normal to inspection, full ROM and no pedal edema Skin no rashes or lesions noted Neuro moves all extremities and no focal motor deficits Speech: speech normal Psych mental status grossly normal Assessment & Plan Assessment/Plan (1) Acute hypoxemic respiratory failure: (2) Pulmonary fibrosis: (3) Paroxysmal atrial fibrillation with RVR: PLAN: Plan Patient is an 83-year-old male who presented to [facility] ED on 09/12/2023 with worsening shortness of breath and hypoxia. 1. Acute on chronic hypoxic respiratory failure presumed secondary to ILD vs IPF exacerbation See HPI for further history. Was on 2 to 3 L nasal cannula at rest at home recently. Severely hypoxic in the ED requiring BiPAP for appropriate oxygen saturations. Chest x-ray showed chronic interstitial fibrotic changes with developing airspace disease in the upper lobes right greater than left concer lester for bilateral pneumonia versus developing pulmonary edema. This chest x- ray notably was similar to chest x-ray on 09/09. High-resolution CT chest from 08/13 in [place] was noted to show moderate to marked basilar predominant interstitial lung disease in a probable UIP pattern. COVID negative, respiratory PCR panel negative. ? Computer Aided Design Technician following. Patient started on IV Solu-Medrol 1 g x 3 days on 09/11 and had very significant improvement with this. Satting around 90% on 4 L nasal cannula at rest on 09/12 with no increased work of breathing noted. Dr. Webb (patient's OP tooth cutter contact wheel) to see the patient on 09/12, appreciate further recs. Continue IV Zosyn. Follow-up blood cultures. 2. Paroxysmal A-fib with RVR Known history, follows with Dr. Kim in the office, last visit on 09/07. Noted to be in normal sinus rhythm during that visit. Was continued on Eliquis and Toprol. Noted to be in significant A-fib with RVR on admit with heart rate in the 130s to 140s. Given one-time dose of IV digoxin in the ED given borderline blood pressures, had minimal effect. ? Cardiology following. Patient started on amiodarone drip on 09/11 and had great improvement in heart rate. Has now remained in rate controlled A-fib with good blood pressures since then. Per cardiology, transitioned from IV amiodarone to p.o. metoprolol 25 mg every 6 hours on 09/12, with plan to titrate to home metoprolol succinate 50 mg every morning in next few days. Heparin drip discontinued and Eliquis restarted on 09/12 as patient now okay for p.o. intake. Continue cardiac monitoring. 3. Hypotension, improved ? Suspect secondary to A-fib with RVR and possibly hypovolemia given recent poor p.o. intake. Labs on admit appeared hemoconcentrated. However, held on any IV fluids given acute respiratory failure on admit. Patient had significant improvement by hospital day 2 as noted above, blood pressures much improved. Encouraged p.o. intake. Continue to monitor. 3. Elevated lactic acid ? Lactate 3.9 on admit. Bicarb normal, no acidosis noted on BMP or on ABG drawn in ED. Presumed secondary to acute respiratory failure with hypoxia as noted above. Continue treatment as above. 4. Leukocytosis, improved ? WBC count is 18.7 on admit. Afebrile. Suspect white count was elevated due to chronic steroids and have low concern for active infection. WBC count improved to 10.4 on hospital day 2. Okay to continue treatment with Zosyn as noted above. Monitor daily CBC. 5. Debility ? PT/OT/case management following. Chronic medical conditions: ? Hypertension: Holding home losartan. ? Hyperlipidemia: Continue home Zetia. ? Chronic iron deficiency anemia: Hemoglobin stable at baseline on admit. Continue home iron supplement. ? GERD: Continue home PPI. ? BPH with obstructive symptoms: Continue home Flomax. DVT prophylaxis: Nico CODE STATUS: Full code, verified Expected disposition: TBD Total clinical time spent by myself addressing the patient's medical issues, reviewing all the data, and collaborating with patient's care team: 50 minutes. Charges/Coding Visit Charges Inpatient E&M: 88510 Subs Hosp L3
[2023-09-13] MEDS: Heparin Injection (Vial) 5,000 UNIT/ML VIAL IV (12:48)
[2023-09-13] MEDS: BENZOCAINE/MENTHOL 1 LOZENGE 2 LOZENGE MUCOUS MEM (14:18)
--- NOTE | 2023-09-13 15:13 | CASEMGMT ---
Pt two dtrs and requested RN CM take them to view TCU. They viewed room and unit and request referral be made to the [facility] TCU unit. Pt is agreeable to this plan. Pt and family deny need for a list of other facility options. Updated SW via voicemail.
--- NOTE | 2023-09-13 16:25 | CASEMGMT ---
Social Work SW received referral that pt and family are requesting placement in the TCU. SW met with pt and family and introduced self and role of SW. SW updated pt that currently there are no rooms available in TCU. Family reports pt will be here through the weekend and inquiring if a bed will be available next week. SW will look into this and follow up with family. A list of SNF providers including quality and resource use data and consistent with the patient?s preferred geographic region, medical needs, and insurance network were provided from the [facility] Guide in the event TCU is unable to accept pt. SUJATHA Goode
[2023-09-13 19:14] LABS: Partial Thromboplast Time 62.5 Seconds (24.1-36.2)
[2023-09-13] MEDS: Acetaminophen 325 MG Tablet 650 MG PO (21:30)
[2023-09-13] MEDS: MELATONIN 3 MG TABLET PO (21:30)
[2023-09-13] MEDS: 0.9% Saline Lock 10 ML Syringe IV (21:30)
[2023-09-13] MEDS: APIXABAN 5 MG TABLET PO (21:30)
[2023-09-13] MEDS: Tamsulosin HCl 0.4 MG Capsule PO (21:30)
[2023-09-14] VITALS (37 sets, daily range): BP systolic 92–149; BP diastolic 54–95; PULSE 66–133; RESP 16–40; TEMP 36.2–36.9; O2SAT 85–97; BMI 25.5
[2023-09-14] MEDS: Metoprolol Tartrate 25 MG Tablet PO (04:19)
[2023-09-14 04:42] LABS: Hematocrit 35.4 % (40-54); Hemoglobin 11.6 g/dL (13.0-16.5); Mean Corp Hgb Conc 32.8 g/dL (32-36); Mean Corpuscular Hgb 19.6 pg (27.0-32.0); Mean Corpuscular Volume 59.8 fL (80-94); Mean Platelet Vol. 9.7 fl (6.2-12.0); Platelet Count 155 K/mm3 (150-450); RBC Distribution Width CV 18.1 % (11.6-14.6); RBC Distribution Width SD 34.3 fl (35.1-43.9); Red Blood Count 5.92 M/mm3 (4.6-6.2); White Blood Count 12.8 K/mm3 (4.4-11.0)
[2023-09-14] MEDS: Piperacil/Tazobactam 3.375 GM in 0.9% Normal Saline (50mL MB+) 50 ML IV ×3 (05:10→22:10)
[2023-09-14 05:11] LABS: Anion Gap 5 (5-15); BUN 35 mg/dL (7-18); BUN/Creat Ratio 28.2 RATIO (10-20); Calcium,Total 8.8 mg/dL (8.5-10.1); Chloride 100 mmol/L (98-107); Creatinine, Serum 1.24 mg/dL (0.70-1.30); EST Glomerular Filtration Rate 59 mL/min (>60); Est Glom Filt Rate - Afr Amer 72 mL/min (>60); Estimated Creatinine Clearance 42.16 ml/min; Glucose 172 mg/dL (74-106); Potassium 4.4 mmol/L (3.5-5.1); Sodium Level 135 mmol/L (136-145)
[2023-09-14] MEDS: Ipratropium/Albuterol Sulfate 3 ML AMPUL.NEB INHALATION ×3 (07:04→19:36)
--- NOTE | 2023-09-14 08:06 | PCM.PN.INT ---
Assessment & Plan Assessment/Plan (1) Pulmonary fibrosis: PLAN: Plan RECOMMENDATIONS: 1. Continue to wean supplemental oxygen as tolerated. 2. PAP therapy as needed. 3. Continue pulse dose steroids. 4. Empiric antimicrobials as ordered. 5. As needed bronchodilator therapy. 6. Continue heparin infusion. 7. Gentle diuresis as tolerated by hemodynamics and renal function. 8. Consider hospice care referral. IMPRESSIONS: 1. Acute on chronic hypoxemic respiratory failure The patient reportedly has a known history of progressive interstitial lung disease, with a working diagnosis of IPF. He has experienced an overall downward trajectory in his breathing quality over the last month. The patient did have transbronchial biopsies performed several years ago which did reveal evidence of organizing pneumonia. Therefore, it is certainly plausible that the patient may have baseline chronic interstitial lung disease with acute organizing pneumonia. Therefore, I agree with continuing empiric broad-spectrum antibiotics for now. In addition, pulse dose steroids will be initiated at 1 g/day for 3 days. Supplemental oxygen will be weaned as tolerated and PAP therapy continued, if needed. Recent outside echocardiogram did reveal evidence of grade 1 diastolic dysfunction. Overall, the patient's respiratory status has worsened in the last 24 hours with some progression noted on chest imaging from 2 days ago. Plan to administer low-dose diuretics today and continue to monitor the patient clinically. The patient did confirm a DNR CCA without intubation CODE STATUS. Given the end-stage nature of his disease, I do feel that it would likely be reasonable to consider hospice care evaluation. 2. History of hypertension/hyperlipidemia/BPH/paroxysmal atrial fibrillation Complicates care, management, recovery and prognosis. Continue home medications as indicated. This note was generated with [employer] dictation software. It may contain incorrect words, spelling, and punctuation that were not noted in checking the note before signing. Subjective Subjective The patient was seen and examined at the bedside this morning. Events from the last 24 hours have been reviewed. The patient is currently afebrile, hemodynamically stable and maintaining appropriate oxygen saturations on 10 L/min via nasal cannula. The patient reported that he developed some dyspnea overnight and was subsequently placed on AVAPS therapy, with improvement noted. His chest x-ray from this morning looks slightly worse than 2 days ago. I ordered for the patient to receive a one-time dose of Lasix as well. CODE STATUS was confirmed to be DNR CCA without intubation. Objective Data Objective Data The patient's most recent lab work, culture data and imaging studies have all been personally reviewed. Respiratory viral panel, including COVID PCR was negative. Blood and urine cultures are pending. Vital Signs: Vital Signs Temp Pulse Resp BP Pulse Ox O2 Del Method O2 Flow Rate 98.3 F 71 28 H 112/76 91 High Flow 12 09/14/23 04:00 09/14/23 07:05 09/14/23 07:05 09/14/23 07:00 09/14/23 07:05 09/14/23 07:05 09/14/23 07:05 FiO2 50 09/14/23 06:00 Oxygen Flow Rate (L/min) 12 Oxygen Delivery Method High Flow Weight: 158 lb 15.253 oz Body Mass Index (BMI) 25.5 Intake & Output: Intake and Output for Last 24 Hours 09/12/23 09/13/23 09/14/23 23:59 23:59 23:59 Intake Total 639.40 / 648.80 1284.10 / 1384.10 250 / 250 Output Total 1250 / 1500 650 / 650 Balance 639.40 / 648.80 34.10 / -115.90 -400 / -400 Lab / Micro Data Attestation: I reviewed the patient's lab results. 09/14/23 04:20 09/14/23 04:20 Labs: Laboratory Results - last 24 hr 09/13/23 12:00: APTT 51.0 H 09/13/23 18:55: APTT 62.5 H 09/14/23 04:20: WBC 12.8 H, RBC 5.92, Hgb 11.6 L, Hct 35.4 L, MCV 59.8 L, MCH 19.6 L, MCHC 32.8, RDW Std Deviation 34.3 L, RDW Coeff of Crissy 18.1 H, Plt Count 155, MPV 9.7, Sodium 135 L, Potassium 4.4, Chloride 100, Carbon Dioxide 30.0, Anion Gap 5, BUN 35 H, Creatinine 1.24, Estim Creat Clear Calc 42.16, Est GFR (MDRD) Af Amer 72, Est GFR (MDRD) Non-Af 59 L, BUN/Creatinine Ratio 28.2 H, Glucose 172 H, Calcium 8.8 Micro: Microbiology 09/12/23 06:20 Urine, Random Urine Culture - Final Mixed Gram Pos & Gram Neg Org 09/12/23 11:43 Mucosa - Nasopharyngeal Coronavirus COVID-19 PCR - Final 09/12/23 11:43 Mucosa - Nasopharyngeal Respiratory Panel (PCR) - Final ABG Data ABG results: ABG 09/12/23 12:28 Specimen Type ART Sample Site R Radial pH 7.50 H Bicarbonate Actual 28.6 H Total CO2 30 Base Excess 5 H O2 Saturation 97 O2 % 40.0 ABG pCO2 37.1 ABG pO2 82 Boyd Test Positive Respiration Rate 14 O2 Delivery Device BiPAP Vent Mode Not entered POC PEEP 10 Radiography Diagnostic Testing: Radiology Impression Chest X-Ray 09/12/23 19:00 IMPRESSION: undefined Rhythm Strip Rhythm Strip: A-fib Rate: 104 Ectopy: None Physical Exam Const alert and oriented x3 Constitutional Narrative: Increased work of breathing from yesterday. General Appearance: cooperative HEENT normocephalic and head/scalp atraumatic Eyes PERRL, EOMs intact bilaterally and conjunctivae normal Neck supple General: trachea midline Resp normal respiratory effort Effort and Inspection: tachypneic and labored Auscultation: rales Cardio S1 normal heart sound and S2 normal heart sound Rate: tachycardic GI normal to inspection, nondistended, normoactive bowel sounds Extremity no clubbing, cyanosis or edema Skin no rashes or lesions noted Neuro CN's II-XII intact bilaterally, moves all extremities and no focal motor deficits Psych cooperative and affect normal Charges/Coding Visit Charges Inpatient E&M: 01806 Subs Hosp L2
[2023-09-14] MEDS: Furosemide 40 MG/4 ML Vial IV (08:25)
[2023-09-14] MEDS: 0.9% Saline Lock 10 ML Syringe IV (08:25)
[2023-09-14] MEDS: Pantoprazole Sodium 40 MG Tablet PO (08:26)
[2023-09-14] MEDS: APIXABAN 5 MG TABLET PO ×2 (08:26→21:31)
[2023-09-14] MEDS: Ezetimibe 10 MG Tablet PO (08:26)
[2023-09-14] MEDS: Ferrous Sulfate 325 MG Tablet PO (08:26)
--- NOTE | 2023-09-14 09:50 | RAD_ITS ---
STUDY: X-RAY CHEST REASON FOR EXAM: Male, 83 years old. Worsening hypoxia TECHNIQUE: Single AP portable view of the chest. COMPARISON: Comparison is made with prior study dated September 12, 2023. FINDINGS: EKG electrodes are seen. There is progressive airspace disease in both lungs more prominent on the left side. There is no demonstrated pleural abnormality. Normal size heart. Normal mediastinum and ernestina. Normal visualized pulmonary arteries. There is atherosclerotic calcification of the aortic arch with tortuosity. Normal visualized thoracic spine. Normal visualized ribs, clavicles, and shoulders. There is no demonstrated abnormality of the visualized soft tissue structures of the upper abdomen. RAD/Chest 1 View (Portable) IMPRESSION: Progressive bilateral airspace disease more prominent in the left hemithorax. Electronically Signed: Heriberto Paul MD at 10:19 EDT ,
[2023-09-14] MEDS: MethylPREDNISolone 1,000 MG in 0.9% Normal Saline (100mL Bag) 100 ML 100 MG IV (09:57)
[2023-09-14 10:13] LABS: Base Excess 2 mmol/L (-2 to +2); Bicarbonate 26.7 mmol/L (22-26); Blood Gas Specimen Type ART; Mode AVAPS; O2 Delivery Device Not entered; PEEP 8; PO2 54 mmHG (75-100); RR 16; SITE L Radial; SO2 88 % (95-99); Total Carbon Dioxide 28 mmol/L; pCO2 43.1 mmHg (35-45)
[2023-09-14 10:48] LABS: Erythrocyte Sedimentation Rate 47 mm/hr (0-20)
[2023-09-14] MEDS: Vancomycin HCl 1,750 MG in 0.9% Normal Saline (500mL Bag) 500 ML 250 MG IV (11:24)
--- NOTE | 2023-09-14 11:36 | PCM.RX.CS ---
Consult Antibiotic Management Pharmacy has been consulted to manage selected antibiotic: Vancomycin Type of Intervention Type of Consult: New start Suspected Infection Suspected Infection: Pneumonia Prior Doses of Antibiotics Prior Doses of Antibiotics Received/Current Regimen: This is a new start, therefore no prior doses of Vancomycin Labs Labs: Sodium 135 mmol/L (136-145) L 09/14/23 04:20 Potassium 4.4 mmol/L (3.5-5.1) 09/14/23 04:20 Chloride 100 mmol/L (98-107) 09/14/23 04:20 Carbon Dioxide 30.0 mmol/L (21.0-32.0) 09/14/23 04:20 Anion Gap 5 (5-15) 09/14/23 04:20 BUN 35 mg/dL (7-18) H 09/14/23 04:20 Creatinine 1.24 mg/dL (0.70-1.30) 09/14/23 04:20 Est GFR (MDRD) Af Amer 72 mL/min (>60) 09/14/23 04:20 Est GFR (MDRD) Non-Af 59 mL/min (>60) L 09/14/23 04:20 BUN/Creatinine Ratio 28.2 RATIO (10-20) H 09/14/23 04:20 Glucose 172 mg/dL (74-106) H 09/14/23 04:20 Microbiology Microbiology: Microbiology 09/12/23 05:30 Blood Culture (Wb) - Anticubital Right Blood Culture - Preliminary No growth in 48 hours. 09/12/23 04:50 Blood Culture (Wb) - Anticubital Right Blood Culture - Preliminary No growth in 48 hours. 09/12/23 06:20 Urine, Random Urine Culture - Final Mixed Gram Pos & Gram Neg Org 09/12/23 11:43 Mucosa - Nasopharyngeal Coronavirus COVID-19 PCR - Final 09/12/23 11:43 Mucosa - Nasopharyngeal Respiratory Panel (PCR) - Final Dosing Weight Weight used for dosin kg Goal Trough Goal Trough: 15-20 mcg/mL Pharmacy Plan for Drug Dosing Pharmacy Plan for Drug Dosing: Loading dose of 1750mg x1 given 09/14/23/ @ 1130 Maintenance dose of 500mg every 12 hours to start 09/14/23 @ 2330 Pharmacy Service will continue to monitor and adjust dosing as required. Follow-Up Labs Follow-Up Labs: Trough: Vancomycin Date/Time Labs Ordered Labs to be done on [date and time ordered]: 09/15/23 @ 2300
--- NOTE | 2023-09-14 12:18 | PCM.PN.HOSP ---
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 Patient seen at bedside this morning, family present. Patient remained on BiPAP during our encounter with FiO2 50%. Unfortunately patient was satting in the mid 80s with good waveform on this amount of oxygen and had moderate increased work of breathing. Appears fairly similar to how he appeared on admission, which is very unfortunate considering he seemed to have good improvement initially with steroids yesterday. Did obtain chest x-ray at that time that did not show any new findings that could explain the worsening oxygenation. Discussed with family at the bedside and with Dr. Brennan after seeing the patient. Unfortunately, noted to family that we were giving high-dose steroids, giving spot diuretics as needed and getting broad-spectrum antibiotics and he is not showing signs of improvement. He is not a candidate for any other treatment options for his lung disease at this point. Patient and family were in agreement that patient would remain a DNR CCA, DO NOT INTUBATE CODE STATUS. Noted that they wanted to continue to monitor him throughout the day to see how he does. Objective Data Objective Data Vital Signs: Vital Signs Temp Pulse Resp BP Pulse Ox O2 Del Method O2 Flow Rate 98.5 F 71 35 H 135/71 H 91 Bi-pap 12 09/14/23 12:00 09/14/23 12:06 09/14/23 12:06 09/14/23 12:00 09/14/23 12:09/14/23 12:00 09/14/23 09:00 FiO2 55 09/14/23 12:06 Oxygen Flow Rate (L/min) 12 Oxygen Delivery Method Bi-pap Weight: 72.1 kg Body Mass Index (BMI) 25.5 Intake & Output: Intake and Output for Last 24 Hours 09/12/23 09/13/23 09/14/23 23:59 23:59 23:59 Intake Total 639.40 / 648.80 1284.10 / 1384.10 566 / 566 Output Total 1250 / 1500 1450 / 1450 Balance 639.40 / 648.80 34.10 / -115.90 -884 / -884 Lab / Micro Data 09/14/23 04:20 09/14/23 04:20 Labs: Laboratory Results - last 24 hr 09/13/23 12:00: APTT 51.0 H 09/13/23 18:55: APTT 62.5 H 09/14/23 04:20: WBC 12.8 H, RBC 5.92, Hgb 11.6 L, Hct 35.4 L, MCV 59.8 L, MCH 19.6 L, MCHC 32.8, RDW Std Deviation 34.3 L, RDW Coeff of Crissy 18.1 H, Plt Count 155, MPV 9.7, ESR 47 H, Sodium 135 L, Potassium 4.4, Chloride 100, Carbon Dioxide 30.0, Anion Gap 5, BUN 35 H, Creatinine 1.24, Estim Creat Clear Calc 42.16, Est GFR (MDRD) Af Amer 72, Est GFR (MDRD) Non-Af 59 L, BUN/Creatinine Ratio 28.2 H, Glucose 172 H, Calcium 8.8, C-React Prot Ext Range 142.00 H Micro: Microbiology 09/12/23 05:30 Blood Culture (Wb) - Anticubital Right Blood Culture - Preliminary No growth in 48 hours. 09/12/23 04:50 Blood Culture (Wb) - Anticubital Right Blood Culture - Preliminary No growth in 48 hours. 09/12/23 06:20 Urine, Random Urine Culture - Final Mixed Gram Pos & Gram Neg Org 09/12/23 11:43 Mucosa - Nasopharyngeal Coronavirus COVID-19 PCR - Final 09/12/23 11:43 Mucosa - Nasopharyngeal Respiratory Panel (PCR) - Final ABG Data ABG results: ABG 09/14/23 10:10 Specimen Type ART Sample Site L Radial pH 7.40 Bicarbonate Actual 26.7 H Total CO2 28 Base Excess 2 O2 Saturation 88 L O2 % 60.0 ABG pCO2 43.1 ABG pO2 54 L Respiration Rate 16 O2 Delivery Device Not entered Vent Mode AVAPS Tidal Volume 450.0 POC PEEP 8 Radiography Diagnostic Testing: Radiology Impression Chest X-Ray 09/14/23 09:50 IMPRESSION: Progressive bilateral airspace disease more prominent in the left hemithorax. Electronically Signed: Heriberto Paul MD at 10:19 EDT , Rhythm Strip Rhythm Strip: A-fib Rate: 104 Ectopy: None Physical Exam Const alert Constitutional Narrative: Elderly male, unfortunately appears similar to admission again with moderately increased work of breathing on BiPAP with oxygen saturations in the mid 80s, continues to mentate appropriately and answer questions with short responses through the BiPAP mask. General Appearance: cooperative and comfortable HEENT normocephalic, head/scalp atraumatic, hearing grossly normal bilaterally and nasal mucous membranes and turbinates normal Eyes PERRL, EOMs intact bilaterally and conjunctivae normal Neck full ROM Chest inspection of chest normal Resp Resp Narrative: Significant increased work of breathing noted on BiPAP at rest. Moderate to severely decreased breath sounds bilaterally throughout. Cardio no murmurs and peripheral pulses 2+ throughout Cardio Narrative: A-fib, rate controlled. GI normal to inspection, nondistended, normoactive bowel sounds, soft to palpation, non-tender and non-distended Back/Spine normal ROM Extremity normal to inspection, full ROM and no pedal edema Skin no rashes or lesions noted Neuro moves all extremities and no focal motor deficits Speech: speech normal Psych mental status grossly normal Assessment & Plan Assessment/Plan (1) Acute hypoxemic respiratory failure: (2) Pulmonary fibrosis: (3) Paroxysmal atrial fibrillation with RVR: PLAN: Plan Patient is an 83-year-old male who presented to [facility] ED on 09/12/2023 with worsening shortness of breath and hypoxia. 1. Acute on chronic hypoxic respiratory failure presumed secondary to ILD vs IPF exacerbation See HPI for further history. Follows with Dr. Webb in the office. Was on 2 to 3 L nasal cannula at rest at home recently. Severely hypoxic in the ED requiring BiPAP for appropriate oxygen saturations. Chest x-ray showed chronic interstitial fibrotic changes with developing airspace disease in the upper lobes right greater than left concerning for bilateral pneumonia versus developing pulmonary edema. This chest x-ray notably was similar to chest x-ray on 09/09. High-resolution CT chest from 08/13 in [place] was noted to show moderate to marked basilar predominant interstitial lung disease in a probable UIP pattern. COVID negative, respiratory PCR panel negative. ? Admissions Counselor following. Dr. Webb also evaluated on 09/12. Patient appeared improved on 09/12 but unfortunately has had significant worsening again, has been tenuous on BiPAP with high requirements on 09/13. Received dose 3 of 3 of IV solumedrol 1 g on 09/13. Given dose of IV Lasix 40 mg and broadened to vancomycin and Zosyn on 09/13. Will continue to monitor closely. 2. Paroxysmal A-fib with RVR Known history, follows with Dr. Kim in the office, last visit on 09/07. Noted to be in normal sinus rhythm during that visit. Was continued on Eliquis and Toprol. Noted to be in significant A-fib with RVR on admit with heart rate in the 130s to 140s. Given one-time dose of IV digoxin in the ED given borderline blood pressures, had minimal effect. Started on amiodarone drip on 09/11 and had great improvement in heart rate. Transitioned to p.o. metoprolol 25 mg every 6 hours on 09/12 with plan to transition back to home Toprol when able. ? Cardiology following. Patient unfortunately with significant worsening condition on 09/13 as noted above. Also had worsening of A-fib with RVR again. Started IV Lopressor 5 mg every 6 hours as patient is BiPAP dependent and cannot take p.o. Will also consider restarting heparin drip as needed. Monitor closely. 3. Hypotension, improved ? Suspect secondary to A-fib with RVR and possibly hypovolemia given recent poor p.o. intake. Labs on admit appeared hemoconcentrated. However, held on any IV fluids given acute respiratory failure on admit. Patient with improvement on hospital day 2 but unfortunately again and clinically worsened on hospital day 3. Blood pressures remain fairly stable. Continue treatment as above. 3. Elevated lactic acid ? Lactate 3.9 on admit. Bicarb normal, no acidosis noted on BMP or on ABG drawn in ED. Presumed secondary to acute respiratory failure with hypoxia as noted above. Continue treatment as above. 4. Leukocytosis, improved ? WBC count is 18.7 on admit. Afebrile. Suspect white count was elevated due to chronic steroids as well as some degree of hemoconcentration due to dehydration. Improved to 10.4 on hospital day 2, now mildly uptrending as patient is on high-dose steroids as noted above. Continue to monitor CBC daily. 5. Debility ? PT/OT/case management following. Chronic medical conditions: ? Hypertension: Holding home losartan. ? Hyperlipidemia: Continue home Zetia. ? Chronic iron deficiency anemia: Hemoglobin stable at baseline on admit. Continue home iron supplement. ? GERD: Continue home PPI. ? BPH with obstructive symptoms: Continue home Flomax. DVT prophylaxis: Eliquis CODE STATUS: DNR CCA, DNI Expected disposition: TBD Total clinical time spent by myself addressing the patient's medical issues, reviewing all the data, and collaborating with patient's care team: 35 minutes. Charges/Coding Visit Charges Inpatient E&M: 01224 Subs Hosp L2
[2023-09-14] MEDS: Metoprolol(XL)Succ 50 MG Tablet PO (12:58)
[2023-09-14] MEDS: Metoprolol Tartrate 50 MG Tablet PO (14:40)
[2023-09-14] MEDS: traZODone 50 MG Tablet PO (21:31)
[2023-09-14] MEDS: Tamsulosin HCl 0.4 MG Capsule PO (21:31)
[2023-09-14] MEDS: Vancomycin IV 500 MG/100 ML BAG 100 MG IV (23:57)
[2023-09-14] MEDS: Metoprolol Tartrate 5 MG/5 ML Vial IV (23:58)
[2023-09-15] VITALS (14 sets, daily range): BP systolic 104–165; BP diastolic 70–97; PULSE 88–136; RESP 16–43; TEMP 36.2–36.6; O2SAT 73–100; BMI 25.2
[2023-09-15] MEDS: Morphine 2 MG/ML Syringe IV ×3 (02:18→10:25)
[2023-09-15 04:34] LABS: Hematocrit 35.5 % (40-54); Hemoglobin 11.7 g/dL (13.0-16.5); Mean Corpuscular Hgb 19.6 pg (27.0-32.0); Mean Corpuscular Volume 59.6 fL (80-94); Platelet Count 141 K/mm3 (150-450); RBC Distribution Width SD 34.2 fl (35.1-43.9); Red Blood Count 5.96 M/mm3 (4.6-6.2); White Blood Count 12.8 K/mm3 (4.4-11.0)
--- NOTE | 2023-09-15 05:12 | CPS ---
Patient noted to have oxygen saturation in mid 80's consistently on 75% FIO2 on bipap (AVAPS). Increased to 100% on AVAPS to alleviate some SOB and maintain SPO2 at 90% or greater. After several minutes, patient oxygen saturations reached 91% on 100% FIO2. Nursing notified. Will continue to monitor.
[2023-09-15 05:35] LABS: Anion Gap 6 (5-15); BUN 34 mg/dL (7-18); BUN/Creat Ratio 30.4 RATIO (10-20); Calcium,Total 8.7 mg/dL (8.5-10.1); Chloride 100 mmol/L (98-107); Creatinine, Serum 1.12 mg/dL (0.70-1.30); EST Glomerular Filtration Rate 67 mL/min (>60); Est Glom Filt Rate - Afr Amer 81 mL/min (>60); Estimated Creatinine Clearance 46.68 ml/min; Glucose 167 mg/dL (74-106); Potassium 4.3 mmol/L (3.5-5.1); Sodium Level 136 mmol/L (136-145)
[2023-09-15] MEDS: Piperacil/Tazobactam 3.375 GM in 0.9% Normal Saline (50mL MB+) 50 ML IV (05:54)
[2023-09-15] MEDS: Metoprolol Tartrate 5 MG/5 ML Vial IV (05:54)
[2023-09-15] MEDS: 0.9% Saline Lock 10 ML Syringe IV ×2 (05:55→08:05)
[2023-09-15] MEDS: Ipratropium/Albuterol Sulfate 3 ML AMPUL.NEB INHALATION (07:00)
[2023-09-15] MEDS: Pantoprazole Sodium 40 MG Tablet PO (08:00)
[2023-09-15] MEDS: Ferrous Sulfate 325 MG Tablet PO (08:00)
[2023-09-15] MEDS: APIXABAN 5 MG TABLET PO (08:00)
[2023-09-15] MEDS: Ezetimibe 10 MG Tablet PO (08:00)
[2023-09-15] MEDS: MethylPREDNISolone 125 MG/2 ML Vial 80 MG IV (08:04)
--- NOTE | 2023-09-15 09:30 | CPS ---
Per family/pt, stats pt was not getting enough pressure. This RT increased settings. Pt stats the AVAPS feels better
[2023-09-15] MEDS: LORazepam 2 MG/ML Syringe 0.5 MG IV ×2 (09:47→10:25)
--- NOTE | 2023-09-15 10:15 | DCINST_ITS ---
Discharge Instructions Diet Discharge Diet: No restrictions Activity Discharge Activity: No Restrictions Weight Bearing Status: Weight bearing as tolerated Follow Up Care Test Results: Test results from this visit will be discussed in further detail at your follow- up appointment, if applicable. Discharge Plan Admission Admit Date/Time: 09/12/23 07:45 Primary Reason for Your Visit: acute on chronic respiratory failure Attending Provider: Moody Chow Primary Care Provider: Aayush Kelly Chi Consulting Providers: Raffaele Baxter; Ruddy Webb V; Mateusz Mendez; Gabi Rojas; Queta Mancia; Jerrica Egan [employer] Discharge Orders/Prescriptions Prescriptions: Continued tamsulosin 0.4 MG capsule 0.4 mg PO QHS Patient Comments: pantoprazole 40 mg tablet,delayed release (/EC) 40 mg PO DAILY Eliquis 5 mg tablet 5 mg PO BID Qty: 180 3RF Patient Comments: per pt will stop on 04/25/[address] Webb ezetimibe 10 mg tablet 10 mg PO DAILY Qty: 90 3RF Discontinued prednisone 10 mg tablet 10 mg PO DAILY ferrous sulfate 325 mg (65 mg iron) tablet 325 mg PO BID mycophenolate mofetil 500 mg tablet 500 mg PO BID losartan 50 mg tablet 50 mg PO QHS prednisone 20 mg tablet 60 mg PO DAILY 14 Days Qty: 42 0RF metoprolol succinate 50 mg tablet extended release 24 hr 50 mg PO DAILY Qty: 90 3RF Referrals / Follow Up: Aayush Kelly Chi, MD [Primary Care Provider] - Disposition Disposition (needs filled in before D/C Order can be placed): Hospice in Medical Facility
--- NOTE | 2023-09-15 10:38 | NURSING ---
Time of 1038, confirmed with this RN and hospice community liaison
--- NOTE | 2023-09-15 10:39 | PCM.HOSP.N ---
Hospitalist Note Dr. Webb was in to see patient and family this morning. Patient had significant increased work of breathing on BiPAP at highest setting. Dr. Webb discussed hospice with family and they were agreeable to changing patient to DNR CC status. CODE STATUS changed, hospice consulted and orders placed per palliative care order set.
--- NOTE | 2023-09-15 10:44 | NURSING ---
Ativan and morphine given at 0951; patient remained on bipap @ 100% until replaced with HFNC @15L at 1006. 1020 - patient was gasping, moaning, appeared in distress. Dr. Chow on the floor and was updated on patient condition. New orders received. 1025- Ativan 0.5mg and Morphine 2 mg given IV. 1034- with family at bedside, this RN was asked to remove HFNC to facilitate patient comfort.
--- NOTE | 2023-09-15 10:54 | EXP.PCM_ITS ---
Preliminary Cause of Preliminary Cause of Preliminary Cause of : Acute on chronic respiratory failure Date of Admission: 09/12/23 Date of : 09/15/23 Principle Diagnosis Problem List: Active and Suspected Problems (Updated 09/12/23 @ 07:[address] Nirav Adams MD) Pulmonary fibrosis (Acute) Acute hypoxemic respiratory failure (Acute) Paroxysmal atrial fibrillation with RVR (Acute) Chronic anticoagulation (Acute) Hospital Course Patient was an 83-year-old male who presented to [facility] ED on 09/12/2023 with worsening shortness of breath and hypoxia. Patient's medical history was notable for suspected IPF versus ILD of unclear etiology. Patient was following with Dr. Webb with Pulmonology in the office prior to admission. He notably had a recent exacerbation of IPF/ILD and had been treated with a 3-day course of IV Solu-Medrol 1 g x 3 doses followed by a steroid taper with good improvement. He was on 2 to 3 L nasal cannula at rest at home prior to this admission. See H&P for further details regarding patient's full history regarding his pulmonary disease. Patient was found to be in acute respiratory failure on admission requiring BiPAP to maintain appropriate oxygen saturations. Chest x-ray showed chronic interstitial fibrotic changes with new infiltrates bilaterally concerning for recurrent exacerbation of disease versus pneumonia versus pulmonary edema. He was admitted to the ICU for further management. [employer] followed during the admission, and Dr. Webb also saw the patient on 09/13 and 09/14. Patient was given IV Solu-Medrol 1 g x 3 doses again here, similar to previous admission. He was also started on broad-spectrum antibiot ics and given spot doses of diuretic as indicated. Patient initially showed decent improvement on IV Solu-Medrol, was weaned down to 4 to 6 L nasal cannula at rest on hospital day 2. However, on 09/13 he was noted to have severe worsening of his respiratory failure and was requiring BiPAP [id number]. Unfortunately, despite extensive medical intervention including high-dose steroids, antibiotics and diuretics, patient continued to have worsening respiratory failure. Decision was made on morning of 09/14 to transition patient to DNR CC status. Patient passed on morning of 09/14 with family at bedside. Time of 1038. Discharge diagnoses: ? Acute on chronic hypoxic respiratory failure presumed secondary to ILD vs IPF exacerbation ? Paroxysmal A-fib with RVR ? Hypertension ? Elevated lactic acid ? Leukocytosis ? Debility ? Hypertension ? Hyperlipidemia ? Chronic iron deficiency anemia ? GERD ? BPH with obstructive symptoms Total clinical time spent by myself addressing the patient's medical issues, reviewing all the data, and collaborating with patient's care team: 45 minutes. Visit Charges Inpatient E&M: 73890 Disch Hosp >30min
--- NOTE | 2023-09-15 10:59 | NURSING ---
[facility] notified at 1058 hours. [facility] stated no eye donation, but to hold the body for potential organ/tissue donation.
--- NOTE | 2023-09-15 10:59 | CASEMGMT ---
TC to [facility], spoke with Deanna, she is aware that pt passed as he was active with their services.
--- NOTE | 2023-09-15 11:00 | CASEMGMT ---
Social Work Pt has passed. Pt's family in room. SW to pt room and support provided to family. SUJATHA Goode
--- NOTE | 2023-09-15 11:33 | NURSING ---
Per discussion with [facility]. IV fluids received in the last hour of life included: 15ml NS, 1 mg of Ativan, and 4 mg of Morphine sulfate.
== END 2023-09-15 13:24 | DRG 189 ==
LOC: ED 07:08 → ICU 08:34
PROVIDERS: Internal Medicine Critical Care Medicine; Admitting Provider Hospitalist; Emergency Provider Emergency Medicine; PCP Family Medicine Geriatric Medicine; Visit Provider Hospitalist
DX: J96.21 Acute and chronic respiratory failure with hypoxia (principal); R57.1 Hypovolemic shock; J84.112 Idiopathic pulmonary fibrosis; J84.10 Pulmonary fibrosis, unspecified; I48.0 Paroxysmal atrial fibrillation; D50.9 Iron deficiency anemia, unspecified; I10 Essential (primary) hypertension; E78.5 Hyperlipidemia, unspecified; D72.829 Elevated white blood cell count, unspecified; I25.10 Atherosclerotic heart disease of native coronary artery without angina pectoris; K21.9 Gastro-esophageal reflux disease without esophagitis; R53.81 Other malaise; N40.0 Benign prostatic hyperplasia without lower urinary tract symptoms; Z86.73 Personal history of transient ischemic attack (TIA), and cerebral infarction without residual deficits; Z86.16 Personal history of COVID-19; Z79.01 Long term (current) use of anticoagulants; Z66 Do not resuscitate
CPT/HCPCS: 36569; 36600; 71045; 80048; 80053; 81001; 82803; 83605; 83735; 83880; 84484; 85025; 85027; 85610; 85652; 85730; 86140; 87040; 87086; 87088; 87633; 87635; 87641; 93005; 94002; 94003; 94640; 94762; 96374; 97162; 97166; 99283; J7030; J7040; J7050; A4216; J1940; J2919